=== PATIENT | female | born 1935 | race Caucasian/White ===

== ENCOUNTER 2020-07-16 11:29 | Emergency (ER) | payer MEDICARE, OTHER, SELFPAY ==
[2020-07-16 11:38] VITALS: BP 134/69; PULSE 80; RESP 18; TEMP 36.9; O2SAT 97; BMI 27.8
--- NOTE | 2020-07-16 12:23 | ECG_ITS ---
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 Measurements Intervals [place] Rate: 74 P: 42 [place]: 189 QRS: 2 QRSD: 72 T: 1 QT: 380 QTc: 422 Interpretive Statements SINUS RHYTHM WITH MARKED SINUS ARRHYTHMIA No previous ECG available for comparison Electronically Signed On 07-16-2020 21:14:28 [employer]OUND [employer]MENT [employer]CH[employer]IC by Charla Quinteros M.D. [id number]
[2020-07-16] MEDS: sodium chloride 0.9% 250 ML IV (13:10)
[2020-07-16] MEDS: dicyclomine 10 mg Capsule 20 MG PO (13:10)
[2020-07-16] MEDS: ondansetron 2 mg/ML SDV 2 mL 4 MG IVP (13:10)
--- NOTE | 2020-07-16 13:24 | W.ED.WEAKNES ---
HPI - Weakness General: Chief complaint: Weakness Stated complaint: N/V/D Time Seen by Provider: 07/16/20 11:33 Source: patient Mode of arrival: EMS Limitations: no limitations History of Present Illness: HPI Narrative: 84 yo female patient presents to ER with nausea weakness and diarrhea x 1 week. Pt denies any abd pain or urinary symptoms. Pt states she has felt she has been running a fever. Pt denies any chest pain or SOB. Pt states she cant really taste anything and hasnt had much of an appetite. Pt denies back pain numbness or tingling. Pt denies recent hospitalization and denies being on antibiotics recently Associated symptoms: Reports fever(s) and nausea; Denies chest pain, chills, confusion, diaphoresis, dysuria, easy bruising, headache(s), syncope or vomiting Review of Systems Const: Reports: fever(s), body aches, change in appetite and malaise; Denies: chills, change in weight, fatigue or diaphoresis Eyes: Denies: change in vision, blurry vision, blind spots, photophobia, eye discomfort, eye discharge, eye redness, floaters or seeing flashes ENMT: Denies: throat pain, uvular edema, enlarged tonsils, odynophagia, hoarseness, mouth pain, swelling of lips/tongue, oral sores, bleeding gums, dental pain, dry mouth, ear or mastoid pain, ear discharge, change in hearing, tinnitus, disequilibrium, nasal discharge, nasal congestion, post nasal drip or sinus pain Card: Denies: chest pain, palpitations, irregular heart rhythm, edema, swelling of feet/ankles, lightheadedness, syncope, pre-syncope, dyspnea on exertion, orthopnea, leg pain with exertion or acrocyanosis Resp: Denies: dyspnea, productive cough, non-productive cough, wheezing, stridor, pain on inspiration, change in phlegm color, hemoptysis or chest congestion GI: Reports: nausea and diarrhea; Denies: abdominal pain, vomiting, hematemesis, dysphagia, constipation, GI cramping, change in bowel habits or rectal pain : Denies: flank pain, difficulty voiding, dysuria, urinary frequency, urinary urgency, urinary hesitancy or hematuria Musc: Denies: neck pain, back pain, extremity pain, extremity swelling, joint pain, joint swelling, joint redness, joint warmth or deformity Skin/Breast: Denies: rash, pruritus, erythema, sores, new lesions, changes in skin color or dry skin Neuro: Denies: headache(s), numbness in extremities, weakness in extremities, sensory changes, lack of coordination, difficulty walking, frequent falls, dizziness, vertigo, confusion, behavioral changes, Slurred speech present, difficulty communicating thoughts or seizure-like activity Psych: Denies: anxiety, depression, suicidal ideation or homicidal ideation Endo: Denies: polyuria, polydipsia, tired all the time, cold intolerance, excessive sweating, flushing, hot flashes or heat intolerance Miki/Lymph: Denies: easy bruising, easy bleeding, petechiae, purpura, enlarged lymph nodes or tender lymph nodes All/Imm: Denies: urticaria, throat swelling, tongue swelling, facial swelling, acute wheezing or itchy eyes Physical Exam Const: COMMON NORMALS: no acute distress, patient oriented x3, healthy appearing, alert and well nourished GENERAL APPEARANCE: cooperative, comfortable, well kempt and well developed; not ill appearing ORIENTATION/CONSCIOUSNESS: Yes awake, Yes oriented to person, Yes oriented to place and Yes oriented to time HENMT: COMMON NORMALS: normocephalic, atraumatic, hearing grossly normal bilaterally, external ears normal, EAC's normal, TM's normal bilaterally, Normal external nose present, Normal nasal mucous membranes and turbinates present and moist oral mucous membranes HEAD & SCALP: normal to inspection, normocephalic and atraumatic FACE & SINUS: normal facial exam, sinuses nontender and face symmetric NOSE: Normal external nose present, Normal nares present, Normal nasal mucous membranes and turbinates present, No nasal discharge present and Abnormal external nose present EXTERNAL EAR: Yes external ears normal and Yes mastoids normal EXTERNAL AUDITORY CANAL: EAC's normal TYMPANIC MEMBRANE: TM's normal bilaterally MOUTH: Normal oral and palatal mucosa present, lip normal, tongue normal and Normal salivary glands and ducts present THROAT: no uvular edema Eye: COMMON NORMALS: Equal, round and reactive pupils present, EOMs intact bilaterally, conjunctivae normal, no scleral icterus and no papilledema GENERAL EYE: appearance normal, both eyes and all related structures EYELID: eyelids normal CONJUNCTIVA: Yes conjunctivae normal SCLERA: sclerae normal CORNEA: Yes corneas normal PUPIL: Yes Equal, round and reactive pupils present DIRECT OPHTHALMOSCOPY: Yes no papilledema Neck/C-Spine: COMMON NORMALS: full ROM, no lymphadenopathy, supple, no meningeal signs, no JVD and Thyroid normal GENERAL: Yes normal visual inspection and Yes trachea midline THYROID: Thyroid normal CERVICAL SPINE: Yes cervical ROM normal Lymph: LYMPHATIC: no lymphadenopathy noted and no lymphedema noted Chest: COMMONS NORMALS: normal inspection of the chest and normal palpation of entire chest wall Resp: COMMON NORMALS: normal respiratory effort, No retractions, No use of accessory muscles and clear to auscultation bilaterally EFFORT & INSPECTION: Yes able to speak in complete sentences and Yes symmetric chest movement AUSCULTATION: clear to auscultation bilaterally Cardio: COMMON NORMALS: no JVD, regular rate and regular rhythm RATE: regular rate RHYTHM: regular rhythm GI: COMMON NORMALS: Normal to inspection, nondistended, normoactive bowel sounds present, Soft to palpation, non-tender, No hepatosplenomegaly present, no masses and no bruits INSPECTION: Yes normal to inspection AUSCULTATION: Yes normoactive bowel sounds PALPATION: Yes Soft to palpation and Yes No hepatosplenomegaly present PERCUSSION: normal to percussion RECTAL EXAM: deferred : COMMON NORMALS: Yes no CVA tenderness, Yes normal external appearance, Yes normal appearance of the vagina, Yes normal appearance of the cervix, Yes normal bimanual exam, Yes No adnexal tenderness and Yes no masses BLADDER/KIDNEY EXAM: Yes no CVA tenderness BIMANUAL EXAM - VAGINA & UTERUS: Yes normal bimanual exam Back/Pelvis: COMMON NORMALS: no CVA tenderness, thoracic and lumbar spine normal to inspection, no thoracic nor lumbar tenderness, thoraco-lumbar ROM normal and straight leg raise negative bilaterally THORACIC SPINE/UPPER BACK: Yes normal to inspection LUMBAR SPINE/LOWER BACK: Yes normal to inspection Extremity: COMMON NORMALS: normal to inspection, full ROM and capillary refill normal GENERAL: Yes normal exam except as noted Neuro: COMMON NORMALS: patient oriented x3, CN's II-XII intact bilaterally, moves all extremities, no focal motor deficits, no sensory deficits noted, deep tendon reflexes 2+ bilaterally and gait normal SENSORIUM/ORIENTATION: Yes alert, Yes oriented to person, Yes oriented to place and Yes oriented to time MENINGEAL SIGNS: Yes no meningeal signs CRANIAL NERVES: Yes CN normal except as noted SPEECH: speech normal GAIT: Yes Normal gait present SENSORY EXAM: Yes extremities MOTOR EXAM: 5/5 motor strength present throughout Psych: COMMON NORMALS: mental status grossly normal, Normal thought process present, cooperative, normal affect, speech normal, activity/motor behavior normal, denies hallucinations, denies homicidal ideation and denies suicidal ideation APPEARANCE: Yes grossly normal and Yes well kempt ATTITUDE: Yes calm ACTIVITY/MOTOR BEHAVIOR: Yes appropriate eye contact SPEECH: Yes normal speech THOUGHT PROCESS: Normal thought process present THOUGHT CONTENT: Yes Normal thought content present ATTENTION/CONCENTRATION: Yes attention grossly intact MEMORY/COGNITION: Yes memory grossly intact INSIGHT: Good insight present (Psych) JUDGEMENT: Good judgement present (Psych) Skin: COMMON NORMALS: no rashes or lesions noted, no wounds, turgor normal, no jaundice, no petechiae and no mottling GENERAL SKIN EXAM: no rashes or lesions noted and turgor normal Course Vital Signs: Vital signs: Vital Signs Temperature 98.5 F 07/16/20 11:38 Pulse Rate 80 07/16/20 11:38 Respiratory Rate 18 07/16/20 11:38 Blood Pressure 134/69 07/16/20 11:38 Pulse Oximetry 97 07/16/20 11:38 MDM - Weakness MDM Narrative: Medical decision making narrative: Pt is well appearing on toxic and in no acute distress. Pt labs do not reveal any concerning findings. Pt has not had any episodes of nausea or diarrhea while here in the er. Pt ws given 250 ml of NS. Pt did have positive Covid test/ Pt has no SOB pt has no respiratory complaints pt has no evidence of hypoxia. At this point I will plan on discharging patient and have her push fluids. I discussed with patient she needs to quarantine and health dept will contact her. I discussed return precautions as well home care with patient. Lab Data: Labs: Lab Results 07/16/20 07/16/20 07/16/20 Range/Units 13:30 13:30 14:46 WBC 4.2 (4.0-10.0) 10^3/ uL RBC 3.43 L (4.1-5.3) 10^6/u L Hgb 11.0 L (11.5-15.3) g/dL Hct 35.7 L (37.0-47.0) % MCV 104.1 H (81-99) fL MCH 32.1 (28.0-34.0) pg MCHC 30.8 (30.0-36.0) g/dL RDW 13.8 (12.1-15.1) % Plt Count 125 L (130-400) 10^3/c mm MPV 10.8 H (7.4-10.4) fL Neut % (Auto) 59.0 % Lymph % (Auto) 31.1 % [place] % (Auto) 8.9 % Eos % (Auto) 0.0 % Baso % (Auto) 0.5 % Neut # (Auto) 2.47 (1.8-7.7) 10^3/u L Lymph # (Auto) 1.3 (0.8-4.8) 10^3/u L [place] # (Auto) 0.4 (0.2-0.9) 10^3/u L Eos # (Auto) 0.0 (0.0-0.8) 10^3/u L Baso # (Auto) 0.0 (0.0-0.1) 10^3/u L Nucleated RBC % (a uto) 0 % Nucleated RBCs # 0.0 /100WBC Sodium 144 (136-145) mmol/L Potassium 4.3 (3.5-5.1) mmol/L Chloride 107 (98-107) mmol/L Carbon Dioxide 27 (22-29) mmol/L Anion Gap 14.3 (5-19) BUN 15 (8-23) mg/dL Creatinine 0.7 (0.5-0.9) mg/dL GFR Calculation Not Reportable Glucose 101 (65-115) mg/dL Calcium 9.0 (8.5-10.5) mg/dL Total Bilirubin 0.2 (0.15-1.2) mg/dL AST 26 (0-32) U/L ALT 18 (0-33) U/L Alkaline Phosphata se 59 (35-105) IU/L Albumin 4.1 (3.5-5.2) g/dL Globulin 2.2 (1.3-4.6) g/dL SARS-CoV-2 Ag (Rap id) Positive H (Negative) Discharge Plan Discharge Patient Disposition: Home Clinical Impression: COVID-19 virus infection Condition: Stable Prescriptions: No Action calcium 600 mg Capsule 600 mg PO DAILY RF: 0 metoprolol succinate 50 mg tablet extended release 24 hr 50 mg PO DAILY RF: 0 sertraline 100 mg tablet 100 mg PO DAILY RF: 0 Vitamin B-12 1,000 mcg Tablet 1,000 mcg PO DAILY RF: 0 hydrocodone-acetaminophen 10-325 mg tablet 0.5 - 1 tab PO Q4H PRN (Reason: Pain) RF: 0 aspirin 81 mg Tablet 162 mg PO BEDTIME RF: 0 rosuvastatin 20 mg tablet 20 mg PO DAILY RF: 0 PreserVision AREDS-2 1 tab PO DAILY RF: 0 Discharge Orders: Discharge Order (Routine); Ordered 07/16/20 Ordered By: Brittni Gray Referrals: Phillip Olvera, [Primary Care Provider] - Discharge Diet: Advance as tolerated Discharge Activity: Increase activity as tolerated Activity Restrictions/Additional Instructions: Please return to ER with any worsening of symptoms Please push plenty of fluids Please qurantine The Health Department will contact you with further instructions Coding Level of Care Code ED Director Digital Communications for Nii Fwd Exam Comprehensive
[2020-07-16 14:20] LABS: Basophils % 0.5 %; Hematocrit 35.7 % (37.0-47.0); Lymphocytes # 1.3 10^3/uL (0.8-4.8); Lymphocytes % 31.1 %; Mean Corpuscular HGB Conc 30.8 g/dL (30.0-36.0); Mean Corpuscular Hemoglobin 32.1 pg (28.0-34.0); Mean Corpuscular Volume 104.1 fL (81-99); Mean Platelet Volume 10.8 fL (7.4-10.4); Monocytes # 0.4 10^3/uL (0.2-0.9); Monocytes % 8.9 %; Neutrophils # 2.47 10^3/uL (1.8-7.7); Nucleated Red Blood Cells % 0 %; Platelet Count 125 10^3/cmm (130-400); Red Blood Count 3.43 10^6/uL (4.1-5.3); Red Cell Distribution Width 13.8 % (12.1-15.1); White Blood Count 4.2 10^3/uL (4.0-10.0)
[2020-07-16 14:46] LABS: Alanine Aminotransferase 18 U/L (0-33); Albumin Level 4.1 g/dL (3.5-5.2); Alkaline Phosphatase 59 IU/L (35-105); Anion Gap 14.3 (5-19); Aspartate Amino Transferase 26 U/L (0-32); Blood Urea Nitrogen 15 mg/dL (8-23); Carbon Dioxide 27 mmol/L (22-29); Chloride 107 mmol/L (98-107); Creatinine Clr Calc Pharmacy 65.0923; Globulin 2.2 g/dL (1.3-4.6); Glucose 101 mg/dL (65-115); Osmolality Calculated 299 mOsm/kg (285-295); Potassium 4.3 mmol/L (3.5-5.1); Sodium 144 mmol/L (136-145); Total Bilirubin 0.2 mg/dL (0.15-1.2); Total Protein 6.3 g/dL (6.6-8.7)
[2020-07-16 14:47] LABS: SARS Covid-2 Antigen Positive (Negative)
[2020-07-16 14:52] LABS: Troponin T (5th) Once 15 ng/L (0-10)
[2020-07-16 16:04] VITALS: BP 158/95; PULSE 71; RESP 20; O2SAT 94
== END 2020-07-16 16:00 | disposition home or self-care (01) ==
PROVIDERS: Emergency Provider Registered Nurse; PCP Family Medicine
DX: U07.1 COVID-19 (principal); Z79.82 Long term (current) use of aspirin; R19.7 Diarrhea, unspecified
CPT/HCPCS: 12345; 80053; 84484; 85025; 87426; 87493; 87506; 93005; 96361; 96374; 96375; 99282; 99283; J2405; J7050

== ENCOUNTER 2020-09-26 09:47 | Outpatient (CLI) | payer MEDICARE, OTHER, SELFPAY ==
--- NOTE | 2020-09-26 10:06 | XR_ITS ---
WS: [id number] Exam: XR chest 2V* [id number] Date/Time of Exam: 09/26/2020 10:06 AM Reason For Exam: COVID-19 INFECTION/DYSPNEA Comparison 01/09/2018. The lungs are clear and fully expanded. Signs of left-sided thoracotomy and partial left pneumonectom y. Heart size is normal. The mediastinum is not widened. Reed rods are noted in the visualized upper lumbar spine and thoracic spine. No sign of hardware failure or malposition. 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 Several mild thoracic compression deformities noted with exaggerated kyphosis. XR/XR chest 2V* [id number] IMPRESSION: 1. No acute cardiopulmonary finding. 2. Additional stable appearing chronic findings in the chest as noted above.
== END 2020-09-26 09:48 | disposition home or self-care (01) ==
PROVIDERS: PCP Family Medicine; Visit Provider Family Medicine
DX: U07.1 COVID-19 (principal); R06.00 Dyspnea, unspecified
CPT/HCPCS: 71046

== ENCOUNTER 2021-01-18 13:10 | Outpatient (CLI) | payer MEDICARE, OTHER, SELFPAY ==
--- NOTE | 2021-01-18 13:27 | XR_ITS ---
WS: [id number] Left foot, 3 views, 01/18/2021 Clinical Data: FOOT PAIN, LEFT Comparison: Left foot, 02/12/2006. Findings: No fractures or dislocations are seen. No bone destruction or erosion is noted. There is an orthopedi c pin fusing the left second PIP joint of the foot.There is a plantar spur and an Achilles spur. Diff use demineralization of the bones of the foot is noted. XR/XR foot LT min 3V* [id number] Impression: 1. Negative for fracture or dislocation. 2. Fusion of the left second PIP joint of the foot.
== END 2021-01-18 13:11 | disposition home or self-care (01) ==
PROVIDERS: PCP Family Medicine; Visit Provider Nurse Practitioner Family
DX: M79.672 Pain in left foot (principal)
CPT/HCPCS: 73630

== ENCOUNTER 2021-04-05 08:50 | Emergency (ER) | payer MEDICARE, OTHER, SELFPAY ==
[2021-04-05 09:00] VITALS: BP 197/98; PULSE 69; RESP 15; TEMP 36.9; O2SAT 98; BMI 24.4
--- NOTE | 2021-04-05 09:07 | XRR_ITS ---
PROCEDURE INFORMATION: Exam: XR Left Scapula Exam date and time: 04/05/2021 9:07 AM Age: 85 years old Clinical indication: Pain and injury or trauma; Fall; Blunt trauma (contusions or hematomas); Shoulder; Left; Injury date: 04/04/21; Additional info: Pain after fall TECHNIQUE: Imaging protocol: XR Left scapula, complete. COMPARISON: CR XR chest 2V* [id number] 09/26/2020 10:27 AM FINDINGS: Bones/joints: Osteopenia. Acute fractures of the left 3rd, 4th, 5th, and 6th ribs. No acute bony injury or malalignment in the visualized left scapula. Degenerative change. Incompletely visualized surgical hardware in the thoracic spine. Pleural space: Left pleural effusions/thickening. Soft tissues: No radiopaque foreign body. XR/[place] [id number] IMPRESSION: 1. Acute fractures of the left 3rd, 4th, 5th, and 6th ribs. 2. Additional findings as described above.
--- NOTE | 2021-04-05 09:07 | ECG_ITS ---
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 Measurements Intervals [place] Rate: 73 P: 69 [place]: 178 QRS: 10 QRSD: 77 T: 14 QT: 390 QTc: 433 Interpretive Statements SINUS RHYTHM WITH MARKED SINUS ARRHYTHMIA Compared to ECG 07/16/2020 13:21:01 No significant changes Electronically Signed On 04-06-2021 16:43:21 CDT by Rylie Lacy M.D. [id number] f
--- NOTE | 2021-04-05 09:07 | XRR_ITS ---
PROCEDURE INFORMATION: Exam: XR Left Ribs with PA Chest Exam date and time: 04/05/2021 9:07 AM Age: 85 years old Clinical indication: Pain and injury or trauma; Fall; Rib area, left side; Blunt trauma; Chest wall pain; Injury date: 04/04/21; Prior surgery; Surgery type: Back, hyst; Additional info: Pain fall TECHNIQUE: Imaging protocol: XR Left ribs with PA chest. Views: 3 views COMPARISON: CR XR chest 2V* [id number] 09/26/2020 10:27 AM FINDINGS: Lungs: Emphysematous change and interstitial prominence. Pleural spaces: Left pleural thickening and/or fluid. Heart/Mediastinum: No cardiomegaly. Bones/joints: Acute fractures of the left 3rd, 4th, 5th, and 6th ribs. Osteopenia and degenerative change. Surgical hardware in the thoracic spine. XR/XR ribs LT mn 3V w CXR1V [id number] IMPRESSION: 1. Acute fractures of the left 3rd, 4th, 5th, and 6th ribs. 2. Additional findings as described above.
--- NOTE | 2021-04-05 09:08 | CT_ITS ---
WS: [id number] CT FACIAL BONES HISTORY: Fall contusion left orbit TECHNIQUE: Images obtained from the supraorbital location through the mandible. Soft tissue and bone windows are reviewed. Coronal and sagittal reformats have also been submitted. DLP: 784.[address] scans at [facility] use at least one of these dose optimization techniques: automat ed exposure control; mA and/or kV adjustment per patient size (includes targeted exams where dose is matched to clinical indication); or iterative reconstruction. COMPARISON: None available. No acute facial bone fractures are identified. There is mild soft tissue induration centered over the LEFT zygomatic arch and orbit at the site of trauma. Orbits and globes are negative. Nasal bones and zygomatic arches are intact. No air-fluid levels within the sinuses. Facet joint arthritis in the up per cervical region. Craniocervical junction is intact and normally aligned. CT/CT facial bones wo con* [id number] IMPRESSION: 1. No facial bone fracture. 2. Mild soft tissue induration centered over the LEFT orbit and zygomatic arch at the site of trauma.
--- NOTE | 2021-04-05 09:08 | CT_ITS ---
WS: [id number] CT CERVICAL SPINE HISTORY: Fall with loss of consciousness TECHNIQUE: Contiguous 2.5 mm axial imaging performed through the entire cervical spine. Sagittal and coronal reformats also performed. All CT scans at [facility] use at least one of these do se optimization techniques: automated exposure control; mA and/or kV adjustment per patient size (inc ludes targeted exams where dose is matched to clinical indication); or iterative reconstruction. DLP: 763.96 mGy.cm COMPARISON: None available. Normal cervical alignment. Craniocervical junction, atlantodental interval and C1-C2 alignment is nor mal. Degenerative changes at the odontoid tip. Narrowing of the predental space. Moderate degenerative dis c disease at C5-6 and C6-7. No cervical spine fractures. Facet joint arthritis with narrowing and hyp ertrophic changes throughout the cervical spine. No acute fractures. Bilateral foraminal narrowing be gins at the C3-4 level through C6-7. Emphysematous changes at the lung apices. RIGHT thyroid nodule 8 mm. Moderate atherosclerotic plaque within the carotid bifurcations. CT/CT cervical spin wo con* [id number] IMPRESSION: 1. No acute cervical spine fracture. 2. Moderate degenerative spondylitic changes throughout the cervical spine.
--- NOTE | 2021-04-05 09:08 | CT_ITS ---
WS: [id number] CT HEAD NONCONTRAST HISTORY: fall w LOC TECHNIQUE: Contiguous axial imaging performed through the brain in 2.5 mm imaging. Bone and soft tiss ue windows. Sagittal and coronal reformats reviewed. All CT scans at [facility] use at ast one of these dose optimization techniques: automated exposure control; mA and/or kV adjustment pe r patient size (includes targeted exams where dose is matched to clinical indication); or iterative r econstruction. DLP: 857.99 mGy.cm COMPARISON: 2010 Acute undulating subdural hematoma with a maximum diameter of 6 mm. There is very slight mass effect on the LEFT frontal, temporal and occipital lobes. The LEFT subdural hematoma extends posterior over the parietal region. No additional bleed. 3 mm midline shift to the RIGHT. Mild microvascular ischemic type changes. Ventricles: Normal size ventricles. No intraventricular blood. Paranasal sinuses: As visualized are clear. Mastoid air cells: Well pneumatized. Calvarium and scalp: No skull fracture. There is soft tissue hematoma and induration centered over th e LEFT orbit and zygomatic arch. CT/CT head wo con* [id number] IMPRESSION: 1. Moderate-sized acute LEFT subdural hematoma with a maximum diameter of 6 mm and mild mass effect upon the brain. 2. 3 mm midline shift to the RIGHT. Notified Tao Albert DO at 04/05/2021 9:46 AM.
--- NOTE | 2021-04-05 09:09 | W.ED.FALL ---
HPI - Fall General: Chief Complaint: Fall Stated Complaint: FALL/ SOB Time Seen by Provider: 04/05/21 08:55 History of Present Illness: HPI Narrative: 85-year-old female who fell at home yesterday. She complaining of rib pain back pain pain when she takes a deep breath. She also has a contusion over the left eye. She had stumbled over her walker family was present and helped her up she is worse this morning and called EMS. She does question if there was a loss of consciousness. Her main complaint seems to be left scapula and mid back. MD complaint: fall Onset (ago): day(s) (1) Fall from: standing Fall witnessed: yes, by family Place fall occurred: home Loss of consciousness: Yes Prolonged down time: unclear Context: tripped/slipped Location of injury: head Severity: moderate Quality: dull and throbbing Associated symptoms-after fall: Reports difficulty walking and lightheadedness; Denies abdominal pain, chest pain, confusion, headache(s), hematuria, neck pain, numbness, short of breath, vertigo or weakness Review of Systems Const: Denies: fever(s), chills, body aches, change in appetite, fatigue or malaise ENMT: Denies: throat pain, ear or mastoid pain, nasal discharge or nasal congestion Card: Reports: lightheadedness; Denies: chest pain Resp: Denies: dyspnea, productive cough or non-productive cough GI: Denies: abdominal pain, nausea, vomiting, hematemesis, coffee ground emesis, diarrhea, constipation, bloating, hematochezia or melena : Denies: hematuria Musc: Denies: neck pain Skin/Breast: Denies: rash or pruritus Neuro: Reports: difficulty walking; Denies: headache(s), vertigo or confusion Physical Exam Const: COMMON NORMALS: no acute distress GENERAL APPEARANCE: cooperative and comfortable ORIENTATION/CONSCIOUSNESS: Yes awake, Yes oriented to person, Yes oriented to place and Yes oriented to time HENMT: COMMON NORMALS: normocephalic, atraumatic and hearing grossly normal bilaterally HEAD & SCALP: normocephalic and atraumatic Eye: COMMON NORMALS: Equal, round and reactive pupils present, EOMs intact bilaterally, conjunctivae normal and no scleral icterus CONJUNCTIVA: Yes conjunctivae normal PUPIL: Yes Equal, round and reactive pupils present Neck/C-Spine: COMMON NORMALS: full ROM, no lymphadenopathy, supple and no JVD Resp: COMMON NORMALS: normal respiratory effort, No retractions, No use of accessory muscles and clear to auscultation bilaterally AUSCULTATION: clear to auscultation bilaterally Cardio: COMMON NORMALS: no JVD, regular rate, regular rhythm and No murmurs present (Cardio) RATE: regular rate RHYTHM: regular rhythm GI: COMMON NORMALS: Soft to palpation and No hepatosplenomegaly present AUSCULTATION: Yes normoactive bowel sounds PALPATION: Yes Soft to palpation, No Tenderness to palpation present (GI), No Guarding due to palpation present (GI) and Yes No hepatosplenomegaly present Extremity: COMMON NORMALS: normal to inspection, capillary refill normal, no clubbing, cyanosis or edema, no calf tenderness and no pedal edema Neuro: SENSORIUM/ORIENTATION: Yes oriented to person, Yes oriented to place and Yes oriented to time Skin: COMMON NORMALS: no rashes or lesions noted GENERAL SKIN EXAM: no rashes or lesions noted Course Vital Signs: Vital signs: Vital Signs Temperature 98.4 F 04/05/21 09:00 Pulse Rate 78 04/05/21 11:04 Respiratory Rate 18 04/05/21 11:04 Blood Pressure 218/120 04/05/21 11:04 Pulse Oximetry 98 04/05/21 11:04 MDM - Fall MDM Narrative: Medical decision making narrative: Intracranial bleed subdural hematoma labs and imaging reviewed. Will transfer to tertiary care as we do not have neurosurgery available here. Lab Data: Labs: Lab Results 04/05/21 04/05/21 04/05/21 Range/Units 10:00 10:00 10:00 WBC 6.7 (4.0-10.0) 10^3/ uL RBC 3.58 L (4.1-5.3) 10^6/u L Hgb 11.4 L (11.5-15.3) g/dL Hct 36.3 L (37.0-47.0) % MCV 101.4 H (81-99) fL MCH 31.8 (28.0-34.0) pg MCHC 31.4 (30.0-36.0) g/dL RDW 13.8 (12.1-15.1) % Plt Count 138 (130-400) 10^3/c mm MPV 10.2 (7.4-10.4) fL Neut % (Auto) 68.6 % Lymph % (Auto) 20.7 % [place] % (Auto) 9.7 % Eos % (Auto) 0.4 % Baso % (Auto) 0.3 % Neut # (Auto) 4.57 (1.8-7.7) 10^3/u L Lymph # (Auto) 1.4 (0.8-4.8) 10^3/u L [place] # (Auto) 0.7 (0.2-0.9) 10^3/u L Eos # (Auto) 0.0 (0.0-0.8) 10^3/u L Baso # (Auto) 0.0 (0.0-0.1) 10^3/u L Nucleated RBC % (a uto) 0 % Nucleated RBCs # 0.0 /100WBC Sodium 138 (136-145) mmol/L Potassium 4.3 (3.5-5.1) mmol/L Chloride 101 (98-107) mmol/L Carbon Dioxide 27 (22-29) mmol/L Anion Gap 14.3 (5-19) BUN 15 (8-23) mg/dL Creatinine 0.7 (0.5-0.9) mg/dL GFR Calculation Not Reportable Glucose 98 (65-115) mg/dL Calculated Osmolal ity 287 (285-295) mOsm/k g Calcium 9.1 (8.5-10.5) mg/dL Total Bilirubin 0.5 (0.15-1.2) mg/dL AST 29 (0-32) U/L ALT 14 (0-33) U/L Alkaline Phosphata se 56 (35-105) IU/L Total Protein 6.6 (6.6-8.7) g/dL Albumin 4.0 (3.5-5.2) g/dL Globulin 2.6 (1.3-4.6) g/dL Urine Color Straw (Yellow) Urine Appearance Sl hazy (CLEAR) Urine pH 8 H (5-7) Ur Specific Gravit y 1.010 (1.005-1.030) Urine Protein Neg (Negative) Urine Glucose (UA) Norm (Normal) Urine Ketones Negative (Negative) Urine Blood Neg (Negative) Urine Nitrate Negative (Negative) Urine Bilirubin Neg (Negative) Prot Sulfosalicyli c Acd Negative (Negative) Urine Urobilinogen Norm (Negative) mg/dL Ur Leukocyte Bel[place] a[place] 1+ H (Negative) Urine RBC 0-4 H (0-2) /hpf Urine WBC 40-55 H (0-5) /hpf Ur Squamous Epith Cells 0-4 H (0-5) /hpf Amorphous Sediment Not Reportable Urine Bacteria 3+ H (NONE) /hpf Discharge Plan Discharge Patient Disposition: Transfer to ED Clinical Impression: Subdural hematoma, Cystitis Condition: Stable Prescriptions: No Action calcium 600 mg Capsule 600 mg PO DAILY RF: 0 metoprolol succinate 50 mg tablet extended release 24 hr 50 mg PO DAILY RF: 0 sertraline 100 mg tablet 100 mg PO DAILY RF: 0 Vitamin B-12 1,000 mcg Tablet 1,000 mcg PO DAILY RF: 0 hydrocodone-acetaminophen 10-325 mg tablet 0.5 - 1 tab PO Q4H PRN (Reason: Pain) RF: 0 aspirin 81 mg Tablet 162 mg PO BEDTIME RF: 0 rosuvastatin 20 mg tablet 20 mg PO DAILY RF: 0 PreserVision AREDS-2 1 tab PO DAILY RF: 0 Referrals: Phillip Olvera DO [Primary Care Provider] - Patient Instructions: Opioid Safety Coding Level of Care Code ED Bioinformatics Technician for Nii Rojas
[2021-04-05 10:13] VITALS: BP 218/120; PULSE 78; RESP 18; O2SAT 98
[2021-04-05 10:13] LABS: Basophils % 0.3 %; Eosinophils % 0.4 %; Hematocrit 36.3 % (37.0-47.0); Hemoglobin 11.4 g/dL (11.5-15.3); Lymphocytes # 1.4 10^3/uL (0.8-4.8); Lymphocytes % 20.7 %; Mean Corpuscular HGB Conc 31.4 g/dL (30.0-36.0); Mean Corpuscular Hemoglobin 31.8 pg (28.0-34.0); Mean Corpuscular Volume 101.4 fL (81-99); Mean Platelet Volume 10.2 fL (7.4-10.4); Monocytes # 0.7 10^3/uL (0.2-0.9); Monocytes % 9.7 %; Neutrophils # 4.57 10^3/uL (1.8-7.7); Neutrophils % 68.6 %; Nucleated Red Blood Cells % 0 %; Platelet Count 138 10^3/cmm (130-400); Red Blood Count 3.58 10^6/uL (4.1-5.3); Red Cell Distribution Width 13.8 % (12.1-15.1); White Blood Count 6.7 10^3/uL (4.0-10.0)
[2021-04-05 10:37] LABS: Alanine Aminotransferase 14 U/L (0-33); Alkaline Phosphatase 56 IU/L (35-105); Anion Gap 14.3 (5-19); Aspartate Amino Transferase 29 U/L (0-32); Blood Urea Nitrogen 15 mg/dL (8-23); Calcium 9.1 mg/dL (8.5-10.5); Carbon Dioxide 27 mmol/L (22-29); Chloride 101 mmol/L (98-107); Globulin 2.6 g/dL (1.3-4.6); Glucose 98 mg/dL (65-115); Osmolality Calculated 287 mOsm/kg (285-295); Potassium 4.3 mmol/L (3.5-5.1); Sodium 138 mmol/L (136-145); Total Bilirubin 0.5 mg/dL (0.15-1.2); Total Protein 6.6 g/dL (6.6-8.7)
[2021-04-05 10:41] LABS: Bilirubin Urine Neg (Negative); Blood Urine Neg (Negative); Glucose Urine UA Norm (Normal); Ketones Urine Negative (Negative); Nitrate Urine Negative (Negative); Protein Urine Neg (Negative); Urine Appearance SL Hazy (CLEAR); Urine Color Straw (Yellow); pH Urine 8 (5-7)
[2021-04-05 10:42] LABS: Add Urine Microscopic? YES; Leukocyte Esterase Urine 1+ (Negative); Sulfosalicylic Acid Urine Negative (Negative); Urobilinogen Urine Norm (Negative)
[2021-04-05 10:45] LABS: Add Urine Culture? Yes; Bacteria Urine 3+ /hpf; RBC Urine 0-4 /hpf (0-2); Squamous Epithelial Cell Urine 0-4 /hpf (0-5); WBC Urine 40-55 /hpf (0-5)
[2021-04-05] MEDS: cefTRIAXone 1,000 MG in sodium chloride 0.9% (plus) 50 ML 100 MG IV (11:03)
[2021-04-05 11:04] VITALS: BP 218/120; PULSE 78; RESP 18; O2SAT 98
== END 2021-04-05 11:05 ==
PROVIDERS: Emergency Provider Family Medicine; PCP Family Medicine
DX: S06.5X9A Traumatic subdural hemorrhage with loss of consciousness of unspecified duration, initial encounter (principal); N30.90 Cystitis, unspecified without hematuria; Z79.82 Long term (current) use of aspirin; W01.0XXA Fall on same level from slipping, tripping and stumbling without subsequent striking against object, initial encounter
CPT/HCPCS: 51702; 70450; 70486; 71101; 72125; 73010; 80053; 81001; 85025; 87077; 87086; 87186; 93005; 96365; 99284; J0696

== ENCOUNTER 2021-08-28 14:44 | Outpatient (CLI) | payer MEDICARE, OTHER, SELFPAY ==
--- NOTE | 2021-08-28 | MR_ITS ---
WS: [id number] MRI RIGHT SHOULDER NONCONTRAST TECHNIQUE: Sagittal T2, coronal T1, T2 and proton density imaging. Axial gradient PDE imaging. CLINICAL INFORMATION: RT SHOULDER PAIN COMPARISON: None. FINDINGS: Moderate degenerative arthritis at the AC joint. Mild downsloping of the acromion. Subacromial spurri ng. Impingement on the distal supraspinatus. Small amount of subacromial/subdeltoid fluid. Intraosseo us ganglion cyst in the humeral head extending to the greater tuberosity. Chronic thinning of the dis ermelinda supraspinatus. Chronic appearing tear of the distal supraspinatus with 1.5 cm tendon retraction. Tendinopathy in the supraspinatus. Normal infraspinatus. Normal teres minor. Chronic thinning of the subscapularis tendon distally. Brandy ps tendon is absent from the bicipital groove likely due to chronic tear. Tiny remnant intra-articula r biceps tendon. Degenerative fraying of the glenoid labrum which appears grossly intact. Normal bone marrow signal in the glenoid. Normal coracoid. MR/MR shoulder RT wo con* [id number] IMPRESSION: 1. Moderate degenerative arthritis at the AC joint with mild downsloping acrom ion with narrowing of the subacromial space. Small amount of subacromial/subdel toid fluid. 2. Advanced chronic thinning of the supraspinatus tendon distally with tendino shoshana. Chronic appearing distal supraspinatus tear with 1.5 cm tendon retractio n. 3. Normal infraspinatus and teres minor. Chronic thinning of the subscapularis tendon distally. 4. Biceps tendon is absent from the bicipital groove likely chronically torn. Tiny remnant intra-articular biceps tendon. 5. Small lobulated ganglion cyst within the humeral head extending to the grea ter tuberosity
--- NOTE | 2021-09-25 15:50 | P.HP_ITS ---
Providers/Chief Complaint Admitting Physician: General Surgery Ricco Quintero MD Primary Care Provider: Phillip Olvera DO Chief Complaint: Right lower quadrant abdominal pain. History of Present Illness Delia Arthur is a 86 year old female who started having right lower quadrant abdominal pain late last week (about 4?5 days ago). She has not had much of an appetite and has not been eating much. She had a loose bowel movement yesterday which is a little unusual for her. She was having some chills yesterday but never took her temperature. The patient lives by herself but had her daughter bring her into the emergency department today. A CAT scan showed evidence of an inflammatory process in the right lower quadrant and some free air. The radiologist seemed to suggest the perforation was in the area of the small bowel in the right lower quadrant and yet ischemic colitis should be considered. The patient is unaware of any unintentional recent ingestion of foreign objects, toothpicks, fish bones, etc. The patient tells me that she has had had a hysterectomy but she cannot remember if her appendix was taken or not. The radiologist seemed to suggest that the appendix was not seen and a prior appendectomy was suspected. The patient denies any known history of peptic ulcer disease. She has not had any recent upper GI symptoms. She tells me that she had a normal colonoscopy in the past but has probably been about 15 years ago. Medications/Allergies Home Medications Medication Instructions Recorded Confirmed Last Taken Type PreserVision AREDS-2 1 tab PO DAILY 07/16/20 07/16/20 07/15/20 History aspirin 81 mg tablet 162 mg PO BEDTIME 07/16/20 07/16/20 07/15/20 History calcium 600 mg capsule 600 mg PO DAILY 07/16/20 07/16/20 07/15/20 History cyanocobalamin (vitamin B-12) 1,000 mcg PO DAILY 07/16/20 07/16/20 07/16/20 History 1,000 mcg tablet (Vitamin B-12) hydrocodone 10 mg-acetaminophen 0.5 - 1 tab PO Q4H PRN 07/16/20 07/16/20 07/15/20 History 325 mg tablet metoprolol succinate 50 mg 50 mg PO DAILY 07/16/20 07/16/20 07/16/20 History tablet,extended release 24 hr rosuvastatin 20 mg tablet 20 mg PO DAILY 07/16/20 07/16/20 07/15/20 History sertraline 100 mg tablet 100 mg PO DAILY 07/16/20 07/16/20 07/16/20 History Allergies Allergy/AdvReac Type Severity Reaction Status Date / Time Penicillins Allergy ALGY-Rash Verified 07/16/20 11:49 PFSH Acute PFSH: Medical History (Updated 09/25/21 @ 16:00 by Ricco Quintero MD) Chronic back pain Hypertension Surgical History (Updated 09/25/21 @ 15:48 by Ricco Quintero MD) History of back surgery spinal rods History of cataract surgery History of cholecystectomy History of hysterectomy / BSO Social History (Updated 09/25/21 @ 16:00 by Ricco Quintero MD) Smoking and tobacco status: never smoked Alcohol intake: never Physical Exam Narrative: EXAM NARRATIVE: The patient was encountered in the emergency room. She does not appear to feel well. The pupils are equal. No carotid bruits are heard. The lungs are clear anteriorly. The heart is regular. The abdomen is mildly to moderately obese and is softly distended but has very few bowel sounds. The patient has rather exquisite tenderness in the right lower quadrant. No obvious masses are palpated but deep palpation was not carried out. The extremities may reveal some very mild edema. Neurologically the patient is grossly intact. Data CT Abd/Pel: Radiologist's impression: CT abdomen pelvis 09/25/2021 IMPRESSION: 1. Free intraperitoneal air. There are several pockets of air in the peritoneal cavity suspicious for perforated viscus. Abnormal small bowel loops in the RIGHT lower quadrant. Suspect this is the area of perforation. No mass identified. Consider ischemic colitis. 2. Small amount of free fluid in the pelvis is more than expected. No abscess identified. 3. Prior cholecystectomy and appendectomy. A&P Assessment and plan (1) Perforated viscus: I have discussed the CAT scan findings with the patient and her family members/hide grader. We have discussed the rare causes of small bowel perforations and the more common causes of the colon perforations. I made them aware that if the small bowel has perforated we can generally get away with doing a resection and repair. If it is a colonic perforation then a colostomy is most likely going to be needed. In addition, we discussed the other risks of surgery including bleeding, infection, internal organ injury, anesthesia reactions, etc. The patient seems to understand and is agreeable to proceeding with surgery today. The hospitalist team has already been consulted for medical management during the patient's hospitalization. Status: Acute Attestations Medical Necessity Statement*: Based on my medical assessment, presenting symptoms, medical accuity and consideration of surgical therapy, I expect this patient will require treatment in the hospital for a period spanning at least 2 midnights. Coding Level of Care Code Acute Speech Language Pathologist Prn for [facility] Diagnoses Perforated viscus R19.8
== END 2021-08-28 14:45 | disposition home or self-care (01) ==
LOC: RADSHAW 14:48
PROVIDERS: PCP Family Medicine; Visit Provider Family Medicine
DX: M19.011 Primary osteoarthritis, right shoulder (principal)
CPT/HCPCS: 73221

== ENCOUNTER 2021-09-25 11:28 | Inpatient (IN) | payer MEDICARE, OTHER, SELFPAY ==
[2021-09-25] VITALS (17 sets, daily range): BP systolic 119–168; BP diastolic 58–79; PULSE 99–116; RESP 16–97; TEMP 36.6–37.9; O2SAT 90–100; BMI 25.5
--- NOTE | 2021-09-25 11:46 | W.ED.COVID ---
HPI - COVID General: Chief Complaint: Weakness Stated Complaint: FLU LIKE SYMPTOMS Time Seen by Provider: 09/25/21 11:46 COVID Results: SARS-CoV-2 Antigen (Rapid) Positive (Negative) H 07/16/20 14:46 07/16/20 Physical Exam Const: COMMON NORMALS: no acute distress GENERAL APPEARANCE: cooperative and comfortable ORIENTATION/CONSCIOUSNESS: Yes awake, Yes oriented to person, Yes oriented to place and Yes oriented to time HENMT: COMMON NORMALS: normocephalic, atraumatic and hearing grossly normal bilaterally HEAD & SCALP: normocephalic and atraumatic Neck/C-Spine: COMMON NORMALS: no JVD Resp: COMMON NORMALS: normal respiratory effort, No retractions, No use of accessory muscles and clear to auscultation bilaterally AUSCULTATION: clear to auscultation bilaterally Cardio: COMMON NORMALS: no JVD, regular rate, regular rhythm and No murmurs present (Cardio) RATE: regular rate RHYTHM: regular rhythm GI: COMMON NORMALS: Soft to palpation and No hepatosplenomegaly present AUSCULTATION: Yes normoactive bowel sounds PALPATION: Yes Soft to palpation, No Tenderness to palpation present (GI), No Guarding due to palpation present (GI) and Yes No hepatosplenomegaly present Extremity: COMMON NORMALS: normal to inspection, capillary refill normal, no clubbing, cyanosis or edema, no calf tenderness and no pedal edema Neuro: SENSORIUM/ORIENTATION: Yes oriented to person, Yes oriented to place and Yes oriented to time Skin: COMMON NORMALS: no rashes or lesions noted GENERAL SKIN EXAM: no rashes or lesions noted Course Vital Signs: Vital signs: Vital Signs Temperature 99.4 F 09/25/21 11:36 Pulse Rate 108 H 09/25/21 11:36 Respiratory Rate 18 09/25/21 11:36 Blood Pressure 168/76 09/25/21 11:36 Pulse Oximetry 94 09/25/21 11:36 MDM - COVID Lab Data COVID Results: SARS-CoV-2 Antigen (Rapid) Positive (Negative) H 07/16/20 14:46 07/16/20 Discharge Plan Discharge Condition: Stable Prescriptions: No Action calcium 600 mg Capsule 600 mg PO DAILY 0RF metoprolol succinate 50 mg tablet extended release 24 hr 50 mg PO DAILY 0RF sertraline 100 mg tablet 100 mg PO DAILY 0RF Vitamin B-12 1,000 mcg Tablet 1,000 mcg PO DAILY 0RF hydrocodone-acetaminophen 10-325 mg tablet 0.5 - 1 tab PO Q4H PRN (Reason: Pain) 0RF aspirin 81 mg Tablet 162 mg PO BEDTIME 0RF rosuvastatin 20 mg tablet 20 mg PO DAILY 0RF PreserVision AREDS-2 1 tab PO DAILY 0RF Referrals: Phillip Olvera DO [Primary Care Provider] - Coding Level of Care Code ED Chipper Feeder for Ciarag Bob
--- NOTE | 2021-09-25 12:07 | ECG_ITS ---
[facility] Test Date: 2021-09-25 Pat Name: Delia Arthur Department: Room: Gender: Female Retail Analytics Manager: : 1935 Requested By: Tao Kilpatrick Order Number: [id number] Hiral MD: Rylie Lacy M.D. Measurements Intervals [place] Rate: 103 P: 60 OR: 168 QRS: 51 QRSD: 78 T: 52 QT: 321 QTc: 421 Interpretive Statements SINUS TACHYCARDIA Compared to ECG 04/05/2021 10:16:04 Sinus rhythm no longer present Sinus arrhythmia no longer present Electronically Signed On 09-25-2021 17:20:22 SNUFF PACKING MACHINE OPERATOR by Rylie Lacy M.D. [id number]
--- NOTE | 2021-09-25 12:07 | XR_ITS ---
WS: [id number] PORTABLE CHEST HISTORY: dyspnea/cough COMPARISON: 04/05/2021 Extensive yamila and screw fixation in the mid to lower thoracic spine. Lungs are clear. Slight elevation of the LEFT hemidiaphragm is stable. Mild LEFT pleural thickening a t the costophrenic angle. No pneumonia. No vascular congestion. No pleural effusion or pneumothorax. Cardiac size: Normal. Mediastinum/Aorta: Normal mediastinum. XR/XR chest 1V portable [id number] IMPRESSION: No acute cardiopulmonary disease. Stable slight elevation LEFT hemidiaphragm.
--- NOTE | 2021-09-25 12:07 | CT_ITS ---
WS: [id number] CT ABDOMEN AND PELVIS WITH CONTRAST HISTORY: Abdominal pain for several days. TECHNIQUE: Imaging performed of the abdomen and pelvis with IV contrast. Single phase imaging of the abdomen. Coronal and sagittal reformats are submitted. All CT scans at [facility] use at [address] one of these dose optimization techniques: automated exposure control; mA and/or kV adjustment per patient size (includes targeted exams where dose is matched to clinical indication); or iterative re construction. IV CONTRAST: Visipaque 320; 95 mL IV. Oral contrast: Yes. DLP: 1701.18 mGy.cm COMPARISON: 03/06/2010 Lower thorax: Lung bases are clear. Heart is normal size. No hiatal hernia. Liver/biliary system: Normal size with no intrahepatic dilatation. Gallbladder: Status post cholecystectomy. Pancreas: Normal size pancreas and pancreatic duct. No adjacent inflammation. Spleen: Normal size with a few granulomata. Adrenal glands: Normal. Right kidney: Small kidney with normal enhancement. Mildly lobulated cortex. Cortical cyst mid kidney measures 18 x 14 mm. There is an additional low-attenuation mass from the posterior kidney which is partially obscured by artifact from patient's hardware. Left kidney: Beam hardening artifact secondary to patient's hardware. Cortical thinning with numerous low-attenuation masses which are probably cysts. Aorta: Scattered calcifications. No aneurysm. Lymphadenopathy: None. Free fluid: There is a small amount of free fluid in the pelvis which is more than physiologic. GI tract: Dilated fluid and air distended small bowel loops. Exact site of the obstruction is not valeria dent but probably in the mid to RIGHT lower quadrant. There are a few foci of air which are not defin itely within the lumen. The most concerning foci as on image 67 of series 2. Abnormal small bowel loo ps with edema are most significant in the RIGHT lower quadrant. Highly suspicious for perforation inv olving the distal small bowel in the RIGHT lower quadrant. Abdominal wall: Unremarkable abdominal wall. No hernia. Pelvis: Small amount of free fluid in the pelvis is more than physiologic. Urinary bladder is well di stended. Bones: Extensive spine fusion is noted involving the thoracolumbar region. CT/CT abdomen pelvis w con* [id number] IMPRESSION: 1. Free intraperitoneal air. There are several pockets of air in the peritonea l cavity suspicious for perforated viscus. Abnormal small bowel loops in the RI GHT lower quadrant. Suspect this is the area of perforation. No mass identified . Consider ischemic colitis. 2. Small amount of free fluid in the pelvis is more than expected. No abscess identified. 3. Prior cholecystectomy and appendectomy. Notified Tao Albert DO at 09/25/2021 2:37 PM.
--- NOTE | 2021-09-25 12:14 | ED_ITS ---
HPI - General Adult General: Chief complaint: Weakness Stated complaint: FLU LIKE SYMPTOMS Time Seen by Provider: 09/25/21 11:46 History of Present Illness: HPI narrative: 86-year-old female presents emergency room with flulike symptoms for the last several days. Began 2 days ago she running a low-grade fever she localizes her discomfort to the right lower quadrant she not had any cough or shortness of breath has not had any diarrhea or vomiting but has been very nauseous. Has had significant appetite loss denies any dysuria urgency or frequency. Onset (ago): day(s) (2) Relieving factors: none Exacerbating factors: none Associated symptoms: Reports decreased appetite, malaise and nausea; Deny chest pain, confusion, cough, diaphoresis, dyspnea, fevers/chills, headache(s), rash, palpitations, seizures, short of breath, syncope, vomiting or weakness Treatments prior to arrival: none Review of Systems Const: Reports: malaise; Denies: diaphoresis ENMT: Denies: throat pain, ear or mastoid pain, nasal discharge or nasal congestion Card: Denies: chest pain, palpitations or syncope Resp: Denies: dyspnea GI: Reports: nausea; Denies: vomiting : Denies: flank pain, difficulty voiding, dysuria, urinary frequency or urinary urgency Skin/Breast: Denies: rash Neuro: Denies: headache(s) or confusion PFS ED PFSH: Medical History (Updated 09/25/21 @ 16:00 by Ricco Quintero MD) Chronic back pain Hypertension Surgical History (Updated 09/25/21 @ 15:48 by Ricco Quintero MD) History of back surgery spinal rods History of cataract surgery History of cholecystectomy History of hysterectomy / BSO Social History (Updated 09/25/21 @ 16:00 by Ricco Quintero MD) Smoking and tobacco status: never smoked Alcohol intake: never Physical Exam Const: COMMON NORMALS: no acute distress GENERAL APPEARANCE: cooperative and comfortable ORIENTATION/CONSCIOUSNESS: Yes awake, Yes oriented to person, Yes oriented to place and Yes oriented to time HENMT: COMMON NORMALS: normocephalic, atraumatic and hearing grossly normal bilaterally HEAD & SCALP: normocephalic and atraumatic Neck/C-Spine: COMMON NORMALS: no JVD Resp: COMMON NORMALS: normal respiratory effort, No retractions, No use of accessory muscles and clear to auscultation bilaterally AUSCULTATION: clear to auscultation bilaterally Cardio: COMMON NORMALS: no JVD, regular rate, regular rhythm and No murmurs present (Cardio) RATE: regular rate RHYTHM: regular rhythm GI: COMMON NORMALS: No hepatosplenomegaly present AUSCULTATION: Yes normoactive bowel sounds PALPATION: Yes Tenderness to palpation present (GI) Details: RLQ and Yes No hepatosplenomegaly present Extremity: COMMON NORMALS: normal to inspection, capillary refill normal, no clubbing, cyanosis or edema, no calf tenderness and no pedal edema Neuro: SENSORIUM/ORIENTATION: Yes oriented to person, Yes oriented to place and Yes oriented to time Skin: COMMON NORMALS: no rashes or lesions noted GENERAL SKIN EXAM: no rashes or lesions noted Course Vital Signs: Vital signs: Vital Signs Temperature 99.4 F 09/25/21 11:36 Pulse Rate 108 H 09/25/21 11:36 Respiratory Rate 22 H 09/25/21 12:51 Blood Pressure 168/76 09/25/21 11:36 Pulse Oximetry 92 09/25/21 12:51 [facility] - General Adult Lab Data Result diagrams: 09/25/21 12:52 09/25/21 12:52 Labs: Radiology Impressions Abdomen/Pelvis CT 09/25/21 12:07 IMPRESSION: 1. Free intraperitoneal air. There are several pockets of air in the peritoneal cavity suspicious for perforated viscus. Abnormal small bowel loops in the RIGHT lower quadrant. Suspect this is the area of perforation. No mass identified. Consider ischemic colitis. 2. Small amount of free fluid in the pelvis is more than expected. No abscess identified. 3. Prior cholecystectomy and appendectomy. Notified Tao Albert DO at 09/25/2021 2:37 PM. Chest X-Ray 09/25/21 12:07 IMPRESSION: No acute cardiopulmonary disease. Stable slight elevation LEFT hemidiaphragm. Laboratory Results WBC 8.3 10^3/uL (4.0-10.0) 09/25/21 12:52 RBC 3.73 10^6/uL (4.1-5.3) L 09/25/21 12:52 Hgb 12.0 g/dL (11.5-15.3) 09/25/21 12:52 Hct 37.3 % (37.0-47.0) 09/25/21 12:52 MCV 100.0 fl (81-99) H 09/25/21 12:52 MCH 32.2 pg (28.0-34.0) 09/25/21 12:52 MCHC 32.2 g/dL (30.0-36.0) 09/25/21 12:52 RDW 14.2 % (12.1-15.1) 09/25/21 12:52 Plt Count 144 10^3/cmm (130-400) 09/25/21 12:52 MPV 10.3 fL (7.4-10.4) 09/25/21 12:52 Lymph % (Auto) Not Reportable 09/25/21 12:52 [place] % (Auto) Not Reportable 09/25/21 12:52 Lymph # (Auto) Not Reportable 09/25/21 12:52 [place] # (Auto) Not Reportable 09/25/21 12:52 Total Counted 100 (0-100) 09/25/21 12:52 Atypical Lymphs % 0.0 % (0-5) 09/25/21 12:52 Absolute Neutrophils 7.4 10^3/cmm (1.4-6.5) H 09/25/21 12:52 Segmented Neutrophils 62 % 09/25/21 12:52 Abs Segm Neuts (Man) 5.1 10/cmm (1.6-7.1) 09/25/21 12:52 Band Neutrophils 27.0 % 09/25/21 12:52 Abs Band Neuts (Man) 2.2 10^3/cmm (0.0-1.2) H 09/25/21 12:52 Absolute Lymphocytes 0.6 10^3/cmm (1.2-3.4) L 09/25/21 12:52 Lymphocytes (Manual) 7 % 09/25/21 12:52 Monocytes (Manual) 2.0 % 09/25/21 12:52 Absolute Monocytes 0.2 10^3/cmm (0.1-0.6) 09/25/21 12:52 Eosinophils (Manual) 0 % 09/25/21 12:52 Absolute Eosinophils 0.0 10^3/cmm (0.0-0.7) 09/25/21 12:52 Basophils (Manual) 0.0 % 09/25/21 12:52 Absolute Basophils 0.0 10^3/cmm (0.0-0.2) 09/25/21 12:52 Metamyelocytes 2.0 % 09/25/21 12:52 Platelet Estimate Normal (Normal) 09/25/21 12:52 Sodium 133 mmol/L (136-145) L 09/25/21 12:52 Potassium 3.9 mmol/L (3.5-5.1) 09/25/21 12:52 Chloride 98 mmol/L (98-107) 09/25/21 12:52 Carbon Dioxide 23 mmol/L (22-29) 09/25/21 12:52 Anion Gap 15.9 (5-19) 09/25/21 12:52 BUN 20 mg/dL (8-23) 09/25/21 12:52 Creatinine 0.9 mg/dL (0.5-0.9) 09/25/21 12:52 GFR Calculation Not Reportable 09/25/21 12:52 Glucose 121 mg/dL (65-115) H 09/25/21 12:52 Calculated Osmolality 280 mOsm/kg (285-295) L 09/25/21 12:52 Lactic Acid 1.9 mmol/L (0.5-2.2) 09/25/21 12:52 Calcium 8.3 mg/dL (8.5-10.5) L 09/25/21 12:52 Total Bilirubin 0.7 mg/dL (0.15-1.2) 09/25/21 12:52 AST 26 U/L (0-32) 09/25/21 12:52 ALT 15 U/L (0-33) 09/25/21 12:52 Alkaline Phosphatase 59 IU/L (35-105) 09/25/21 12:52 Total Protein 6.2 g/dL (6.6-8.7) L 09/25/21 12:52 Albumin 3.6 g/dL (3.5-5.2) 09/25/21 12:52 Globulin 2.6 g/dL (1.3-4.6) 09/25/21 12:52 Lipase 15 U/L (13-60) 09/25/21 12:52 Urine Color Yellow (Yellow) 09/25/21 13:37 Urine Appearance Hazy (CLEAR) A 09/25/21 13:37 Urine pH 5 (5-7) 09/25/21 13:37 Ur Specific [place] 1.025 (1.005-1.030) 09/25/21 13:37 Urine Protein 1+ (Negative) H 09/25/21 13:37 Urine Glucose (UA) Norm (Normal) 09/25/21 13:37 Urine Ketones Negative (Negative) 09/25/21 13:37 Urine Blood 2+ (Negative) H 09/25/21 13:37 Urine Nitrate Negative (Negative) 09/25/21 13:37 Urine Bilirubin Neg (Negative) 09/25/21 13:37 Urine Urobilinogen Neg mg/dL (Negative) 09/25/21 13:37 Ur Leukocyte Esterase Trace (Negative) H 09/25/21 13:37 Urine RBC 5-10 /hpf (0-2) H 09/25/21 13:37 Urine WBC 5-10 /hpf (0-5) H 09/25/21 13:37 Ur Squamous Epith Cells 5-10 /hpf (0-5) H 09/25/21 13:37 Amorphous Sediment Not Reportable 09/25/21 13:37 Urine Bacteria 1+ /hpf (NONE) H 09/25/21 13:37 Urine Mucus 1+ /hpf 09/25/21 13:37 Serum Ketones Negative (Negative) 09/25/21 12:52 Discharge Plan Discharge Condition: Stable Prescriptions: No Action calcium 600 mg Capsule 600 mg PO DAILY 0RF metoprolol succinate 50 mg tablet extended release 24 hr 50 mg PO DAILY 0RF sertraline 100 mg tablet 100 mg PO DAILY 0RF Vitamin B-12 1,000 mcg Tablet 1,000 mcg PO DAILY 0RF hydrocodone-acetaminophen 10-325 mg tablet 0.5 - 1 tab PO Q4H PRN (Reason: Pain) 0RF aspirin 81 mg Tablet 162 mg PO BEDTIME 0RF rosuvastatin 20 mg tablet 20 mg PO DAILY 0RF PreserVision AREDS-2 1 tab PO DAILY 0RF Referrals: Phillip Olvera DO [Primary Care Provider] - Coding Level of Care Code ED Campaign Marketing Manager for Chg Fwd Exam Comprehensive
--- NOTE | 2021-09-25 12:48 | PC.NURSE ---
PT PLACED ON CONTINUOUS SPO2, NIBP, AND CM.
[2021-09-25] MEDS: ondansetron 2 mg/ML SDV 2 mL 4 MG IVP (12:51)
[2021-09-25] MEDS: morphine 4 mg/mL SDV 1 mL 2 MG IVP (12:51)
[2021-09-25 13:06] LABS: Hematocrit 37.3 % (37.0-47.0); Mean Corpuscular HGB Conc 32.2 g/dL (30.0-36.0); Mean Corpuscular Hemoglobin 32.2 pg (28.0-34.0); Mean Platelet Volume 10.3 fL (7.4-10.4); Platelet Count 144 10^3/cmm (130-400); Red Blood Count 3.73 10^6/uL (4.1-5.3); Red Cell Distribution Width 14.2 % (12.1-15.1); White Blood Count 8.3 10^3/uL (4.0-10.0)
[2021-09-25 13:21] LABS: Lactic Sepsis W/Reflex 1.9 mmol/L (0.5-2.2)
[2021-09-25 13:22] LABS: Alanine Aminotransferase 15 U/L (0-33); Albumin Level 3.6 g/dL (3.5-5.2); Alkaline Phosphatase 59 IU/L (35-105); Anion Gap 15.9 (5-19); Aspartate Amino Transferase 26 U/L (0-32); Blood Urea Nitrogen 20 mg/dL (8-23); Calcium 8.3 mg/dL (8.5-10.5); Carbon Dioxide 23 mmol/L (22-29); Chloride 98 mmol/L (98-107); Globulin 2.6 g/dL (1.3-4.6); Glucose 121 mg/dL (65-115); Lipase 15 U/L (13-60); Osmolality Calculated 280 mOsm/kg (285-295); Potassium 3.9 mmol/L (3.5-5.1); Sodium 133 mmol/L (136-145); Total Bilirubin 0.7 mg/dL (0.15-1.2); Total Protein 6.2 g/dL (6.6-8.7)
[2021-09-25 13:36] LABS: Ketone (Acetest) Serum Negative (Negative)
[2021-09-25 13:56] LABS: Absolute Segmented Neutrophil 5.1 10/cmm (1.6-7.1); Band Neutrophils Absolute 2.2 10^3/cmm (0.0-1.2); Lymphocytes 7 %; Monocytes Absolute 0.2 10^3/cmm (0.1-0.6); Segmented Neutrophils 62 %; Slide Review Slide Review Perform; Total Cells Counted 100 (0-100)
[2021-09-25 13:57] LABS: Absolute Neutrophil 7.4 10^3/cmm (1.4-6.5); Eosinophils 0 %; Lymphocytes Absolute 0.6 10^3/cmm (1.2-3.4); Platelet Estimate Normal (Normal)
[2021-09-25] MEDS: iodixanol 320 mg/mL 100mL Btl IV (14:12)
[2021-09-25 14:36] LABS: Blood Urine 2+ (Negative); Glucose Urine UA Norm (Normal); Ketones Urine Negative (Negative); Protein Urine 1+ (Negative); Specific Gravity, Urine 1.025 (1.005-1.030); Urine Appearance Hazy (CLEAR); Urine Color Yellow (Yellow); pH Urine 5 (5-7)
[2021-09-25 14:37] LABS: Add Urine Microscopic? YES; Bacteria Urine 1+ /hpf; Bilirubin Urine Neg (Negative); Leukocyte Esterase Urine Trace (Negative); Mucus Urine 1+ /hpf; Nitrate Urine Negative (Negative); Urobilinogen Urine Neg (Negative)
[2021-09-25 14:38] LABS: Add Urine Culture? No
[2021-09-25] MEDS: sodium chloride 0.9% 1,000 ML 999 ML IV (15:22)
[2021-09-25] MEDS: metroNIDAZOLE IV 500 MG/100 ML PREMIX 100 MG IV ×2 (15:23→18:57)
--- NOTE | 2021-09-25 15:50 | PM.HP ---
Providers/Chief Complaint Admitting Physician: General Surgery Ricco Quintero MD Primary Care Provider: Phillip Olvera DO Chief Complaint: FLU LIKE SYMPTOMS History of Present Illness Delia Arthur is a 86 year old female who started having right lower quadrant abdominal pain late last week (about 4?5 days ago). She has not had much of an appetite and has not been eating much. She had a loose bowel movement yesterday which is a little unusual for her. She was having some chills yesterday but never took her temperature. The patient lives by herself but had her daughter bring her into the emergency department today. A CAT scan showed evidence of an inflammatory process in the right lower quadrant and some free air. The radiologist seemed to suggest the perforation was in the area of the small bowel in the right lower quadrant and yet ischemic colitis should be considered. The patient is unaware of any unintentional recent ingestion of foreign objects, toothpicks, fish bones, etc. The patient tells me that she has had had a hysterectomy but she cannot remember if her appendix was taken or not. The radiologist seemed to suggest that the appendix was not seen and a prior appendectomy was suspected. The patient denies any known history of peptic ulcer disease. She has not had any recent upper GI symptoms. She tells me that she had a normal colonoscopy in the past but has probably been about 15 years ago. Medications/Allergies Home Medications Medication Instructions Recorded Confirmed Last Taken Type PreserVision AREDS-2 1 tab PO DAILY 07/16/20 07/16/20 07/15/20 History aspirin 81 mg tablet 162 mg PO BEDTIME 07/16/20 07/16/20 07/15/20 History calcium 600 mg capsule 600 mg PO DAILY 07/16/20 07/16/20 07/15/20 History cyanocobalamin (vitamin B-12) 1,000 mcg PO DAILY 07/16/20 07/16/20 07/16/20 History 1,000 mcg tablet (Vitamin B-12) hydrocodone 10 mg-acetaminophen 0.5 - 1 tab PO Q4H PRN 07/16/20 07/16/20 07/15/20 History 325 mg tablet metoprolol succinate 50 mg 50 mg PO DAILY 07/16/20 07/16/20 07/16/20 History tablet,extended release 24 hr rosuvastatin 20 mg tablet 20 mg PO DAILY 11/07/16/20 07/15/20 History sertraline 100 mg tablet 100 mg PO DAILY 07/16/20 07/16/20 07/16/20 History Allergies Allergy/AdvReac Type Severity Reaction Status Date / Time Penicillins Allergy ALGY-Rash Verified 07/16/20 11:49 PFSH Acute PFSH: Medical History (Updated 09/25/21 @ 17:47 by Dereck Moralez MD) Chronic back pain COVID-19 virus infection Hypertension Surgical History (Updated 09/25/21 @ 16:33 by Ricco Quintero MD) History of back surgery spinal rods History of cataract surgery History of cholecystectomy History of hip surgery Left -- screws History of hysterectomy / BSO Family History (Updated 09/25/21 @ 17:46 by Dereck Moralez MD) Denies family history of Diabetes Dementia Social History (Updated 09/25/21 @ 16:00 by Ricco Quintero MD) Smoking and tobacco status: never smoked Alcohol intake: never Physical Exam Narrative: EXAM NARRATIVE: The patient was encountered in the emergency room. She does not appear to feel well. The pupils are equal. No carotid bruits are heard. The lungs are clear anteriorly. The heart is regular. The abdomen is mildly to moderately obese and is softly distended but has very few bowel sounds. The patient has rather exquisite tenderness in the right lower quadrant. No obvious masses are palpated but deep palpation was not carried out. The extremities may reveal some very mild edema. Neurologically the patient is grossly intact. Data : 09/25/21 12:52 09/25/21 12:52 CT Abd/Pel: Radiologist's impression: CT abdomen pelvis 09/25/2021 IMPRESSION: 1. Free intraperitoneal air. There are several pockets of air in the peritoneal cavity suspicious for perforated viscus. Abnormal small bowel loops in the RIGHT lower quadrant. Suspect this is the area of perforation. No mass identified. Consider ischemic colitis. 2. Small amount of free fluid in the pelvis is more than expected. No abscess identified. 3. Prior cholecystectomy and appendectomy. A&P Assessment and plan (1) Perforated viscus: I have discussed the CAT scan findings with the patient and her family members/bending machine set up operator. We have discussed the rare causes of small bowel perforations and the more common causes of the colon perforations. I made them aware that if the small bowel has perforated we can generally get away with doing a resection and repair. If it is a colonic perforation then a colostomy is most likely going to be needed. In addition, we discussed the other risks of surgery including bleeding, infection, internal organ injury, anesthesia reactions, etc. The patient seems to understand and is agreeable to proceeding with surgery today. The hospitalist team has already been consulted for medical management during the patient's hospitalization. Status: Acute Attestations Medical Necessity Statement*: Based on my medical assessment, presenting symptoms, medical accuity and consideration of surgical therapy, I expect this patient will require treatment in the hospital for a period spanning at least 2 midnights. Coding Level of Care Code Acute Ostrich Farmer for [facility] Diagnoses Perforated viscus R19.8
--- NOTE | 2021-09-25 16:04 | W.ED.WEAKNES ---
HPI - Weakness General: Chief complaint: Weakness Stated complaint: FLU LIKE SYMPTOMS Time Seen by Provider: 09/25/21 11:46 History of Present Illness: HPI Narrative: 86-year-old female presents emergency room with complaining of abdominal pain localized to the right lower quadrant began about 2 days ago progressively worsened and then overnight became severe to the point where she had difficult time walking and standing straight. She is had a lot of nausea no vomiting no hematochezia melena hematemesis coffee-ground emesis. No dysuria urgency or frequency or hematuria. Previously has had cholecystectomy hysterectomy and appendectomy. Onset (ago): day(s) (2) Duration: constant Severity: severe Relieving factors: none Exacerbating factors: none Associated symptoms: Reports decreased appetite and nausea; Denies chest pain, chills, confusion, melena, diaphoresis, dysuria, easy bruising, fever(s), headache(s), myalgias, rash, short of breath, syncope or vomiting Review of Systems Const: Denies: fever(s), chills or diaphoresis Card: Denies: chest pain or syncope GI: Reports: nausea; Denies: vomiting or melena : Denies: dysuria Neuro: Denies: headache(s) or confusion Miki/Lymph: Denies: easy bruising PFSH ED PFSH: Medical History (Updated 09/25/21 @ 16:00 by Ricco Quintero MD) Chronic back pain Hypertension Surgical History (Updated 09/25/21 @ 15:48 by Ricco Quintero MD) History of back surgery spinal rods History of cataract surgery History of cholecystectomy History of hysterectomy / BSO Social History (Updated 09/25/21 @ 16:00 by Ricco Quintero MD) Smoking and tobacco status: never smoked Alcohol intake: never Physical Exam Const: COMMON NORMALS: no acute distress GENERAL APPEARANCE: cooperative ORIENTATION/CONSCIOUSNESS: Yes awake, Yes oriented to person, Yes oriented to place and Yes oriented to time HENMT: COMMON NORMALS: normocephalic and atraumatic HEAD & SCALP: normocephalic and atraumatic Neck/C-Spine: COMMON NORMALS: no JVD Resp: COMMON NORMALS: normal respiratory effort, No retractions, No use of accessory muscles and clear to auscultation bilaterally AUSCULTATION: clear to auscultation bilaterally Cardio: COMMON NORMALS: no JVD, regular rate, regular rhythm and No murmurs present (Cardio) RATE: regular rate RHYTHM: regular rhythm GI: COMMON NORMALS: No hepatosplenomegaly present AUSCULTATION: Yes Hypoactive bowel sounds present PALPATION: Yes Tenderness to palpation present (GI) Details: RLQ, Yes Guarding due to palpation present (GI) (Acute surgical abdomen with peritonitis signs) in the RLQ and Yes No hepatosplenomegaly present Extremity: COMMON NORMALS: normal to inspection, capillary refill normal, no clubbing, cyanosis or edema, no calf tenderness and no pedal edema Neuro: SENSORIUM/ORIENTATION: Yes oriented to person, Yes oriented to place and Yes oriented to time Skin: COMMON NORMALS: no rashes or lesions noted GENERAL SKIN EXAM: no rashes or lesions noted Course Vital Signs: Vital signs: Vital Signs Temperature 99.4 F 09/25/21 11:36 Pulse Rate 108 H 09/25/21 11:36 Respiratory Rate 22 H 09/25/21 12:51 Blood Pressure 168/76 09/25/21 11:36 Pulse Oximetry 92 09/25/21 12:51 MDM - Weakness MDM Narrative Medical decision making narrative: CTA abdomen discussed with Dr. Rene and with Dr. Myrick. Patient has free air in the abdomen consistent with her exam. Patient is allergic to penicillin started on Cipro and Flagyl pain medications given as well as IV fluids Dr. Quintero is in the department to consult the patient planning take her directly to surgery hospitalist to consult. Medical Records Attestation: I reviewed the patient's medical records. Lab Data Attestation: I reviewed the patient's lab results. Result diagrams: 09/25/21 12:52 09/25/21 12:52 Labs: Radiology Impressions Abdomen/Pelvis CT 09/25/21 12:07 IMPRESSION: 1. Free intraperitoneal air. There are several pockets of air in the peritoneal cavity suspicious for perforated viscus. Abnormal small bowel loops in the RIGHT lower quadrant. Suspect this is the area of perforation. No mass identified. Consider ischemic colitis. 2. Small amount of free fluid in the pelvis is more than expected. No abscess identified. 3. Prior cholecystectomy and appendectomy. Notified Tao Albert DO at 09/25/2021 2:37 PM. Chest X-Ray 09/25/21 12:07 IMPRESSION: No acute cardiopulmonary disease. Stable slight elevation LEFT hemidiaphragm. Laboratory Results WBC 8.3 10^3/uL (4.0-10.0) 09/25/21 12:52 RBC 3.73 10^6/uL (4.1-5.3) L 09/25/21 12:52 Hgb 12.0 g/dL (11.5-15.3) 09/25/21 12:52 Hct 37.3 % (37.0-47.0) 09/25/21 12:52 MCV 100.0 fl (81-99) H 09/25/21 12:52 MCH 32.2 pg (28.0-34.0) 09/25/21 12:52 MCHC 32.2 g/dL (30.0-36.0) 09/25/21 12:52 RDW 14.2 % (12.1-15.1) 09/25/21 12:52 Plt Count 144 10^3/cmm (130-400) 09/25/21 12:52 MPV 10.3 fL (7.4-10.4) 09/25/21 12:52 Lymph % (Auto) Not Reportable 09/25/21 12:52 [place] % (Auto) Not Reportable 09/25/21 12:52 Lymph # (Auto) Not Reportable 09/25/21 12:52 [place] # (Auto) Not Reportable 09/25/21 12:52 Total Counted 100 (0-100) 09/25/21 12:52 Atypical Lymphs % 0.0 % (0-5) 09/25/21 12:52 Absolute Neutrophils 7.4 10^3/cmm (1.4-6.5) H 09/25/21 12:52 Segmented Neutrophils 62 % 09/25/21 12:52 Abs Segm Neuts (Man) 5.1 10/cmm (1.6-7.1) 09/25/21 12:52 Band Neutrophils 27.0 % 09/25/21 12:52 Abs Band Neuts (Man) 2.2 10^3/cmm (0.0-1.2) H 09/25/21 12:52 Absolute Lymphocytes 0.6 10^3/cmm (1.2-3.4) L 09/25/21 12:52 Lymphocytes (Manual) 7 % 09/25/21 12:52 Monocytes (Manual) 2.0 % 09/25/21 12:52 Absolute Monocytes 0.2 10^3/cmm (0.1-0.6) 09/25/21 12:52 Eosinophils (Manual) 0 % 09/25/21 12:52 Absolute Eosinophils 0.0 10^3/cmm (0.0-0.7) 09/25/21 12:52 Basophils (Manual) 0.0 % 09/25/21 12:52 Absolute Basophils 0.0 10^3/cmm (0.0-0.2) 09/25/21 12:52 Metamyelocytes 2.0 % 09/25/21 12:52 Platelet Estimate Normal (Normal) 09/25/21 12:52 Sodium 133 mmol/L (136-145) L 09/25/21 12:52 Potassium 3.9 mmol/L (3.5-5.1) 09/25/21 12:52 Chloride 98 mmol/L (98-107) 09/25/21 12:52 Carbon Dioxide 23 mmol/L (22-29) 09/25/21 12:52 Anion Gap 15.9 (5-19) 09/25/21 12:52 BUN 20 mg/dL (8-23) 09/25/21 12:52 Creatinine 0.9 mg/dL (0.5-0.9) 09/25/21 12:52 GFR Calculation Not Reportable 09/25/21 12:52 Glucose 121 mg/dL (65-115) H 09/25/21 12:52 Calculated Osmolality 280 mOsm/kg (285-295) L 09/25/21 12:52 Lactic Acid 1.9 mmol/L (0.5-2.2) 09/25/21 12:52 Calcium 8.3 mg/dL (8.5-10.5) L 09/25/21 12:52 Total Bilirubin 0.7 mg/dL (0.15-1.2) 09/25/21 12:52 AST 26 U/L (0-32) 09/25/21 12:52 ALT 15 U/L (0-33) 09/25/21 12:52 Alkaline Phosphatase 59 IU/L (35-105) 09/25/21 12:52 Total Protein 6.2 g/dL (6.6-8.7) L 09/25/21 12:52 Albumin 3.6 g/dL (3.5-5.2) 09/25/21 12:52 Globulin 2.6 g/dL (1.3-4.6) 09/25/21 12:52 Lipase 15 U/L (13-60) 09/25/21 12:52 Urine Color Yellow (Yellow) 09/25/21 13:37 Urine Appearance Hazy (CLEAR) A 09/25/21 13:37 Urine pH 5 (5-7) 09/25/21 13:37 Ur Specific [place] 1.025 (1.005-1.030) 09/25/21 13:37 Urine Protein 1+ (Negative) H 09/25/21 13:37 Urine Glucose (UA) Norm (Normal) 09/25/21 13:37 Urine Ketones Negative (Negative) 09/25/21 13:37 Urine Blood 2+ (Negative) H 09/25/21 13:37 Urine Nitrate Negative (Negative) 09/25/21 13:37 Urine Bilirubin Neg (Negative) 09/25/21 13:37 Urine Urobilinogen Neg mg/dL (Negative) 09/25/21 13:37 Ur Leukocyte Esterase Trace (Negative) H 09/25/21 13:37 Urine RBC 5-10 /hpf (0-2) H 09/25/21 13:37 Urine WBC 5-10 /hpf (0-5) H 09/25/21 13:37 Ur Squamous Epith Cells 5-10 /hpf (0-5) H 09/25/21 13:37 Amorphous Sediment Not Reportable 09/25/21 13:37 Urine Bacteria 1+ /hpf (NONE) H 09/25/21 13:37 Urine Mucus 1+ /hpf 09/25/21 13:37 Serum Ketones Negative (Negative) 09/25/21 12:52 Discharge Plan Discharge Condition: Stable Prescriptions: No Action calcium 600 mg Capsule 600 mg PO DAILY 0RF metoprolol succinate 50 mg tablet extended release 24 hr 50 mg PO DAILY 0RF sertraline 100 mg tablet 100 mg PO DAILY 0RF Vitamin B-12 1,000 mcg Tablet 1,000 mcg PO DAILY 0RF hydrocodone-acetaminophen 10-325 mg tablet 0.5 - 1 tab PO Q4H PRN (Reason: Pain) 0RF aspirin 81 mg Tablet 162 mg PO BEDTIME 0RF rosuvastatin 20 mg tablet 20 mg PO DAILY 0RF PreserVision AREDS-2 1 tab PO DAILY 0RF Referrals: Phillip Olvera DO [Primary Care Provider] - Coding Level of Care Code ED Senior Statistical Programmer for [facility]
[2021-09-25] MEDS: ciprofloxacin 400 MG/200 ML PREMIX 200 MG IV (16:27)
--- NOTE | 2021-09-25 16:28 | PC.NURSE ---
while at bedside pt is in nad. pt denies any further needs at this time.
--- NOTE | 2021-09-25 17:09 | ANES.PREANE2 ---
Pre-Anesthetic Assessment Height/Weight: Height 1.8 m Weight 83.007 kg Temp Pulse Resp BP Pulse Ox 99.4 F 106 H 25 H 152/66 95 09/25/21 11:36 09/25/21 16:00 09/25/21 16:00 09/25/21 16:00 09/25/21 16:00 Operation Date: 09/25/21 17:00 Proposed Procedures p Exploratory Laparotomy(Not Applicable) - Ricco Quintero MD Familial anesthetic complications: None Was Beta [place] taken within 24 hours: Yes Was Clonidine taken within 24 hours: N/A Social No alcohol and No tobacco Exam alert, oriented x 3, clear to auscultation bilaterally and regular rate & rhythm Airway Submandibular: within normal limits Cervical ROM: within normal limits Mallampati: Class II Dentition: chipped CV/HEM Hypertension GI Perforated viscus, RLQ Musc/skel Lower Back Pain Anesthetic Plan ASA status: 3E Anesthesia: General (RSI) Risk of > 500 ml blood loss (7ml/kg in children): Yes, adequate IV access and fluids planned Medications/Allergies Home Medications Medication Instructions Recorded Confirmed Last Taken Type PreserVision AREDS-2 1 tab PO DAILY 07/16/20 07/16/20 07/15/20 History aspirin 81 mg tablet 162 mg PO BEDTIME 07/16/20 07/16/20 07/15/20 History calcium 600 mg capsule 600 mg PO DAILY 07/16/20 07/16/20 07/15/20 History cyanocobalamin (vitamin B-12) 1,000 mcg PO DAILY 07/16/20 07/16/20 07/16/20 History 1,000 mcg tablet (Vitamin B-12) hydrocodone 10 mg-acetaminophen 0.5 - 1 tab PO Q4H PRN 07/16/20 07/16/20 07/15/20 History 325 mg tablet metoprolol succinate 50 mg 50 mg PO DAILY 07/16/20 07/16/20 07/16/20 History tablet,extended release 24 hr rosuvastatin 20 mg tablet 20 mg PO DAILY 07/16/20 07/16/20 07/15/20 History sertraline 100 mg tablet 100 mg PO DAILY 07/16/20 07/16/20 07/16/20 History Allergies Allergy/AdvReac Type Severity Reaction Status Date / Time Penicillins Allergy ALGY-Rash Verified 07/16/20 11:49 [facility] Anesthesia Medical History (Updated 09/25/21 @ 16:00 by Ricco Quintero MD) Chronic back pain Hypertension Surgical History (Updated 09/25/21 @ 16:33 by Ricco Quintero MD) History of back surgery spinal rods History of cataract surgery History of cholecystectomy History of hip surgery Left -- screws History of hysterectomy / BSO Social History (Updated 09/25/21 @ 16:00 by Ricco Quintero MD) Smoking and tobacco status: never smoked Alcohol intake: never Data Anesthesia : 09/25/21 12:52 09/25/21 12:52 Short CBC 09/25/21 Range/Units 12:52 WBC 8.3 (4.0-10.0) 10^3/uL Hgb 12.0 (11.5-15.3) g/dL Hct 37.3 (37.0-47.0) % MCV 100.0 H (81-99) fl Plt Count 144 (130-400) 10^3/cmm BMP 09/25/21 12:52 Sodium 133 L Potassium 3.9 Chloride 98 Carbon Dioxide 23 BUN 20 Creatinine 0.9 Glucose 121 H Calcium 8.3 L Liver Function 09/25/21 Range/Units 12:52 Total Bilirubin 0.7 (0.15-1.2) mg/dL AST 26 (0-32) U/L ALT 15 (0-33) U/L Alkaline Phosphatase 59 (35-105) IU/L Albumin 3.6 (3.5-5.2) g/dL Urine 09/25/21 Range/Units 13:37 Urine Color Yellow (Yellow) Urine Appearance Hazy A (CLEAR) Urine pH 5 (5-7) Ur Specific [place] 1.025 (1.005-1.030) Urine Protein 1+ H (Negative) Urine Glucose (UA) Norm (Normal) Urine Ketones Negative (Negative) Urine Nitrate Negative (Negative) Urine Bilirubin Neg (Negative) Ur Leukocyte Esterase Trace H (Negative) Urine RBC 5-10 H (0-2) /hpf Urine WBC 5-10 H (0-5) /hpf Microbiology 09/25/21 16:22 Blood Culture - Preliminary Blood SPECIMEN COLLECTED 09/25/21 12:52 Blood Culture - Preliminary Blood SPECIMEN COLLECTED Cardiac Studies: No Data to Display
--- NOTE | 2021-09-25 17:45 | P.CONIM_ITS ---
Providers/Reason For Consult Consulting Physician/Specialty*: MD Naomy/internal medicine Reason for Consult*: Medical comorbidities Requesting Physician: Dr. Quintero Attending Physician: Ricco Quintero MD Primary Care Provider: Phillip Olvera DO History of Present Illness History of Present Illness History as per chart review and conversation with ERP. Delia Arthur is a 86 year old female with past medical history of hypertension, COVID-19 pneumonia, surgical history of hysterectomy, cholecystectomy presented to the ER with lower abdominal pain more towards the right side for last 4 to 5 days. Complains of decreased appetite. Denies any fever but does have chills yesterday. Because of above complaints he presented to the ER. CT scan done in the ER showed inflammatory process in the right lower quadrant with free air. Blood work done in the ER showed a hemoglobin of 12, heme white count of 8.3, sodium of 133, creatinine of 0.9, lactate of 1.9, UA showing trace leukoesterase, negative nitrite, serum ketones negative with CT results as below. Vitals in the ER showed a heart rate of 110, blood pressure of 120/50 systolic saturating 97% on room air. She has received Flagyl and ciprofloxacin in the ER along with 2 mg of IV morphine. Medicine was consulted for management of medical comorbidities Review of Systems General: Reports: 10 or more systems reviewed and unremarkable except in HPI and below Const: Denies: fever(s), chills, body aches, change in appetite, change in weight, malaise, night sweats, diaphoresis, change in sleep pattern, daytime sleepiness or snoring Eyes: Denies: change in vision, blurry vision, photophobia, eye discomfort or eye discharge ENMT: Denies: throat pain, enlarged tonsils, hoarseness, mouth pain, oral so res, dry mouth, tinnitus, nasal congestion or post nasal drip Card: Denies: chest pain, palpitations, irregular heart rhythm, edema, swelling of feet/ankles, lightheadedness, syncope, pre-syncope, dyspnea on exertion, orthopnea, leg pain with exertion or acrocyanosis Resp: Denies: dyspnea, productive cough, non-productive cough, wheezing, stridor, pain on inspiration, change in phlegm color, hemoptysis or chest congestion GI: Denies: abdominal pain, nausea, vomiting, hematemesis, coffee ground emesis, dysphagia, heartburn, diarrhea, constipation, bloating, GI cramping, change in bowel habits, pain on defecation, hematochezia or melena : Denies: flank pain, dysuria, urinary frequency, urinary urgency, urinary hesitancy, nocturia or hematuria Musc: Denies: neck pain, back pain, extremity pain, joint pain, joint swelling, joint redness, joint stiffness or limited range of motion Neuro: Denies: headache(s), numbness in extremities, weakness in extremities, sensory changes, lack of coordination, difficulty walking, frequent falls, dizziness, vertigo, confusion, Slurred speech present, difficulty communicating thoughts or seizure-like activity Psych: Denies: anxiety, depression, mood swings, panic attacks, hopelessness or irritability Endo: Denies: polyuria, polydipsia, tired all the time, cold intolerance, excessive sweating, flushing or heat intolerance Miki/Lymph: Denies: easy bruising or easy bleeding All/Imm: Denies: tongue swelling, facial swelling or acute wheezing Medications/Allergies Home Medications Medication Instructions Recorded Confirmed Last Taken Type PreserVision AREDS-2 1 tab PO DAILY 07/16/20 07/16/20 07/15/20 History aspirin 81 mg tablet 162 mg PO BEDTIME 07/16/20 07/16/20 07/15/20 History calcium 600 mg capsule 600 mg PO DAILY 07/16/20 07/16/20 07/15/20 History cyanocobalamin (vitamin B-12) 1,000 mcg PO DAILY 07/16/20 07/16/20 07/16/20 History 1,000 mcg tablet (Vitamin B-12) hydrocodone 10 mg-acetaminophen 0.5 - 1 tab PO Q4H PRN 07/16/20 07/16/20 07/15/20 History 325 mg tablet metoprolol succinate 50 mg 50 mg PO DAILY 07/16/20 07/16/20 07/16/20 History tablet,extended release 24 hr rosuvastatin 20 mg tablet 20 mg PO DAILY 07/16/20 07/16/20 07/15/20 History sertraline 100 mg tablet 100 mg PO DAILY 07/16/20 07/16/20 07/16/20 History Allergies Allergy/AdvReac Type Severity Reaction Status Date / Time Penicillins Allergy ALGY-Rash Verified 07/16/20 11:49 PFSH Acute PFSH: Medical History (Updated 09/25/21 @ 17:47 by Dereck Moralez MD) Chronic back pain COVID-19 virus infection Hypertension Surgical History (Updated 09/25/21 @ 16:33 by Ricco Quintero MD) History of back surgery spinal rods History of cataract surgery History of cholecystectomy History of hip surgery Left -- screws History of hysterectomy / BSO Family History (Updated 09/25/21 @ 17:46 by Dereck Moralez MD) Denies family history of Diabetes Dementia Social History (Updated 09/25/21 @ 16:00 by Ricco Quintero MD) Smoking and tobacco status: never smoked Alcohol intake: never Vitals/I&O/Wt Last Vital Signs Temp 100.3 F H 09/25/21 16:45 Pulse 108 H 09/25/21 17:15 Resp 20 H 09/25/21 17:15 BP 119/58 09/25/21 17:15 Pulse Ox 97 09/25/21 17:15 Weight last 48 hrs Weight 83.007 kg Physical Exam Narrative: EXAM NARRATIVE: Could not be done as patient already in OR Data : 09/25/21 12:52 09/25/21 12:52 Other Labs: Abnormal lab results Radiology Impressions Abdomen/Pelvis CT 09/25/21 12:07 IMPRESSION: 1. Free intraperitoneal air. There are several pockets of air in the peritoneal cavity suspicious for perforated viscus. Abnormal small bowel loops in the RIGHT lower quadrant. Suspect this is the area of perforation. No mass identified. Consider ischemic colitis. 2. Small amount of free fluid in the pelvis is more than expected. No abscess identified. 3. Prior cholecystectomy and appendectomy. Notified Tao Albert DO at 09/25/2021 2:37 PM. Chest X-Ray 09/25/21 12:07 IMPRESSION: No acute cardiopulmonary disease. Stable slight elevation LEFT hemidiaphragm. Laboratory Results WBC 8.3 10^3/uL (4.0-10.0) 09/25/21 12:52 RBC 3.73 10^6/uL (4.1-5.3) L 09/25/21 12:52 Hgb 12.0 g/dL (11.5-15.3) 09/25/21 12:52 Hct 37.3 % (37.0-47.0) 09/25/21 12:52 MCV 100.0 fl (81-99) H 09/25/21 12:52 MCH 32.2 pg (28.0-34.0) 09/25/21 12:52 MCHC 32.2 g/dL (30.0-36.0) 09/25/21 12:52 RDW 14.2 % (12.1-15.1) 09/25/21 12:52 Plt Count 144 10^3/cmm (130-400) 09/25/21 12:52 MPV 10.3 fL (7.4-10.4) 09/25/21 12:52 Lymph % (Auto) Not Reportable 09/25/21 12:52 [place] % (Auto) Not Reportable 09/25/21 12:52 Lymph # (Auto) Not Reportable 09/25/21 12:52 [place] # (Auto) Not Reportable 09/25/21 12:52 Total Counted 100 (0-100) 09/25/21 12:52 Atypical Lymphs % 0.0 % (0-5) 09/25/21 12:52 Absolute Neutrophils 7.4 10^3/cmm (1.4-6.5) H 09/25/21 12:52 Segmented Neutrophils 62 % 09/25/21 12:52 Abs Segm Neuts (Man) 5.1 10/cmm (1.6-7.1) 09/25/21 12:52 Band Neutrophils 27.0 % 09/25/21 12:52 Abs Band Neuts (Man) 2.2 10^3/cmm (0.0-1.2) H 09/25/21 12:52 Absolute Lymphocytes 0.6 10^3/cmm (1.2-3.4) L 09/25/21 12:52 Lymphocytes (Manual) 7 % 09/25/21 12:52 Monocytes (Manual) 2.0 % 09/25/21 12:52 Absolute Monocytes 0.2 10^3/cmm (0.1-0.6) 09/25/21 12:52 Eosinophils (Manual) 0 % 09/25/21 12:52 Absolute Eosinophils 0.0 10^3/cmm (0.0-0.7) 09/25/21 12:52 Basophils (Manual) 0.0 % 09/25/21 12:52 Absolute Basophils 0.0 10^3/cmm (0.0-0.2) 09/25/21 12:52 Metamyelocytes 2.0 % 09/25/21 12:52 Platelet Estimate Normal (Normal) 09/25/21 12:52 Sodium 133 mmol/L (136-145) L 09/25/21 12:52 Potassium 3.9 mmol/L (3.5-5.1) 09/25/21 12:52 Chloride 98 mmol/L (98-107) 09/25/21 12:52 Carbon Dioxide 23 mmol/L (22-29) 09/25/21 12:52 Anion Gap 15.9 (5-19) 09/25/21 12:52 BUN 20 mg/dL (8-23) 09/25/21 12:52 Creatinine 0.9 mg/dL (0.5-0.9) 09/25/21 12:52 GFR Calculation Not Reportable 09/25/21 12:52 Glucose 121 mg/dL (65-115) H 09/25/21 12:52 Calculated Osmolality 280 mOsm/kg (285-295) L 09/25/21 12:52 Lactic Acid 1.9 mmol/L (0.5-2.2) 09/25/21 12:52 Calcium 8.3 mg/dL (8.5-10.5) L 09/25/21 12:52 Total Bilirubin 0.7 mg/dL (0.15-1.2) 09/25/21 12:52 AST 26 U/L (0-32) 09/25/21 12:52 ALT 15 U/L (0-33) 09/25/21 12:52 Alkaline Phosphatase 59 IU/L (35-105) 09/25/21 12:52 Total Protein 6.2 g/dL (6.6-8.7) L 09/25/21 12:52 Albumin 3.6 g/dL (3.5-5.2) 09/25/21 12:52 Globulin 2.6 g/dL (1.3-4.6) 09/25/21 12:52 Lipase 15 U/L (13-60) 09/25/21 12:52 Urine Color Yellow (Yellow) 09/25/21 13:37 Urine Appearance Hazy (CLEAR) A 09/25/21 13:37 Urine pH 5 (5-7) 09/25/21 13:37 Ur Specific [place] 1.025 (1.005-1.030) 09/25/21 13:37 Urine Protein 1+ (Negative) H 09/25/21 13:37 Urine Glucose (UA) Norm (Normal) 09/25/21 13:37 Urine Ketones Negative (Negative) 09/25/21 13:37 Urine Blood 2+ (Negative) H 09/25/21 13:37 Urine Nitrate Negative (Negative) 09/25/21 13:37 Urine Bilirubin Neg (Negative) 09/25/21 13:37 Urine Urobilinogen Neg mg/dL (Negative) 09/25/21 13:37 Ur Leukocyte Esterase Trace (Negative) H 09/25/21 13:37 Urine RBC 5-10 /hpf (0-2) H 09/25/21 13:37 Urine WBC 5-10 /hpf (0-5) H 09/25/21 13:37 Ur Squamous Epith Cells 5-10 /hpf (0-5) H 09/25/21 13:37 Amorphous Sediment Not Reportable 09/25/21 13:37 Urine Bacteria 1+ /hpf (NONE) H 09/25/21 13:37 Urine Mucus 1+ /hpf 09/25/21 13:37 Serum Ketones Negative (Negative) 09/25/21 12:52 Micro: Microbiology 09/25/21 16:22 Blood Culture - Preliminary Blood SPECIMEN COLLECTED 09/25/21 12:52 Blood Culture - Preliminary Blood SPECIMEN COLLECTED A&P Assessment and plan (1) Perforated viscus: Plan for the OR with surgery Cover with ciprofloxacin and Flagyl for now. Incentive spirometry. Physical therapy, anticoagulation, perioperative antibiotics as per primary team. Diet as per primary team. Status: Acute (2) Hypertension: Goal blood pressure less than 140/90 mmHg. Takes metoprolol succinate 50 mg oral daily at home. As patient would be n.p.o. for now we will switch to 2.5 mg of IV morphine every 4 hourly. Telemetry. Status: Acute Plan Check iron panel, folate, B12, procalcitonin, TSH. Full code. NPO. Famotidine for PUD prophylaxis. Consult Attestations Medical Necessity Statement: As per primary team. 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
--- NOTE | 2021-09-25 19:27 | P.OP_ITS ---
Operative Report Date of procedure: September 25, 2021 Pre-op diagnosis: Perforated viscus with pneumoperitoneum. Post-op diagnosis: Perforated appendix with generalized peritonitis. Procedure done: Exploratory laparotomy with appendectomy. Specimens removed/disposition: 1. Aerobic and anaerobic cultures of peritoneal fluid. 2. Appendix. Surgeon: General Surgery Ricco Quintero MD Estimated blood loss: 25 milliliters. Complications: None. Procedure: The patient was brought to the operating room and was placed in a supine position on the operating room table. General endotracheal anesthesia was induced. The patient already had a Ornelas catheter in place. The abdomen was prepped and draped in a sterile fashion. An incision was carried out in the midline from a level just above the umbilicus to the lower midline. Cautery was used to divide the subcutaneous tissue and the midline fascia and the peritoneal cavity was entered. The patient had omental adhesions along the anterior abdominal wall which were sequentially taken down using cautery to maintain hemostasis. The omentum was then able to be elevated and palpation in the lower abdomen revealed a phlegmon. This was easily broken up with blunt dissection and quite a bit of watery purulent material was encountered. Both aerobic and anaerobic cultures were taken. The remainder of the fluid was suctioned out and then the pelvis was briefly irrigated. Inspection into the pelvis revealed an appendix which was necrotic and perforated. The mesoappendix was divided and li gated with a stick tie of 2-0 Vicryl. The appendiceal base was relatively healthy and was ligated with 2 separate ties of 2-0 Vicryl. The perforated appendix was then excised. The appendiceal stump was cauterized at the mucosal level and was then allowed to return to the abdomen. The peritoneal cavity in each quadrant was then extensively irrigated with multiple liters of saline until the irrigant all returned clear. Palpation throughout the remaining quadrants revealed a couple adhesions in the pelvis which were taken down but no other obvious abnormalities were felt or seen. Attention was directed towards closure. The midline fascia was closed using a running looped suture of #1 PDS. The subcutaneous tissue was extensively irrigated and then the skin was approximated using skin arron. A sterile dressing was placed over the wound and the patient was taken to the recovery area in stable condition postoperatively.
[2021-09-25 20:43] LABS: Folate Level 8.5 ng/mL (4.8-37.3)
[2021-09-25 20:44] LABS: Procalcitonin 13.74 ng/mL (0-0.5); Thyroid Stimulating Hormone 1.86 uIU/mL (0.27-4.20); Vitamin B12 1103 pg/mL (232-1245)
[2021-09-25 20:54] LABS: Iron 16 ug/dL (37-145); Percent Saturation 7.6 % (20-50); Total Iron Binding Capacity 209 mcg/dl; Unsaturated Iron Binding 193 ug/dL (112-347)
[2021-09-25] MEDS: D5-NS 0.45% + KCL 20 mEq 20 MEQ/1,000 ML BAG 100 MEQ IV (21:36)
[2021-09-25] MEDS: heparin 5,000 unit/mL INJ 1 mL 5000 UNIT SUBCUT (21:36)
[2021-09-25 22:01] LABS: Glucose Point of Care 112 mg/dL (70-110)
[2021-09-25] MEDS: levalbuterol 0.63 mg/3 mL Neb INHALATION (23:43)
[2021-09-26] VITALS (13 sets, daily range): BP systolic 114–134; BP diastolic 68–74; PULSE 90–104; RESP 16–18; TEMP 36.6–37.2; O2SAT 93–98
[2021-09-26] MEDS: metroNIDAZOLE IV 500 MG/100 ML PREMIX 100 MG IV ×3 (02:52→18:05)
[2021-09-26] MEDS: levalbuterol 0.63 mg/3 mL Neb INHALATION ×4 (04:05→15:02)
[2021-09-26] MEDS: ciprofloxacin 200 MG/100 ML PREMIX 100 MG IV ×2 (05:50→18:05)
[2021-09-26 05:51] LABS: Basophils % 0.3 %; Hematocrit 32.6 % (37.0-47.0); Hemoglobin 10.2 g/dL (11.5-15.3); Lymphocytes # 0.4 10^3/uL (0.8-4.8); Lymphocytes % 5.2 %; Mean Corpuscular HGB Conc 31.3 g/dL (30.0-36.0); Mean Corpuscular Hemoglobin 32.5 pg (28.0-34.0); Mean Corpuscular Volume 103.8 fl (81-99); Mean Platelet Volume 10.4 fL (7.4-10.4); Monocytes # 0.3 10^3/uL (0.2-0.9); Monocytes % 3.8 %; Neutrophils # 7.09 10^3/uL (1.8-7.7); Neutrophils % 90.3 %; Nucleated Red Blood Cells % 0 %; Platelet Count 128 10^3/cmm (130-400); Red Blood Count 3.14 10^6/uL (4.1-5.3); Red Cell Distribution Width 14.6 % (12.1-15.1); White Blood Count 7.9 10^3/uL (4.0-10.0)
[2021-09-26] MEDS: metoprolol tartrate 1 mg/1 mL SDV 5 mL 2.5 MG IVP ×3 (05:51→18:04)
[2021-09-26] MEDS: famotidine 20 mg/2 mL INJ IVP ×2 (05:51→18:05)
[2021-09-26] MEDS: morphine 4 mg/mL SDV 1 mL IVP (06:00)
[2021-09-26 06:06] LABS: Alanine Aminotransferase 11 U/L (0-33); Albumin Level 2.8 g/dL (3.5-5.2); Alkaline Phosphatase 50 IU/L (35-105); Anion Gap 16.2 (5-19); Aspartate Amino Transferase 19 U/L (0-32); Blood Urea Nitrogen 16 mg/dL (8-23); Calcium 8.2 mg/dL (8.5-10.5); Carbon Dioxide 17 mmol/L (22-29); Chloride 106 mmol/L (98-107); Globulin 2.8 g/dL (1.3-4.6); Glucose 139 mg/dL (65-115); Osmolality Calculated 283 mOsm/kg (285-295); Potassium 4.2 mmol/L (3.5-5.1); Sodium 135 mmol/L (136-145); Total Bilirubin 0.4 mg/dL (0.15-1.2); Total Protein 5.6 g/dL (6.6-8.7)
[2021-09-26 06:12] LABS: Estmated Average Glucose 108; Hemoglobin A1C 5.4 % (4.0-6.0)
--- NOTE | 2021-09-26 06:21 | ANE.PACU2 ---
Inpatient post-anesthesia follow up: Airway intact: Yes Vital signs: Temperature 98.4 F Pulse Rate 93 Respiratory Rate 18 Blood Pressure 126/71 Pulse Oximetry 93 Oxygen Delivery Me thod Room Air Oxygen Flow Rate 6 Fraction of Inspir ed Oxygen Hydration adequate: Yes Nausea and vomiting: No Pain level: 1 Mental status: Baseline
[2021-09-26] MEDS: D5-NS 0.45% + KCL 20 mEq 20 MEQ/1,000 ML BAG 100 MEQ IV ×2 (06:48→17:08)
--- NOTE | 2021-09-26 08:19 | PC.RESP ---
RT Shift Note Frequent safety and respiratory rounds continue. Orders completed as indicated. Patient monitored pre and post treatments throughout shift. Patient [Did] tolerate treatments appropriately. Condition [.DidNotChange]. Patient and/or loss prevention representative educated on respiratory treatment and medications. Patient and/or loss prevention representative [verbalized understanding]. Will continue to monitor patient progress.
--- NOTE | 2021-09-26 09:09 | P.PN_ITS ---
Subjective Subjective: Interval history: The patient says her abdomen is sore but otherwise is doing well. She says the pain medication is working well. Vitals/I&O/Wt Last Vital Signs Temp 98.4 F 09/26/21 04:00 Pulse 93 09/26/21 08:17 Resp 16 09/26/21 08:17 BP 126/71 09/26/21 04:00 Pulse Ox 96 09/26/21 08:17 09/25/21 09/26/21 09/26/21 22:59 06:59 14:59 Intake Total 1560 / 2680 1120 / 2680 Output Total 80 / 780 700 / 780 Balance 1480 / 1900 420 / 1900 Weight last 48 hrs Weight 183 lb Weight 183 lb Physical Exam Narrative: EXAM NARRATIVE: Bowel sounds are very infrequent. The midline dressing is dry. Urinary Catheter Management: Ornelas: Cath Placed During This Visit: no Reason for Continuing Indwelling Catheter: Required Immobilization for Trauma or Surgery or Anesthesia Data : 09/26/21 04:48 09/26/21 04:48 Micro: Microbiology 09/25/21 16:22 Blood Culture - Preliminary Blood SPECIMEN COLLECTED 09/25/21 12:52 Blood Culture - Preliminary Blood SPECIMEN COLLECTED A&P Assessment and plan (1) Perforated appendicitis: Status post laparotomy with appendectomy for perforated appendicitis on 09/25/19. Continue current management. Status: Acute Attestations Medical Necessity Statement*: Patient requires continued inpatient care for intravenous antibiotics/convalescence following laparotomy for perforated appendicitis with generalized peritonitis. Coding Level of Care Code Acute Honeycomb Decapper for Nii Rojas Diagnoses Perforated appendicitis K35.32
--- NOTE | 2021-09-26 10:01 | PC.CHAP ---
Pastoral Care Encounter/Spiritual Assessment Type of Contact [] Declined infant babysitter visit [] Patient/Family/Request visit [] Outpatient visit [] Follow-up visit [] Physician referral [] Code/Alert x[x Routine visit [] Staff referral [] Actively dying [] Patient sleeping [] Family support [] [] Out of room [] Palliative care [] [] Receiving care in room [] Pre-surgical visit [] Trauma [] Long length of stay [] ICU visit [] Other: Relational/Emotional Strength [x] Patient feels connected with others/family/visitors/staff [] Distress [] Loneliness/isolation [] Abandonment Spirituality of Patient [x] Person of Kalli [x] Attends Restorationism of their Kalli [x] Believes in Prayer [x] Reads Bible or Yarsani materials [] There are Spiritual issues to be addressed Contact Lens Lathe Operator Interventions [x] Prayer [x] Active listening [x] Non-anxious presence [x] Spiritual/emotional support [] Crisis/trauma care [] Spiritual counseling [] Bereavement support [] Provided bereavement packet [] Provided Bible/devotional materials [] Provided toy/stuffed animal, coloring book to patient or family member [] Provided Communion [] Anointing/[place] [] Salvation [x] Completed spiritual assessment [] Other: Impact on Illness or Injury [] Angry [] Fearful [] Anxious [] Often cries [] Exhaustion [] Unable to work [] Unable to attend scientology [] Unable to walk/stand [] Unable to read [] Unable to drive [] Unable to eat/drink [] Unable to sleep [] Unable to be with family [] Patient intubated [] Other: Summary patyient feeling much better Time spent with patient 10 min
[2021-09-26] MEDS: heparin 5,000 unit/mL INJ 1 mL 5000 UNIT SUBCUT ×2 (10:16→20:25)
[2021-09-26] MEDS: ketorolac 30 mg/mL INJ 15 MG IVP ×2 (12:37→23:37)
--- NOTE | 2021-09-26 14:42 | PM.PN ---
Subjective Subjective: Interval history: Seen today with sister at bedside. Patient laying comfortably in bed on IV fluids. No bowel movements or flatus. Complaining of abdominal pain with cough. Bothered with pain. Denies any nausea, vomiting, headache. Has remained hemodynamically stable. Saturating 93%. Vitals/I&O/Wt Last Vital Signs Temp 98.9 F 09/26/21 13:41 Pulse 91 09/26/21 13:41 Resp 18 09/26/21 13:41 BP 127/71 09/26/21 13:41 Pulse Ox 93 09/26/21 13:41 09/25/21 09/26/21 09/26/21 22:59 06:59 14:59 Intake Total 1560 / 1560 1120 / 2680 100 / 100 Output Total 80 / 80 700 / 780 Balance 1480 / 1480 420 / 1900 100 / 100 Weight last 48 hrs Weight 83.007 kg Weight 83.007 kg Physical Exam Narrative: EXAM NARRATIVE: General: Mild distress secondary to pain, AOx3, mildly anxious HEENT: PERRLA, pupils bilaterally equal and reactive Chest: Normal vesicular breath sounds, no added sounds, equal good air entry bilaterally CVS: S1-S2 regular, no murmurs, no tachycardia, no gallops, no rubs Abdomen: Soft, no organomegaly, infrequent bowel sounds Neuro: No focal deficits, no facial deformity, AO x3, power 5/5 in all limbs Urinary Catheter Management: Ornelas: Cath Placed During This Visit: no Reason for Continuing Indwelling Catheter: Required Immobilization for Trauma or Surgery or Anesthesia Data : 09/26/21 04:48 09/26/21 04:48 Micro: Microbiology 09/25/21 16:22 Blood Culture - Preliminary Blood SPECIMEN COLLECTED 09/25/21 12:52 Blood Culture - Preliminary Blood SPECIMEN COLLECTED A&P Assessment and plan (1) Perforated viscus: Post exploratory laparotomy with appendectomy for perforated appendix with generalized peritonitis. Postoperative day 1. For now continue with with ciprofloxacin and Flagyl for now. Incentive spirometry. Physical therapy, anticoagulation, diet as per primary team. Status: Acute (2) Hypertension: Goal blood pressure less than 140/90 mmHg. Blood pressures currently at goal. Takes metoprolol succinate 50 mg oral daily at home. As patient would be n.p.o. for now we will switch to 2.5 mg of IV morphine every 4 hourly. Telemetry. Status: Acute Plan Iron deficiency anemia: Hemoglobin at baseline. Start on IV iron supplementation. Full code. NPO. Famotidine for PUD prophylaxis. Attestations Medical Necessity Statement*: As per primary team. 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
[2021-09-26] MEDS: iron sucrose 200 MG in sodium chloride 0.9% (100 ml) 100 ML 220 MG IV (17:07)
[2021-09-27] VITALS (7 sets, daily range): BP systolic 118–145; BP diastolic 68–82; PULSE 78–103; RESP 16–18; TEMP 36.6–37.1; O2SAT 93–97
[2021-09-27] MEDS: metroNIDAZOLE IV 500 MG/100 ML PREMIX 100 MG IV ×3 (02:23→18:25)
[2021-09-27] MEDS: ciprofloxacin 200 MG/100 ML PREMIX 100 MG IV ×2 (05:11→18:25)
[2021-09-27] MEDS: famotidine 20 mg/2 mL INJ IVP ×2 (05:54→18:25)
[2021-09-27] MEDS: metoprolol tartrate 1 mg/1 mL SDV 5 mL 2.5 MG IVP ×3 (05:54→18:24)
[2021-09-27 06:12] LABS: Basophils % 0.1 %; Hematocrit 28.6 % (37.0-47.0); Lymphocytes # 0.4 10^3/uL (0.8-4.8); Lymphocytes % 6.3 %; Mean Corpuscular HGB Conc 31.5 g/dL (30.0-36.0); Mean Corpuscular Hemoglobin 31.9 pg (28.0-34.0); Mean Corpuscular Volume 101.4 fl (81-99); Mean Platelet Volume 10.8 fL (7.4-10.4); Monocytes # 0.3 10^3/uL (0.2-0.9); Monocytes % 4.9 %; Neutrophils # 6.04 10^3/uL (1.8-7.7); Nucleated Red Blood Cells % 0 %; Platelet Count 136 10^3/cmm (130-400); Red Blood Count 2.82 10^6/uL (4.1-5.3); Red Cell Distribution Width 14.6 % (12.1-15.1); White Blood Count 6.9 10^3/uL (4.0-10.0)
--- NOTE | 2021-09-27 07:55 | PM.PN ---
Subjective Subjective: Interval history: The patient says she is feeling better. She has had a loose bowel movement. She would like to try to drink some liquids. Vitals/I&O/Wt Last Vital Signs Temp 98 F 09/27/21 07:46 Pulse 83 09/27/21 07:46 Resp 16 09/27/21 07:46 BP 118/68 09/27/21 07:46 Pulse Ox 93 09/27/21 07:46 09/26/21 09/27/21 09/27/21 22:59 06:59 14:59 Intake Total 1310 / 1610 200 / 1610 Output Total 400 / 800 400 / 800 250 / 250 Balance 910 / 810 -200 / 810 -250 / -250 Weight last 48 hrs Weight 183 lb Weight 183 lb Physical Exam Narrative: EXAM NARRATIVE: The midline dressing was removed and the incision looks excellent. The patient does have bowel sounds and has the expected amount of tenderness. Urinary Catheter Management: Ornelas: Cath Placed During This Visit: no Reason for Continuing Indwelling Catheter: Acute Urinary Retention or Obstruction Data : 09/27/21 05:22 09/26/21 04:48 Micro: Microbiology 09/25/21 18:59 Gram Stain - Final Peritoneal Fluid 09/25/21 16:22 Blood Culture - Preliminary Blood NEGATIVE TO DATE 09/25/21 12:52 Blood Culture - Preliminary Blood NEGATIVE TO DATE A&P Assessment and plan (1) Perforated appendicitis: Status post laparotomy with appendectomy for perforated appendicitis on 09/25/2021. Continue intravenous antibiotics. Culture results are still pending. Clear liquid diet. Discontinue Ornelas catheter. Status: Acute Attestations Medical Necessity Statement*: Patient requires continued inpatient care for intravenous antibiotics following laparotomy for perforated appendicitis. 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
[2021-09-27] MEDS: D5-NS 0.45% + KCL 20 mEq 20 MEQ/1,000 ML BAG 100 MEQ IV (09:15)
[2021-09-27] MEDS: heparin 5,000 unit/mL INJ 1 mL 5000 UNIT SUBCUT ×2 (09:15→20:49)
--- NOTE | 2021-09-27 12:34 | P.PN_ITS ---
Subjective Subjective: Interval history: No events overnight. Had bowel movement today morning. Started on clear liquid diet as per surgical team. On examination laying comfortably in bed. States needs to get out of bed. Denies any nausea, vomiting, headache. Has remained hemodynamically stable and afebrile. Remains on room air. Vitals/I&O/Wt Last Vital Signs Temp 98 F 09/27/21 07:46 Pulse 83 09/27/21 07:46 Resp 16 09/27/21 07:46 BP 118/68 09/27/21 07:46 Pulse Ox 93 09/27/21 07:46 09/26/21 09/27/21 09/27/21 22:59 06:59 14:59 Intake Total 1310 / 1410 1200 / 2610 158.333 / 158.333 Output Total 400 / 400 400 / 800 325 / 325 Balance 910 / 1010 800 / 1810 -166.667 / -166.667 Weight last 48 hrs Weight 83.007 kg Physical Exam Narrative: EXAM NARRATIVE: General: In no acute distress, AOx3, mildly anxious HEENT: PERRLA, pupils bilaterally equal and reactive Chest: Normal vesicular breath sounds, no added sounds, equal good air entry bilaterally CVS: S1-S2 regular, no murmurs, no tachycardia, no gallops, no rubs Abdomen: Soft, no organomegaly, infrequent bowel sounds Neuro: No focal deficits, no facial deformity, AO x3, power 5/5 in all limbs Urinary Catheter Management: Ornelas: Cath Placed During This Visit: yes, but has since been removed by the nurse Reason for Continuing Indwelling Catheter: Decision to DC Catheter Date Urinary Catheter Removed: 09/27/21 Time Urinary Catheter Discontinued: 09:24 Data : 09/27/21 05:22 09/26/21 04:48 Micro: Microbiology 09/25/21 18:59 Gram Stain - Final Peritoneal Fluid 09/25/21 16:22 Blood Culture - Preliminary Blood NEGATIVE TO DATE 09/25/21 12:52 Blood Culture - Preliminary Blood NEGATIVE TO DATE A&P Assessment and plan (1) Perforated viscus: Post exploratory laparotomy with appendectomy for perforated appendix with generalized peritonitis. Postoperative day 2. For now continue with with ciprofloxacin and Flagyl for now. Incentive spirometry. Physical therapy, anticoagulation, diet as per primary team. Status: Acute (2) Hypertension: Goal blood pressure less than 140/90 mmHg. Blood pressures currently at goal. Takes metoprolol succinate 50 mg oral daily at home. Continue with 2.5 mg of IV metoprolol every 4 hourly. If continues to tolerate diet well today we will transition over to oral metoprolol tomorrow. Telemetry. Status: Acute Plan Iron deficiency anemia: Hemoglobin at baseline. Start on IV iron supplementation. Full code. Clear liquid diet. Heparin for DVT prophylaxis. Famotidine for PUD prophylaxis. Physical therapy eval. Out of bed to chair. Incentive spirometry. Attestations Medical Necessity Statement*: As per primary team. 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
[2021-09-27] MEDS: iron sucrose 200 MG in sodium chloride 0.9% (100 ml) 100 ML 220 MG IV (16:21)
[2021-09-27] MEDS: HYDROcodone-acetaminophen 5-325 mg Tablet PO (18:24)
[2021-09-28] VITALS (7 sets, daily range): BP systolic 109–151; BP diastolic 64–74; PULSE 69–98; RESP 14–18; TEMP 36.5–37.2; O2SAT 92–97
[2021-09-28] MEDS: metroNIDAZOLE IV 500 MG/100 ML PREMIX 100 MG IV ×3 (01:34→18:01)
[2021-09-28] MEDS: D5-NS 0.45% + KCL 20 mEq 20 MEQ/1,000 ML BAG 50 MEQ IV (01:34)
[2021-09-28 03:02] LABS: Basophils % 0.2 %; Eosinophils % 0.8 %; Hematocrit 28.8 % (37.0-47.0); Hemoglobin 9.1 g/dL (11.5-15.3); Lymphocytes # 0.7 10^3/uL (0.8-4.8); Lymphocytes % 14.5 %; Mean Corpuscular HGB Conc 31.6 g/dL (30.0-36.0); Mean Corpuscular Hemoglobin 32.4 pg (28.0-34.0); Mean Corpuscular Volume 102.5 fl (81-99); Mean Platelet Volume 10.5 fL (7.4-10.4); Monocytes # 0.3 10^3/uL (0.2-0.9); Monocytes % 6.9 %; Neutrophils % 76.6 %; Nucleated Red Blood Cells % 0 %; Platelet Count 158 10^3/cmm (130-400); Red Blood Count 2.81 10^6/uL (4.1-5.3); Red Cell Distribution Width 14.8 % (12.1-15.1)
[2021-09-28 03:30] LABS: Alanine Aminotransferase 8 U/L (0-33); Albumin Level 2.6 g/dL (3.5-5.2); Alkaline Phosphatase 44 IU/L (35-105); Anion Gap 14.9 (5-19); Aspartate Amino Transferase 16 U/L (0-32); Blood Urea Nitrogen 14 mg/dL (8-23); Calcium 8.4 mg/dL (8.5-10.5); Carbon Dioxide 19 mmol/L (22-29); Chloride 110 mmol/L (98-107); Globulin 2.5 g/dL (1.3-4.6); Glucose 81 mg/dL (65-115); Osmolality Calculated 290 mOsm/kg (285-295); Potassium 3.9 mmol/L (3.5-5.1); Sodium 140 mmol/L (136-145); Total Bilirubin 0.4 mg/dL (0.15-1.2); Total Protein 5.1 g/dL (6.6-8.7)
[2021-09-28] MEDS: ciprofloxacin 200 MG/100 ML PREMIX 100 MG IV ×2 (04:21→16:41)
[2021-09-28] MEDS: famotidine 20 mg/2 mL INJ IVP ×2 (05:12→18:01)
--- NOTE | 2021-09-28 06:38 | P.PN_ITS ---
Subjective Subjective: Interval history: The patient says her abdomen is feeling better but I am weak is a cat. She is tolerating clear liquids. Vitals/I&O/Wt Last Vital Signs Temp 98.9 F 09/28/21 03:52 Pulse 88 09/28/21 03:52 Resp 14 09/28/21 03:41 BP 151/74 09/28/21 03:52 Pulse Ox 92 09/28/21 03:52 09/27/21 09/27/21 09/28/21 14:59 22:59 06:59 Intake Total 158.333 / 2345.000 550 / 2345.000 1636.667 / 2345.000 Output Total 325 / 1405 1080 / 1405 Balance -166.667 / 940.000 550 / 940.000 556.667 / 940.000 Physical Exam Narrative: EXAM NARRATIVE: The abdomen is soft. The incision looks good. Bowel sounds are present. Urinary Catheter Management: Ornelas: Cath Placed During This Visit: yes, but has since been removed by the nurse Reason for Continuing Indwelling Catheter: Decision to DC Catheter Date Urinary Catheter Removed: 09/27/21 Time Urinary Catheter Discontinued: 09:24 Data : 09/28/21 02:42 09/28/21 02:42 Micro: Microbiology 09/25/21 18:59 Anaerobic Culture - Preliminary Peritoneal Fluid 09/25/21 18:59 Gram Stain - Final Peritoneal Fluid Body Fluid Culture - Preliminary Gram Negative Rods A&P Assessment and plan (1) Perforated appendicitis: Status post laparotomy with appendectomy for perforated appendicitis on 09/25/2021. Continue intravenous antibiotics. Culture results are still pending?so far [place] wing heavy gram-negative rods. GI soft diet. Continue physical therapy. Status: Acute Attestations Medical Necessity Statement*: Patient requires continued inpatient care for intravenous antibiotics following laparotomy for perforated appendicitis. 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
[2021-09-28] MEDS: heparin 5,000 unit/mL INJ 1 mL 5000 UNIT SUBCUT ×2 (09:15→21:15)
[2021-09-28] MEDS: levalbuterol 0.63 mg/3 mL Neb INHALATION (11:12)
--- NOTE | 2021-09-28 11:54 | PC.SOCIAL ---
IMM Update pg 2 of IMM updated and reviewed w/ patient. Copy provided and Copy placed in chart.
--- NOTE | 2021-09-28 12:25 | P.PN_ITS ---
Subjective Subjective: Interval history: No acute events overnight. Denies any nausea, vomiting, headache. Had a bowel movement. Advance to GI soft diet. Seen with family at bedside. Complaining of weakness. Working appropriately with physical therapy. Vitals/I&O/Wt Last Vital Signs Temp 97.7 F 09/28/21 12:00 Pulse 98 09/28/21 12:00 Resp 18 09/28/21 12:00 BP 128/64 09/28/21 12:00 Pulse Ox 93 09/28/21 12:00 09/27/21 09/28/21 09/28/21 22:59 06:59 14:59 Intake Total 550 / 118.570 3047.667 / 2345.000 100 / 100 Output Total 1080 / 1405 Balance 550 / 383.333 556.667 / 940.000 100 / 100 Physical Exam Narrative: EXAM NARRATIVE: General: In no acute distress, AOx3, mildly anxious HEENT: PERRLA, pupils bilaterally equal and reactive Chest: Normal vesicular breath sounds, no added sounds, equal good air entry bilaterally CVS: S1-S2 regular, no murmurs, no tachycardia, no gallops, no rubs Abdomen: Soft, no organomegaly, infrequent bowel sounds Neuro: No focal deficits, no facial deformity, AO x3, power 5/5 in all limbs Urinary Catheter Management: Ornelas: Cath Placed During This Visit: yes, but has since been removed by the nurse Reason for Continuing Indwelling Catheter: Decision to DC Catheter Date Urinary Catheter Removed: 09/27/21 Time Urinary Catheter Discontinued: 09:24 Data : 09/28/21 02:42 09/28/21 02:42 Micro: Microbiology 09/25/21 18:59 Gram Stain - Final Peritoneal Fluid Body Fluid Culture - Preliminary Escherichia coli 09/25/21 18:59 Anaerobic Culture - Preliminary Peritoneal Fluid A&P Assessment and plan (1) Perforated viscus: Post exploratory laparotomy with appendectomy for perforated appendix with generalized peritonitis. Postoperative day 2. OR cultures growing E. coli. Pansensitive. Can switch to Levaquin. Most likely will discharge on Levaquin to finish a 7-day course. Incentive spirometry. Physical therapy, anticoagulation, diet as per primary team. Status: Acute (2) Hypertension: Goal blood pressure less than 140/90 mmHg. Blood pressures currently at goal. As patient is taking oral well can switch to home dose of metoprolol. Telemetry. Status: Acute Plan Iron deficiency anemia: Hemoglobin at baseline. Start on IV iron supplementation. Full code. GI soft diet. Heparin for DVT prophylaxis. Famotidine for PUD prophylaxis. Physical therapy eval. Out of bed to chair. Incentive spirometry. Care discussed in detail with patient and daughter at bedside. All the questions were answered. Attestations Medical Necessity Statement*: Requires further hospitalization for postoperative care. Discharge as per primary team. 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
[2021-09-28] MEDS: metoprolol succinate ER (24 HR) 50 mg Tablet PO (12:58)
[2021-09-28] MEDS: acetaminophen 325 mg Tablet 650 MG PO (12:59)
[2021-09-28] MEDS: iron sucrose 200 MG in sodium chloride 0.9% (100 ml) 100 ML 220 MG IV (16:08)
[2021-09-29] VITALS (14 sets, daily range): BP systolic 124–147; BP diastolic 68–80; PULSE 68–136; RESP 16–18; TEMP 36.7–37.1; O2SAT 94–97
[2021-09-29] MEDS: metroNIDAZOLE IV 500 MG/100 ML PREMIX 100 MG IV (02:08)
[2021-09-29] MEDS: HYDROcodone-acetaminophen 5-325 mg Tablet PO ×2 (02:20→20:51)
[2021-09-29] MEDS: ciprofloxacin 200 MG/100 ML PREMIX 100 MG IV (05:35)
[2021-09-29] MEDS: famotidine 20 mg/2 mL INJ IVP ×2 (05:37→18:16)
--- NOTE | 2021-09-29 08:19 | P.PN_ITS ---
Subjective Subjective: Interval history: The patient says she does not have much of an appetite but continues to pass flatus and is feeling well other than continuing to be somewhat weak. She says arrangements have been made for her to go to [facility] for rehabilitation following discharge from the hospital, but this is not scheduled to happen until Friday since it is the weekend currently. Vitals/I&O/Wt Last Vital Signs Temp 98.1 F 09/29/21 07:55 Pulse 96 09/29/21 07:55 Resp 18 09/29/21 07:55 BP 134/75 09/29/21 07:55 Pulse Ox 97 09/29/21 07:55 09/28/21 09/29/21 09/29/21 22:59 06:59 14:59 Intake Total 1360 / 2110 450 / 2110 Output Total 3 303 300 / 303 Balance 1357 / 1807 150 / 1807 Physical Exam Narrative: EXAM NARRATIVE: The patient remains afebrile. It appears she was tachycardic at one point over the past 24 hours but otherwise her vital signs are normal. The incision looks excellent. The abdomen is soft and bowel sounds are present. Urinary Catheter Management: Ornelas: Cath Placed During This Visit: yes, but has since been removed by the nurse Reason for Continuing Indwelling Catheter: Decision to DC Catheter Date Urinary Catheter Removed: 09/27/21 Time Urinary Catheter Discontinued: 09:24 Data : 09/28/21 02:42 09/28/21 02:42 Micro: Microbiology 09/25/21 18:59 Anaerobic Culture - Preliminary Peritoneal Fluid 09/25/21 18:59 Gram Stain - Final Peritoneal Fluid Body Fluid Culture - Preliminary Escherichia coli Cultures of peritoneal fluid showing heavy growth of pansensitive Escherichia coli. A&P Assessment and plan (1) Perforated appendicitis: Status post laparotomy with appendectomy for perforated appendicitis on 09/25/2021. Convert to oral antibiotics. Plan transfer to [facility] on Friday. Status: Acute Attestations Medical Necessity Statement*: Patient requires continued inpatient care following laparotomy for perforated appendicitis. Arrangements for transfer to rehabilitation have been arranged for Friday. 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
[2021-09-29] MEDS: metroNIDAZOLE 500 MG Tablet PO ×3 (08:31→20:53)
[2021-09-29] MEDS: levoFLOXacin 500 mg Tablet PO (08:31)
[2021-09-29] MEDS: metoprolol succinate ER (24 HR) 50 mg Tablet PO (08:31)
[2021-09-29] MEDS: sertraline 50 mg Tablet PO (08:32)
[2021-09-29] MEDS: atorvastatin 40 mg Tablet 80 MG PO (08:32)
[2021-09-29] MEDS: levalbuterol 0.63 mg/3 mL Neb INHALATION ×4 (08:33→21:23)
[2021-09-29] MEDS: heparin 5,000 unit/mL INJ 1 mL 5000 UNIT SUBCUT ×2 (08:34→20:53)
[2021-09-29] MEDS: acetaminophen 325 mg Tablet 650 MG PO (09:07)
[2021-09-29] MEDS: iron sucrose 200 MG in sodium chloride 0.9% (100 ml) 100 ML 220 MG IV (15:40)
[2021-09-29] MEDS: D5-NS 0.45% + KCL 20 mEq 20 MEQ/1,000 ML BAG 50 MEQ IV (18:16)
[2021-09-30] VITALS (12 sets, daily range): BP systolic 105–156; BP diastolic 68–83; PULSE 80–97; RESP 16–18; TEMP 36.6–37.3; O2SAT 94–96
[2021-09-30] MEDS: famotidine 20 mg/2 mL INJ IVP ×2 (05:13→17:53)
[2021-09-30] MEDS: levalbuterol 0.63 mg/3 mL Neb INHALATION ×3 (09:30→19:28)
[2021-09-30 09:40] LABS: Hematocrit 33.2 % (37.0-47.0); Hemoglobin 10.6 g/dL (11.5-15.3); Mean Corpuscular HGB Conc 31.9 g/dL (30.0-36.0); Mean Corpuscular Hemoglobin 31.5 pg (28.0-34.0); Mean Corpuscular Volume 98.5 fl (81-99); Platelet Count 221 10^3/cmm (130-400); Red Blood Count 3.37 10^6/uL (4.1-5.3); Red Cell Distribution Width 14.8 % (12.1-15.1); White Blood Count 7.3 10^3/uL (4.0-10.0)
[2021-09-30 09:56] LABS: Blood Urea Nitrogen 6 mg/dL (8-23); Calcium 8.6 mg/dL (8.5-10.5); Carbon Dioxide 21 mmol/L (22-29); Chloride 108 mmol/L (98-107); Glucose 99 mg/dL (65-115); Osmolality Calculated 292 mOsm/kg (285-295); Sodium 142 mmol/L (136-145)
[2021-09-30] MEDS: levoFLOXacin 500 mg Tablet PO (10:01)
[2021-09-30] MEDS: metroNIDAZOLE 500 MG Tablet PO ×3 (10:01→20:26)
[2021-09-30] MEDS: metoprolol succinate ER (24 HR) 50 mg Tablet PO (10:02)
[2021-09-30] MEDS: atorvastatin 40 mg Tablet 80 MG PO (10:02)
[2021-09-30] MEDS: sertraline 50 mg Tablet PO (10:02)
[2021-09-30] MEDS: heparin 5,000 unit/mL INJ 1 mL 5000 UNIT SUBCUT ×2 (10:03→20:26)
[2021-09-30 10:55] LABS: Slide Review Slide Review Perform
[2021-09-30 10:59] LABS: Absolute Eosinophils 0.1 10^3/cmm (0.0-0.7); Absolute Segmented Neutrophil 4.7 10/cmm (1.6-7.1); Band Neutrophils Absolute 0.2 10^3/cmm (0.0-1.2); Eosinophils 2 %; Lymphocytes 19 %; Lymphocytes Absolute 1.7 10^3/cmm (1.2-3.4); Monocytes Absolute 0.3 10^3/cmm (0.1-0.6); Segmented Neutrophils 65 %; Total Cells Counted 100 (0-100)
--- NOTE | 2021-09-30 10:59 | P.PN_ITS ---
Subjective Subjective: Interval history: The patient says she is having sided pain when she turns onto her left side in bed. She continues to pass flatus. Vitals/I&O/Wt Last Vital Signs Temp 98.1 F 09/30/21 08:45 Pulse 97 09/30/21 08:45 Resp 17 09/30/21 08:45 BP 156/83 09/30/21 08:45 Pulse Ox 95 09/30/21 08:45 09/29/21 09/30/21 09/30/21 22:59 06:59 14:59 Intake Total 110 / 590 240 / 240 Output Total 300 / 300 Balance 110 / 290 -300 / 290 240 / 240 Physical Exam Narrative: EXAM NARRATIVE: The patient remains afebrile. Vital signs appear stable. Bowel sounds are present. The incision looks good. The patient does have some mil-moderate tenderness in the right lower quadrant on palpation. Urinary Catheter Management: Ornelas: Cath Placed During This Visit: yes, but has since been removed by the nurse Reason for Continuing Indwelling Catheter: Decision to DC Catheter Date Urinary Catheter Removed: 09/27/21 Time Urinary Catheter Discontinued: 09:24 Data : 09/30/21 09:12 09/30/21 09:12 Micro: Microbiology 09/25/21 18:59 Anaerobic Culture - Preliminary Peritoneal Fluid 09/25/21 18:59 Gram Stain - Final Peritoneal Fluid Body Fluid Culture - Final Escherichia coli A&P Assessment and plan (1) Perforated appendicitis: Status post laparotomy with appendectomy for perforated appendicitis on 09/25/2021. The patient is having some right-sided abdominal pain but remains afebrile, has a normal white count, etc. Bowel function remains good. Continue to watch on antibiotics Transfer to [facility] pending tomorrow Status: Acute Attestations Medical Necessity Statement*: Patient remains in inpatient status pending transfer to [facility] tomorrow. 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
[2021-09-30 11:00] LABS: Anisocytosis Trace; Platelet Estimate Normal (Normal); Poikilocytosis Trace
--- NOTE | 2021-09-30 13:24 | P.PN_ITS ---
Subjective Subjective: Interval history: No acute events overnight. Has remained hemodynamically stable and afebrile. Sitting up in chair on examination today. Passing flatus. Tolerating food. Vitals/I&O/Wt Last Vital Signs Temp 98.3 F 09/30/21 12:13 Pulse 80 09/30/21 12:13 Resp 17 09/30/21 12:13 BP 105/71 09/30/21 12:13 Pulse Ox 95 09/30/21 12:13 09/29/21 09/30/21 09/30/21 22:59 06:59 14:59 Intake Total 110 / 590 240 / 240 Output Total 300 / 300 200 / 200 Balance 110 / 590 -300 / 290 40 / 40 Physical Exam Narrative: EXAM NARRATIVE: General: In no acute distress, AOx3, mildly anxious HEENT: PERRLA, pupils bilaterally equal and reactive Chest: Normal vesicular breath sounds, no added sounds, equal good air entry bi laterally CVS: S1-S2 regular, no murmurs, no tachycardia, no gallops, no rubs Abdomen: Soft, no organomegaly, infrequent bowel sounds Neuro: No focal deficits, no facial deformity, AO x3, power 5/5 in all limbs Urinary Catheter Management: Ornelas: Cath Placed During This Visit: yes, but has since been removed by the nurse Reason for Continuing Indwelling Catheter: Decision to DC Catheter Date Urinary Catheter Removed: 09/27/21 Time Urinary Catheter Discontinued: 09:24 Data : 09/30/21 09:12 09/30/21 09:12 Micro: Microbiology 09/25/21 18:59 Anaerobic Culture - Preliminary Peritoneal Fluid 09/25/21 18:59 Gram Stain - Final Peritoneal Fluid Body Fluid Culture - Final Escherichia coli A&P Assessment and plan (1) Perforated viscus: Post exploratory laparotomy with appendectomy for perforated appendix with generalized peritonitis. Postoperative day 2. OR cultures growing E. coli. Pansensitive. Continue with oral Levaquin and Flagyl. Most likely will need over 7-day course. Incentive spirometry. Physical therapy, anticoagulation, diet as per primary team. Status: Acute (2) Hypertension: Goal blood pressure less than 140/90 mmHg. Blood pressures currently at goal. As patient is taking oral well can switch to home dose of metoprolol. Telemetry. Status: Acute Plan Iron deficiency anemia: Hemoglobin at baseline. Continue IV iron supplementation to finish a 5-day course. Day 4/5 today Full code. GI soft diet. Heparin for DVT prophylaxis. Famotidine for PUD prophylaxis. Physical therapy eval. Out of bed to chair. Incentive spirometry. Care discussed in detail with patient and daughter at bedside. All the questions were answered. Attestations Medical Necessity Statement*: As per primary team. 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
[2021-09-30] MEDS: D5-NS 0.45% + KCL 20 mEq 20 MEQ/1,000 ML BAG 50 MEQ IV (13:55)
--- NOTE | 2021-09-30 14:13 | PC.SOCIAL ---
IMM UPDATED IMM dated and initialed and copy given to patient
[2021-09-30 14:18] LABS: Adenovirus Not Detected (NOT DETECT); Chlamydia Pneumoniae Not Detected (NOT DETECT); Coronavirus 229E,HKU1,NL63,OC4 Not Detected (NOT DETECT); Human Metapneumovirus Not Detected (NOT DETECT); Human Rhinovirus/Enterovirus Not Detected (NOT DETECT); Influenza A Not Detected (NOT DETECT); Influenza A H1 Not Detected (NOT DETECT); Influenza A H1-2009 Not Detected (NOT DETECT); Influenza A H3 Not Detected (NOT DETECT); Influenza B Not Detected (NOT DETECT); Mycoplasma Pneumoniae Not Detected (NOT DETECT); Parainfluenza Virus Type 1 Not Detected (NOT DETECT); Parainfluenza Virus Type 2 Not Detected (NOT DETECT); Parainfluenza Virus Type 3 Not Detected (NOT DETECT); Parainfluenza Virus Type 4 Not Detected (NOT DETECT); Respiratory Syncytial Virus A Not Detected (NOT DETECT); Respiratory Syncytial Virus B Not Detected (NOT DETECT); SARS-COV-2 Not Detected (NOT DETECT)
[2021-09-30] MEDS: iron sucrose 200 MG in sodium chloride 0.9% (100 ml) 100 ML 220 MG IV (16:19)
[2021-09-30] MEDS: HYDROcodone-acetaminophen 5-325 mg Tablet PO (20:26)
[2021-10-01] VITALS (7 sets, daily range): BP systolic 119–154; BP diastolic 67–87; PULSE 62–98; RESP 15–17; TEMP 36.6–37.1; O2SAT 95–96
[2021-10-01] MEDS: famotidine 20 mg/2 mL INJ IVP (05:43)
[2021-10-01 06:02] LABS: Basophils % 0.7 %; Eosinophils # 0.1 10^3/uL (0.0-0.8); Eosinophils % 2.1 %; Hematocrit 32.2 % (37.0-47.0); Lymphocytes # 1.3 10^3/uL (0.8-4.8); Lymphocytes % 22.2 %; Mean Corpuscular HGB Conc 31.1 g/dL (30.0-36.0); Mean Corpuscular Hemoglobin 32.3 pg (28.0-34.0); Mean Corpuscular Volume 103.9 fl (81-99); Mean Platelet Volume 10.3 fL (7.4-10.4); Monocytes # 0.5 10^3/uL (0.2-0.9); Monocytes % 8.2 %; Neutrophils # 3.45 10^3/uL (1.8-7.7); Neutrophils % 60.2 %; Nucleated Red Blood Cells % 0 %; Platelet Count 209 10^3/cmm (130-400); Red Cell Distribution Width 14.8 % (12.1-15.1); White Blood Count 5.7 10^3/uL (4.0-10.0)
[2021-10-01 06:18] LABS: Alanine Aminotransferase 8 U/L (0-33); Albumin Level 2.5 g/dL (3.5-5.2); Alkaline Phosphatase 49 IU/L (35-105); Anion Gap 12.4 (5-19); Aspartate Amino Transferase 21 U/L (0-32); Blood Urea Nitrogen 6 mg/dL (8-23); Calcium 7.6 mg/dL (8.5-10.5); Carbon Dioxide 25 mmol/L (22-29); Chloride 108 mmol/L (98-107); Globulin 2.7 g/dL (1.3-4.6); Glucose 92 mg/dL (65-115); Osmolality Calculated 291 mOsm/kg (285-295); Potassium 3.4 mmol/L (3.5-5.1); Sodium 142 mmol/L (136-145); Total Bilirubin 0.3 mg/dL (0.15-1.2); Total Protein 5.2 g/dL (6.6-8.7)
[2021-10-01 06:29] LABS: Slide Review Slide Review Perform
[2021-10-01] MEDS: levoFLOXacin 500 mg Tablet PO (08:35)
[2021-10-01] MEDS: metoprolol succinate ER (24 HR) 50 mg Tablet PO (08:35)
[2021-10-01] MEDS: heparin 5,000 unit/mL INJ 1 mL 5000 UNIT SUBCUT (08:35)
[2021-10-01] MEDS: metroNIDAZOLE 500 MG Tablet PO (08:35)
[2021-10-01] MEDS: atorvastatin 40 mg Tablet 80 MG PO (08:35)
[2021-10-01] MEDS: sertraline 50 mg Tablet PO (08:35)
--- NOTE | 2021-10-01 09:27 | PM.PN ---
Subjective Subjective: Interval history: No acute events overnight. Ready for discharge today. Daughter at bedside. Denies any new complaints. Vitals/I&O/Wt Last Vital Signs Temp 98.6 F 10/01/21 04:00 Pulse 78 10/01/21 04:00 Resp 17 10/01/21 04:00 BP 138/67 10/01/21 04:00 Pulse Ox 96 10/01/21 04:00 09/30/21 10/01/21 10/01/21 22:59 06:59 14:59 Intake Total 330 / 1552.5 Balance 330 / 1352.5 Physical Exam Narrative: EXAM NARRATIVE: General: In no acute distress, AOx3, mildly anxious HEENT: PERRLA, pupils bilaterally equal and reactive Chest: Normal vesicular breath sounds, no added sounds, equal good air entry bilaterally CVS: S1-S2 regular, no murmurs, no tachycardia, no gallops, no rubs Abdomen: Soft, no organomegaly, infrequent bowel sounds Neuro: No focal deficits, no facial deformity, AO x3, power 5/5 in all limbs Urinary Catheter Management: Ornelas: Cath Placed During This Visit: yes, but has since been removed by the nurse Reason for Continuing Indwelling Catheter: Decision to DC Catheter Date Urinary Catheter Removed: 09/27/21 Time Urinary Catheter Discontinued: 09:24 Data : 10/01/21 05:09 10/01/21 05:09 Micro: Microbiology 09/25/21 16:22 Blood Culture - Final Blood NO GROWTH AFTER 5 DAYS 09/25/21 12:52 Blood Culture - Final Blood NO GROWTH AFTER 5 DAYS 09/25/21 18:59 Anaerobic Culture - Preliminary Peritoneal Fluid Bacteroides Distasonis Bacteroides thetaiotaomicron A&P Assessment and plan (1) Perforated viscus: Post exploratory laparotomy with appendectomy for perforated appendix with generalized peritonitis. Postoperative day 2. OR cultures growing E. coli. Pansensitive. Continue with oral Levaquin and Flagyl. Most likely will need over 7-day course. Incentive spirometry. Physical therapy, anticoagulation, diet as per primary team. Status: Acute (2) Hypertension: Goal blood pressure less than 140/90 mmHg. Blood pressures currently at goal. As patient is taking oral well can switch to home dose of metoprolol. Telemetry. Status: Acute Plan Iron deficiency anemia: Hemoglobin at baseline. Continue IV iron supplementation to finish a 5-day course. Day 4/5 today Full code. GI soft diet. Heparin for DVT prophylaxis. Famotidine for PUD prophylaxis. Physical therapy eval. Out of bed to chair. Incentive spirometry. Patient can be medically discharged. Patient will need to be on Levaquin and Flagyl for next 5 days. Follow-up with surgery as recommended. Follow-up with a primary care provider within next 1 week. Attestations Medical Necessity Statement*: Being discharged today. 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
--- NOTE | 2021-10-01 09:38 | PC.CHAP ---
Pastoral Care Encounter/Spiritual Assessment Type of Contact [] Declined environmental manager visit [] Patient/Family/Request visit [] Outpatient visit [] Follow-up visit [] Physician referral [] Code/Alert [x] Routine visit [] Staff referral [] Actively dying [] Patient sleeping [] Family support [] [] Out of room [] Palliative care [] [] Receiving care in room [] Pre-surgical visit [] Trauma [] Long length of stay [] ICU visit [] Other: Relational/Emotional Strength [x] Patient feels connected with others/family/visitors/staff [] Distress [] Loneliness/isolation [] Abandonment Spirituality of Patient [x] Person of Kalli [] Attends Rastafari of their Kalli [x] Believes in Prayer [] Reads Bible or Adventist materials [] There are Spiritual issues to be addressed Camera Machinist Interventions [x] Prayer [] Active listening [] Non-anxious presence [] Spiritual/emotional support [] Crisis/trauma care [] Spiritual counseling [] Bereavement support [] Provided bereavement packet [] Provided Bible/devotional materials [] Provided toy/stuffed animal, coloring book to patient or family member [] Provided Communion [] Anointing/[place] [] Salvation [x] Completed spiritual assessment [] Other: Impact on Illness or Injury [] Angry [] Fearful [] Anxious [] Often cries [] Exhaustion [] Unable to work [] Unable to attend yazidi [] Unable to walk/stand [] Unable to read [] Unable to drive [] Unable to eat/drink [] Unable to sleep [] Unable to be with family [] Patient intubated [] Other: Summary patient doing better daughter n grand daughter visiting Time spent with patient 15 min
--- NOTE | 2021-10-01 12:56 | P.DS_ITS ---
Discharge Providers Date of Admission: 09/25/21 19:01 Date of Discharge: October 01, 2021 Attending Provider at Admission: Ricco Quintero MD Attending Provider at Discharge: Ricco Quintero MD Consults: Hospitalist team. Primary Care Provider: Phillip Olvera DO Diagnoses at Discharge Discharge Diagnosis (1) Perforated viscus: Details from hospital stay: Perforated appendicitis. Status: Acute (2) Hypertension: Status: Acute Reason for Visit Reason for Visit: FLU LIKE SYMPTOMS Hospital Course Hospital Course This is an 86-year-old white female who presented to the hospital with a several day history of abdominal pain. A CAT scan showed evidence of a perforated viscus, most likely in the lower abdomen. The patient was taken urgently the surgery where an exploratory laparotomy was carried out. The patient was found to have a perforated appendicitis. Some abdominal fluid was collected for cultu re which eventually grew pansensitive E. coli. The patient tolerated her procedure well and was placed on the floor with continuing intravenous antibiotics. The hospitalist team was involved in her medical management postoperatively. Other than being somewhat weak postoperatively she did well. Physical therapy was assisting her. She remained afebrile and her white blood cell count remained normal. Her bowel function returned and she was started on a diet which she tolerated well. Given the fact that she lives alone and was still feeling somewhat weak during her convalescence arrangements were made for her to undergo some rehabilitation at the [facility] following discharge from the hospital. The patient was discharged on 10/01/2021 with arrangements having been made for me to see her in the office as an outpatient early next week. Physical Exam Narrative: EXAM NARRATIVE: On the day of discharge, the patient's bowel sounds were present. Her incision looked good. Skin arron are intact. Urinary Catheter Management: Ornelas: Cath Placed During This Visit: yes, but has since been removed by the nurse Reason for Continuing Indwelling Catheter: Decision to DC Catheter Date Urinary Catheter Removed: 09/27/21 Time Urinary Catheter Discontinued: 09:24 Discharge Data Studies Completed and Pending Completed Studies During Hospitalization Category Date Time Status CT abdomen pelvis w con* [id number] Stat Cat Scan 09/25/21 12:07 Completed XR chest 1V portable [id number] Stat Exams 09/25/21 12:07 Completed Pathology: Surgical [PTH] Routine Pth 09/25/21 19:45 Completed Pending at discharge Category Date Time Status Anaerobic Culture Routine Lab 09/25/21 18:59 Results Clostridioides Difficile PCR Routine Lab 09/28/21 18:02 Ordered MRSA by PCR Routine Lab 09/25/21 17:41 Ordered Radiology Impressions Abdomen/Pelvis CT 09/25/21 12:07 IMPRESSION: 1. Free intraperitoneal air. There are several pockets of air in the peritoneal cavity suspicious for perforated viscus. Abnormal small bowel loops in the RIGHT lower quadrant. Suspect this is the area of perforation. No mass iden tified. Consider ischemic colitis. 2. Small amount of free fluid in the pelvis is more than expected. No abscess identified. 3. Prior cholecystectomy and appendectomy. Notified Tao Albert DO at 09/25/2021 2:37 PM. Chest X-Ray 09/25/21 12:07 IMPRESSION: No acute cardiopulmonary disease. Stable slight elevation LEFT hemidiaphragm. Laboratory Results WBC 5.7 10^3/uL (4.0-10.0) 10/01/21 05:09 RBC 3.10 10^6/uL (4.1-5.3) L 10/01/21 05:09 Hgb 10.0 g/dL (11.5-15.3) L 10/01/21 05:09 Hct 32.2 % (37.0-47.0) L 10/01/21 05:09 MCV 103.9 fl (81-99) H D 10/01/21 05:09 MCH 32.3 pg (28.0-34.0) 10/01/21 05:09 MCHC 31.1 g/dL (30.0-36.0) 10/01/21 05:09 RDW 14.8 % (12.1-15.1) 10/01/21 05:09 Plt Count 209 10^3/cmm (130-400) 10/01/21 05:09 MPV 10.3 fL (7.4-10.4) 10/01/21 05:09 Neut % (Auto) 60.2 % 10/01/21 05:09 Lymph % (Auto) 22.2 % 10/01/21 05:09 Petroleum % (Auto) 8.2 % 10/01/21 05:09 Eos % (Auto) 2.1 % 10/01/21 05:09 Baso % (Auto) 0.7 % 10/01/21 05:09 Neut # (Auto) 3.45 10^3/uL (1.8-7.7) 10/01/21 05:09 Lymph # (Auto) 1.3 10^3/uL (0.8-4.8) 10/01/21 05:09 [place] # (Auto) 0.5 10^3/uL (0.2-0.9) 10/01/21 05:09 Eos # (Auto) 0.1 10^3/uL (0.0-0.8) 10/01/21 05:09 Baso # (Auto) 0.0 10^3/uL (0.0-0.1) 10/01/21 05:09 Nucleated RBC % (auto) 0 % 10/01/21 05:09 Total Counted 100 (0-100) 09/30/21 09:12 Atypical Lymphs % 4.0 % (0-5) 09/30/21 09:12 Absolute Neutrophils 5.0 10^3/cmm (1.4-6.5) 09/30/21 09:12 Segmented Neutrophils 65 % 09/30/21 09:12 Abs Segm Neuts (Man) 4.7 10/cmm (1.6-7.1) 09/30/21 09:12 Band Neutrophils 3.0 % 09/30/21 09:12 Abs Band Neuts (Man) 0.2 10^3/cmm (0.0-1.2) 09/30/21 09:12 Absolute Lymphocytes 1.7 10^3/cmm (1.2-3.4) 09/30/21 09:12 Lymphocytes (Manual) 19 % 09/30/21 09:12 Monocytes (Manual) 4.0 % 09/30/21 09:12 Absolute Monocytes 0.3 10^3/cmm (0.1-0.6) 09/30/21 09:12 Eosinophils (Manual) 2 % 09/30/21 09:12 Absolute Eosinophils 0.1 10^3/cmm (0.0-0.7) 09/30/21 09:12 Basophils (Manual) 0.0 % 09/30/21 09:12 Absolute Basophils 0.0 10^3/cmm (0.0-0.2) 09/30/21 09:12 Metamyelocytes 3.0 % 09/30/21 09:12 Nucleated RBCs 2.0 /100WBC (0-1) H 09/30/21 09:12 Nucleated RBCs # 0.0 /100WBC 10/01/21 05:09 Platelet Estimate Normal (Normal) 09/30/21 09:12 Poikilocytosis Trace 09/30/21 09:12 Anisocytosis Trace 09/30/21 09:12 Sodium 142 mmol/L (136-145) 10/01/21 05:09 Potassium 3.4 mmol/L (3.5-5.1) L 10/01/21 05:09 Chloride 108 mmol/L (98-107) H 10/01/21 05:09 Carbon Dioxide 25 mmol/L (22-29) 10/01/21 05:09 Anion Gap 12.4 (5-19) 10/01/21 05:09 BUN 6 mg/dL (8-23) L 10/01/21 05:09 Creatinine 0.7 mg/dL (0.5-0.9) 10/01/21 05:09 GFR Calculation Not Reportable 10/01/21 05:09 Glucose 92 mg/dL (65-115) 10/01/21 05:09 POC Glucose 112 mg/dL (70-110) H 09/25/21 21:58 Estimat Average Glucose 108 09/26/21 04:48 Hemoglobin A1c 5.4 % (4.0-6.0) 09/26/21 04:48 Calculated Osmolality 291 mOsm/kg (285-295) 10/01/21 05:09 Lactic Acid 1.9 mmol/L (0.5-2.2) 09/25/21 12:52 Calcium 7.6 mg/dL (8.5-10.5) L 10/01/21 05:09 Iron 16 ug/dL (37-145) L 09/25/21 11:15 TIBC 209 mcg/dl 09/25/21 11:15 % Saturation 7.6 % (20-50) L 09/25/21 11:15 Unsat Iron Binding 193 ug/dL (112-347) 09/25/21 11:15 Total Bilirubin 0.3 mg/dL (0.15-1.2) 10/01/21 05:09 AST 21 U/L (0-32) 10/01/21 05:09 ALT 8 U/L (0-33) 10/01/21 05:09 Alkaline Phosphatase 49 IU/L (35-105) 10/01/21 05:09 Total Protein 5.2 g/dL (6.6-8.7) L 10/01/21 05:09 Albumin 2.5 g/dL (3.5-5.2) L 10/01/21 05:09 Globulin 2.7 g/dL (1.3-4.6) 10/01/21 05:09 Lipase 15 U/L (13-60) 09/25/21 12:52 Vitamin B12 1103 pg/mL (232-1245) 09/25/21 11:15 Folate 8.5 ng/mL (4.8-37.3) 09/25/21 11:15 Procalcitonin 13.74 ng/mL (0-0.5) H 09/25/21 11:15 TSH 1.86 uIU/mL (0.27-4.20) 09/25/21 11:15 Urine Color Yellow (Yellow) 09/25/21 13:37 Urine Appearance Hazy (CLEAR) A 09/25/21 13:37 Urine pH 5 (5-7) 09/25/21 13:37 Ur Specific [place] 1.025 (1.005-1.030) 09/25/21 13:37 Urine Protein 1+ (Negative) H 09/25/21 13:37 Urine Glucose (UA) Norm (Normal) 09/25/21 13:37 Urine Ketones Negative (Negative) 09/25/21 13:37 Urine Blood 2+ (Negative) H 09/25/21 13:37 Urine Nitrate Negative (Negative) 09/25/21 13:37 Urine Bilirubin Neg (Negative) 09/25/21 13:37 Urine Urobilinogen Neg mg/dL (Negative) 09/25/21 13:37 Ur Leukocyte Esterase Trace (Negative) H 09/25/21 13:37 Urine RBC 5-10 /hpf (0-2) H 09/25/21 13:37 Urine WBC 5-10 /hpf (0-5) H 09/25/21 13:37 Ur Squamous Epith Cells 5-10 /hpf (0-5) H 09/25/21 13:37 Amorphous Sediment Not Reportable 09/25/21 13:37 Urine Bacteria 1+ /hpf (NONE) H 09/25/21 13:37 Urine Mucus 1+ /hpf 09/25/21 13:37 Serum Ketones Negative (Negative) 09/25/21 12:52 Coronavirus 229E (PCR) Not detected (NOT DETECT) 09/30/21 12:18 SARS-CoV-2 (PCR) Not detected (NOT DETECT) 09/30/21 12:18 Vitals Last Vital Signs Temp 98.6 F 10/01/21 04:00 Pulse 78 10/01/21 04:00 Resp 17 10/01/21 04:00 BP 138/67 10/01/21 04:00 Pulse Ox 96 10/01/21 04:00 Discharge Plan Discharge Patient Disposition: SNF w Plan Readm Condition: Stable Prescriptions: New metronidazole 500 mg Tablet 500 mg PO TID 5 Days Qty: 15 0RF levofloxacin 500 mg Tablet 500 mg PO DAILY 5 Days Qty: 5 0RF Continued metoprolol succinate 50 mg tablet extended release 24 hr 50 mg PO DAILY 0RF sertraline 100 mg tablet 100 mg PO DAILY 0RF cyanocobalamin (vitamin B-12) [Vitamin B-12] 1,000 mcg Tablet 1,000 mcg PO DAILY 0RF hydrocodone-acetaminophen 10-325 mg tablet 1 tab PO BEDTIME PRN (Reason: Pain) 0RF rosuvastatin 20 mg tablet 20 mg PO DAILY 0RF PreserVision AREDS-2 1 tab PO DAILY 0RF calcium carbonate-vitamin D3 500 mg(1,250mg) -125 unit Tablet 1 tab PO DAILY 0RF Discharge Orders: Discharge Order (Routine); Ordered 10/01/21 Ordered By: Ricco Quintero Referrals: [facility] [Outside] Ricco Quintero MD [Physician] - 10/09/21 9:15 am (Nursing: Please call Dr. Quintero's office ([phone]) and make an appointment for the patient to be seen next week.) Phillip Olvera, DO [Primary Care Provider] - 7-10 days (You have an appointment scheduled in November. They will call you with a reminder closer to date. ) Discharge Diet: Advance as tolerated Discharge Activity: Limit activity as instructed Patient Instructions: Metronidazole (By mouth), Levofloxacin (By mouth), Open Appendectomy (DC), Open Appendectomy (GEN), Exploratory Laparotomy (DC) Activity Restrictions/Additional Instructions: 1. Discharge to [facility] as planned today. 2. Appointment to see Dr. Quintero next week as above. 3. May shower. No lifting over 20 pounds, no repetitive bending or twisting, no strenuous pushing / pulling or other heavy activity. Ambulate regularly. May go up and down steps if needed. Discharge Attestations Time Spent in Discharge Care*: less than 30 min Quality Metrics Clinical Quality Measures [ No reported AMI, CVA or VTE this stay] Coding Level of Care Code Acute Chg FW DC note Diagnoses Perforated viscus R19.8 Hypertension I10
--- NOTE | 2021-10-01 14:00 | PC.NURSE ---
Discharge paperwork discussed with patient and daughter. Patient going to [facility]. Report called to Norma Figueroa LPN
== END 2021-10-01 14:37 | disposition skilled nursing facility (03) | DRG 343 ==
LOC: ER 15:41 → OPS 16:29 → MEDSURG 19:02
PROVIDERS: Student in an Organized Health Care Education/Training Program; Admitting Provider Surgery; Emergency Provider Family Medicine; PCP Family Medicine; Visit Provider Surgery
PROC: 0DTJ0ZZ Resection of Appendix, Open Approach (ICD-10-PCS; CPT 49000; principal; 2021-09-25 17:00)
PROC: 0DTJ0ZZ Resection of Appendix, Open Approach (ICD-10-PCS; CPT 44950; 2021-09-25 17:00)
DX: K35.20 Acute appendicitis with generalized peritonitis, without abscess (principal); I10 Essential (primary) hypertension; G89.29 Other chronic pain; M54.9 Dorsalgia, unspecified; Z86.16 Personal history of COVID-19; D50.9 Iron deficiency anemia, unspecified; B96.20 Unspecified Escherichia coli [E. coli] as the cause of diseases classified elsewhere
CPT/HCPCS: 36415; 36416; 71045; 74177; 80048; 80053; 81001; 82009; 82607; 82746; 82962; 83036; 83540; 83550; 83605; 83690; 84145; 84443; 85007; 85025; 87040; 87070; 87075; 87077; 87186; 87205; 87635; 88304; 93005; 94640; 96365; 96367; 96372; 96375; 97110; 97116; 97162; 97530; 99285; J0330; J0690; J0744; J1100; J1170; J1200; J1644; J1756; J1885; J2270; J2370; J2405; J2704; J2710; J3010; J3490; J7030; J7614; P9041; Q9967; S0030

== ENCOUNTER 2021-10-11 18:31 | Inpatient (IN) | payer MEDICARE, OTHER, SELFPAY ==
--- NOTE | 2021-10-11 18:33 | CTR_ITS ---
PROCEDURE INFORMATION: Exam: CT Abdomen And Pelvis With Contrast Exam date and time: 10/11/2021 6:33 PM Age: 86 years old Clinical indication: Prior surgery; Surgery date: 6+ months; Surgery type: Gb, appy; Patient HX: Lower abdominal pain; Additional info: Abd pain TECHNIQUE: Imaging protocol: Computed tomography of the abdomen and pelvis with contrast. Sagittal and coronal reformatted images were created and reviewed. Radiation optimization: All CT scans at this facility use at least one of these dose optimization techniques: automated exposure control; mA and/or kV adjustment per patient size (includes targeted exams where dose is matched to clinical indication); or iterative reconstruction. Contrast material: OMNI 300; Contrast volume: 95 ml; Contrast route: INTRAVENOUS (IV); COMPARISON: CT abdomen pelvis w con* [id number] 09/25/2021 2:11 PM RADIATION DOSE METRICS: Total DLP (mGy-cm): 1678.19 FINDINGS: Lungs: There is linear scarring in the left lingula and left lower lobe. Findings are stable. Pleural spaces: No pleural effusion. Heart: Stable mild enlargement of the visualized portions of the heart. Liver: The liver is unremarkable. Gallbladder and bile ducts: Stable findings consistent with a previous cholecystectomy. Stable dilatation of the biliary ducts, not unexpected in a patient who has had a prior cholecystectomy. Pancreas: The pancreas is unremarkable. No pancreatic ductal dilatation. Spleen: Multiple calcified granulomas in the spleen. Adrenal glands: Stable nodularity of the adrenal glands. Kidneys and ureters: Simple cysts in both right and left kidneys. The largest on the right measures 2.1 cm. The largest on the left measures 1.6 cm. Findings are stable. Stable subcentimeter hypodense foci in both right and left kidneys that are too small to characterize, however likely represent small cysts. The right and left ureters are unremarkable. Stomach and bowel: Dilated loops of small bowel with multiple air-fluid levels. There is a transition point in the central abdomen (series 2, image 49). Small bowel loops measure up to 4.0 cm (series 2, image 64). There is wall thickening of the small bowel with associated mesenteric inflammation beyond the dilated segment suspicious for nonspecific enteritis. No acute abnormality in the colon. Appendix: Appendix not definitely visualized (by history the patient has had a prior appendectomy). No inflammatory changes in the pericecal region. Intraperitoneal space: Small volume ascites has mildly increased. No free intraperitoneal air. No loculated fluid collections to suggest an abscess. Vasculature: Stable moderate atherosclerotic calcifications in the visualized arteries. No evidence for aortic aneurysm or aortic dissection. Lymph nodes: No lymphadenopathy. Urinary bladder: The bladder is incompletely filled, which can limit evaluation. No focal abnormality in the bladder however. Reproductive: Stable changes consistent with a previous hysterectomy. The ovaries are not definitely visualized, not an expected in a postmenopausal female. This may be due to ovarian atrophy. Alternatively, the patient may have had a previous bilateral oophorectomy. Findings are stable. Bones/joints: Changes consistent with a previous fusion in the visualized spine and the sacroiliac joints, multiple laminectomies in the visualized spine, and a femoral fracture repair. Bones are diffusely osteopenic. Degenerative changes in the spine, sacroiliac joints, and hips. Mild scoliosis in the visualized spine. Osseous findings are stable. Soft tissues: No acute abnormality in the extra-abdominal soft tissues. Ventral midline surgical incision is now visualized. CT/CT abdomen pelvis w con* [id number] IMPRESSION: 1. Findings consistent with a small bowel obstruction. Inflammatory change of the small bowel beyond the dilated segment suspicious for nonspecific enteritis. No pneumatosis. No free intraperitoneal air. No abscess. 2. Small volume ascites has mildly increased. 3. Ventral midline surgical incision is now visualized. Recommend correlation with surgical history. 4. Incidental/nonacute findings are listed in the report. COMMENTS: Consistent with the [employer]'s Incidental Findings Committee white paper (J Am Rey Radiol 2018): Any incidental renal lesion less than 1 cm or classified as too small to characterize, or any incidental cystic renal lesion characterized as simple-appearing, is likely benign. No follow-up imaging is recommended for these lesions per consensus recommendations based on imaging criteria.
--- NOTE | 2021-10-11 18:37 | W.ED.ABDPA2 ---
HPI - Abdominal Pain General: Chief Complaint: Abdominal Pain Stated Complaint: LOWER ABD PAIN Time Seen by Provider: 10/11/21 18:33 Source: patient and EMS Mode of arrival: EMS Limitations: no limitations History of Present Illness: 86-year-old female who states that she had surgery roughly 2 weeks ago for perforated bowel by Dr. Quintero. She is at the [facility] currently and states that today started having some diffuse abdominal pain. States it started this morning rates the pain a 5 out of 10 states that it is mainly her lower abdomen. She denies any worsening improving factors she states she has been having bowel movements denies any vomiting or diarrhea. Associated Symptoms: Denies chills, dysuria and fever(s) Review of Systems Const: Denies: fever(s), chills, body aches or change in appetite Eyes: Denies: blurry vision or eye discomfort ENMT: Denies: throat pain or dental pain Card: Denies: chest pain Resp: Denies: dyspnea GI: Reports: abdominal pain : Denies: dysuria Musc: Denies: neck pain or back pain Skin/Breast: Denies: rash Neuro: Denies: headache(s) Psych: Denies: depression Miki/Lymph: Denies: easy bruising All/Imm: Denies: urticaria PFSH ED PFSH: Medical History Chronic back pain COVID-19 virus infection Hypertension Surgical History History of back surgery spinal rods History of cataract surgery History of cholecystectomy History of hip surgery Left -- screws History of hysterectomy / BSO Family History Denies family history of Diabetes Dementia Social History Smoking and tobacco status: never smoked Alcohol intake: never Physical Exam Const: COMMON NORMALS: patient oriented x3 and healthy appearing HENMT: COMMON NORMALS: normocephalic and atraumatic HEAD & SCALP: normocephalic and atraumatic Eye: COMMON NORMALS: Equal, round and reactive pupils present and EOMs intact bilaterally PUPIL: Yes Equal, round and reactive pupils present Neck/C-Spine: COMMON NORMALS: full ROM and supple Chest: COMMONS NORMALS: normal inspection of the chest and normal palpation of entire chest wall Resp: COMMON NORMALS: normal respiratory effort, No retractions, No use of accessory muscles and clear to auscultation bilaterally AUSCULTATION: clear to auscultation bilaterally Cardio: COMMON NORMALS: regular rate, regular rhythm and No murmurs present (Cardio) RATE: regular rate RHYTHM: regular rhythm GI: COMMON NORMALS: no masses OTHER: Diffuse mild tenderness with abdominal distention slightly decreased bowel sounds Extremity: COMMON NORMALS: normal to inspection and full ROM Neuro: COMMON NORMALS: patient oriented x3, moves all extremities and no focal motor deficits Psych: COMMON NORMALS: mental status grossly normal, Normal thought process present and cooperative THOUGHT PROCESS: Normal thought process present Skin: COMMON NORMALS: no rashes or lesions noted and no wounds GENERAL SKIN EXAM: no rashes or lesions noted Course Vital Signs: Vital signs: Vital Signs Temperature 98.3 F 10/11/21 18:49 Pulse Rate 104 H 10/11/21 18:49 Respiratory Rate 18 10/11/21 18:49 Blood Pressure 134/85 10/11/21 18:49 Pulse Oximetry 93 10/11/21 18:49 MDM - Abdominal Pain Medical Decision Making Patient presents here with abdominal pain CT shows a small bowel obstruction with some enteritis spoke to surgeon on-call along with hospitalist will start on IV antibiotics place an NG tube and admit at this time. Lab Data : 10/11/21 18:13 10/11/21 19:27 Labs/Radiology: Radiology Impressions Abdomen/Pelvis CT 10/11/21 18:33 IMPRESSION: 1. Findings consistent with a small bowel obstruction. Inflammatory change of the small bowel beyond the dilated segment suspicious for nonspecific enteritis. No pneumatosis. No free intraperitoneal air. No abscess. 2. Small volume ascites has mildly increased. 3. Ventral midline surgical incision is now visualized. Recommend correlation with surgical history. 4. Incidental/nonacute findings are listed in the report. COMMENTS: Consistent with the [employer]'s Incidental Findings Committee white paper (J Am Rey Radiol 2018): Any incidental renal lesion less than 1 cm or classified as too small to characterize, or any incidental cystic renal lesion characterized as simple-appearing, is likely benign. No follow-up imaging is recommended for these lesions per consensus recommendations based on imaging criteria. ADDENDUM: 10/11/212007 THIS REPORT CONTAINS FINDINGS THAT MAY BE CRITICAL TO PATIENT CARE. The findings were verbally communicated via telephone conference with CARITO Ramos at 8:[address] ENGINEER on 10/11/2021. The findings were acknowledged and understood. Laboratory Results WBC 8.1 10^3/uL (4.0-10.0) 10/11/21 18:13 RBC 3.84 10^6/uL (4.1-5.3) L 10/11/21 18:13 Hgb 12.0 g/dL (11.5-15.3) 10/11/21 18:13 Hct 38.4 % (37.0-47.0) 10/11/21 18:13 MCV 100.0 fl (81-99) H 10/11/21 18:13 MCH 31.3 pg (28.0-34.0) 10/11/21 18: MCHC 31.3 g/dL (30.0-36.0) 10/11/21 18:13 RDW 15.9 % (12.1-15.1) H 10/11/21 18:13 Plt Count 268 10^3/cmm (130-400) 10/11/21 18:13 MPV 10.3 fL (7.4-10.4) 10/11/21 18:13 Neut % (Auto) 74.8 % 10/11/21 18:13 Lymph % (Auto) 18.0 % 10/11/21 18:13 [place] % (Auto) 6.6 % 10/11/21 18: Eos % (Auto) 0.2 % 10/11/21 18:13 Baso % (Auto) 0.2 % 10/11/21 18:13 Neut # (Auto) 6.03 10^3/uL (1.8-7.7) 10/11/21 18:13 Lymph # (Auto) 1.5 10^3/uL (0.8-4.8) 10/11/21 18:13 [place] # (Auto) 0.5 10^3/uL (0.2-0.9) 10/11/21 18:13 Eos # (Auto) 0.0 10^3/uL (0.0-0.8) 10/11/21 18:13 Baso # (Auto) 0.0 10^3/uL (0.0-0.1) 10/11/21 18:13 Nucleated RBC % (auto) 0 % 10/11/21 18:13 Nucleated RBCs # 0.0 /100WBC 10/11/21 18:13 Sodium 135 mmol/L (136-145) L 10/11/21 19: Potassium 4.7 mmol/L (3.5-5.1) 10/11/21: Chloride 102 mmol/L (98-107) 10/11/21: Carbon Dioxide 22 mmol/L (22-29) 10/11/21: Anion Gap 15.7 (5-19) 10/11/21: BUN 12 mg/dL (8-23) 10/11/21: Creatinine 0.6 mg/dL (0.5-0.9) 10/11/21: GFR Calculation Not Reportable 10/11/21: Glucose 113 mg/dL (65-115) 10/11/21: Calculated Osmolality 281 mOsm/kg (285-295) L 10/11/21: Lactate 1.3 mmol/L (0.5-2.2) 10/11/21: Calcium 8.9 mg/dL (8.5-10.5) 10/11/21: Total Bilirubin 0.4 mg/dL (0.15-1.2) 10/11/21: AST 31 U/L (0-32) 10/11/21: ALT 12 U/L (0-33) 10/11/21: Alkaline Phosphatase 55 IU/L (35-105) 10/11/21: Total Protein 5.9 g/dL (6.6-8.7) L 10/11/21: Albumin 3.1 g/dL (3.5-5.2) L 10/11/21: Globulin 2.8 g/dL (1.3-4.6) 10/11/21 19: Lipase 44 U/L (13-60) 10/11/21 19: Discharge Plan Discharge Admit Provider: Yimi,Shahid Condition: Stable Coding Level of Care Code ED Universal Grinder Operator for Chg Fwd Exam Comprehensive
[2021-10-11 18:43] VITALS: BP 134/85; PULSE 104; RESP 18; TEMP 36.8; O2SAT 93; BMI 25.5
[2021-10-11 18:49] VITALS: BP 134/85; PULSE 104; RESP 18; TEMP 36.8; O2SAT 93
[2021-10-11 18:52] LABS: Basophils % 0.2 %; Eosinophils % 0.2 %; Hematocrit 38.4 % (37.0-47.0); Lymphocytes # 1.5 10^3/uL (0.8-4.8); Mean Corpuscular HGB Conc 31.3 g/dL (30.0-36.0); Mean Corpuscular Hemoglobin 31.3 pg (28.0-34.0); Mean Platelet Volume 10.3 fL (7.4-10.4); Monocytes # 0.5 10^3/uL (0.2-0.9); Monocytes % 6.6 %; Neutrophils # 6.03 10^3/uL (1.8-7.7); Neutrophils % 74.8 %; Nucleated Red Blood Cells % 0 %; Platelet Count 268 10^3/cmm (130-400); Red Blood Count 3.84 10^6/uL (4.1-5.3); Red Cell Distribution Width 15.9 % (12.1-15.1); White Blood Count 8.1 10^3/uL (4.0-10.0)
[2021-10-11] MEDS: sodium chloride 0.9% 1,000 ML 999 ML IV (18:55)
[2021-10-11] MEDS: ondansetron 2 mg/ML SDV 2 mL 4 MG IVP (18:55)
[2021-10-11] MEDS: morphine 4 mg/mL SDV 1 mL IVP (18:55)
[2021-10-11] MEDS: iohexol 300 mg/mL 100 mL Btl IV (19:12)
[2021-10-11 20:08] LABS: Lactate (Lactic Acid level) 1.3 mmol/L (0.5-2.2)
[2021-10-11 20:09] LABS: Albumin Level 3.1 g/dL (3.5-5.2); Alkaline Phosphatase 55 IU/L (35-105); Blood Urea Nitrogen 12 mg/dL (8-23); Calcium 8.9 mg/dL (8.5-10.5); Carbon Dioxide 22 mmol/L (22-29); Chloride 102 mmol/L (98-107); Globulin 2.8 g/dL (1.3-4.6); Glucose 113 mg/dL (65-115); Lipase 44 U/L (13-60); Osmolality Calculated 281 mOsm/kg (285-295); Sodium 135 mmol/L (136-145); Total Bilirubin 0.4 mg/dL (0.15-1.2); Total Protein 5.9 g/dL (6.6-8.7)
[2021-10-11 20:14] LABS: Alanine Aminotransferase 12 U/L (0-33); Anion Gap 15.7 (5-19); Aspartate Amino Transferase 31 U/L (0-32); Potassium 4.7 mmol/L (3.5-5.1)
[2021-10-11] MEDS: LORazepam 2 mg/mL INJ 1 mL 0.5 MG IVP (20:39)
--- NOTE | 2021-10-11 21:30 | PM.HP ---
Providers/Chief Complaint Admitting Physician: Shahid Geller MD Primary Care Provider: Phillip Olvera DO Chief Complaint: LOWER ABD PAIN History of Present Illness Delia Arthur is a 86 year old female with a past medical history of perforated viscus status post exploratory laparotomy with appendectomy for perforated appendix with generalized peritonitis, recently discharged to [facility] [place], hypertension, history of iron deficiency anemia, who presents [facility] due to nausea, vomiting, abdominal pain for the last 12 hours. Patient tells me that she has been doing well since discharge to [facility] [place], her last bowel movement was actually today, but started early in the morning she started develop lower abdominal pain, associate with nausea, vomiting, she vomited her dinner, no fevers, no chills, no lightheadedness, no dizziness, no fevers, has been vaccinated for COVID, tested negative at the residential, at [facility] she was found to have a small bowel obstruction, general surgery has been consulted, hospitalist team was called for medical management Review of Systems Const: Denies: fever(s) or chills Eyes: Denies: change in vision ENMT: Denies: nasal congestion Resp: Denies: dyspnea, productive cough, non-productive cough or wheezing GI: Reports: abdominal pain, nausea, vomiting, heartburn and bloating; Denies: hematemesis : Denies: flank pain, dysuria or urinary frequency Musc: Denies: neck pain or back pain Skin/Breast: Denies: rash Neuro: Denies: headache(s), dizziness or vertigo Medications/Allergies Home Medications Medication Instructions Recorded Confirmed Last Taken Type PreserVision AREDS-2 1 tab PO DAILY 07/16/20 09/26/21 09/25/21 History cyanocobalamin (vitamin B-12) 1,000 mcg PO DAILY 07/16/20 09/26/21 09/25/21 09:00 History 1,000 mcg tablet (Vitamin B-12) hydrocodone 10 mg-acetaminophen 1 tab PO BEDTIME PRN 07/16/20 09/26/21 09/23/21 18:00 History 325 mg tablet metoprolol succinate 50 mg 50 mg PO DAILY 07/16/20 09/26/21 09/25/21 18:00 History tablet,extended release 24 hr rosuvastatin 20 mg tablet 20 mg PO DAILY 07/16/20 09/26/21 09/24/21 18:00 History sertraline 100 mg tablet 100 mg PO DAILY 07/16/20 09/26/21 09/25/21 09:00 History calcium carbonate 500 mg (1,250 1 tab PO DAILY 09/26/21 09/26/21 09/25/21 09:00 History mg)-vitamin D3 125 unit tablet Allergies Allergy/AdvReac Type Severity Reaction Status Date / Time Penicillins Allergy Unknown ALGY-Rash Unverified 09/27/21 08:23 PFSH Acute PFSH: Medical History Chronic back pain COVID-19 virus infection Hypertension Surgical History History of back surgery spinal rods History of cataract surgery History of cholecystectomy History of hip surgery Left -- screws History of hysterectomy / BSO Family History Denies family history of Diabetes Dementia Social History Smoking and tobacco status: never smoked Alcohol intake: never Vitals/I&O/Wt Last Vital Signs Temp 98.3 F 10/11/21 18:49 Pulse 104 H 10/11/21 18:49 Resp 18 10/11/21 18:49 BP 134/85 10/11/21 18:49 Pulse Ox 93 10/11/21 18:49 Weight last 48 hrs Weight 83.007 kg Physical Exam Const: COMMON NORMALS: no acute distress and patient oriented x3 HENMT: COMMON NORMALS: normocephalic HEAD & SCALP: normocephalic Eye: COMMON NORMALS: Equal, round and reactive pupils present and EOMs intact bilaterally Neck/C-Spine: COMMON NORMALS: no JVD Lymph: LYMPHATIC: no lymphadenopathy noted Resp: COMMON NORMALS: normal respiratory effort, No retractions, No use of accessory muscles and clear to auscultation bilaterally AUSCULTATION: clear to auscultation bilaterally Cardio: COMMON NORMALS: no JVD, regular rate, regular rhythm, S1 normal heart sound present and S2 normal heart sound present RATE: regular rate RHYTHM: regular rhythm HEART SOUNDS: S1 normal heart sound present and S2 normal heart sound present GI: INSPECTION: Yes abdominal distension AUSCULTATION: Yes Hypoactive bowel sounds present PALPATION: Yes Tenderness to palpation present (GI) (Generalized tenderness), No Guarding due to palpation present (GI) and No Rigid due to palpation OTHER: Surgical site looks clean and dry Extremity: COMMON NORMALS: capillary refill normal and no clubbing, cyanosis or edema NARRATIVE EXTREMITY EXAM: 1+ pitting edema bilaterally Neuro: COMMON NORMALS: patient oriented x3 Psych: COMMON NORMALS: mental status grossly normal Data : 10/11/21 18:13 10/11/21 19:27 A&P Assessment and plan (1) Small bowel obstruction: Status: Acute Plan Small bowel obstruction 1. Findings consistent with a small bowel obstruction. Inflammatory change of the small bowel beyond the dilated segment suspicious for nonspecific enteritis. No pneumatosis. No free intraperitoneal air. No abscess. 2. Small volume ascites has mildly increased. 3. Ventral midline surgical incision is now visualized.? Recommend correlation with surgical history. -Transition point seen -Recent hospital discharge for perforated appendicitis Plan: -Admit to general medical floors -NG tube has been placed -N.p.o. -IV hydration, monitor for fluid overload, does have bilateral pitting edema 1+ -Cipro and Flagyl for antibiotic coverage -General surgery consulted -DNR/DNI -Heparin for DVT prophylaxis Attestations Medical Necessity Statement*: Patient requires hospitalization, inpatient, greater than 2 midnights, for small bowel obstruction Coding Level of Care Code Acute Systems Librarian for [facility] Diagnoses Small bowel obstruction K56.609
[2021-10-11 22:09] VITALS: BP 156/80; PULSE 67; RESP 19; TEMP 37; O2SAT 94
[2021-10-11] MEDS: dextrose 5%-sod chloride 0.9% 1,000 ML 75 ML IV (22:38)
[2021-10-11] MEDS: heparin 5,000 unit/mL INJ 1 mL 5000 UNIT SUBCUT (22:39)
[2021-10-11] MEDS: pantoprazole 40 mg SDV IVP (22:39)
[2021-10-11] MEDS: metroNIDAZOLE IV 500 MG/100 ML PREMIX 100 MG IV (22:39)
[2021-10-11 23:00] VITALS: PULSE 89
[2021-10-12] VITALS (11 sets, daily range): BP systolic 137–167; BP diastolic 73–84; PULSE 71–93; RESP 16–19; TEMP 36.4–37.2; O2SAT 90–94
[2021-10-12] MEDS: ciprofloxacin 400 MG/200 ML PREMIX 200 MG IV (00:13)
[2021-10-12 06:20] LABS: Glucose Point of Care 123 mg/dL (70-110)
--- NOTE | 2021-10-12 07:00 | XR_ITS ---
WS: [id number] XR KUB portable [id number] REASON FOR EXAM: sbo FINDINGS: No free air identified. Nasogastric tube present with the tip at the level of the body of the stomach. Gas-filled dilated short segments of small bowel in the left central and right lower abdomen. Minimal colon gas. XR/XR KUB portable [id number] IMPRESSION: Findings compatible with significant distal small bowel obstruction which was d emonstrated on CT scan of 10/11/2021.
[2021-10-12 07:30] LABS: Basophils % 0.3 %; Eosinophils # 0.2 10^3/uL (0.0-0.8); Eosinophils % 2.5 %; Hematocrit 33.3 % (37.0-47.0); Hemoglobin 10.4 g/dL (11.5-15.3); Lymphocytes # 1.4 10^3/uL (0.8-4.8); Mean Corpuscular HGB Conc 31.2 g/dL (30.0-36.0); Mean Corpuscular Hemoglobin 32.6 pg (28.0-34.0); Mean Corpuscular Volume 104.4 fl (81-99); Mean Platelet Volume 9.9 fL (7.4-10.4); Monocytes # 0.5 10^3/uL (0.2-0.9); Monocytes % 8.5 %; Neutrophils # 3.98 10^3/uL (1.8-7.7); Neutrophils % 65.4 %; Nucleated Red Blood Cells % 0 %; Platelet Count 229 10^3/cmm (130-400); Red Blood Count 3.19 10^6/uL (4.1-5.3); Red Cell Distribution Width 15.8 % (12.1-15.1); White Blood Count 6.1 10^3/uL (4.0-10.0)
[2021-10-12 07:42] LABS: Lactate (Lactic Acid level) 0.9 mmol/L (0.5-2.2)
[2021-10-12 07:58] LABS: Alanine Aminotransferase 11 U/L (0-33); Albumin Level 2.9 g/dL (3.5-5.2); Alkaline Phosphatase 53 IU/L (35-105); Anion Gap 10.8 (5-19); Aspartate Amino Transferase 20 U/L (0-32); Blood Urea Nitrogen 10 mg/dL (8-23); C Reactive Protein 12.6 mg/L (0.0-4.9); Calcium 8.9 mg/dL (8.5-10.5); Carbon Dioxide 26 mmol/L (22-29); Chloride 106 mmol/L (98-107); Globulin 3.2 g/dL (1.3-4.6); Glucose 117 mg/dL (65-115); Magnesium 1.9 mg/dL (1.7-2.3); Osmolality Calculated 288 mOsm/kg (285-295); Phosphorus 3.1 mg/dL (2.5-4.5); Potassium 3.8 mmol/L (3.5-5.1); Sodium 139 mmol/L (136-145); Total Bilirubin 0.3 mg/dL (0.15-1.2); Total Protein 6.1 g/dL (6.6-8.7)
[2021-10-12 08:03] LABS: Procalcitonin 0.08 ng/mL (0-0.5)
[2021-10-12] MEDS: pantoprazole 40 mg SDV IVP ×2 (09:30→21:39)
[2021-10-12] MEDS: atorvastatin 40 mg Tablet 80 MG PO (09:30)
[2021-10-12] MEDS: sertraline 100 mg Tablet PO (09:30)
[2021-10-12] MEDS: heparin 5,000 unit/mL INJ 1 mL 5000 UNIT SUBCUT ×2 (09:30→21:39)
--- NOTE | 2021-10-12 11:39 | PM.CONSULT ---
Providers/Reason For Consult Consulting Physician/Specialty*: General Surgery Dr. Villa Reason for Consult*: SBO Attending Physician: Misa Rico MD Primary Care Provider: Phillip Olvera DO History of Present Illness History of Present Illness Delia Arthur is a 86 year old female who presented to the ER yesterday from longterm with abdominal pain, nausea, vomiting since yesterday. Patient states that since her discharge she has been having loose stools. She denies any blood in stools, hematemesis or melena. She had a bowel movement yesterday. Today she is not passing any flatus. She underwent exploratory laparotomy for perforated appendicitis on 09/25/2021 and was finally discharged on 10/01/2021. At time of discharge she was tolerating a regular diet. Review of Systems General: Reports: 10 or more systems reviewed and unremarkable except in HPI and below Medications/Allergies Home Medications Medication Instructions Recorded Confirmed Last Taken Type PreserVision AREDS-2 1 tab PO DAILY 07/16/20 10/12/21 10/11/21 History cyanocobalamin (vitamin B-12) 1,000 mcg PO DAILY 07/16/20 10/12/21 10/11/21 History 1,000 mcg tablet (Vitamin B-12) hydrocodone 10 mg-acetaminophen 2 tab PO BEDTIME PRN 07/16/20 10/12/21 10/09/21 History 325 mg tablet metoprolol succinate 50 mg 50 mg PO DAILY 07/16/20 10/12/21 10/11/21 History tablet,extended release 24 hr sertraline 100 mg tablet 100 mg PO DAILY 07/16/20 10/12/21 10/11/21 History calcium carbonate 500 mg (1,250 1 tab PO DAILY 09/26/21 10/12/21 10/11/21 History mg)-vitamin D3 125 unit tablet acetaminophen 325 mg tablet 650 mg PO QID PRN 10/12/21 10/12/21 Unknown History bisacodyl 10 mg rectal suppository 10 mg FL DAILY PRN 10/12/21 10/12/21 Unknown History (Dulcolax (bisacodyl)) magnesium hydroxide 400 mg/5 mL 30 ml PO DAILY PRN 10/12/21 10/12/21 Unknown History oral suspension (Milk of Magnesia) rosuvastatin 20 mg tablet 20 mg PO BEDTIME 10/12/21 10/12/21 10/10/21 History sodium phosphates 19 gram-7 118 ml FL DAILY PRN 10/12/21 10/12/21 Unknown History gram/118 mL enema (Fleet Enema) Allergies Allergy/AdvReac Type Severity Reaction Status Date / Time Penicillins Allergy Unknown ALGY-Rash Verified 10/12/21 00:55 ciprofloxacin Allergy ALGY-Redness Verified 10/12/21 01:14 of Skin Current Medications Generic Name Dose Route Start Last Admin Trade Name Freq PRN Reason Stop Dose Admin Atorvastatin Calcium 80 mg 10/12/21 09:00 10/12/21 09:30 Atorvastatin 40 Mg Tablet PO 80 mg DAILY DWAYNE Administration Heparin Sodium (Porcine) 5,000 unit 10/11/21 22:09 10/12/21 09:30 Heparin 5,000 Unit/Ml Inj 1 Ml SUBCUT 5,000 unit Q12H DWAYNE Administration Dextrose/Sodium Chloride 1,000 mls @ 75 mls/hr 10/11/21 22:09 10/11/21 22:38 Dextrose 5%-Sod Chloride 0.9% IV 75 mls/hr .[id number] DWAYNE Administration Imipenem/Cilastatin Sodium 500 100 mls @ 200 mls/hr 10/12/21 08:00 10/12/21 10:15 mg/ Sodium Chloride IV Infused Q6H DWAYNE Infusion Protocol Pantoprazole Sodium 40 mg 10/11/21 22:09 10/12/21 09:30 Pantoprazole 40 Mg Sdv IVP 40 mg Q12H DWAYNE Administration Sertraline HCl 100 mg 10/12/21 09:00 10/12/21 09:30 Sertraline 100 Mg Tablet PO 100 mg DAILY DWAYNE Administration PFSH Acute PFSH: Medical History Chronic back pain COVID-19 virus infection Hypertension Surgical History History of back surgery spinal rods History of cataract surgery History of cholecystectomy History of hip surgery Left -- screws History of hysterectomy / BSO S/P exploratory laparotomy for perforated appendix Family History Denies family history of Diabetes Dementia Social History Smoking and tobacco status: never smoked Alcohol intake: never Vitals/I&O/Wt Last Vital Signs Temp 97.7 F 10/12/21 08:00 Pulse 91 10/12/21 08:00 Resp 18 10/12/21 08:00 BP 149/77 10/12/21 08:00 Pulse Ox 92 10/12/21 10:16 10/11/21 10/12/21 10/12/21 22:59 06:59 14:59 Intake Total 1000 / 1190 190 / 1190 100 / 100 Output Total 800 / 800 Balance 1000 / 390 -610 / 390 100 / 100 Weight last 48 hrs Weight 183 lb Physical Exam Narrative: HEENT: Normocephalic, NG to LIS Eye: Sclera /conjunctiva normal Abdomen: Soft to palpation, laparotomy incision, clean dry intact Neurological: Oriented to place person and time Skin: Intact, no lesions appreciated on gross exam Data : 10/12/21 07:15 10/12/21 07:15 A&P Assessment and plan (1) Small bowel obstruction: 86-year-old female status post laparotomy for perforated appendicitis on 09/25/2021 who presents with abdominal pain, nausea, vomiting and diarrhea. Patient has a benign abdomen on physical exam today. Her WBC was normal. CT abdomen pelvis showed bowel obstruction with inflammatory changes at the site of obstruction. Continue IV imipenem Protonix 40 mg IV for GI prophylaxis Heparin IV for DVT prophylaxis Continue IV fluids NG to LIS Abdominal series tomorrow a.m. Discussed with the patient about possible etiologies for obstruction. At this point patient is hemodynamically stable without any evidence of peritonitis and therefore continue with conservative measures. If patient were to develop peritonitis or if there is no improvement in her status in the next 72 hours then we might have to consider surgical options. Status: Acute Consult Attestations Medical Necessity Statement: As per attending physician Coding Level of Care Code Acute Pole Peeling Machine Operator Helper for [facility]ss[facility] Rojas Diagnoses Small bowel obstruction K56.609
[2021-10-12] MEDS: dextrose 5%-sod chloride 0.9% 1,000 ML 75 ML IV (12:02)
--- NOTE | 2021-10-12 13:28 | PC.CHAP ---
Pastoral Care Encounter/Spiritual Assessment Type of Contact [] Declined catalogue illustrator visit [] Patient/Family/Request visit [] Outpatient visit [] Follow-up visit [] Physician referral [] Code/Alert [x] Routine visit [] Staff referral [] Actively dying [x] Patient sleeping [] Family support [] [] Out of room [] Palliative care [] [] Receiving care in room [] Pre-surgical visit [] Trauma [] Long length of stay [] ICU visit [] Other: Relational/Emotional Strength [] Patient feels connected with others/family/visitors/staff [] Distress [] Loneliness/isolation [] Abandonment Spirituality of Patient [] Person of Kalli [] Attends Taoist of their Kalli [] Believes in Prayer [] Reads Bible or Temple materials [] There are Spiritual issues to be addressed Welder Apprentice Gas Interventions [] Prayer [] Active listening [] Non-anxious presence [] Spiritual/emotional support [] Crisis/trauma care [] Spiritual counseling [] Bereavement support [] Provided bereavement packet [] Provided Bible/devotional materials [] Provided toy/stuffed animal, coloring book to patient or family member [] Provided Communion [] Anointing/[place] [] Salvation [] Completed spiritual assessment [] Other: Impact on Illness or Injury [] Angry [] Fearful [] Anxious [] Often cries [] Exhaustion [] Unable to work [] Unable to attend methodist [] Unable to walk/stand [] Unable to read [] Unable to drive [] Unable to eat/drink [] Unable to sleep [] Unable to be with family [] Patient intubated [] Other: Summary Time spent with patient
--- NOTE | 2021-10-12 16:50 | PM.PN ---
Subjective Subjective: overnight labs and H&P reviewed. Evy cute interim events. Patient appears comfortable overall, asleep but wakes up to calling name. Denies pain at this time. Vitals/I&O/Wt Last Vital Signs Temp 98.6 F 10/12/21 16:00 Pulse 91 10/12/21 16:00 Resp 18 10/12/21 16:00 BP 161/79 10/12/21 16:00 Pulse Ox 93 10/12/21 16:00 10/12/21 10/12/21 10/12/21 06:59 14:59 22:59 Intake Total 190 / 1190 1100 / 1100 100 / 1200 Output Total 800 / 800 225 / 225 Balance -610 / 390 875 / 875 100 / 975 Weight last 48 hrs Weight 83.007 kg Physical Exam Narrative: GEN: Awake, alert and oriented, no acute distress , NGT in place CVS: S1S2 N RS: CTA B/L Abd: mildly distended CHRONIC SPECIALIST: no focal neuro deficits Data : 10/12/21 07:15 10/12/21 07:15 A&P Assessment and plan (1) Small bowel obstruction: Status: Acute Plan SBO after recent surgery for appendicitis -NG to low suction -N.p.o. -IV hydration, -Continue imipenem -General surgery recommendations appreciated -DNR/DNI -Heparin for DVT prophylaxis Attestations Medical Necessity Statement*: SBO, NPO, NGT to suction, monitor for improvement Coding Level of Care Code Acute Quantitative Analyst Developer for [employer] [facility] Diagnoses Small bowel obstruction K56.609
[2021-10-13] VITALS (8 sets, daily range): BP systolic 132–153; BP diastolic 70–78; PULSE 68–94; RESP 16–19; TEMP 36.6–36.9; O2SAT 91–95
[2021-10-13] MEDS: dextrose 5%-sod chloride 0.9% 1,000 ML 75 ML IV ×2 (01:59→13:44)
--- NOTE | 2021-10-13 06:00 | XRR_ITS ---
PROCEDURE INFORMATION: Exam: XR Abdomen Exam date and time: 10/13/2021 6:00 AM Age: 86 years old Clinical indication: Small-bowel obstruction. TECHNIQUE: Imaging protocol: XR of the abdomen. Views: 2 Views. Upright and supine views. COMPARISON: CR XR KUB portable [id number] 10/12/2021 4:13 AM FINDINGS: Tubes, catheters and devices: Nasogastric tube with tip in the gastric body. Gastrointestinal tract: There are dilated gas-filled loops of small bowel in the central abdomen. The amount of gas-filled, distended bowel is slightly greater than on the prior study. Multiple surgical clips are noted in the abdomen. Intraperitoneal space: No free air is identified. Bones/joints: There is extensive spinal hardware.. Left hip hardware is incompletely visualized. No gross acute fracture. XR/XR abdomen min 2V [id number] IMPRESSION: There are dilated gas-filled loops of small bowel in the central abdomen. The amount of gas-filled, distended bowel is slightly greater than on the prior study.
[2021-10-13 07:01] LABS: Basophils % 0.3 %; Eosinophils % 0.7 %; Hematocrit 31.9 % (37.0-47.0); Hemoglobin 9.9 g/dL (11.5-15.3); Lymphocytes # 1.1 10^3/uL (0.8-4.8); Lymphocytes % 19.6 %; Mean Corpuscular Hemoglobin 32.2 pg (28.0-34.0); Mean Corpuscular Volume 103.9 fl (81-99); Mean Platelet Volume 9.6 fL (7.4-10.4); Monocytes # 0.5 10^3/uL (0.2-0.9); Monocytes % 9.3 %; Neutrophils # 4.03 10^3/uL (1.8-7.7); Neutrophils % 69.8 %; Nucleated Red Blood Cells % 0 %; Platelet Count 216 10^3/cmm (130-400); Red Blood Count 3.07 10^6/uL (4.1-5.3); Red Cell Distribution Width 15.8 % (12.1-15.1); White Blood Count 5.8 10^3/uL (4.0-10.0)
[2021-10-13 08:13] LABS: Alanine Aminotransferase 8 U/L (0-33); Albumin Level 2.9 g/dL (3.5-5.2); Alkaline Phosphatase 51 IU/L (35-105); Aspartate Amino Transferase 24 U/L (0-32); C Reactive Protein 19.6 mg/L (0.0-4.9); Chloride 107 mmol/L (98-107); Glucose 113 mg/dL (65-115); Phosphorus 2.3 mg/dL (2.5-4.5); Potassium 3.3 mmol/L (3.5-5.1); Sodium 142 mmol/L (136-145)
[2021-10-13 08:19] LABS: Procalcitonin 0.09 ng/mL (0-0.5)
[2021-10-13 08:29] LABS: Anion Gap 11.3 (5-19); Blood Urea Nitrogen 6 mg/dL (8-23); Calcium 7.7 mg/dL (8.5-10.5); Carbon Dioxide 27 mmol/L (22-29); Globulin 2.6 g/dL (1.3-4.6); Magnesium 1.9 mg/dL (1.7-2.3); Osmolality Calculated 292 mOsm/kg (285-295); Total Bilirubin 0.3 mg/dL (0.15-1.2); Total Protein 5.5 g/dL (6.6-8.7)
[2021-10-13] MEDS: heparin 5,000 unit/mL INJ 1 mL 5000 UNIT SUBCUT ×2 (09:49→21:09)
[2021-10-13] MEDS: pantoprazole 40 mg SDV IVP ×2 (09:54→21:09)
--- NOTE | 2021-10-13 10:23 | PM.PN ---
Subjective Subjective: Patient denies any abdominal pain, no nausea or vomiting, NG output was 100 cc yesterday. She states that she is passing flatus but no BM Medications: Reviewed: Yes Vitals/I&O/Wt Last Vital Signs Temp 98.4 F 10/13/21 04:00 Pulse 93 10/13/21 07:49 Resp 18 10/13/21 07:49 BP 140/78 10/13/21 07:49 Pulse Ox 91 10/13/21 07:49 10/12/21 10/13/21 10/13/21 22:59 06:59 14:59 Intake Total 200 / 2400 1100 / 2400 100 / 100 Output Total 275 / 900 400 / 900 Balance -75 / 1500 700 / 1500 100 / 100 Weight last 48 hrs Weight 183 lb Physical Exam Narrative: Abdomen: Soft, mildly distended, nontender, incision clean dry and intact, NG to LIS Data : 10/13/21 06:47 10/13/21 06:47 A&P Assessment and plan (1) Small bowel obstruction: 86-year-old female status post laparotomy for perforated appendicitis on 09/25/2021 who presents with abdominal pain, nausea, vomiting and diarrhea. CT scan showed possible bowel obstruction with enteritis. Her WBC was normal. Abdominal x-ray shows slightly dilated bowel loops today the patient is passing flatus Continue IV imipenem Protonix 40 mg IV for GI prophylaxis Heparin IV for DVT prophylaxis Continue IV fluids NG to LIS Abdominal series tomorrow a.m. Status: Acute Attestations Medical Necessity Statement*: As per primary Coding Level of Care Code Acute Alteration Workroom Supervisor for [facility] Diagnoses Small bowel obstruction K56.609
[2021-10-13] MEDS: acetaminophen 325 mg Tablet 650 MG PO ×2 (16:39→23:34)
--- NOTE | 2021-10-13 17:43 | PM.PN ---
Subjective Subjective: continues with NGT to suction, passed flatus and had BM today. vrebal report called from lab to report + C diff however i do not see these results in the computer system. Awaiting confirmation from lab reagrding the same. Medications: Reviewed: Yes Vitals/I&O/Wt Last Vital Signs Temp 97.9 F 10/13/21 11:13 Pulse 76 10/13/21 15:47 Resp 18 10/13/21 15:47 BP 132/74 10/13/21 15:47 Pulse Ox 94 10/13/21 15:47 10/13/21 10/13/21 10/13/21 06:59 14:59 22:59 Intake Total 1100 / 2400 1081.25 / 1081.25 Output Total 400 / 900 Balance 700 / 1500 1081.25 / 1081.25 Weight last 48 hrs Weight 83.007 kg Physical Exam Narrative: GEN: Awake, alert and oriented, no acute distress , NGT in place CVS: S1S2 N RS: CTA B/L Abd: mildly distended SENIOR POWER SCHEDULER: no focal neuro deficits Data : 10/13/21 06:47 10/13/21 06:47 Micro: Microbiology 10/12/21 09:50 Enteric Pathogens (PCR) - Final Stool - Stool Aspirate A&P Assessment and plan (1) Small bowel obstruction: Status: Acute Plan SBO after recent surgery for appendicitis -NG to low suction -N.p.o. -IV hydration, -Continue imipenem -General surgery recommendations appreciated -DNR/DNI -Heparin for DVT prophylaxis - awaiting confirmation of C.diff + result from lab- if confirmed, will start po vancomycin 250mg q6h Attestations Medical Necessity Statement*: ongoing need for NGT, awaiting resolution of SBO, treatment for C diff Coding Level of Care Code Acute Field Assembly Supervisor for g Fwd Diagnoses Small bowel obstruction K56.609
[2021-10-14] VITALS (9 sets, daily range): BP systolic 129–169; BP diastolic 63–86; PULSE 73–100; RESP 16–18; TEMP 36.6–37.3; O2SAT 93–97
[2021-10-14] MEDS: dextrose 5%-sod chloride 0.9% 1,000 ML 75 ML IV ×2 (04:34→18:11)
[2021-10-14 05:50] LABS: Basophils % 0.3 %; Eosinophils # 0.1 10^3/uL (0.0-0.8); Eosinophils % 2.1 %; Hemoglobin 9.7 g/dL (11.5-15.3); Lymphocytes # 0.9 10^3/uL (0.8-4.8); Lymphocytes % 25.3 %; Mean Corpuscular HGB Conc 31.3 g/dL (30.0-36.0); Mean Corpuscular Hemoglobin 32.2 pg (28.0-34.0); Mean Platelet Volume 9.6 fL (7.4-10.4); Monocytes # 0.4 10^3/uL (0.2-0.9); Monocytes % 11.5 %; Neutrophils # 2.06 10^3/uL (1.8-7.7); Neutrophils % 60.5 %; Nucleated Red Blood Cells % 0 %; Platelet Count 189 10^3/cmm (130-400); Red Blood Count 3.01 10^6/uL (4.1-5.3); Red Cell Distribution Width 15.5 % (12.1-15.1); White Blood Count 3.4 10^3/uL (4.0-10.0)
[2021-10-14 06:06] LABS: Alanine Aminotransferase 8 U/L (0-33); Alkaline Phosphatase 51 IU/L (35-105); Anion Gap 11.9 (5-19); Aspartate Amino Transferase 16 U/L (0-32); Blood Urea Nitrogen 4 mg/dL (8-23); Calcium 7.5 mg/dL (8.5-10.5); Carbon Dioxide 30 mmol/L (22-29); Chloride 104 mmol/L (98-107); Globulin 2.6 g/dL (1.3-4.6); Glucose 116 mg/dL (65-115); Magnesium 1.9 mg/dL (1.7-2.3); Osmolality Calculated 294 mOsm/kg (285-295); Phosphorus 2.2 mg/dL (2.5-4.5); Sodium 143 mmol/L (136-145); Total Bilirubin 0.3 mg/dL (0.15-1.2); Total Protein 5.6 g/dL (6.6-8.7)
[2021-10-14 06:16] LABS: Potassium 2.9 mmol/L (3.5-5.1)
[2021-10-14] MEDS: lidocaine 1% 5 ML in potassium chloride premix 100 ML 25 ML IV (07:50)
--- NOTE | 2021-10-14 09:26 | PC.SOCIAL ---
IMM update IMM updated with patient. Copy Pg 2 provided. Initialled, dated, timed, and placed in chart.
[2021-10-14] MEDS: pantoprazole 40 mg SDV IVP ×2 (10:21→22:27)
[2021-10-14] MEDS: heparin 5,000 unit/mL INJ 1 mL 5000 UNIT SUBCUT ×2 (10:21→22:27)
[2021-10-14] MEDS: sertraline 100 mg Tablet PO (10:31)
[2021-10-14] MEDS: atorvastatin 40 mg Tablet 80 MG PO (10:32)
--- NOTE | 2021-10-14 13:00 | PM.PN ---
Subjective Subjective: Yesterday she tested positive for C. difficile. She had 1 small bowel movement today. Denies any nausea or vomiting, NG output glucose was 150 cc yesterday. She denies any abdominal pain. Medications: Reviewed: Yes Vitals/I&O/Wt Last Vital Signs Temp 98.1 F 10/14/21 11:50 Pulse 84 10/14/21 11:50 Resp 18 10/14/21 11:50 BP 154/71 10/14/21 11:50 Pulse Ox 96 10/14/21 11:50 10/13/21 10/14/21 10/14/21 22:59 06:59 14:59 Intake Total 100 / 2331.25 1150 / 2331.25 205 / 205 Output Total 910 / 1895 985 / 1895 650 / 650 Balance -810 / 436.25 165 / 436.25 -445 / -445 Physical Exam Narrative: Abdomen: Soft, nondistended, nontender, incision clean dry and intact, NG to LIS Data : 10/14/21 05:39 10/14/21 05:39 Micro: Microbiology 10/13/21 09:50 C.difficile Toxin B Gene (PCR) - Final Stool 10/12/21 09:50 Enteric Pathogens (PCR) - Final Stool - Stool Aspirate A&P Assessment and plan (1) Small bowel obstruction: 86-year-old female status post laparotomy for perforated appendicitis on 09/25/2021 who presents with abdominal pain, nausea, vomiting and diarrhea. CT scan showed possible bowel obstruction with enteritis. Her WBC was normal. Patient had a small bowel movement today, start clear liquid diet, clamp NG tube Continue IV imipenem Protonix 40 mg IV for GI prophylaxis Heparin IV for DVT prophylaxis Continue IV fluids Hopefully NG tube can be discontinued tomorrow and her diet advanced Status: Acute (2) C. difficile diarrhea: Continue oral vancomycin 250 mg 4 times daily Status: Acute Attestations Medical Necessity Statement*: As per primary Coding Level of Care Code Acute Valve And Regulator Repairer for [facility]ss[facility] Rojas Diagnoses Small bowel obstruction K56.609 C. difficile diarrhea A04.72
[2021-10-14] MEDS: ondansetron 2 mg/ML SDV 2 mL 4 MG IVP (15:20)
--- NOTE | 2021-10-14 17:39 | P.PN_ITS ---
Subjective Subjective: NGT output ~150cc, no new complaints, passing flatus, unsure if she had BM today .C diff + result confirmed with lab. Medications: Reviewed: Yes Vitals/I&O/Wt Last Vital Signs Temp 98.6 F 10/14/21 16:00 Pulse 73 10/14/21 16:00 Resp 18 10/14/21 16:00 BP 143/81 10/14/21 16:00 Pulse Ox 96 10/14/21 16:00 10/14/21 10/14/21 10/14/21 06:59 14:59 22:59 Intake Total 1150 / 2331.25 205 / 205 100 / 305 Output Total 985 / 1895 650 / 650 300 / 950 Balance 165 / 436.25 -445 / -445 -200 / -645 Physical Exam Narrative: GEN: Awake, alert , sitting up in chair with NGT in place, no acute distress CVS: S1S2 N RS: CTA B/L all areas Abd: Soft, nt/nd , bs+ COMMERCIAL ROOFING ESTIMATOR: no focal neuro deficits Data : 10/14/21 05:39 10/14/21 05:39 Micro: Microbiology 10/13/21 09:50 C.difficile Toxin B Gene (PCR) - Final Stool 10/12/21 09:50 Enteric Pathogens (PCR) - Final Stool - Stool Aspirate A&P Assessment and plan (1) Small bowel obstruction: Status: Acute Plan SBO after recent surgery for appendicitis -NG to low suction -N.p.o. -IV hydration, -Continue imipenem -General surgery recommendations appreciated - po vancomycin 250mg q6h for C diff diarrhea - hypokalemia repleted iv Attestations Medical Necessity Statement*: ongoing admission for managemnet of SBO, NGT, ,c diff diarrhea Coding Level of Care Code Acute Door Frame Builder for [facility] Fwd Diagnoses Small bowel obstruction K56.609
[2021-10-14] MEDS: morphine 4 mg/mL SDV 1 mL 2 MG IVP (22:43)
[2021-10-15 04:00] VITALS: BP 124/58; PULSE 88; RESP 17; TEMP 36.8; O2SAT 91
--- NOTE | 2021-10-15 06:58 | XR_ITS ---
WS: [id number] ABDOMEN SERIES Supine and upright views of the abdomen CLINICAL INFORMATION: sbo COMPARISON: October 13, 2021 FINDINGS: Again seen are dilated air distended loops of small bowel in the midabdomen. Paucity of air within th e colon. Findings are stable compared to previous compatible with small bowel obstruction. Enteric tu be tip visualized in the stomach. Stable postoperative changes pedicle screw fixation with interconne cting rods in the lower thoracic and lumbar spine with bilateral sacroiliac fixation. LEFT hip screw fixation. XR/XR abdomen min 2V [id number] IMPRESSION: Stable small bowel obstruction compared to October 13, 2021. Relative paucity of gas within the colon.
[2021-10-15 07:27] VITALS: BP 146/84; PULSE 75; RESP 14; TEMP 37.1; O2SAT 96
[2021-10-15 07:57] LABS: Basophils % 0.2 %; Eosinophils # 0.1 10^3/uL (0.0-0.8); Eosinophils % 1.2 %; Hematocrit 34.8 % (37.0-47.0); Hemoglobin 10.9 g/dL (11.5-15.3); Lymphocytes # 1.2 10^3/uL (0.8-4.8); Lymphocytes % 28.2 %; Mean Corpuscular HGB Conc 31.3 g/dL (30.0-36.0); Mean Corpuscular Hemoglobin 32.4 pg (28.0-34.0); Mean Corpuscular Volume 103.6 fl (81-99); Mean Platelet Volume 9.7 fL (7.4-10.4); Monocytes # 0.5 10^3/uL (0.2-0.9); Monocytes % 11.6 %; Neutrophils # 2.42 10^3/uL (1.8-7.7); Neutrophils % 58.3 %; Nucleated Red Blood Cells % 0 %; Platelet Count 181 10^3/cmm (130-400); Red Blood Count 3.36 10^6/uL (4.1-5.3); Red Cell Distribution Width 15.8 % (12.1-15.1); White Blood Count 4.2 10^3/uL (4.0-10.0)
[2021-10-15] MEDS: atorvastatin 40 mg Tablet 80 MG PO (08:03)
[2021-10-15] MEDS: sertraline 100 mg Tablet PO (08:03)
[2021-10-15 08:36] LABS: Blood Urea Nitrogen 5 mg/dL (8-23); Calcium 7.6 mg/dL (8.5-10.5); Carbon Dioxide 26 mmol/L (22-29); Chloride 105 mmol/L (98-107); Glucose 96 mg/dL (65-115); Osmolality Calculated 287 mOsm/kg (285-295); Sodium 140 mmol/L (136-145)
[2021-10-15 08:40] LABS: Anion Gap 12.7 (5-19); Potassium 3.7 mmol/L (3.5-5.1)
[2021-10-15] MEDS: pantoprazole 40 mg SDV IVP ×2 (10:35→23:09)
[2021-10-15] MEDS: heparin 5,000 unit/mL INJ 1 mL 5000 UNIT SUBCUT ×2 (10:56→23:09)
[2021-10-15] MEDS: dextrose 5%-sod chloride 0.9% 1,000 ML 75 ML IV (10:57)
[2021-10-15 12:00] VITALS: BP 132/78; PULSE 83; RESP 15; O2SAT 95
--- NOTE | 2021-10-15 12:17 | P.PN_ITS ---
Subjective Subjective: Patient denies any nausea or vomiting, NG tube has been clamped since yesterday, had a small bowel movement yesterday. Denies any abdominal pain Medications: Reviewed: Yes Vitals/I&O/Wt Last Vital Signs Temp 98.7 F 10/15/21 07:27 Pulse 75 10/15/21 07:27 Resp 14 10/15/21 07:27 BP 146/84 10/15/21 07:27 Pulse Ox 96 10/15/21 07:27 10/14/21 10/15/21 10/15/21 22:59 06:59 14:59 Intake Total 1200 / 1505 100 / 1505 1100 / 1100 Output Total 800 / 1650 200 / 1650 Balance 400 / -145 -100 / -145 1100 / 1100 Physical Exam Narrative: Abdomen: Soft, nontender, mildly distended, incision clean dry and intact Data : 10/15/21 07:40 10/15/21 07:40 A&P Assessment and plan (1) Small bowel obstruction: 86-year-old female status post laparotomy for perforated appendicitis on 09/25/2021 who presents with abdominal pain, nausea, vomiting and diarrhea. CT scan showed possible bowel obstruction with enteritis. Her WBC was normal. Start clear liquid diet, if tolerating DC NG tube later today Continue IV imipenem Protonix 40 mg IV for GI prophylaxis Heparin IV for DVT prophylaxis DC IV fluids Status: Acute (2) C. difficile diarrhea: Continue oral vancomycin 250 mg 4 times daily Status: Acute Attestations Medical Necessity Statement*: As per primary Coding Level of Care Code Acute Big Machine Consultant for [facility] Bob Diagnoses Small bowel obstruction K56.609 C. difficile diarrhea A04.72
--- NOTE | 2021-10-15 12:22 | CTR_ITS ---
PROCEDURE INFORMATION: Exam: CT Abdomen And Pelvis With Contrast Exam date and time: 10/15/2021 12:22 PM Age: 86 years old Clinical indication: Nausea and vomiting; Prior surgery; Surgery type: Appy, spine, gb; Additional info: Sbo S/P appendectomy 2 weeks ago TECHNIQUE: Imaging protocol: Computed tomography of the abdomen and pelvis with contrast. Radiation optimization: All CT scans at this facility use at least one of these dose optimization techniques: automated exposure control; mA and/or kV adjustment per patient size (includes targeted exams where dose is matched to clinical indication); or iterative reconstruction. Contrast material: OMNI 300; Contrast volume: 95 ml; Contrast route: INTRAVENOUS (IV); Other contrast: Oral, OMNI 300, 20; COMPARISON: CT abdomen pelvis w con* [id number] 10/11/2021 7:05 PM RADIATION DOSE METRICS: Total DLP (mGy-cm): 1641.22 FINDINGS: Tubes, catheters and devices: Enteric tube tip in the stomach. Lungs: Left lower lobe atelectasis versus pleuroparenchymal scarring. Liver: Normal. No mass. Gallbladder and bile ducts: Cholecystectomy. Pancreas: Normal. No ductal dilation. Spleen: Normal. No splenomegaly. Adrenal glands: Normal. No mass. Kidneys and ureters: Bilateral renal cysts, negative follow-up advised. Stomach and bowel: Dilated small bowel loops to 3.4 cm with fluid levels consistent with an obstruction, potentially high-grade with a possible transition point the right mid abdomen. Appendix: No evidence of appendicitis. Intraperitoneal space: Small amount of fluid throughout the abdomen and pelvis, nonspecific Vasculature: Unremarkable. No abdominal aortic aneurysm. Lymph nodes: Unremarkable. No enlarged lymph nodes. Urinary bladder: Unremarkable as visualized. Reproductive: Unremarkable as visualized. Bones/joints: Surgical hardware present throughout the spine. Soft tissues: Unremarkable. CT/CT abdomen pelvis w con* [id number] IMPRESSION: 1. Small amount of fluid throughout the abdomen and pelvis, nonspecific. 2. Dilated small bowel loops to 3.4 cm with fluid levels consistent with an obstruction, potentially high-grade with a possible transition point the right mid abdomen. 3. Surgical hardware present throughout the spine. 4. Left lower lobe atelectasis versus pleuroparenchymal scarring. 5. Cholecystectomy. 6. Bilateral renal cysts, negative follow-up advised. 7. Enteric tube tip in the stomach.
--- NOTE | 2021-10-15 12:29 | P.PN_ITS ---
Subjective Subjective: Patient was seen and examined this morning, denies any nausea vomiting, abdominal pain. NG tube has been clamped, small BM yesterday. Medications: Reviewed: Yes Medication Review Details: Generic Name Dose Route Start Last Admin Trade Name Freq PRN Reason Stop Dose Admin Acetaminophen 650 mg 10/11/21 22:09 10/13/21 23:34 Acetaminophen 32 5 Mg Tablet PO 650 mg Q6H PRN Administration Mild/Mod Pain Or Temp >/= 101 Atorvastatin Calci um 80 mg 10/12/21 09:00 10/15/21 08:03 Atorvastatin 40 Mg Tablet PO 80 mg DAILY DWAYNE Administration Heparin Sodium (Po rcine) 5,000 unit 10/11/21 22:09 10/15/21 10:56 Heparin 5,000 Un it/Ml Inj 1 Ml SUBCUT 5,000 unit Q12H DWAYNE Administration Imipenem/Cilastati n Sodium 500 100 mls @ 200 mls /hr 10/12/21 08:00 10/15/21 15:43 mg/ Sodium Chlor mariela IV Infused Q6H DWAYNE Infusion Protocol Morphine Sulfate 2 mg 10/11/21 22:09 10/14/21 22:43 Morphine 4 Mg/Ml Sdv 1 Ml IVP 2 mg Q4H PRN Administration SEVERE PAIN Ondansetron HCl 4 mg 10/11/21 22:09 10/14/21 15:20 Ondansetron 2 Mg /Ml Sdv 2 Ml IVP 4 mg Q8H PRN Administration vomiting, or N/V if npo Pantoprazole Sodiu m 40 mg 10/11/21 22:09 10/15/21 10:35 Pantoprazole 40 Mg Sdv IVP 40 mg Q12H DWAYNE Administration Sertraline HCl 100 mg 10/12/21 09:00 10/15/21 08:03 Sertraline 100 M g Tablet PO 100 mg DAILY DWAYNE Administration Vancomycin HCl 250 mg 10/13/21 21:00 10/15/21 13:59 Vancomycin 1,000 Mg Oral Shanon (Btl) PO 2.5 ml QID DWAYNE Administration Vitals/I&O/Wt Last Vital Signs Temp 98.7 F 10/15/21 07:27 Pulse 75 10/15/21 07:27 Resp 14 10/15/21 07:27 BP 146/84 10/15/21 07:27 Pulse Ox 96 10/15/21 07:27 10/14/21 10/15/21 10/15/21 22:59 06:59 14:59 Intake Total 1200 / 1405 100 / 1505 1100 / 1100 Output Total 800 / 1450 200 / 1650 Balance 400 / -45 -100 / -145 1100 / 1100 Physical Exam Const: COMMON NORMALS: patient oriented x3 HENMT: COMMON NORMALS: normocephalic, atraumatic, hearing grossly normal bilaterally and external ears normal HEAD & SCALP: normocephalic and atraumatic EXTERNAL EAR: Yes external ears normal Eye: COMMON NORMALS: no scleral icterus GENERAL EYE: appearance normal, both eyes and all related structures Chest: COMMONS NORMALS: normal inspection of the chest and normal palpation of entire chest wall CHEST: Yes Symmetrical chest wall rise Resp: COMMON NORMALS: normal respiratory effort, No retractions, No use of accessory muscles and clear to auscultation bilaterally EFFORT & INSPECTION: Yes symmetric chest movement AUSCULTATION: clear to auscultation bilaterally Cardio: COMMON NORMALS: regular rate, regular rhythm, S1 normal heart sound present, S2 normal heart sound present, No gallops present (Cardio), No murmurs present (Cardio), No rub (Cardio) and Peripheral pulses 2+ throughout RATE: regular rate RHYTHM: regular rhythm HEART SOUNDS: S1 normal heart sound present and S2 normal heart sound present PERIPHERAL PULSES: Peripheral pulses 2+ throughout GI: COMMON NORMALS: Soft to palpation, non-tender, No hepatosplenomegaly present and no masses AUSCULTATION: Yes normoactive bowel sounds PALPATION: Yes Soft to palpation and Yes No hepatosplenomegaly present RECTAL EXAM: deferred OTHER: Distended, Incision clean,dry and intact Extremity: COMMON NORMALS: no clubbing, cyanosis or edema and no pedal edema Neuro: COMMON NORMALS: patient oriented x3 Data : 10/15/21 07:40 10/15/21 07:40 A&P Assessment and plan (1) Small bowel obstruction: Status: Acute Plan # SBO after recent surgery for appendicitis: A.m. abdominal x-ray: Stable small bowel obstruction? Current plan is to follow repeat CT abdomen and pelvis with contrast: -NG tube is clamped -On CLD -IV hydration, -Continue imipenem -General surgery recommendations appreciated - # C diff diarrhea : Continue p.o. vancomycin to 250 mg every 6h for 7 days Attestations Medical Necessity Statement*: Patient is to be in the hospital for management of small bowel obstruction, C. difficile diarrhea. 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
[2021-10-15 16:00] VITALS: BP 145/84; PULSE 93; RESP 13; TEMP 36.6; O2SAT 93
[2021-10-15] MEDS: iohexol 300 mg/mL 100 mL Btl IV (17:09)
[2021-10-15] MEDS: iohexol 300 mg/mL 50 mL Btl PO (17:19)
--- NOTE | 2021-10-15 18:30 | PC.NURSE ---
Per Dr. Villa, he wants patient to be made NPO and to be hooked up to suction. Also, wanted a 2 view x-ray.
[2021-10-15 20:00] VITALS: BP 142/85; PULSE 91; RESP 17; TEMP 36.6; O2SAT 94
[2021-10-15 23:57] VITALS: BP 153/74; PULSE 89; RESP 16; TEMP 36.6; O2SAT 90
[2021-10-16 04:00] VITALS: BP 127/70; PULSE 63; RESP 18; TEMP 36.4; O2SAT 91
--- NOTE | 2021-10-16 07:18 | XRR_ITS ---
PROCEDURE INFORMATION: Exam: XR Abdomen Exam date and time: 10/16/2021 7:18 AM Age: 86 years old Clinical indication: Condition or disease; Intestinal condition; Obstruction; Additional info: Small bowel obstruction TECHNIQUE: Imaging protocol: XR of the abdomen. Views: 2 Views. Upright and supine views. COMPARISON: CT abdomen pelvis w con* [id number] 10/15/2021 5:11 PM FINDINGS: Tubes, catheters and devices: NG tube is in the stomach. Gastrointestinal tract: No bowel dilation. Evidence of cholecystectomy is seen. Intraperitoneal space: Normal. No free air. Intraperitoneal space: Normal. No free air. Bones/joints: There is extensive orthopedic hardware in the dorsal and lumbar spine extending to the iliac bones. Multiple metallic transpedicular screws and rods are present. The hardware does not show deformity displacement or fracture. XR/XR abdomen min 2V [id number] IMPRESSION: 1. No acute GI abnormality. 2. Extensive orthopedic hardware in the spine 3. Status post cholecystectomy . 4. NG tube is in the stomach
[2021-10-16 07:46] VITALS: BP 125/67; PULSE 100; RESP 18; TEMP 36.4; O2SAT 94
[2021-10-16] MEDS: heparin 5,000 unit/mL INJ 1 mL 5000 UNIT SUBCUT ×2 (09:07→21:59)
[2021-10-16] MEDS: atorvastatin 40 mg Tablet 80 MG PO (09:07)
[2021-10-16] MEDS: sertraline 100 mg Tablet PO (09:07)
[2021-10-16] MEDS: pantoprazole 40 mg SDV IVP ×2 (09:08→21:59)
--- NOTE | 2021-10-16 11:08 | P.PN_ITS ---
Subjective Subjective: Patient was seen and examined this morning, had an episode of vomiting today, had BM this morning Medications: Reviewed: Yes Medication Review Details: Generic Name Dose Route Start Last Admin Trade Name Freq PRN Reason Stop Dose Admin Acetaminophen 650 mg 10/11/21 22:09 10/13/21 23:34 Acetaminophen 32 5 Mg Tablet PO 650 mg Q6H PRN Administration Mild/Mod Pain Or Temp >/= 101 Atorvastatin Calci um 80 mg 10/12/21 09:00 10/15/21 08:03 Atorvastatin 40 Mg Tablet PO 80 mg DAILY DWAYNE Administration Heparin Sodium (Po rcine) 5,000 unit 10/11/21 22:09 10/15/21 10:56 Heparin 5,000 Un it/Ml Inj 1 Ml SUBCUT 5,000 unit Q12H DWAYNE Administration Imipenem/Cilastati n Sodium 500 100 mls @ 200 mls /hr 10/12/21 08:00 10/15/21 15:43 mg/ Sodium Chlor mariela IV Infused Q6H DWAYNE Infusion Protocol Morphine Sulfate 2 mg 10/11/21 22:09 10/14/21 22:43 Morphine 4 Mg/Ml Sdv 1 Ml IVP 2 mg Q4H PRN Administration SEVERE PAIN Ondansetron HCl 4 mg 10/11/21 22:09 10/14/21 15:20 Ondansetron 2 Mg /Ml Sdv 2 Ml IVP 4 mg Q8H PRN Administration vomiting, or N/V if npo Pantoprazole Sodiu m 40 mg 10/11/21 22:09 10/15/21 10:35 Pantoprazole 40 Mg Sdv IVP 40 mg Q12H DWAYNE Administration Sertraline HCl 100 mg 10/12/21 09:00 10/15/21 08:03 Sertraline 100 M g Tablet PO 100 mg DAILY DWAYNE Administration Vancomycin HCl 250 mg 10/13/21 21:00 10/15/21 13:59 Vancomycin 1,000 Mg Oral Shanon (Btl) PO 2.5 ml QID DWAYNE Administration Vitals/I&O/Wt Last Vital Signs Temp 97.6 F 10/16/21 07:46 Pulse 100 10/16/21 07:46 Resp 18 10/16/21 07:46 BP 125/67 10/16/21 07:46 Pulse Ox 94 10/16/21 07:46 02/10/16/21 10/16/21 22:59 06:59 14:59 Intake Total 440 / 1540 100 / 1640 100 / 100 Output Total 450 / 450 Balance 440 / 1540 -350 / 1190 100 / 100 Physical Exam Const: COMMON NORMALS: patient oriented x3 HENMT: COMMON NORMALS: normocephalic, atraumatic, hearing grossly normal bi laterally and external ears normal HEAD & SCALP: normocephalic and atraumatic EXTERNAL EAR: Yes external ears normal Eye: COMMON NORMALS: no scleral icterus GENERAL EYE: appearance normal, both eyes and all related structures Chest: COMMONS NORMALS: normal inspection of the chest and normal palpation of entire chest wall CHEST: Yes Symmetrical chest wall rise Resp: COMMON NORMALS: normal respiratory effort, No retractions, No use of accessory muscles and clear to auscultation bilaterally EFFORT & INSPECTION: Yes symmetric chest movement AUSCULTATION: clear to auscultation bilaterally Cardio: COMMON NORMALS: regular rate, regular rhythm, S1 normal heart sound present, S2 normal heart sound present, No gallops present (Cardio), No murmurs present (Cardio), No rub (Cardio) and Peripheral pulses 2+ throughout RATE: regular rate RHYTHM: regular rhythm HEART SOUNDS: S1 normal heart sound present and S2 normal heart sound present PERIPHERAL PULSES: Peripheral pulses 2+ throughout GI: COMMON NORMALS: Soft to palpation, non-tender, No hepatosplenomegaly present and no masses AUSCULTATION: Yes normoactive bowel sounds PALPATION: Yes Soft to palpation and Yes No hepatosplenomegaly present RECTAL EXAM: deferred OTHER: Distended, Incision clean,dry and intact Extremity: COMMON NORMALS: no clubbing, cyanosis or edema and no pedal edema Neuro: COMMON NORMALS: patient oriented x3 Data : 10/15/21 07:40 10/15/21 07:40 A&P Assessment and plan (1) Small bowel obstruction: Status: Acute Plan # SBO after recent surgery for appendicitis: Repeat CT abdomen and pelvis with contrast: : Dilated small bowel loops to 3.4 cm with fluid levels consistent with an obstruction, potentially high-grade with a possible transition point the right mid abdomen. . -NG tube hooked to low intermittent suction -On CLD -IV hydration, -Continue imipenem -General surgery recommendations appreciated - # C diff diarrhea : Continue p.o. 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
[2021-10-16 12:00] VITALS: BP 134/75; PULSE 84; RESP 16; TEMP 36.9; O2SAT 97
--- NOTE | 2021-10-16 13:09 | PC.SOCIAL ---
IMM Updated Updated pt IMM. No questions voiced. Provided pt a copy. Initialed, dated, & timed copy in chart.
[2021-10-16 15:53] VITALS: BP 146/86; PULSE 98; RESP 16; TEMP 37.1; O2SAT 94
--- NOTE | 2021-10-16 16:31 | P.PN_ITS ---
Subjective Subjective: Patient had a large amount of loose stools this morning. She denies any abdominal pain or nausea but feels depressed. CT abdomen pelvis yesterday had shown possible persistent high-grade bowel obstruction and therefore she was placed with NG tube to low intermittent suction Medications: Reviewed: Yes Vitals/I&O/Wt Last Vital Signs Temp 98.7 F 10/16/21 15:53 Pulse 98 10/16/21 15:53 Resp 16 10/16/21 15:53 BP 146/86 10/16/21 15:53 Pulse Ox 94 10/16/21 15:53 10/16/21 10/16/21 10/16/21 06:59 14:59 22:59 Intake Total 100 / 1640 200 / 200 Output Total 450 / 450 Balance -350 / 1190 200 / 200 Physical Exam Narrative: Abdomen: Soft, nontender, nonrigid, incisions clean dry and intact Data : 10/15/21 07:40 10/15/21 07:40 A&P Assessment and plan (1) Small bowel obstruction: 86-year-old female status post laparotomy for perforated appendicitis on 09/25/2021 who presents with abdominal pain, nausea, vomiting and diarrhea. CT scan showed possible bowel obstruction with enteritis. Her WBC was normal. Repeat CT scan had shown possible persistent high-grade obstruction but patient had large amount of loose stools today DC NG tube Start clear liquid diet Continue IV imipenem Protonix 40 mg IV for GI prophylaxis Heparin IV for DVT prophylaxis Status: Acute (2) C. 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 difficile diarrhea A04.72
[2021-10-16 19:10] VITALS: BP 150/82; PULSE 104; RESP 18; TEMP 36.8; O2SAT 94
[2021-10-16] MEDS: acetaminophen 325 mg Tablet 650 MG PO (21:59)
[2021-10-16 23:18] VITALS: BP 175/90; PULSE 105; RESP 18; TEMP 36.9; O2SAT 96
[2021-10-17 04:00] VITALS: BP 148/71; PULSE 93; RESP 18; TEMP 36.6; O2SAT 95
[2021-10-17 08:00] VITALS: BP 100/65; PULSE 108; RESP 18; TEMP 36.5; O2SAT 97
[2021-10-17] MEDS: sertraline 100 mg Tablet PO (09:37)
[2021-10-17] MEDS: atorvastatin 40 mg Tablet 80 MG PO (09:37)
[2021-10-17] MEDS: pantoprazole 40 mg SDV IVP ×2 (09:44→22:36)
[2021-10-17] MEDS: heparin 5,000 unit/mL INJ 1 mL 5000 UNIT SUBCUT ×2 (09:44→21:22)
[2021-10-17 12:53] VITALS: BP 150/79; PULSE 98; RESP 18; TEMP 36.6; O2SAT 95
[2021-10-17 16:00] VITALS: BP 147/63; PULSE 96; RESP 16; TEMP 36.9; O2SAT 97
--- NOTE | 2021-10-17 16:01 | P.PN_ITS ---
Subjective Subjective: Patient's NG tube was discontinued yesterday, tolerating a liquid diet, had multiple bowel movements. Denies any abdominal pain Medications: Reviewed: Yes Vitals/I&O/Wt Last Vital Signs Temp 98 F 10/17/21 12:53 Pulse 98 10/17/21 12:53 Resp 18 10/17/21 12:53 BP 150/79 10/17/21 12:53 Pulse Ox 95 10/17/21 12:53 10/17/21 10/17/21 10/17/21 06:59 14:59 22:59 Intake Total 220 / 890 340 / 340 Balance 220 / 740 340 / 340 Physical Exam Narrative: Abdomen: Soft, nontender, nondistended Data : 10/15/21 07:40 10/15/21 07:40 A&P Assessment and plan (1) Small bowel obstruction: 86-year-old female status post laparotomy for perforated appendicitis on 09/25/2021 who presents with abdominal pain, nausea, vomiting and diarrhea. CT scan showed possible bowel obstruction with enteritis. Her WBC was normal. Repeat CT scan had shown possible persistent high-grade obstruction but patient had large amount of loose stools yesterday and today suggesting that the bowel obstruction has resolved Advance to GI soft diet DC IV imipenem Discussed with the patient about possible discharge tomorrow Status: Acute (2) C. difficile diarrhea: Continue oral vancomycin 250 mg 4 times daily for 10 days Status: Acute Attestations Medical Necessity Statement*: C. 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 difficile diarrhea A04.72
--- NOTE | 2021-10-17 16:16 | PM.PN ---
Subjective Subjective: Patient's NG tube has been discontinued tolerating CLD, had multiple bowel movements. Denies any nausea vomiting, abdominal pain. Medications: Reviewed: Yes Medication Review Details: Generic Name Dose Route Start Last Admin Trade Name Freq PRN Reason Stop Dose Admin Acetaminophen 650 mg 10/11/21 22:09 10/13/21 23:34 Acetaminophen 32 5 Mg Tablet PO 650 mg Q6H PRN Administration Mild/Mod Pain Or Temp >/= 101 Atorvastatin Calci um 80 mg 10/12/21 09:00 10/15/21 08:03 Atorvastatin 40 Mg Tablet PO 80 mg DAILY DWAYNE Administration Heparin Sodium (Po rcine) 5,000 unit 10/11/21 22:09 10/15/21 10:56 Heparin 5,000 Un it/Ml Inj 1 Ml SUBCUT 5,000 unit Q12H DWAYNE Administration Imipenem/Cilastati n Sodium 500 100 mls @ 200 mls /hr 10/12/21 08:00 10/15/21 15:43 mg/ Sodium Chlor mariela IV Infused Q6H DWAYNE Infusion Protocol Morphine Sulfate 2 mg 10/11/21 22:09 10/14/21 22:43 Morphine 4 Mg/Ml Sdv 1 Ml IVP 2 mg Q4H PRN Administration SEVERE PAIN Ondansetron HCl 4 mg 10/11/21 22:09 10/14/21 15:20 Ondansetron 2 Mg /Ml Sdv 2 Ml IVP 4 mg Q8H PRN Administration vomiting, or N/V if npo Pantoprazole Sodiu m 40 mg 10/11/21 22:09 10/15/21 10:35 Pantoprazole 40 Mg Sdv IVP 40 mg Q12H DWAYNE Administration Sertraline HCl 100 mg 10/12/21 09:00 10/15/21 08:03 Sertraline 100 M g Tablet PO 100 mg DAILY DWAYNE Administration Vancomycin HCl 250 mg 10/13/21 21:00 10/15/21 13:59 Vancomycin 1,000 Mg Oral Shanon (Btl) PO 2.5 ml QID DWAYNE Administration Vitals/I&O/Wt Last Vital Signs Temp 98 F 10/17/21 12:53 Pulse 98 10/17/21 12:53 Resp 18 10/17/21 12:53 BP 150/79 10/17/21 12:53 Pulse Ox 95 10/17/21 12:53 10/17/21 10/17/21 10/17/21 06:59 14:59 22:59 Intake Total 220 / 890 340 / 340 Balance 220 / 740 340 / 340 Physical Exam Const: COMMON NORMALS: patient oriented x3 HENMT: COMMON NORMALS: normocephalic, atraumatic, hearing grossly normal bilaterally and external ears normal HEAD & SCALP: normocephalic and atraumatic EXTERNAL EAR: Yes external ears normal Eye: COMMON NORMALS: no scleral icterus GENERAL EYE: appearance normal, both eyes and all related structures Chest: COMMONS NORMALS: normal inspection of the chest and normal palpation of entire chest wall CHEST: Yes Symmetrical chest wall rise Resp: COMMON NORMALS: normal respiratory effort, No retractions, No use of accessory muscles and clear to auscultation bilaterally EFFORT & INSPECTION: Yes symmetric chest movement AUSCULTATION: clear to auscultation bilaterally Cardio: COMMON NORMALS: regular rate, regular rhythm, S1 normal heart sound present, S2 normal heart sound present, No gallops present (Cardio), No murmurs present (Cardio), No rub (Cardio) and Peripheral pulses 2+ throughout RATE: regular rate RHYTHM: regular rhythm HEART SOUNDS: S1 normal heart sound present and S2 normal heart sound present PERIPHERAL PULSES: Peripheral pulses 2+ throughout GI: COMMON NORMALS: Soft to palpation, non-tender, No hepatosplenomegaly present and no masses AUSCULTATION: Yes normoactive bowel sounds PALPATION: Yes Soft to palpation and Yes No hepatosplenomegaly present RECTAL EXAM: deferred OTHER: Distended, Incision clean,dry and intact Extremity: COMMON NORMALS: no clubbing, cyanosis or edema and no pedal edema Neuro: COMMON NORMALS: patient oriented x3 Data : 10/15/21 07:40 10/15/21 07:40 A&P Assessment and plan (1) Small bowel obstruction: Status: Acute Plan # SBO after recent surgery for appendicitis: Repeat CT abdomen and pelvis with contrast: : Dilated small bowel loops to 3.4 cm with fluid levels consistent with an obstruction, potentially high-grade with a possible transition point the right mid abdomen. . -NG tube Discontinued -On CLD -IV hydration, -She was on imipenem -General surgery recommendations appreciated - # C diff diarrhea : Continue p.o. vancomycin to 250 mg every 6h for 7 days Attestations Medical Necessity Statement*: Patient is still in hospital for management of SBO. 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
[2021-10-17 20:00] VITALS: BP 102/66; PULSE 106; RESP 17; TEMP 36.7; O2SAT 97
--- NOTE | 2021-10-17 20:47 | PC.NURSE ---
i reported high pulse 106 to nurse
[2021-10-17] MEDS: acetaminophen 325 mg Tablet 650 MG PO (21:21)
[2021-10-18] VITALS: BP 98/62; PULSE 99; RESP 17; O2SAT 95
[2021-10-18 04:00] VITALS: BP 126/70; PULSE 90; RESP 17; TEMP 36.8; O2SAT 96
[2021-10-18 08:00] VITALS: BP 139/75; PULSE 103; RESP 18; TEMP 37; O2SAT 91
[2021-10-18] MEDS: pantoprazole 40 mg SDV IVP (08:33)
[2021-10-18] MEDS: sertraline 100 mg Tablet PO (08:33)
[2021-10-18] MEDS: heparin 5,000 unit/mL INJ 1 mL 5000 UNIT SUBCUT (08:33)
[2021-10-18] MEDS: atorvastatin 40 mg Tablet 80 MG PO (08:33)
[2021-10-18 09:55] LABS: SARS Covid-2 Antigen Negative (Negative)
--- NOTE | 2021-10-18 10:33 | P.PN_ITS ---
Subjective Subjective: Patient is tolerating regular diet, had bowel movements yesterday Vitals/I&O/Wt Last Vital Signs Temp 98.6 F 10/18/21 08:00 Pulse 103 H 10/18/21 08:00 Resp 18 10/18/21 08:00 BP 139/75 10/18/21 08:00 Pulse Ox 91 10/18/21 08:00 10/17/21 10/18/21 10/18/21 22:59 06:59 14:59 Intake Total 100 / 440 200 / 200 Output Total 100 / 440 340 / 440 Balance 0 / 0 -340 / 0 200 / 200 Physical Exam Narrative: Abdomen: Soft nontender, nondistended Data : 10/15/21 07:40 10/15/21 07:40 A&P Assessment and plan (1) Small bowel obstruction: 86-year-old female status post laparotomy for perforated appendicitis on 09/25/2021 who presents with abdominal pain, nausea, vomiting and diarrhea. CT s can showed possible bowel obstruction with enteritis. Her WBC was normal. Patient is tolerating GI soft diet, DC home today Follow-up with Dr. Quintero as he was her primary surgeon Status: Acute (2) C. 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 difficile diarrhea A04.72
--- NOTE | 2021-10-18 11:34 | PC.SOCIAL ---
IMM Update pg 2 of IMM updated and reviewed w/ patient. Copy provided and copy in chart updated.
[2021-10-18 11:55] VITALS: BP 104/68; PULSE 101; RESP 18; TEMP 36.6; O2SAT 94
--- NOTE | 2021-10-18 12:47 | PM.DCS ---
Discharge Providers Date of Admission: 10/11/21 20:01 Date of Discharge: October 18, 2021 Attending Provider at Admission: Shahid Geller MD Attending Provider at Discharge: Jose Luis Guy MD Primary Care Provider: Phillip Olvera DO Diagnoses at Discharge Discharge Diagnosis (1) Small bowel obstruction: (2) C. difficile diarrhea: Reason for Visit Reason for Visit: LOWER ABD PAIN Hospital Course Hospital Course ?86 year old female with a past medical history of perforated viscus status post exploratory laparotomy with appendectomy for perforated appendix with generalized peritonitis, recently discharged to [facility], hypertension, history of iron deficiency anemia, who presents [facility] due to nausea, vomiting, abdominal pain for the last 12 hours.?? She was admitted for the management of SBO after recent surgery for appendicitis,she was managed conservatively, npo, N.G.tube Abxs, pain control, I.V hydration, anti emetics, imaging studies,to which she responded well, at the time of discharge she was tolerating regular diet,was not complaining of nausea,vomiting,abdominal pain has resolved.She was also manged for C.Diff diarrhea and was on po vancomycin.She responded well to above management and was discharged in stable condition to.She will continue to follow surgery as outpatient. Physical Exam Const: COMMON NORMALS: patient oriented x3 HENMT: COMMON NORMALS: normocephalic, atraumatic, hearing grossly normal bilaterally and external ears normal HEAD & SCALP: normocephalic and atraumatic EXTERNAL EAR: Yes external ears normal Eye: COMMON NORMALS: no scleral icterus GENERAL EYE: appearance normal, both eyes and all related structures Chest: COMMONS NORMALS: normal inspection of the chest and normal palpation of entire chest wall CHEST: Yes Symmetrical chest wall rise Resp: COMMON NORMALS: normal respiratory effort, No retractions, No use of accessory muscles and clear to auscultation bilaterally EFFORT & INSPECTION: Yes symmetric chest movement AUSCULTATION: clear to auscultation bilaterally Cardio: COMMON NORMALS: regular rate, regular rhythm, S1 normal heart sound present, S2 normal heart sound present, No gallops present (Cardio), No murmurs present (Cardio), No rub (Cardio) and Peripheral pulses 2+ throughout RATE: regular rate RHYTHM: regular rhythm HEART SOUNDS: S1 normal heart sound present and S2 normal heart sound present PERIPHERAL PULSES: Peripheral pulses 2+ throughout GI: COMMON NORMALS: Soft to palpation, non-tender, No hepatosplenomegaly present and no masses AUSCULTATION: Yes normoactive bowel sounds PALPATION: Yes Soft to palpation and Yes No hepatosplenomegaly present RECTAL EXAM: deferred Extremity: COMMON NORMALS: no clubbing, cyanosis or edema and no pedal edema Neuro: COMMON NORMALS: patient oriented x3 Discharge Data Studies Completed and Pending Completed Studies During Hospitalization Category Date Time Status CT abdomen pelvis w con* [id number] Routine Cat Scan 10/15/21 12:[address] abdomen pelvis w con* [id number] Urgent Cat Scan 10/11/21 18:33 Completed XR KUB portable [id number] Routine Exams 10/12/21 07:00 Completed XR abdomen min 2V [id number] Routine Exams 10/13/21 06:00 Completed XR abdomen min 2V [id number] Routine Exams 10/16/21 07:18 Completed XR abdomen min 2V [id number] Urgent Exams 10/15/21 06:58 Completed Radiology Impressions KUB X-Ray 10/12/21 07:00 IMPRESSION: Findings compatible with significant distal small bowel obstruction which was demonstrated on CT scan of 10/11/2021. Abdomen/Pelvis CT 10/15/21 12:22 IMPRESSION: 1. Small amount of fluid throughout the abdomen and pelvis, nonspecific. 2. Dilated small bowel loops to 3.4 cm with fluid levels consistent with an obstruction, potentially high-grade with a possible transition point the right mid abdomen. 3. Surgical hardware present throughout the spine. 4. Left lower lobe atelectasis versus pleuroparenchymal scarring. 5. Cholecystectomy. 6. Bilateral renal cysts, negative follow-up advised. 7. Enteric tube tip in the stomach. Abdomen X-Ray 10/16/21 07:18 IMPRESSION: 1. No acute GI abnormality. 2. Extensive orthopedic hardware in the spine 3. Status post cholecystectomy . 4. NG tube is in the stomach Laboratory Results WBC 4.2 10^3/uL (4.0-10.0) 10/15/21 07:40 RBC 3.36 10^6/uL (4.1-5.3) L 10/15/21 07:40 Hgb 10.9 g/dL (11.5-15.3) L 10/15/21 07:40 Hct 34.8 % (37.0-47.0) L 10/15/21 07:40 MCV 103.6 fl (81-99) H 10/15/21 07:40 MCH 32.4 pg (28.0-34.0) 10/15/21 07:40 MCHC 31.3 g/dL (30.0-36.0) 10/15/21 07:40 RDW 15.8 % (12.1-15.1) H 10/15/21 07:40 Plt Count 181 10^3/cmm (130-400) 10/15/21 07:40 MPV 9.7 fL (7.4-10.4) 10/15/21 07:40 Neut % (Auto) 58.3 % 10/15/21 07:40 Lymph % (Auto) 28.2 % 10/15/21 07:40 [place] % (Auto) 11.6 % 10/15/21 07:40 Eos % (Auto) 1.2 % 10/15/21 07:40 Baso % (Auto) 0.2 % 10/15/21 07:40 Neut # (Auto) 2.42 10^3/uL (1.8-7.7) 10/15/21 07:40 Lymph # (Auto) 1.2 10^3/uL (0.8-4.8) 10/15/21 07:40 [place] # (Auto) 0.5 10^3/uL (0.2-0.9) 10/15/21 07:40 Eos # (Auto) 0.1 10^3/uL (0.0-0.8) 10/15/21 07:40 Baso # (Auto) 0.0 10^3/uL (0.0-0.1) 10/15/21 07:40 Nucleated RBC % (auto) 0 % 10/15/21 07:40 Nucleated RBCs # 0.0 /100WBC 10/15/21 07:40 Sodium 140 mmol/L (136-145) 10/15/21 07:40 Potassium 3.7 mmol/L (3.5-5.1) 10/15/21 07:40 Chloride 105 mmol/L (98-107) 10/15/21 07:40 Carbon Dioxide 26 mmol/L (22-29) 10/15/21 07:40 Anion Gap 12.7 (5-19) 10/15/21 07:40 BUN 5 mg/dL (8-23) L 10/15/21 07:40 Creatinine 0.7 mg/dL (0.5-0.9) 10/15/21 07:40 GFR Calculation Not Reportable 10/15/21 07:40 Glucose 96 mg/dL (65-115) 10/15/21 07:40 POC Glucose 123 mg/dL (70-110) H 10/12/21 06:07 Calculated Osmolality 287 mOsm/kg (285-295) 10/15/21 07:40 Lactate 1.0 mmol/L (0.5-2.2) 10/13/21 06:47 Calcium 7.6 mg/dL (8.5-10.5) L 10/15/21 07:40 Phosphorus 2.2 mg/dL (2.5-4.5) L 10/14/21 05:39 Magnesium 1.9 mg/dL (1.7-2.3) 10/14/21 05:39 Total Bilirubin 0.3 mg/dL (0.15-1.2) 10/14/21 05:39 AST 16 U/L (0-32) 10/14/21 05:39 ALT 8 U/L (0-33) 10/14/21 05:39 Alkaline Phosphatase 51 IU/L (35-105) 10/14/21 05:39 C-Reactive Protein 19.6 mg/L (0.0-4.9) H 10/13/21 06:47 Total Protein 5.6 g/dL (6.6-8.7) L 10/14/21 05:39 Albumin 3.0 g/dL (3.5-5.2) L 10/14/21 05:39 Globulin 2.6 g/dL (1.3-4.6) 10/14/21 05:39 Lipase 44 U/L (13-60) 10/11/21 19:27 Procalcitonin 0.09 ng/mL (0-0.5) 10/13/21 06:47 SARS-CoV-2 Ag (Rapid) Negative (Negative) 10/18/21 08:50 Vitals Last Vital Signs Temp 97.8 F 10/18/21 11:55 Pulse 101 H 10/18/21 11:55 Resp 18 02/17/22 11:55 BP 104/68 10/18/21 11:55 Pulse Ox 94 10/18/21 11:55 Discharge Plan Discharge Patient Disposition: Home Condition: Stable Prescriptions: Continued metoprolol succinate 50 mg tablet extended release 24 hr 50 mg PO DAILY 0RF sertraline 100 mg tablet 100 mg PO DAILY 0RF cyanocobalamin (vitamin B-12) [Vitamin B-12] 1,000 mcg Tablet 1,000 mcg PO DAILY 0RF hydrocodone-acetaminophen 10-325 mg tablet 2 tab PO BEDTIME PRN (Reason: Pain) 0RF PreserVision AREDS-2 1 tab PO DAILY 0RF calcium carbonate-vitamin D3 500 mg(1,250mg) -125 unit Tablet 1 tab PO DAILY 0RF acetaminophen 325 mg Tablet 650 mg PO QID PRN (Reason: Pain) 0RF Milk of Magnesia 400 mg/5 mL Suspension 30 ml PO DAILY PRN (Reason: Constipation) 0RF Dulcolax (bisacodyl) 10 mg Suppository 10 mg NE DAILY PRN (Reason: Constipation) 0RF Fleet Enema 19-7 gram/118 mL Enema 118 ml NE DAILY PRN (Reason: Constipation) 0RF rosuvastatin 20 mg Tablet 20 mg PO BEDTIME 0RF Discharge Orders: Discharge Order (Routine); Ordered 10/18/21 Ordered By: Jose Luis Guy Referrals: [facility] [Outside] Ricco Quintero MD [Physician] - 1 week Phillip Olvera DO [Primary Care Provider] - 2 weeks Patient Instructions: Vancomycin (By mouth) (Vancocin, Firvanq), Opioid Safety Discharge Attestations Time Spent in Discharge Care*: greater than 30 min Specific Discharge Activities: educating patient, educating and/or supporting family/caregiver, discussing with pcp/other providers, discussing with window caser/social workers/dc planners, documenting/other paperwork and evaluating patient/reviewing data Status at Discharge: Cognitive status at discharge: cognitively intact, Behavioral status at discharge: cooperative, Quality Metrics Clinical Quality Measures [ No reported AMI, CVA or VTE this stay] Coding Level of Care Code Acute Chg FW DC note Exam Comprehensive Diagnoses Small bowel obstruction K56.609 C. difficile diarrhea A04.72
--- NOTE | 2021-10-18 13:22 | PC.NURSE ---
Discharge teaching done, all questions answered at this time. IV discontinued. Report given to facility. Patient does not have clothes to go home in. Facility called and requested we get clothes sent here for discharge. Will give report to EMS.
[2021-10-18 14:00] VITALS: BP 104/68; PULSE 101; RESP 18; TEMP 36.6; O2SAT 94
== END 2021-10-18 14:05 | disposition skilled nursing facility (03) | DRG 389 ==
LOC: ER 19:47 → MEDSURG 20:10
PROVIDERS: Surgery; Admitting Provider Family Medicine; Emergency Provider Emergency Medicine; PCP Family Medicine; Visit Provider Internal Medicine
DX: K91.30 Postprocedural intestinal obstruction, unspecified as to partial versus complete (principal); A04.72 Enterocolitis due to Clostridium difficile, not specified as recurrent; Y83.8 Other surgical procedures as the cause of abnormal reaction of the patient, or of later complication, without mention of misadventure at the time of the procedure; I10 Essential (primary) hypertension; G89.29 Other chronic pain; Z98.890 Other specified postprocedural states; Z90.49 Acquired absence of other specified parts of digestive tract; Z93.1 Gastrostomy status; Z79.891 Long term (current) use of opiate analgesic; Z66 Do not resuscitate; Z86.16 Personal history of COVID-19
CPT/HCPCS: 36415; 36416; 74018; 74019; 74177; 80048; 80053; 82962; 83605; 83690; 83735; 84100; 84145; 85025; 86140; 87426; 87493; 87506; 94664; 96372; 96374; 96375; 97110; 97116; 97162; 97530; 99285; C9113; J0743; J0744; J1644; J2060; J2270; J2405; J3370; J3480; J7030; Q9967; S0030

== ENCOUNTER → 2022-01-09 11:11 | Outpatient (BNVA) | payer MEDICARE, OTHER, SELFPAY | PROVIDERS: PCP Family Medicine; Referring Provider Family Medicine; Visit Provider Orthopaedic Surgery | DX: M25.511 Pain in right shoulder (principal) | CPT/HCPCS: 73030; 99202 ==

== ENCOUNTER → 2022-04-04 11:47 | Outpatient (BNVA) | payer MEDICARE, OTHER, SELFPAY | PROVIDERS: PCP Family Medicine; Visit Provider Family Medicine | DX: I95.9 Hypotension, unspecified (principal); D64.9 Anemia, unspecified; R73.9 Hyperglycemia, unspecified | CPT/HCPCS: 80053; 80061; 82607; 82652; 84443; 85025 ==

== ENCOUNTER → 2023-05-12 10:46 | Outpatient (BNVA) | payer MEDICARE, OTHER, SELFPAY | PROVIDERS: PCP Clinical Nurse Specialist Adult Health; Visit Provider Podiatrist Foot & Ankle Surgery | DX: B35.1 Tinea unguium (principal); M20.41 Other hammer toe(s) (acquired), right foot; M20.42 Other hammer toe(s) (acquired), left foot; G60.9 Hereditary and idiopathic neuropathy, unspecified; R60.9 Edema, unspecified | CPT/HCPCS: 11721; 99204 ==

== ENCOUNTER → 2023-07-10 09:46 | Outpatient (BNVA) | payer MEDICARE, OTHER, SELFPAY | PROVIDERS: PCP Internal Medicine; Visit Provider Podiatrist Foot & Ankle Surgery | DX: G60.9 Hereditary and idiopathic neuropathy, unspecified (principal); B35.1 Tinea unguium; M20.41 Other hammer toe(s) (acquired), right foot; M20.42 Other hammer toe(s) (acquired), left foot; R60.9 Edema, unspecified | CPT/HCPCS: 11721 ==

== ENCOUNTER → 2023-09-29 09:48 | Outpatient (BNVA) | payer MEDICARE, OTHER, SELFPAY | PROVIDERS: PCP Internal Medicine; Visit Provider Podiatrist Foot & Ankle Surgery | DX: B35.1 Tinea unguium (principal); G60.9 Hereditary and idiopathic neuropathy, unspecified; M20.41 Other hammer toe(s) (acquired), right foot; M20.42 Other hammer toe(s) (acquired), left foot; R60.9 Edema, unspecified | CPT/HCPCS: 11721 ==

== ENCOUNTER → 2023-12-01 09:54 | Outpatient (BNVA) | payer MEDICARE, OTHER, SELFPAY | PROVIDERS: PCP Internal Medicine; Visit Provider Podiatrist Foot & Ankle Surgery | DX: B35.1 Tinea unguium (principal); G60.9 Hereditary and idiopathic neuropathy, unspecified; M20.41 Other hammer toe(s) (acquired), right foot; M20.42 Other hammer toe(s) (acquired), left foot; R60.9 Edema, unspecified; L84 Corns and callosities | CPT/HCPCS: 11055; 11721 ==

== ENCOUNTER 2024-02-05 11:45 | Outpatient (CLI) | payer MEDICARE, SELFPAY ==
--- NOTE | 2024-02-05 11:55 | MR_ITS ---
WS: [id number] MRI HEAD WITHOUT CONTRAST TECHNIQUE: Sagittal T1, T2 axial, T2 axial FLAIR, axial and coronal T1 images, axial susceptibility w eighted imaging, axial diffusion weighted images, and coronal T2 images were obtained. CLINICAL INFORMATION: NEW ONSET, SEVERE HEADACHE COMPARISON: MRI 2018 FINDINGS: No evidence of restricted diffusion to suggest acute ischemia. Ventricular system and basal cisterns are patent. Moderate small vessel changes. Moderate parenchymal volume loss. Normal posterior fossa. Normal vascular flow voids at the skull base. No extra-axial fluid collections. No mass or mass effec t. Paranasal sinuses and mastoid air cells are well aerated. No hemosiderin on the susceptibility mimi ghted images. Normal optic chiasm and pituitary infundibulum. Moderate symmetric atrophy temporal lobes and hippoca mpal formations. No other acute findings. MR/MR head wo con* [id number] IMPRESSION: 1. No evidence of restricted diffusion to suggest acute ischemia. Ventricular system and basal cisterns are patent. 2. Moderate small vessel changes. Small vessel changes in the carlos alberto. Moderate p arenchymal volume loss. Small vessel changes progressed compared to 2018 3. Moderate symmetric atrophy temporal lobes and hippocampal formations. 4. No hemosiderin on the susceptibly weighted images.
== END 2024-02-05 11:46 | disposition home or self-care (01) ==
LOC: RAD 11:45
PROVIDERS: PCP Internal Medicine; Visit Provider Internal Medicine
DX: R51.9 Headache, unspecified (principal); G31.89 Other specified degenerative diseases of nervous system
CPT/HCPCS: 70551

== ENCOUNTER 2024-02-06 20:32 | Inpatient (IN) | payer MEDICARE, SELFPAY ==
[2024-02-06 20:35] VITALS: BP 186/79; PULSE 71; RESP 18; TEMP 37.1; O2SAT 95; BMI 27.8
--- NOTE | 2024-02-06 20:37 | ECG_ITS ---
[facility] Test Date: 2024-02-06 Pat Name: Delia Arthur Department: Room: Gender: Female [employer] Paralegal: : 1935 Requested By: Tao Kilpatrick Order Number: [id number] Hiral MD: Charla Quinteros M.D. Measurements Intervals [place] Rate: 68 P: 59 [place]: 180 QRS: 20 QRSD: 84 T: 34 QT: 397 QTc: 425 Interpretive Statements SINUS RHYTHM Compared to ECG 09/25/2021 12:57:46 Sinus tachycardia no longer present Electronically Signed On 02-08-2024 20:13:24 CDT by Charla Quinteros M.D. [id number]
[2024-02-06 20:43] VITALS: BP 186/79; PULSE 71; RESP 18; O2SAT 97
--- NOTE | 2024-02-06 20:50 | ED_ITS ---
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 She usually uses a walker she has been in assisted living since May 2023. She did hit her head when she fell she is also complaining of some low back pain. No chest pain no abdominal pain. She denies any fever sweats or chills. She is not on any anticoagulants. complaint: fall Fall from: standing Fall witnessed: no Place fall occurred: [facility] Loss of consciousness: None Prolonged down time: no Context: tripped/slipped Location of injury: head and back Location of injury - extremities: Right: foot Associated symptoms-after fall: Denies abdominal pain, chest pain, confusion, difficulty walking, headache(s), hematuria, lightheadedness, neck pain, numbness, short of breath, vertigo or weakness Review of Systems 2 Const: Denies: fever(s) or chills Card: Denies: chest pain or lightheadedness Resp: Denies: dyspnea GI: Denies: abdominal pain : Denies: dysuria, urinary frequency, urinary urgency or hematuria Musc: Denies: neck pain Skin/Breast: Denies: rash Neuro: Denies: headache(s), difficulty walking, vertigo or confusion PFSH ED 2 PFSH: Medical History C. difficile diarrhea Small bowel obstruction Chronic back pain Hypertension COVID-19 virus infection Surgical History S/P exploratory laparotomy for perforated appendix History of hip surgery Left -- screws History of cataract surgery History of back surgery spinal rods History of hysterectomy / BSO History of cholecystectomy Family History Denies family history of Diabetes Dementia Social History Smoking and tobacco/nicotine status: never used tobacco/nicotine Alcohol intake: never Physical Exam 2 Const: GENERAL APPEARANCE: cooperative and comfortable O RIENTATION/CONSCIOUSNESS: Yes awake, Yes oriented to person, Yes oriented to place and Yes oriented to time HENMT: COMMON NORMALS: normocephalic, atraumatic and hearing grossly normal bilaterally HEAD & SCALP: normocephalic and atraumatic Resp: COMMON NORMALS: normal respiratory effort, No retractions, No use of accessory muscles and clear to auscultation bilaterally AUSCULTATION: clear to auscultation bilaterally Cardio: COMMON NORMALS: regular rate, regular rhythm and No murmurs present (Cardio) RATE: regular rate RHYTHM: regular rhythm GI: COMMON NORMALS: Soft to palpation and No hepatosplenomegaly present A USCULTATION: Yes normoactive bowel sounds PALPATION: Yes Soft to palpation, No Tenderness to palpation present (GI), No Guarding due to palpation present (GI) and Yes No hepatosplenomegaly present Extremity: OTHER: Moderate swelling in the right ankle tender some ecchymosis. 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 Now she has difficulty with the left knee and has a brace in place. X-rays of the right ankle today show bimalleolar fracture. Patient's currently residing at assisted living she is not going to be able to manage there. Will consult podiatry. Discussed with hospitalist admit to them on observation. Medical Records I reviewed the patient's medical records. Lab Data I reviewed the patient's lab results. 02/06/24 21:35 02/06/24 21:35 Radiology Impressions Foot X-Ray 02/06/24 20:50 IMPRESSION: 1. Possible multiple hammertoes noted on the lateral view. 2. Oblique slightly displaced fracture through the distal fibular shaft with minimal angulation. 3. Displaced horizontal medial malleolar fracture. Head CT 02/06/24 20:50 IMPRESSION: No acute intracranial findings. Lumbar Spine CT 02/06/24 20:50 IMPRESSION: As above, no definite acute finding. COMMENTS: Consistent with the [employer]'s Incidental Findings Committee white paper (J Am Rey Radiol 2018): Any incidental renal lesion less than 1 cm or classified as too small to characterize, or any incidental cystic renal lesion characterized as simple-appearing, is likely benign. No follow-up imaging is recommended for these lesions per consensus recommendations based on imaging criteria. Ankle X-Ray 02/06/24 21:44 IMPRESSION: Horizontal fracture through the medial malleolus with oblique fracture through the lateral malleolus consistent with eversion injury. Tibia/Fibula X-Ray 02/06/24 21:44 IMPRESSION: 1. Horizontal fracture through the medial malleolus with oblique fracture through the lateral malleolus consistent with eversion injury. 2. 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 Thoracic Spine CT 02/06/24 22:03 IMPRESSION: 1. As above, complex postop severely osteoporotic patient with no definite acute fracture. 2. If pain persists, recommend short-term reassessment. A re-injury cannot be excluded. Laboratory Results WBC 7.29 10^3/uL (3.29-11.43) 02/06/24 21:35 RBC 3.65 10^6/uL (3.85-5.65) L 02/06/24 21:35 Hgb 12.20 g/dL (11.27-16.99) 02/06/24 21:35 Hct 39.0 % (36-47) 02/06/24 21:35 MCV 106.8 fl (85-98) H 02/06/24 21:35 MCH 33.4 pg (27-33) H 02/06/24 21:35 MCHC 31.3 g/dL (30-55) 02/06/24 21:35 RDW 13.9 % (12.1-15.1) 02/06/24 21:35 Plt Count 125 10^3/cmm (157-399) L 02/06/24 21:35 MPV 10.2 fL (7.4-10.4) 02/06/24 21:35 Neut % (Auto) 65.4 % 02/06/24 21:35 Lymph % (Auto) 23.2 % 02/06/24 21:35 [place] % (Auto) 9.2 % 02/06/24 21:35 Eos % (Auto) 1.4 % 02/06/24 21:35 Baso % (Auto) 0.4 % 02/06/24 21:35 Neut # (Auto) 4.77 10^3/uL (1.8-7.7) 02/06/24 21:35 Lymph # (Auto) 1.7 10^3/uL (0.8-4.8) 02/06/24 21:35 [place] # (Auto) 0.7 10^3/uL (0.2-0.9) 02/06/24 21:35 Eos # (Auto) 0.1 10^3/uL (0.0-0.8) 02/06/24 21:35 Baso # (Auto) 0.0 10^3/uL (0.0-0.1) 02/06/24 21:35 Nucleated RBC % (auto) 0 % 02/06/24 21:35 Nucleated RBCs # 0.0 /100WBC 02/06/24 21:35 Sodium 141 mmol/L (136-145) 02/06/24 21:35 Potassium 4.7 mmol/L (3.5-5.1) 02/06/24 21:35 Chloride 102 mmol/L (98-107) 02/06/24 21:35 Carbon Dioxide 27 mmol/L (22-29) 02/06/24 21:35 Anion Gap 16.7 (5-19) 02/06/24 21:35 BUN 21 mg/dL (8-23) 02/06/24 21:35 Creatinine 0.9 mg/dL (0.5-0.9) 02/06/24 21:35 GFR Calculation Not Reportable 02/06/24 21:35 Glucose 100 mg/dL (65-115) 02/06/24 21:35 Calculated Osmolality 295 mOsm/kg (285-295) 02/06/24 21:35 Calcium 8.9 mg/dL (8.5-10.5) 02/06/24 21:35 Total Bilirubin 0.3 mg/dL (0.15-1.2) 02/06/24 21:35 AST 20 U/L (0-32) 02/06/24 21:35 ALT 15 U/L (0-33) 02/06/24 21:35 Alkaline Phosphatase 80 U/L (35-105) 02/06/24 21:35 Total Protein 7.2 g/dL (6.6-8.7) 02/06/24 21:35 Albumin 4.0 g/dL (3.5-5.2) 02/06/24 21:35 Globulin 3.2 g/dL (1.3-4.6) 02/06/24 21:35 All radiology interpretation(s) finalized by discharge Discharge Plan Discharge Patient Disposition: Placed in Observation Admit Provider: Héctor Balbuena Clinical Impression: Bimalleolar fracture of right ankle, Chronic back pain, Physical deconditioning, History of lumbar laminectomy for spinal cord decompression, Cauda equina syndrome Coding Level of Care Code ED Property Caretaker for Nii Rojas
--- NOTE | 2024-02-06 20:50 | CTR_ITS ---
PROCEDURE INFORMATION: Exam: CT Head Without Contrast Exam date and time: 02/06/2024 10:01 PM Age: 88 years old Clinical indication: Injury or trauma; Blunt trauma (contusions or hematomas); Patient HX: EMS arrivla from assisted living for fall. Patient fell backwards onto floor while using walker striking back of head. Also endorses mid back pain. History of subdural hematoma. TECHNIQUE: Imaging protocol: Computed tomography of the head without contrast. Radiation optimization: All CT scans at this facility use at least one of these dose optimization techniques: automated exposure control; mA and/or kV adjustment per patient size (includes targeted exams where dose is matched to clinical indication); or iterative reconstruction. COMPARISON: MR head wo con* [id number] 02/05/2024 12:11 PM RADIATION DOSE METRICS: Total DLP (mGy-cm): 1095.68 FINDINGS: Brain: Mild to moderate cerebral atrophy and ischemic leukoencephalopathy. Cerebral ventricles: No ventriculomegaly. Paranasal sinuses: Visualized sinuses are unremarkable. No fluid levels. Mastoid air cells: Visualized mastoid air cells are well aerated. Bones: Unremarkable. No acute fracture. Soft tissues: Unremarkable. Other findings: Severe calcified intracranial atherosclerotic vessel disease. CT/CT head wo con* [id number] IMPRESSION: No acute intracranial findings.
--- NOTE | 2024-02-06 20:50 | CTR_ITS ---
PROCEDURE INFORMATION: Exam: CT Lumbar Spine Without Contrast Exam date and time: 02/06/2024 10:09 PM Age: 88 years old Clinical indication: Injury or trauma; Blunt trauma (contusions or hematomas); Prior surgery; Surgery date: 6+ months; Surgery type: Thoracolumbar fusion. Hysterectomy; Patient HX: EMS arrivla from assisted living for fall. Patient fell backwards onto floor while using walker striking back of head. Also endorses mid back pain. History of subdural hematoma. TECHNIQUE: Imaging protocol: Computed tomography of the lumbar spine without contrast. Radiation optimization: All CT scans at this facility use at least one of these dose optimization techniques: automated exposure control; mA and/or kV adjustment per patient size (includes targeted exams where dose is matched to clinical indication); or iterative reconstruction. COMPARISON: CT thoracic spin wo con* [id number] 02/06/2024 10:04 PM RADIATION DOSE METRICS: Total DLP (mGy-cm): 1182.54 FINDINGS: Bones/joints: Very severe osteopenia. Very severe spine DJD. No definite fracture. Extensive spinal fusion is partially imaged. No overt complication is seen. The exam is challenging due to the osteopenia in the hardware associated artifacts with streaking. Mid to lower lumbar laminectomies. Gallbladder and bile ducts: Absent gallbladder. Kidneys and ureters: Bilateral renal cysts. Few small mainly left-sided stones. Vasculature: Advanced diffuse vascular calcification noted. Soft tissues: Unremarkable. CT/CT lumbar spine wo con* [id number] IMPRESSION: As above, no definite acute finding. COMMENTS: Consistent with the [employer]'s Incidental Findings Committee white paper (J Am Rey Radiol 2018): Any incidental renal lesion less than 1 cm or classified as too small to characterize, or any incidental cystic renal lesion characterized as simple-appearing, is likely benign. No follow-up imaging is recommended for these lesions per consensus recommendations based on imaging criteria.
--- NOTE | 2024-02-06 20:50 | XRR_ITS ---
PROCEDURE INFORMATION: Exam: XR Right Foot Exam date and time: 02/06/2024 9:37 PM Age: 88 years old Clinical indication: Injury or trauma; Swelling (edema); Lower leg; Right; Patient HX: RT ankle/lower ext pain/swelling post fall TECHNIQUE: Imaging protocol: Radiologic exam of the right foot. Views: 3 or more views. COMPARISON: No relevant prior studies available. FINDINGS: Bones/joints: Oblique slightly displaced fracture through the distal fibular shaft with minimal angulation. Displaced horizontal medial malleolar fracture. Soft tissues: Normal. Other findings: Possible multiple hammertoes noted on the lateral view. XR/XR foot RT min 3V* [id number] IMPRESSION: 1. Possible multiple hammertoes noted on the lateral view. 2. Oblique slightly displaced fracture through the distal fibular shaft with minimal angulation. 3. Displaced horizontal medial malleolar fracture.
[2024-02-06 21:23] VITALS: BP 198/97; PULSE 65; RESP 18; O2SAT 96
[2024-02-06 21:40] LABS: Basophils % 0.4 %; Eosinophils # 0.1 10^3/uL (0.0-0.8); Eosinophils % 1.4 %; Lymphocytes # 1.7 10^3/uL (0.8-4.8); Lymphocytes % 23.2 %; Mean Corpuscular HGB Conc 31.3 g/dL (30-55); Mean Corpuscular Hemoglobin 33.4 pg (27-33); Mean Corpuscular Volume 106.8 fl (85-98); Mean Platelet Volume 10.2 fL (7.4-10.4); Monocytes # 0.7 10^3/uL (0.2-0.9); Monocytes % 9.2 %; Neutrophils # 4.77 10^3/uL (1.8-7.7); Neutrophils % 65.4 %; Nucleated Red Blood Cells % 0 %; Platelet Count 125 10^3/cmm (157-399); Red Blood Count 3.65 10^6/uL (3.85-5.65); Red Cell Distribution Width 13.9 % (12.1-15.1); White Blood Count 7.29 10^3/uL (3.29-11.43)
--- NOTE | 2024-02-06 21:44 | XRR_ITS ---
PROCEDURE INFORMATION: Exam: XR Right Tibia and Fibula Exam date and time: 02/06/2024 9:51 PM Age: 88 years old Clinical indication: Injury or trauma; Swelling (edema); Lower leg; Right; Patient HX: RT ankle/lower ext pain/swelling post fall TECHNIQUE: Imaging protocol: Radiologic exam of the right tibia and fibula. Views: 2 views. COMPARISON: CR (LOW EXM, ) 02/06/2024 9:51 PM FINDINGS: Bones/joints: Horizontal fracture through the medial malleolus with oblique fracture through the lateral malleolus consistent with eversion injury. 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 Soft tissues: Normal. XR/XR tibia fibula RT 2V [id number] IMPRESSION: 1. Horizontal fracture through the medial malleolus with oblique fracture through the lateral malleolus consistent with eversion injury. 2. 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
--- NOTE | 2024-02-06 21:44 | XRR_ITS ---
PROCEDURE INFORMATION: Exam: XR Right Ankle Exam date and time: 02/06/2024 9:51 PM Age: 88 years old Clinical indication: Injury or trauma; Swelling (edema); Lower leg and ankle; Right; Patient HX: RT ankle/lower ext pain/swelling post fall TECHNIQUE: Imaging protocol: Radiologic exam of the right ankle. Views: 3 or more views. COMPARISON: CR XR tibia fibula RT 2V [id number] 02/06/2024 9:51 PM FINDINGS: Bones/joints: Horizontal fracture through the medial malleolus with oblique fracture through the lateral malleolus consistent with eversion injury. Ossification/calcification over the Achilles tendon insertion on the posterior calcaneus consistent with enthesopathy. Soft tissues: Normal. XR/XR ankle RT min 3V* [id number] IMPRESSION: Horizontal fracture through the medial malleolus with oblique fracture through the lateral malleolus consistent with eversion injury.
[2024-02-06 21:57] LABS: Alanine Aminotransferase 15 U/L (0-33); Alkaline Phosphatase 80 U/L (35-105); Blood Urea Nitrogen 21 mg/dL (8-23); Calcium 8.9 mg/dL (8.5-10.5); Carbon Dioxide 27 mmol/L (22-29); Chloride 102 mmol/L (98-107); Globulin 3.2 g/dL (1.3-4.6); Glucose 100 mg/dL (65-115); Osmolality Calculated 295 mOsm/kg (285-295); Sodium 141 mmol/L (136-145); Total Bilirubin 0.3 mg/dL (0.15-1.2); Total Protein 7.2 g/dL (6.6-8.7)
--- NOTE | 2024-02-06 22:03 | CTR_ITS ---
PROCEDURE INFORMATION: Exam: CT Thoracic Spine Without Contrast Exam date and time: 02/06/2024 10:04 PM Age: 88 years old Clinical indication: Injury or trauma; Blunt trauma (contusions or hematomas); Prior surgery; Surgery date: 6+ months; Surgery type: Gb. Thoracolumbar fusion; Patient HX: EMS arrivla from assisted living for fall. Patient fell backwards onto floor while using walker striking back of head. Also endorses mid back pain. History of subdural hematoma. ; Additional info: Mid back pain post fall; HX lumbar fusion TECHNIQUE: Imaging protocol: Computed tomography of the thoracic spine without contrast. Radiation optimization: All CT scans at this facility use at least one of these dose optimization techniques: automated exposure control; mA and/or kV adjustment per patient size (includes targeted exams where dose is matched to clinical indication); or iterative reconstruction. COMPARISON: CT abdomen pelvis w con* [id number] 10/15/2021 5:11 PM RADIATION DOSE METRICS: Total DLP (mGy-cm): 1083.14 FINDINGS: Bones/joints: Very severe osteopenia. Very severe spine DJD. No definite acute fracture. Extensive spinal fusion is partially imaged. This involves the mid to lower thoracic spine through the lumbar spine. There is a lower thoracic body fracture on series 12, image 55 which likely necessitated the previous fusion. Just above the fusion there is an old-appearing mild midthoracic compression. None of these appear hyperacute. Multiple old rib deformities. No overt complication is seen. The exam is challenging due to the osteopenia in the hardware associated artifacts with streaking. Mid to lower lumbar laminectomies on same-day lumbar spine. Soft tissues: Unremarkable. Vasculature: Advanced diffuse vascular calcification noted. Lungs: Mild COPD. Lung base atelectasis or scarring. CT/CT thoracic spin wo con* [id number] IMPRESSION: 1. As above, complex postop severely osteoporotic patient with no definite acute fracture. 2. If pain persists, recommend short-term reassessment. A re-injury cannot be excluded.
[2024-02-06 22:14] LABS: Anion Gap 16.7 (5-19); Aspartate Amino Transferase 20 U/L (0-32); Potassium 4.7 mmol/L (3.5-5.1)
--- NOTE | 2024-02-06 22:28 | P.HP_ITS ---
Providers/Chief Complaint 2 Primary Care Provider: Britton Vu DO Chief Complaint: FALL History of Present Illness Delia Arthur is a 88 year old female with past medical history significant for chronic back pain status post back surgery, hypertension, and neuropathy who presents from assisted living with mechanical fall. Patient reports she was in her usual state of health until she was getting up from her lift chair. She reports upon standing she fell and hurt her right ankle. She reports after falling her right ankle pain was 10 out of 10. After receiving some analgesics, she currently rates it about a 1 out of 10. She reports any movement causes significant pain. Not moving the legs improves the pain. Denies change in sensation in her right foot. She denies other alleviating or aggravating factors. In the emergency department, plain film showed horizontal fracture through the medial malleolus with oblique fractures to the lateral malleolus. Podiatry consulted and evaluations pending. Review of Systems 2 Narrative: A complete review of systems was obtained and is negative except as stated in HPI. Medications/Allergies Home Medications Medication Instructions Recorded Confirmed Last Taken Type PreserVision AREDS-2 1 tab PO DAILY 07/16/20 12/01/23 10/11/21 History cyanocobalamin (vitamin B-12) 1,000 mcg PO DAILY 07/16/20 12/01/23 10/11/21 History 1,000 mcg tablet (Vitamin B-12) calcium carbonate 500 mg-vitamin 1 tab PO DAILY 09/26/21 12/01/23 10/11/21 History D3 3.125 mcg (125 unit) tablet acetaminophen 325 mg tablet 650 mg PO QID PRN Pain 10/12/21 12/01/23 Unknown History bisacodyl 10 mg rectal suppository 10 mg KS DAILY PRN Constipation 10/12/21 12/01/23 Unknown History (Dulcolax (bisacodyl)) magnesium hydroxide 400 mg/5 mL 30 ml PO DAILY PRN Constipation 10/12/21 12/01/23 Unknown History oral suspension (Milk of Magnesia) sodium phosphates 19 gram-7 118 ml KS DAILY PRN Constipation 10/12/21 12/01/23 Unknown History gram/118 mL enema (Fleet Enema) triamcinolone acetonide 0.1 % applic topical 04/11/22 12/01/23 Unknown History topical cream Alpha Girard repair request #1 ea 11/28/22 12/01/23 Unknown Rx thuasne knee brace #1 ea 11/28/22 12/01/23 Unknown Rx metoprolol succinate 50 mg 50 mg PO DAILY #90 tabs 12/09/22 12/01/23 Unknown Rx tablet,extended release 24 hr melatonin 3 mg capsule 3 mg PO DAILY 01/02/23 12/01/23 Unknown History gabapentin 100 mg capsule 100 mg PO BID PRN nerve pain #60 04/10/23 12/01/23 Unknown Rx caps sertraline 100 mg tablet 100 mg PO DAILY #90 tabs 04/10/23 12/01/23 Unknown Rx hydrocodone 10 mg-acetaminophen 2 tab PO BEDTIME PRN Pain 1 month 07/16/23 12/01/23 Unknown Rx 325 mg tablet #60 tabs Allergies Allergy/AdvReac Type Severity Reaction Status Date / Time ciprofloxacin Allergy Unknown ALGY-Redness Verified 12/01/23 09:58 of Skin Penicillins Allergy Unknown ALGY-Rash,Not Verified 12/01/23 09:58 Entered PFSH Acute 2 PFSH: Medical History (Updated 02/06/24 @ 23:15 by Héctor Balbuena MD) Edema Nerve pain Physical deconditioning Weakness of both legs C. difficile diarrhea Small bowel obstruction Chronic back pain Hypertension COVID-19 virus infection Surgical History S/P exploratory laparotomy for perforated appendix History of hip surgery Left -- screws History of cataract surgery History of back surgery spinal rods History of hysterectomy / BSO History of cholecystectomy Family History Denies family history of Diabetes Dementia Social History Smoking and tobacco/nicotine status: never used tobacco/nicotine Alcohol intake: never Vitals/I&O/Wt Last Vital Signs Temp 98.8 F 02/06/24 20:35 Pulse 65 02/06/24 21:23 Resp 18 02/06/24 21:23 BP 198/97 02/06/24 21:23 Pulse Ox 96 02/06/24 21:23 O2 Del Method Room Air 02/06/24 20:43 Weight last 48 hrs Weight 90.718 kg Physical Exam 2 Narrative: General: Patient is awake and alert. Pleasant. Head: Normocephalic. Atraumatic. EOM intact. Neck: No JVD. Cardiovascular: RRR. No gallops. No murmurs. Lungs: Clear to auscultation, no use of accessory muscles, no crackles or wheezes. Skin: No jaundice. No rashes. Abdomen: Normal bowel sounds, abdomen soft and nontender. Genito Urinary: Genital exam not performed since complaints not related. Rectal: Rectal exam not performed since no symptoms indicated blood loss. Extremities: No cyanosis or clubbing. Musculoskeletal: Both ankles are swollen. Right ankle is tender to palpation. There is a brace on her left knee. Neurological: Moves all 4 extremities. No myoclonus. Data 02/06/24 21:35 02/06/24 21:35 A&P Assessment and plan (1) Bimalleolar fracture of right ankle: Right-sided ankle fracture secondary to mechanical fall Nonweightbearing right lower extremity for now Podiatry evaluation is pending Analgesics as needed Will likely need PT/OT after surgical evaluation Currently in [facility], may need more assistance after discharge TBD by clinical course (2) Depression: Continue home sertraline (3) Hypertension: Continue home metoprolol Qualifiers: Hypertension type: primary hypertension Qualified Code(s): I10 - Essential (primary) hypertension (4) Osteoarthritis of knee: Continue home analgesics as needed Currently with brace okay to continue Qualifiers: Osteoarthritis type: primary Laterality: right Qualified Code(s): M 17.11 - Unilateral primary osteoarthritis, right knee (5) Chronic back pain: History of back surgery and cauda equina syndrome Qualifiers: Back pain location: low back pain Back pain laterality: bilateral S ciatica presence: without sciatica Qualified Code(s): M54.50 - Low back pain, unspecified; G89.29 - Other chronic pain (6) Idiopathic peripheral neuropathy: Continue home gabapentin as needed Plan DVT prophylaxis: Lovenox Attestations 2 Medical Necessity Statement*: Patient presents from assisted living with mechanical fall found to have bimalleolar ankle fracture with inability to care for self at the [facility] with expected hospitalization not to cross 2 midnights for surgical evaluation, analgesics, and supportive care. Coding Level of Care Code Acute Code for [facility] Diagnoses Bimalleolar fracture of right ankle S82.841A Depression F32.A Primary hypertension I10 Hypertension type: primary hypertension Primary osteoarthritis of right knee M17.11 Osteoarthritis type: primary Laterality: right Chronic bilateral low back pain without sciatica M54.50; G89.29 Back pain location: low back pain Back pain laterality: bilateral Sciatica presence: without sciatica Idiopathic peripheral neuropathy G60.9
[2024-02-06 23:10] VITALS: BP 185/92; PULSE 70; RESP 18; O2SAT 96
[2024-02-06 23:10] LABS: Add Urine Microscopic? NO; Charge for UA Resulting for Rev
[2024-02-06 23:16] LABS: Bilirubin Urine Neg (Negative); Blood Urine Neg (Negative); Glucose Urine UA Norm (Normal); Ketones Urine Negative (Negative); Leukocyte Esterase Urine Negative (Negative); Nitrate Urine Negative (Negative); Protein Urine Neg (Negative); Specific Gravity, Urine 1.015 (1.005-1.030); Urine Appearance Clear (CLEAR); Urine Color Yellow (Yellow); Urobilinogen Urine Neg (Negative); pH Urine 6 (5-7)
[2024-02-07] VITALS (23 sets, daily range): BP systolic 108–178; BP diastolic 51–89; PULSE 69–84; RESP 10–20; TEMP 35.9–37.1; O2SAT 90–100
[2024-02-07] MEDS: HYDROcodone-acetaminophen 10-325 mg Tablet 2 TAB PO ×2 (00:25→21:37)
[2024-02-07] MEDS: HYDROcodone-acetaminophen 5-325 mg Tablet 1 TAB PO ×2 (05:16→15:29)
[2024-02-07] MEDS: enoxaparin 40 mg/0.4 mL Syringe SUBCUT (05:18)
--- NOTE | 2024-02-07 06:50 | P.CONIM_ITS ---
Providers/Reason For Consult 2 Consulting Physician/Specialty*: Chuckie Hernández D.P.M./podiatry Reason for Consult*: Right ankle fracture after mechanical fall Attending Physician: Héctor Balbuena MD Primary Care Provider: Britton Vu DO History of Present Illness History of Present Illness Delia Arthur is a 88 year old female presents to the emergency department 02/07/2024 secondary to a fall that was unwitnessed. She is a resident of a assisted living facility, states that she fell injuring her right ankle as her chief complaint. Of note patient has a history of back surgery that she reports was done in 2009. She reports peripheral neuropathy that has been ongoing for years. Patient typically stands and ambulates for short distances with a knee brace and a walker, she also utilizes a sit to stand and she utilizes an electric scooter for longer distance. Endorses pain to the right ankle. Patient denies any subjective nausea, vomiting, fever, chills, shortness of breath or chest pain. Review of Systems 2 Const: Denies: fever(s), chills or fatigue Eyes: Denies: change in vision Card: Reports: swelling of feet/ankles; Denies: chest pain or palpitations Resp: Denies: dyspnea GI: Denies: abdominal pain, nausea, vomiting, diarrhea or constipation Musc: Reports: extremity pain Skin/Breast: Denies: changes in skin color Neuro: Reports: difficulty walking; Denies: numbness in extremities Medications/Allergies Home Medications Medication Instructions Recorded Confirmed Last Taken Type PreserVision AREDS-2 1 tab PO DAILY 07/16/20 12/01/23 10/11/21 History cyanocobalamin (vitamin B-12) 1,000 mcg PO DAILY 07/16/20 12/01/23 10/11/21 History 1,000 mcg tablet (Vitamin B-12) calcium carbonate 500 mg-vitamin 1 tab PO DAILY 09/26/21 12/01/23 10/11/21 History D3 3.125 mcg (125 unit) tablet acetaminophen 325 mg tablet 650 mg PO QID PRN Pain 10/12/21 12/01/23 Unknown History bisacodyl 10 mg rectal suppository 10 mg HI DAILY PRN Constipation 10/12/21 12/01/23 Unknown History (Dulcolax (bisacodyl)) magnesium hydroxide 400 mg/5 mL 30 ml PO DAILY PRN Constipation 10/12/21 12/01/23 Unknown History oral suspension (Milk of Magnesia) sodium phosphates 19 gram-7 118 ml HI DAILY PRN Constipation 10/12/21 12/01/23 Unknown History gram/118 mL enema (Fleet Enema) triamcinolone acetonide 0.1 % applic topical 04/11/22 12/01/23 Unknown History topical cream Alpha Gazelle repair request #1 ea 11/28/22 12/01/23 Unknown Rx thuasne knee brace #1 ea 11/28/22 12/01/23 Unknown Rx metoprolol succinate 50 mg 50 mg PO DAILY #90 tabs 12/09/22 12/01/23 Unknown Rx tablet,extended release 24 hr melatonin 3 mg capsule 3 mg PO DAILY 01/02/23 12/01/23 Unknown History gabapentin 100 mg capsule 100 mg PO BID PRN nerve pain #60 04/10/23 12/01/23 Unknown Rx caps sertraline 100 mg tablet 100 mg PO DAILY #90 tabs 04/10/23 12/01/23 Unknown Rx hydrocodone 10 mg-acetaminophen 2 tab PO BEDTIME PRN Pain 1 month 07/16/23 12/01/23 Unknown Rx 325 mg tablet #60 tabs Allergies Allergy/AdvReac Type Severity Reaction Status Date / Time ciprofloxacin Allergy Unknown ALGY-Redness Verified 12/01/23 09:58 of Skin Penicillins Allergy Unknown ALGY-Rash,Not Verified 12/01/23 09:58 Entered Current Medications Generic Name Dose Route Start Last Admin Trade Name Freq PRN Reason Stop Dose Admin Hydrocodone Bitart/Acetaminophen 1 tab 02/06/24 23:51 02/07/24 05:16 Hydrocodone-Acetaminophen 5-325 Mg Tablet PO 1 tab Q4H PRN Administration Moderate pain Hydrocodone Bitart/Acetaminophen 2 tab 02/06/24 23:51 02/07/24 00:25 Hydrocodone-Acetaminophen 10-325 Mg Tablet PO 2 tab BEDTIME PRN Administration Pain Enoxaparin Sodium 40 mg 02/07/24 06:00 02/07/24 05:18 Enoxaparin 40 Mg/0.4 Ml Syringe SUBCUT 40 mg Q24H DWAYNE Administration PFSH Acute 2 PFSH: Medical History (Updated 02/07/24 @ 07:25 by Chuckie Hernández, DPM) Edema Nerve pain Physical deconditioning Weakness of both legs C. difficile diarrhea Small bowel obstruction Chronic back pain Hypertension COVID-19 virus infection Surgical History S/P exploratory laparotomy for perforated appendix History of hip surgery Left -- screws History of cataract surgery History of back surgery spinal rods History of hysterectomy / BSO History of cholecystectomy Family History Denies family history of Diabetes Dementia Social History Smoking and tobacco/nicotine status: never used tobacco/nicotine Alcohol intake: never Vitals/I&O/Wt Last Vital Signs Temp 98.0 F 02/07/24 03:54 Pulse 71 02/07/24 03:54 Resp 17 02/07/24 03:54 BP 114/51 02/07/24 03:54 Pulse Ox 92 02/07/24 03:54 O2 Del Method Room Air 02/07/24 00:58 02/06/24 02/06/24 02/07/24 14:59 22:59 06:59 Intake Total 0 / 0 Output Total 450 / 450 Balance -450 / -450 Weight last 48 hrs Weight 207 lb 11.2 oz Weight 201 lb 11.2 oz Weight 200 lb Physical Exam 2 Const: COMMON NORMALS: no acute distress, patient oriented x3 and alert HENMT: COMMON NORMALS: normocephalic HEAD & SCALP: normocephalic Eye: COMMON NORMALS: Equal, round and reactive pupils present, EOMs intact bilaterally and conjunctivae normal CONJUNCTIVA: Yes conjunctivae normal P UPIL: Yes Equal, round and reactive pupils present Chest: CHEST: Yes Symmetrical chest wall rise Resp: COMMON NORMALS: normal respiratory effort, No use of accessory muscles and clear to auscultation bilaterally EFFORT & INSPECTION: Yes able to speak in complete sentences and Yes symmetric chest movement AUSCULTATION: clear to auscultation bilaterally Cardio: COMMON NORMALS: regular rate, regular rhythm, No murmurs present (Cardio) and Peripheral pulses 2+ throughout RATE: regular rate RHYTHM: r egular rhythm PERIPHERAL PULSES: Peripheral pulses 2+ throughout Extremity: COMMON NORMALS: capillary refill normal, no calf tenderness and no pedal edema (Focal edema right ankle medial and lateral malleolus) GENERAL: Y es edema RIGHT LOWER EXTREMITY: Yes foot & digits (Tenderness to palpation at right distal fibula, tenderness to palpation at medial malleolus. No pain to palpation along the course of the Achilles tendon or calcaneus. No acute dislocation or gross deformity appreciated. No pain with [id number] compression of the right leg. No pain to palpation across the Lisfranc joint or fifth metatarsal base.) Neuro: COMMON NORMALS: patient oriented x3 SENSORIUM/ORIENTATION: Yes alert Psych: COMMON NORMALS: mental status grossly normal and cooperative Skin: COMMON NORMALS: no wounds GENERAL SKIN EXAM: no erythema TRAUMA: n o lacerations HAIR: general thinning Urinary Catheter Management: [place]: Cath Placed During This Visit: yes Reason for Continuing Indwelling Catheter: Required Immobilization for Trauma or Surgery or Anesthesia Urinary Catheter Date of Insertion: 02/06/24 Urinary Catheter Time of Insertion: 23:05 Data 02/06/24 21:35 02/06/24 21:35 A&P Assessment and plan (1) Closed right trimalleolar fracture: Qualifiers: Encounter type: initial encounter Qualified Code(s): S82.851A - Displaced trimalleolar fracture of right lower leg, initial encounter for closed fracture Plan 88-year-old female with cauda equina syndrome had a mechanical fall at her assisted living facility sustained a trimalleolar fracture, right date of injury 02/06/2024. Left ankle 3 views taken 02/06/2024 demonstrates a Angel Ochoa C fracture with 2 mm of displacement and angulation, transverse fracture of the medial malleolus at the level ankle mortise. No displacement of the talus. Lateral view demonstrates a posterior malleolar fracture involving approximately 10% of the tibial plafond and with less than 2 mm of displacement this posterior malleolus fracture is also visualized on the lateral right foot x-ray taken same date and also visualized on the lateral tib-fib view taken the same day. Patient examined and evaluated, findings and treatment options discussed with patient at length. Discussed the unstable nature of her trimalleolar fracture necessitating surgical intervention with surgical goals of rigid internal fixation allowing early range of motion and more predictable healing. Will require transfer to nursing home or snf after this hospitalization anticipating 6 weeks of nonweightbearing to the right lower extremity. I reviewed at length with the patient, the risks, potential complications, benefits, alternatives, expectations, and typical outcomes associated with the surgery. The risks and potential complications were explained in detail, including but not limited to infection, wound dehiscence or soft tissue complications, bleeding and hematoma, chronic edema, neuritis or nerve damage producing numbness or chronic pain, CRPS, failure to relieve pain or worsening pain, thick / painful / unsightly scar, limited motion / stiffness, malposition, delayed union, malunion, or nonunion, fracture, reaction to implants, anesthetic complications, venous thromboembolism, and deformity recurrence. I discussed the notion of no regrets with the patient as it pertains to complications and outcomes. The patient seemed to understand the nature of the proposed care and required convalescence. They asked appropriate questions, answered to their satisfaction. They are aware no guarantees can be made as to a satisfactory outcome and they understand there may be other possible unforeseen complications or outcomes not listed here that will be treated accordingly if they arise. There were no written or implied guarantees given to the patient. They gave informed consent to proceed. N.p.o. ORIF right trimalleolar fracture this morning 02/07/2024, on-call team notified Nonweightbearing anticipated 6 weeks postoperatively Recommend transfer to nursing home facility after his hospitalization anticipating transfer on 02/09/2024 Advised patient to elevate right foot while resting Will be following up outpatient with Dr. Hernández during postoperative period. Coding Level of Care Code Acute Code for [facility] Diagnoses Closed trimalleolar fracture of right ankle, initial encounter S82.851A Encounter type: initial encounter
--- NOTE | 2024-02-07 07:47 | PM.OP ---
Operative Report Date of procedure: February 07, 2024 Pre-op diagnosis: Right trimalleolar fracture. Post-op diagnosis: Right trimalleolar fracture Procedure done: Open reduction internal fixation right trimalleolar fracture. CPT code 67667 Implants: [place] Specimens removed/disposition: None Pathology: None Surgeon: Chuckie Hernández DPM Program Schedule Clerk: Dann QUICK Estimated blood loss: 5 mL Approximately 40 minutes, see intraoperative documentation IV fluids: See intraoperative documentation Urine output: 0 Complications: none Brief History: 88-year-old female with cauda equina syndrome had a mechanical fall at her assisted living facility sustained a trimalleolar fracture, right date of injury 02/06/2024. Left ankle 3 views taken 02/06/2024 demonstrates a Angel Ochoa C fracture with 2 mm of displacement and angulation, transverse fracture of the medial malleolus at the level ankle mortise. No displacement of the talus. Lateral view demonstrates a posterior malleolar fracture involving approximately 10% of the tibial plafond and with less than 2 mm of displacement this posterior malleolus fracture is also visualized on the lateral right foot x-ray taken same date and also visualized on the lateral tib-fib view taken the same day. Patient examined and evaluated, findings and treatment options discussed with patient at length. Discussed the unstable nature of her trimalleolar fracture necessitating surgical intervention with surgical goals of rigid internal fixation allowing early range of motion and more predictable healing. Will require transfer to senior care or residential after this hospitalization anticipating 6 weeks of nonweightbearing to the right lower extremity. I reviewed at length with the patient, the risks, potential complications, benefits, alternatives, expectations, and typical outcomes associated with the surgery. The risks and potential complications were explained in detail, including but not limited to infection, wound dehiscence or soft tissue complications, bleeding and hematoma, chronic edema, neuritis or nerve damage producing numbness or chronic pain, CRPS, failure to relieve pain or worsening pain, thick / painful / unsightly scar, limited motion / stiffness, malposition, delayed union, malunion, or nonunion, fracture, reaction to implants, anesthetic complications, venous thromboembolism, and deformity recurrence. I discussed the notion of no regrets with the patient as it pertains to complications and outcomes. The patient seemed to understand the nature of the proposed care and required convalescence. They asked appropriate questions, answered to their satisfaction. They are aware no guarantees can be made as to a satisfactory outcome and they understand there may be other possible unforeseen complications or outcomes not listed here that will be treated accordingly if they arise. There were no written or implied guarantees given to the patient. They gave informed consent to proceed. Procedure: Under mild sedation patient was brought to the operating room and positioned on the operating table in supine position. Timeout was performed. Anesthesia was then administered by the anesthesia service. Local anesthesia was injected by myself consisting of 10 cc of 0.5 sent Marcaine plain for medial ankle nerve block, of note popliteal block to the right lower extremity was performed preoperatively per anesthesia. Pneumatic tourniquet was applied to the right high calf. The right lower extremity was scrubbed, prepped and draped utilizing normal aseptic technique. Right foot and ankle were exanguinated with an Esmarch bandage and tourniquet inflated to 250 mmHg. Attention was directed to the right lateral ankle where bony landmark of lateral malleolus was palpated, directly over the lateral malleolus and distal fibula a linear longitudinal incision was made through skin with a #15 blade with dissection carried down through subcutaneous tissue to the layer of periosteum using sharp and blunt technique. Care was taken to retract and preserve neurovascular and tendinous structures. All bleeders were ligated and cauterized as necessary. Periosteal incision was made and a Angel Ochoa C fibular fracture was identified, this was distracted, curettaged of hematoma followed by saline flush and reduced and temporarily stabilized with [id number] fracture reduction forceps. Following standard AO technique a anatomic fibular plate provided by Dilan with 3.5 mm locking screws were utilized to fixate the fracture and stabilize the distal fibula not violating the ankle mortise this was confirmed with AP, oblique and lateral views with excellent fixation and and hardware placement and fracture reduction with anatomic alignment of the fibula in all 3 planes. Percutaneous fixation of the medial mall with 3.5 millimeter screw x 2 in parallel fashion not violating the ankle mortise once again in the AP, oblique and lateral view confirmed that the medial gutter was not violated with hardware in the medial malleolus was reduced. Cotton hook test did not reveal any medial gutter widening or diastases of the tib-fib clear space. The incisions were irrigated with saline solution. Medial incision closed with arron, lateral incision closed in a layered fashion with periosteum reapproximated with 2-0 Vicryl, subcutaneous tissue with 3-0 Vicryl and skin with skin arron. Incisions were dressed with Adaptic, sterile 4 x 4's, Kerlix followed by application of a well-padded short leg cast with ankle joint in neutral position. Tourniquet was deflated and a prompt hyperemic response is noted to the distal digits of the right foot. Patient tolerated the procedure and anesthesia well and was transferred to the PACU with vital signs stable and vascular status intact. Following a period of postoperative monitoring patient will be transferred back to the floor. She is to be nonweightbearing to the right lower extremity and elevate right foot while resting.
[2024-02-07] MEDS: HYDROmorphone 1 mg/mL INJ 1 mL 0.200000000000000011 MG IVP ×2 (08:14→17:49)
[2024-02-07] MEDS: sodium chloride 0.9% 1,000 ML 30 ML IV (08:39)
[2024-02-07] MEDS: clindamycin 600 MG/50 ML PREMIX 100 MG IV (08:42)
--- NOTE | 2024-02-07 08:44 | P.ANESASSM_ITS ---
Pre-Anesthetic Assessment Height/Weight: Height 1.8 m Weight 94.211 kg Temp Pulse Resp BP Pulse Ox O2 Del Method 98.8 F 72 17 161/71 94 Room Air 02/07/24 08:31 02/07/24 08:31 02/07/24 08:31 02/07/24 08:31 02/07/24 08:31 02/07/24 08:31 Preop Diagnosis: Right bimalleolar fracture Operation Date: 02/07/24 08:40 Proposed Procedures p ORIF Ankle ORIF Bimalleolar Fracture(Right) - Chuckie Hernández DPM Familial anesthetic complications: NOne Was Beta [place] taken within 24 hours: Yes Was Clonidine taken within 24 hours: N/A Last intake: Intake Last Liquid Date 02/06/24 Last Liquid Time 16:30 Last Solid Date 02/06/24 Last Solid Time 16:30 Social No alcohol and No tobacco Exam alert, oriented x 3, clear to auscultation bilaterally and regular rate & rhythm CV/HEM Hypertension Neuropsych cauda equina syndrome Anesthetic Plan ASA status: 2 Anesthesia: General and Regional (specify below) Risk of > 500 ml blood loss (7ml/kg in children): No Medications/Allergies Home Medications Medication Instructions Recorded Confirmed Last Taken Type PreserVision AREDS-2 1 tab PO DAILY 07/16/20 12/01/23 10/11/21 History cyanocobalamin (vitamin B-12) 1,000 mcg PO DAILY 07/16/20 12/01/23 10/11/21 History 1,000 mcg tablet (Vitamin B-12) calcium carbonate 500 mg-vitamin 1 tab PO DAILY 09/26/21 12/01/23 10/11/21 History D3 3.125 mcg (125 unit) tablet acetaminophen 325 mg tablet 650 mg PO QID PRN Pain 10/12/21 12/01/23 Unknown History bisacodyl 10 mg rectal suppository 10 mg [place] DAILY PRN Constipation 10/12/21 12/01/23 Unknown History (Dulcolax (bisacodyl)) magnesium hydroxide 400 mg/5 mL 30 ml PO DAILY PRN Constipation 10/12/21 12/01/23 Unknown History oral suspension (Milk of Magnesia) sodium phosphates 19 gram-7 118 ml [place] DAILY PRN Constipation 10/12/21 12/01/23 Unknown History gram/118 mL enema (Fleet Enema) triamcinolone acetonide 0.1 % applic topical 04/11/22 12/01/23 Unknown History topical cream Alpha [place] repair request #1 ea 11/28/22 12/01/23 Unknown Rx thuasne knee brace #1 ea 11/28/22 12/01/23 Unknown Rx metoprolol succinate 50 mg 50 mg PO DAILY #90 tabs 12/09/22 12/01/23 Unknown Rx tablet,extended release 24 hr melatonin 3 mg capsule 3 mg PO DAILY 01/02/23 12/01/23 Unknown History gabapentin 100 mg capsule 100 mg PO BID PRN nerve pain #60 04/10/23 12/01/23 Unknown Rx caps sertraline 100 mg tablet 100 mg PO DAILY #90 tabs 04/10/23 12/01/23 Unknown Rx hydrocodone 10 mg-acetaminophen 2 tab PO BEDTIME PRN Pain 1 month 07/16/23 12/01/23 Unknown Rx 325 mg tablet #60 tabs Allergies Allergy/AdvReac Type Severity Reaction Status Date / Time ciprofloxacin Allergy Unknown ALGY-Redness Verified 12/01/23 09:58 of Skin Penicillins Allergy Unknown ALGY-Rash,Not Verified 12/01/23 09:58 Entered Current Medications Generic Name Dose Route Start Last Admin Trade Name Freq PRN Reason Stop Dose Admin Hydrocodone Bitart/Acetaminophen 1 tab 02/06/24 23:51 02/07/24 05:16 Hydrocodone-Acetaminophen 5-325 Mg Tablet PO 1 tab Q4H PRN Administration Moderate pain Hydrocodone Bitart/Acetaminophen 2 tab 02/06/24 23:51 02/07/24 00:25 Hydrocodone-Acetaminophen 10-325 Mg Tablet PO 2 tab BEDTIME PRN Administration Pain Enoxaparin Sodium 40 mg 02/07/24 06:00 02/07/24 05:18 Enoxaparin 40 Mg/0.4 Ml Syringe SUBCUT 40 mg Q24H DWAYNE Administration Hydromorphone HCl 0.2 mg 02/06/24 23:51 02/07/24 08:14 Hydromorphone 1 Mg/Ml Inj 1 Ml IVP 0.2 mg Q3H PRN Administration Severe Pain Sodium Chloride 1,000 mls @ 30 mls/hr 02/07/24 08:30 02/07/24 08:39 Sodium Chloride 0.9% IV 02/08/24 08:29 30 mls/hr .Q24H DWAYNE Administration PFSH Anesthesia Medical History (Updated 02/07/24 @ 07:25 by Chuckie Hernández DPM) Edema Nerve pain Physical deconditioning Weakness of both legs C. difficile diarrhea Small bowel obstruction Chronic back pain Hypertension COVID-19 virus infection Surgical History S/P exploratory laparotomy for perforated appendix History of hip surgery Left -- screws History of cataract surgery History of back surgery spinal rods History of hysterectomy / BSO History of cholecystectomy Family History Denies family history of Diabetes Dementia Social History Smoking and tobacco/nicotine status: never used tobacco/nicotine Alcohol intake: never Data Anesthesia 02/06/24 21:35 02/06/24 21:35 Short CBC 02/06/24 Range/Units 21:35 WBC 7.29 (3.29-11.43) 10^3/uL Hgb 12.20 (11.27-16.99) g/dL Hct 39.0 (36-47) % MCV 106.8 H (85-98) fl Plt Count 125 L (157-399) 10^3/cmm Neut % (Auto) 65.4 % Neut # (Auto) 4.77 (1.8-7.7) 10^3/uL BMP 02/06/24 21:35 Sodium 141 Potassium 4.7 Chloride 102 Carbon Dioxide 27 BUN 21 Creatinine 0.9 Glucose 100 Calcium 8.9 Liver Function 02/06/24 Range/Units 21:35 Total Bilirubin 0.3 (0.15-1.2) mg/dL AST 20 (0-32) U/L ALT 15 (0-33) U/L Alkaline Phosphatase 80 (35-105) U/L Albumin 4.0 (3.5-5.2) g/dL Urine 02/06/24 Range/Units 23:04 Urine Color Yellow (Yellow) Urine Appearance Clear (CLEAR) Urine pH 6 (5-7) Ur Specific [place] 1.015 (1.005-1.030) Urine Protein Neg (Negative) Urine Glucose (UA) Norm (Normal) Urine Ketones Negative (Negative) Urine Nitrate Negative (Negative) Urine Bilirubin Neg (Negative) Ur Leukocyte Esterase Negative (Negative) Cardiac Studies: 2 No Data to Display
--- NOTE | 2024-02-07 08:45 | ANES.PROC ---
Anesthesia Procedures Procedure/Date: 02/07/24 Nerve Block ^: Nerve Block 1: Main Anesthesia: general anesthesia Time Out Performed: Yes Consent: requested by attending/covering physician, from patient, from other, risks and benefits reviewed and patient agrees to proceed Nerve block location: popliteal (R) Anesthesia monitors applied: pulse oximetry, EKG and BP cuff Nerve block position: supine Anesthetic Used: ropivicaine 0.5% (30 ml) and with decadron (4 mg) Ultrasound used to: recognize landmarks Nerve Stimulator Used?: No Interscalene/Femoral BLK: 4 stimuplex 21 g needle used for position and inplane approach, visualize local anesthetic spread and no vascular puncture identified Injection: neg aspiration of heme Patient Tolerated Procedure: well Complications: none
[2024-02-07] MEDS: BUPivacaine 0.5% INJ 10 mL INJECTION (08:55)
--- NOTE | 2024-02-07 09:24 | P.PN_ITS ---
Subjective 2 Subjective: Postop day 0 Vitals/I&O/Wt Last Vital Signs Temp 98.8 F 02/07/24 08:31 Pulse 72 02/07/24 08:31 Resp 17 02/07/24 08:31 BP 161/71 02/07/24 08:31 Pulse Ox 94 02/07/24 08:31 O2 Del Method Room Air 02/07/24 08:31 02/06/24 02/07/24 02/07/24 22:59 06:59 14:59 Intake Total 0 / 0 50 / 50 Output Total 450 / 450 Balance -450 / -450 50 / 50 Weight last 48 hrs Weight 94.211 kg Weight 91.49 kg Weight 90.718 kg Physical Exam 2 Narrative: Pleasant and cooperative Nonfocal neuroexam No sign of heart failure On room air Abdomen soft Ankle swelling noted Knee brace intact S1, S2 Urinary Catheter Management: Ornelas: Cath Placed During This Visit: yes Reason for Continuing Indwelling Catheter: Required Immobilization for Trauma or Surgery or Anesthesia Urinary Catheter Date of Insertion: 02/06/24 Urinary Catheter Time of Insertion: 23:05 Data 02/06/24 21:35 02/06/24 21:35 A&P Assessment and plan (1) Bimalleolar fracture of right ankle: Postop day 0 Opioids with bowel regimen Qualifiers: Encounter type: initial encounter Fracture type: closed Qualified Code(s): S82.841A - Displaced bimalleolar fracture of right lower leg, initial encounter for closed fracture (2) Depression: Continue home sertraline (3) Hypertension: Continue home metoprolol Qualifiers: Hypertension type: primary hypertension Qualified Code(s): I10 - Essential (primary) hypertension (4) Osteoarthritis of knee: Currently with brace okay to continue Qualifiers: Osteoarthritis type: primary Laterality: right Qualified Code(s): M 17.11 - Unilateral primary osteoarthritis, right knee (5) Chronic back pain: History of back surgery and cauda equina syndrome Qualifiers: Back pain location: low back pain Back pain laterality: bilateral S ciatica presence: without sciatica Qualified Code(s): M54.50 - Low back pain, unspecified; G89.29 - Other chronic pain (6) Idiopathic peripheral neuropathy: Continue home gabapentin as needed Plan DVT prophylaxis: Lovenox Disposition: shelter will be needed Attestations 2 Medical Necessity Statement*: Continue medical management Diagnoses Closed bimalleolar fracture of right ankle, initial encounter S82.841A Encounter type: initial encounter Fracture type: closed Depression F32.A Primary hypertension I10 Hypertension type: primary hypertension Primary osteoarthritis of right knee M17.11 Osteoarthritis type: primary Laterality: right Chronic bilateral low back pain without sciatica M54.50; G89.29 Back pain location: low back pain Back pain laterality: bilateral Sciatica presence: without sciatica Idiopathic peripheral neuropathy G60.9
--- NOTE | 2024-02-07 10:07 | W.PM.BPON ---
Date of Procedure: 11/14/23 Surgeon: Chuckie Hernández DPM [employer] Expert(s): Sayda Procedure(s) performed: Open reduction internal fixation right trimalleolar fracture. Findings of the procedure(s): Right trimalleolar fracture. Estimated blood loss: 5 mL Specimen(s) removed: No specimens removed. Post-operative diagnosis: Right trimalleolar fracture. No complications with anesthesia or surgery. Patient underwent open reduction internal fixation of right trimalleolar fracture with general LMA, popliteal block per anesthesia performed preoperatively of the right lower extremity.
--- NOTE | 2024-02-07 10:38 | SUR.PHASEI ---
Patient has an IV in her right forearm - not documented - RN removed IV as was bleediing. IV cath intact, wrapped with 2x2 and coban. Patient tolerated well.
--- NOTE | 2024-02-07 10:40 | ANE.PACU2 ---
Inpatient post-anesthesia follow up: Airway intact: Yes Vital signs: Temperature 96.7 F Pulse Rate 76 Respiratory Rate 18 Blood Pressure 116/51 Pulse Oximetry 92 Oxygen Delivery Me thod Room Air Oxygen Flow Rate 8 Fraction of Inspir ed Oxygen Hydration adequate: Yes Nausea and vomiting: No Pain level: 1 Mental status: Baseline
--- NOTE | 2024-02-07 14:32 | XRR_ITS ---
PROCEDURE INFORMATION: Exam: XR Right Ankle Exam date and time: 02/07/2024 3:17 PM Age: 88 years old Clinical indication: Device placement; Other: Screws and plate; Post-operative (0-2 days); Surgery type: RT ankle; TECHNIQUE: Imaging protocol: Radiologic exam of the right ankle. Views: 3 or more views. COMPARISON: CR (LOW EXM, ) 02/06/2024 9:51 PM FINDINGS: Bones/joints: There is a metallic plate with screws fixation device along the lateral aspect of the distal fibula stabilizing the oblique fibular fracture which is currently in satisfactory alignment. There are obliquely oriented screws through the medial malleolus fracture with good alignment. Hardware appears intact without obvious complication. Enthesophytes are present off the os calcis at the Achilles insertion and plantar fascia origin. Soft tissues: There is edema in the soft tissues. XR/XR ankle RT min 3V* [id number] IMPRESSION: Postoperative changes as above.
[2024-02-07] MEDS: calcium carb-vit d 500mg-200unit 1 Tablet 1 EACH PO (15:29)
[2024-02-07] MEDS: sertraline 100 mg Tablet PO (15:29)
[2024-02-07] MEDS: metoprolol succinate ER (24 HR) 50 mg Tablet PO (15:29)
[2024-02-07] MEDS: sennosides-docusate Tablet 2 TAB PO (17:49)
[2024-02-07] MEDS: sennosides 8.6 mg Tablet 17.1999999999999993 MG PO (21:38)
[2024-02-08] VITALS (8 sets, daily range): BP systolic 97–123; BP diastolic 55–71; PULSE 63–86; RESP 15–19; TEMP 36.1–37.1; O2SAT 90–94
[2024-02-08 03:35] LABS: Basophils % 0.2 %; Hematocrit 36.9 % (36-47); Lymphocytes # 0.9 10^3/uL (0.8-4.8); Lymphocytes % 14.9 %; Mean Corpuscular HGB Conc 29.5 g/dL (30-55); Mean Corpuscular Hemoglobin 33.6 pg (27-33); Mean Corpuscular Volume 113.9 fl (85-98); Mean Platelet Volume 11.5 fL (7.4-10.4); Monocytes # 0.5 10^3/uL (0.2-0.9); Monocytes % 7.6 %; Neutrophils # 4.85 10^3/uL (1.8-7.7); Neutrophils % 76.7 %; Nucleated Red Blood Cells % 0 %; Platelet Count 32 10^3/cmm (157-399); Red Blood Count 3.24 10^6/uL (3.85-5.65); Red Cell Distribution Width 13.5 % (12.1-15.1); White Blood Count 6.32 10^3/uL (3.29-11.43)
[2024-02-08 03:43] LABS: Slide Review Slide Review Perform
[2024-02-08 03:55] LABS: Blood Urea Nitrogen 19 mg/dL (8-23); Calcium 8.5 mg/dL (8.5-10.5); Carbon Dioxide 26 mmol/L (22-29); Chloride 102 mmol/L (98-107); Glucose 118 mg/dL (65-115); Osmolality Calculated 293 mOsm/kg (285-295); Sodium 140 mmol/L (136-145)
[2024-02-08] MEDS: HYDROcodone-acetaminophen 5-325 mg Tablet 1 TAB PO ×2 (05:53→17:41)
[2024-02-08] MEDS: enoxaparin 40 mg/0.4 mL Syringe SUBCUT (05:54)
--- NOTE | 2024-02-08 07:52 | P.PN_ITS ---
Subjective 2 Subjective: Ms. Arthur seen bedside this a.m., she is resting comfortably. Denies any pain to the right lower extremity. Cast is clean and dry and she is elevating her foot as instructed. Tolerating regular diet. Pending transfer to [facility]. Vitals/I&O/Wt Last Vital Signs Temp 97.4 F L 02/08/24 07:41 Pulse 63 02/08/24 07:41 Resp 18 02/08/24 07:41 BP 118/67 02/08/24 07:41 Pulse Ox 94 02/08/24 07:41 O2 Del Method Room Air 02/08/24 07:41 O2 Flow Rate 8 02/07/24 10:10 02/07/24 02/08/24 02/08/24 22:59 06:59 14:59 Intake Total 480 / 2130 120 / 2250 Output Total 450 / 455 400 / 855 Balance 30 / 1675 -280 / 1395 Weight last 48 hrs Weight 207 lb 11.2 oz Weight 201 lb 11.2 oz Weight 200 lb Physical Exam 2 Narrative: GENERAL: Patient is alert and oriented ?3 and in no acute distress. The following is a focused right lower extremity exam. VASCULAR: Dorsalis pedis palpable. Capillary refill time less than 3 seconds to the distal hallux bilaterally. Calf is supple and nontender proximally and distally. NEUROLOGICAL: Protective sensation intact to light touch. Dermatological: No erythema, warmth or wounds appreciated. Cast and surgical dressing are clean, dry and intact. MUSCULOSKELETAL: Tenderness at right ankle consistent with postoperative course. Able to wiggle toes on command. No pain with posterior calf squeeze. Urinary Catheter Management: Ornelas: Cath Placed During This Visit: yes Reason for Continuing Indwelling Catheter: Required Immobilization for Trauma or Surgery or Anesthesia Urinary Catheter Date of Insertion: 02/06/24 Urinary Catheter Time of Insertion: 23:05 Data 02/08/24 03:16 02/08/24 03:16 A&P Assessment and plan (1) Closed right trimalleolar fracture: Qualifiers: Encounter type: initial encounter Qualified Code(s): S82.851A - Displaced trimalleolar fracture of right lower leg, initial encounter for closed fracture Plan Status post ORIF right trimalleolar fracture date of operation 02/07/2024 no complications. Scheduled follow-[facility] 3 [facility] at 3:30 PM. Will remove cast at that time. Please keep your cast clean, dry and intact for the next 3 weeks. Contact podiatry clinic [facility] with any questions or concerns or ill fitting cast. Please elevate right foot while resting. Partial weightbearing to the right lower extremity with assistive devices and PT present, may partial weight-bear on the right for transfers Anticipating partial weightbearing for the next 3 weeks and then working with physical therapy and gradually increasing activity at that point if indicated based off of clinical exam and x-ray findings. VTE prophylaxis Per hospitalist at discharge, from my perspective 81 mg aspirin once daily for approximately 6 weeks or until full weightbearing is a good option for ankle surgery of this nature. Patient okay for discharge from podiatry standpoint has scheduled follow-up in podiatry clinic. Attestations 2 Medical Necessity Statement*: Right trimalleolar fracture Coding Level of Care Code Acute Code for Chg Fwd Diagnoses Closed trimalleolar fracture of right ankle, initial encounter S82.851A Encounter type: initial encounter
[2024-02-08] MEDS: sertraline 100 mg Tablet PO (08:42)
[2024-02-08] MEDS: calcium carb-vit d 500mg-200unit 1 Tablet 1 EACH PO (08:42)
[2024-02-08] MEDS: gabapentin 100 mg Capsule PO ×2 (08:42→20:49)
[2024-02-08] MEDS: metoprolol succinate ER (24 HR) 50 mg Tablet PO (08:42)
[2024-02-08] MEDS: sennosides-docusate Tablet 2 TAB PO ×2 (08:42→17:41)
[2024-02-08] MEDS: acetaminophen 325 mg Tablet 1000 MG PO (08:44)
--- NOTE | 2024-02-08 10:38 | PM.PN ---
Subjective Subjective: Patient is stating that she does have a walker and an electric scooter at assisted living Currently she is agreeable for skilled nursing placement No pain at this point Vitals/I&O/Wt Last Vital Signs Temp 97.4 F L 02/08/24 07:41 Pulse 63 02/08/24 07:41 Resp 18 02/08/24 07:41 BP 118/67 02/08/24 07:41 Pulse Ox 94 02/08/24 07:41 O2 Del Method Room Air 02/08/24 07:41 O2 Flow Rate 8 02/07/24 10:10 02/07/24 02/08/24 02/08/24 22:59 06:59 14:59 Intake Total 480 / 2130 120 / 2250 240 / 240 Output Total 450 / 455 400 / 855 Balance 30 / 1675 -280 / 1395 240 / 240 Weight last 48 hrs Weight 94.211 kg Weight 91.49 kg Weight 90.718 kg Physical Exam Narrative: Patient is awake and alert Patient is laying supine GCS 15 Nonfocal neuroexam ankle swelling improving Nonfocal neuroexam Currently on room air Looks dehydrated Urinary Catheter Management: Ornelas: Cath Placed During This Visit: yes Reason for Continuing Indwelling Catheter: Required Immobilization for Trauma or Surgery or Anesthesia Urinary Catheter Date of Insertion: 02/06/24 Urinary Catheter Time of Insertion: 23:05 Data 02/08/24 03:16 02/08/24 03:16 A&P Assessment and plan (1) Depression: (2) Chronic narcotic use: (3) Hypertension: Qualifiers: Hypertension type: primary hypertension Qualified Code(s): I10 - Essential (primary) hypertension (4) Bimalleolar fracture of right ankle: Qualifiers: Encounter type: initial encounter Fracture type: closed Qualified Code(s): S82.841A - Displaced bimalleolar fracture of right lower leg, initial encounter for closed fracture (5) Idiopathic peripheral neuropathy: Plan Plan for skilled nursing placement Continue opioids with bowel regimen Patient is constipated Thrombocytopenia noted, repeat CBC Attestations Medical Necessity Statement*: Continue medical management Diagnoses Depression F32.A Chronic narcotic use F11.90 Primary hypertension I10 Hypertension type: primary hypertension Closed bimalleolar fracture of right ankle, initial encounter S82.841A Encounter type: initial encounter Fracture type: closed Idiopathic peripheral neuropathy G60.9
[2024-02-08 11:22] LABS: Eosinophils % 0.1 %; Hematocrit 30.2 % (36-47); Lymphocytes # 1.2 10^3/uL (0.8-4.8); Lymphocytes % 17.2 %; Mean Corpuscular HGB Conc 31.8 g/dL (30-55); Mean Corpuscular Volume 103.8 fl (85-98); Mean Platelet Volume 10.2 fL (7.4-10.4); Monocytes # 0.7 10^3/uL (0.2-0.9); Neutrophils # 4.81 10^3/uL (1.8-7.7); Neutrophils % 72.3 %; Nucleated Red Blood Cells % 0 %; Platelet Count 115 10^3/cmm (157-399); Red Blood Count 2.91 10^6/uL (3.85-5.65); Red Cell Distribution Width 13.8 % (12.1-15.1); White Blood Count 6.67 10^3/uL (3.29-11.43)
[2024-02-08] MEDS: HYDROmorphone 1 mg/mL INJ 1 mL 0.200000000000000011 MG IVP (14:41)
[2024-02-08] MEDS: magnesium hydroxide 30 mL UDC PO (17:41)
[2024-02-08] MEDS: sennosides 8.6 mg Tablet 17.1999999999999993 MG PO (20:02)
[2024-02-08] MEDS: HYDROcodone-acetaminophen 10-325 mg Tablet 2 TAB PO (20:50)
--- OUTSIDE RECORDS SUMMARY | 2024-02-08 21:47 | XMS_ITS | Patient Health Record ---
Author Name Unknown Organization [facility] Address [address] [place] [address] Care Team Providers Care Milling Operator Name Role Phone Hugo Soria Unavailable [phone] Reason For Referral No Information Medications Medication SIG (Take, Route, Frequency, Duration) Notes Start Date End Date Status Potassium Chloride Take 1 cap by mouth daily for 30 *please review for potential update for e-prescription and drug interaction check* Potassium Chloride 8mEq Capsules, Extended Release Take 1 cap by mouth daily #30 (Thirty) capsule(s) 12/20/2013 Active Crestor 20 MG Take 1 tablet(s) by mouth daily in p.m. Oral for 30 Crestor (Rosuvastatin) 20mg Tablet Take 1 tablet(s) by mouth daily in p.m. #30 (Thirty) tablet(s) 04/09/2012 Active Indapamide 2.5 mg Take 1 tablet(s) by mouth qam Oral for 30 Indapamide 2.5mg Tablet Take 1 tablet(s) by mouth qam #30 (Thirty) tablet(s) 01/17/2014 Active Calcium 600 mg calcium (1,500 mg) Take 1 tablet(s) by mouth tid Oral for 30 *please review for potential update for e-prescription and drug interaction check* Calcium 600 Tablets 1 tab(s) po tid 08/22/2003 Active Aspirin 81 MG 1 tab(s) po q PM Oral for 30 Aspirin (ASA) 81mg Chewable Tablet 1 tab(s) po q PM 07/09/2012 Active Alendronate Sodium 70 MG Take 1 tablet(s) by mouth q week Oral for 30 Alendronate Sodium 70mg Tablet Take 1 tablet(s) by mouth q week #4 (Four) tablet(s) 06/16/2013 Active Gabapentin 100 MG 2 cap(s) po bid Oral for 30 Gabapentin 100mg Capsules 2 cap(s) po bid #120 (One [place] and Twenty) capsule(s) 01/17/2014 Active Toprol XL 25 MG Take 1 tablet(s) by mouth daily Oral for 30 Toprol XL (Metoprolol) 25mg Tablets, Extended Release Take 1 tablet(s) by mouth daily #30 (Thirty) tablet(s) 12/17/2013 Active Immunizations Vaccine Route Administration Date Status Comme nts Flu vaccine no Preserv 3 and > IM Intramuscular 06/13/2010 Administered Problems Problem Type SNOMED Code ICD Code Onset Dates Problem Status W/U Status Risk Notes Problem Shortness of breath (770821538) Shortness of breath (786.05) 2015 Active confirmed Jan-98 5911- Problem Lumbosacral spondylosis without myelopathy (29706421) 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 Active confirmed Jan-98 5911- Problem Localized, primary osteoarthritis (261698161) Knee DJD (715.16) 2014 Active confirmed Jan-98 5911- Problem Pain in limb (43409233) Leg pain (729.5) 2014 Active confirmed Jan-98 5911- Problem Lumbar radiculopathy (352202445) Lumbar radiculopathy (722.10) 2010 Active confirmed Jan-98 5911- Problem Adjustment disorder with depressed mood (89078733) Adjustment disorder with depressed mood (309.0) 2007 Problem resolved confirmed Jan-98 5911- Problem Mixed hyperlipidemia (297760896) Mixed hyperlipidemia (272.2) 2002 Problem resolved confirmed Jan-98 5911- Problem Drug induced neutropenia (69995833) Drug induced neutropenia (288.03) 2006 Problem resolved confirmed Jan-98 5911- Problem Leukocytopenia (73352482) Leukocytopenia, unspecified (288.50) 2016 Problem resolved confirmed Jan-98 5911- Problem Allergic rhinitis du e to pollen (13343393) Allergic rhinitis due to pollen (477.0) 2015 Problem resolved confirmed Jan-98 5911- Problem Acute non-suppurativ e otitis media - serous (410300293) Acute serous otitis media (381.01) 2012 Problem resolved confirmed Jan-98 5911- Problem Acute maxillary sinusitis (50666094) Acute maxillary sinusitis (461.0) 2007 Problem resolved confirmed Jan-98 5911- Problem Acute frontal sinusitis (61289335) Acute frontal sinusitis (461.1) 2011 Problem resolved confirmed Jan-98 5911- Problem Chronic rhinitis (96312976) Chronic rhinitis (472.0) 2007 Problem resolved confirmed Jan-98 5911- Problem Chronic kidney disease stage 2 (629386381) Chronic kidney disease, Stage II (mild) (585.2) 2008 Problem resolved confirmed Jan-98 5911- Problem Idiopathic osteoporosis (8529551) Idiopathic osteoporosis (733.02) 2006 Problem resolved confirmed Jan-98 5911- Problem Edema (523105580) Edema (782.3) 2005 Problem resolved confirmed Jan-98 5911- Problem Cough (89957410) Cough (786.2) 2011 Problem resolved confirmed Jan-98 5911- Problem Urinary frequency (837957253) Urinary frequency (788.41) 2008 Problem resolved confirmed Jan-98 5911- Problem Abnormality of red blood cells (46164958) Other abnormality of red blood cells (790.09) 2011 Problem resolved confirmed Jan-98 5911- Problem Pancytopenia (400156742) Other pancytopenia (284.19) 2016 Problem resolved confirmed Jan-98 5911- Problem Rash (057038610) Rash (782.1) 2006 Problem resolved confirmed Jan-98 5911- Problem Depression (086066243) Depression (311) 2016 Problem resolved confirmed Jan-98 5911- Problem Dizziness (979422708) Dizziness (780.4) 1 2009 Problem resolved confirmed Jan-98 5911- Problem Low back pain (555452329) Low back pain (724.2) 2005 Problem resolved confirmed Jan-98 5911- Problem Neck pain (79555366) Neck pain (723.1) 2006 Problem resolved confirmed Jan-98 5911- Problem Fatigue (19634286) Fatigue (780.79) 06/24 Problem resolved confirmed Jan-98 5911- Problem Iron deficiency anemia (06758671) Iron deficiency anemia, unspecified (280.9) 2010 Problem resolved confirmed Jan-98 5911- Problem Hypercholesterolemia (32561723) Hypercholesterolemia (272.0) 2010 Problem resolved confirmed Jan-98 5911- Problem Shoulder pain (38452057) Shoulder pain (719.41) 2003 Problem resolved confirmed Jan-98 5911- Problem Breast mass (76511932) Breast mass (611.72) 2003 Problem resolved confirmed Jan-98 5911- Problem Disorder of hematopoietic system (34465445) Other abnormal laboratory result on blood (790.99) 2007 Problem resolved confirmed Jan-98 5911- Problem Sore throat (546067400) Sore Throat (462) 2008 Problem resolved confirmed Jan-98 5911- Problem Acquired deformity o f toe (65331563) Acquired hammertoe (735.4) 2012 Problem resolved confirmed Jan-98 5911- Problem Generalized abdomina l pain (814193393) Generalized abdominal pain (789.07) 2005 Problem resolved confirmed Jan-98 5911- Problem Generalized osteoarthritis (085816201) Generalized osteoarthritis, multiple sites (715.09) 2008 Problem resolved confirmed Jan-98 5911- Problem Foot pain (55898532) Foot pain (729.5) 2012 Problem resolved confirmed Jan-98 5911- Problem Hypertension (95851976) Hypertension (401.1) 2005 Problem resolved confirmed Jan-98 5911- Problem Insomnia (291552998) Insomnia (307.41) 2006 Problem resolved confirmed Jan-98 5911- Problem Peripheral neuropath y (213195936) Peripheral neuropathy (356.9) 2010 Problem resolved confirmed Jan-98 5911- Problem Precordial pain (67227064) Precordial chest pain (786.51) 2004 Problem resolved confirmed Jan-98 5911- Problem Breast examination (12752313) Screening breast exam - other (V76.19) 2008 Problem resolved confirmed Jan-98 5911- Problem Screening for malignant neoplasm of colon (647438510) Screening for colorectal cancer (V76.49) 2014 Problem resolved confirmed Jan-98 5911- Problem Sinus tachycardia (51745818) Sinus tachycardia (427.89) 2016 Problem resolved confirmed Jan-98 5911- Problem Chronic osteomyeliti s (30408558) Chronic osteomyelitis (730.18) 2012 Problem resolved confirmed Jan-98 5911- Problem Tremor (44824826) Tremor (781.0) 2008 Problem resolved confirmed Jan-98 5911- Problem Needs influenza immunization (282345438) Vaccination against other viral diseases, Influenza (V04.81) 2004 Problem resolved confirmed Jan-98 5911- Problem Acute upper respiratory infection (21986752) Acute upper respiratory infection (465.8) 2005 Problem resolved confirmed Jan-98 5911- Problem Allergic rhinitis caused by pollen (65823498) Allergic rhinitis, pollen-induced (477.0) 2015 Problem resolved confirmed Jan-98 5911- Problem Constipation secondary to opiate use (E935.2) 2014 Problem resolved confirmed Jan-98 5911- Problem Acute emotional reaction to stress (308.0) 2005 Problem resolved confirmed Jan-98 5911- Problem Anxiety (66403696) Anxiety (300.02) 10/01 Problem resolved confirmed Jan-98 5911- Problem Benign paroxysmal positional vertigo (335682031) BPPV (386.11) 2004 Problem resolved confirmed Jan-98 5911- Problem Itching (966506014) Itching (698.9) 04/05 Problem resolved confirmed Jan-98 5911- Problem Knee pain (7315720972) Knee pain (719.46) 2013 Problem resolved confirmed Jan-98 5911- Problem Disorder of hematopoietic system (75729089) Abnormal hematologic findings (790.99) 2012 Problem resolved confirmed Jan-98 5911- Problem Acute sinusitis (84407062) Acute sinusitis (461.8) 2006 Problem resolved confirmed Jan-98 5911- Problem Atherosclerosis of [place] arteries of the extremities (382274169861936) Atherosclerosis of [place] extremity arteries (440.20) 2013 Problem resolved confirmed Jan-98 5911- Problem Eczema (71192003) Eczema (691.8) 2010 Problem resolved confirmed Jan-98 5911- Problem Closed fracture of pelvis (17501702) Unspecified closed pelvic fracture (808.8) 2005 Problem resolved confirmed Jan-98 5911- Problem Abnormal laborat ory test findings without diagnosis (796.4) 2006 Problem resolved confirmed Jan-98 5911- Problem Diverticulitis of colon (002821998) Diverticulitis of colon (562.11) 2005 Problem resolved confirmed Jan-98 5911- Problem Hip pain (37373552) Hip pain (719.45) 2007 Problem resolved confirmed Jan-98 5911- Problem Muscle pain (48286543) Muscle aches (729.1) 2016 Problem resolved confirmed Jan-98 5911- Problem Essential hypertension (54056393) Essential hypertension (401.1) 2004 Problem resolved confirmed Jan-98 5911- Problem Other disorders of white blood cells, NEC (288.8) 2005 Problem resolved confirmed Jan-98 5911- Problem Pedal edema (009694768) Pedal edema (782.3) 2013 Problem resolved confirmed Jan-98 5911- Problem Primary hypercholesterolemia (375564448) Primary hypercholesterolemia (272.0) 2004 Problem resolved confirmed Jan-98 5911- Problem Syncope (362800251) Syncope (780.2) 04/05 Problem resolved confirmed Jan-98 5911- Problem Aplastic anemia (771043829) Bone marrow aplasia (284.9) 2016 Problem resolved confirmed Jan-98 5911- Problem Leukopenia (13577872) Leukopenia NOS (288.50) 2015 Problem resolved confirmed Jan-98 5911- Plan Of Treatment No Information Medical (General) History Surgical History Surgery Date(Month/Year) Cholecystectomy Hysterectomy : 05/2003; Spinal surgery with yamila placement from T5-L5 12/2009. Complications kept her in the hospital for 5 months. MRSA and L leg paralysis;
--- OUTSIDE RECORDS SUMMARY | 2024-02-08 21:47 | XMS_ITS ---
Author Name Rick Corona Address [address] [place] [id number] Organization Unknown Address [address] [place] [id number] ALLERGIES AND ADVERSE REACTIONS No information ASSESSMENT No information CHIEF COMPLAINT No information MEDICATIONS No information OBJECTIVE DATA No information PHYSICAL EXAMINATION No information TREATMENT PLAN Planned Care Start Date Provider Encounter for Check-up [id number] [facility] PROBLEMS No information RESULTS No information REVIEW OF SYSTEMS No information SUBJECTIVE DATA No information VITAL SIGNS No information
[2024-02-09 03:53] VITALS: BP 97/59; PULSE 71; RESP 16; TEMP 36.5; O2SAT 91
--- NOTE | 2024-02-09 06:21 | P.PN_ITS ---
Subjective 2 Subjective: Patient seen bedside this a.m., denies any acute events overnight. She is in good spirits. States that her pain in her right ankle is minimal. Patient denies any subjective nausea, vomiting, fever, chills, shortness of breath or chest pain. Vitals/I&O/Wt Last Vital Signs Temp 97.7 F 02/09/24 03:53 Pulse 71 02/09/24 03:53 Resp 16 02/09/24 03:53 BP 97/59 02/09/24 03:53 Pulse Ox 91 02/09/24 03:53 O2 Del Method Room Air 02/09/24 03:53 O2 Flow Rate 8 02/07/24 10:10 02/08/24 02/08/24 02/09/24 14:59 22:59 06:59 Intake Total 240 / 240 720 / 960 Output Total 350 / 350 300 / 650 Balance 240 / 240 370 / 610 -300 / 310 Physical Exam 2 Narrative: GENERAL: Patient is alert and oriented ?3 and in no acute distress. The following is a focused right lower extremity exam. VASCULAR: Dorsalis pedis palpable. Capillary refill time less than 3 seconds to the distal hallux bilaterally. Calf is supple and nontender proximally and distally. NEUROLOGICAL: Protective sensation intact to light touch. Dermatological: No erythema, warmth or wounds appreciated. Cast and surgical dressing are clean, dry and intact. MUSCULOSKELETAL: Tenderness at right ankle consistent with postoperative course. Able to wiggle toes on command. No pain with posterior calf squeeze. Urinary Catheter Management: Ornelas: Cath Placed During This Visit: yes Reason for Continuing Indwelling Catheter: Other Urinary Catheter Date of Insertion: 02/06/24 Urinary Catheter Time of Insertion: 23:05 Data 02/08/24 11:13 02/08/24 03:16 A&P Assessment and plan (1) Closed right trimalleolar fracture: Qualifiers: Encounter type: initial encounter Qualified Code(s): S82.851A - Displaced trimalleolar fracture of right lower leg, initial encounter for closed fracture Plan Status post ORIF right trimalleolar fracture date of operation 02/07/2024 no complications. Scheduled follow-up in 3 weeks in podiatry clinic with Dr. Hernández [facility] 02/26/2024 at 3:30 PM. Will remove cast at that time. Please keep your cast clean, dry and intact for the next 3 weeks. Contact podiatry clinic [facility] with any questions or concerns or ill fitting cast. Please elevate right foot while resting. Partial weightbearing to the right lower extremity with assistive devices and PT present, may partial weight-bear on the right for transfers Anticipating partial weightbearing for the next 3 weeks and then working with physical therapy and gradually increasing activity at that point if indicated based off of clinical exam and x-ray findings. VTE prophylaxis Per hospitalist at discharge, from my perspective 81 mg aspirin once daily for approximately 6 weeks or until full weightbearing is a good option for ankle surgery of this nature. Attestations 2 Medical Necessity Statement*: Medical Reasoning for Continued Hospitalization: * Physical Therapy (PT) and Occupational Therapy (OT) Evaluation and Sign-Off: * Patient requires evaluation and sign-off from PT and OT to ensure readiness for discharge and to assess functional mobility and safety with activities of daily living (ADLs). * Assistance with Partial Weightbearing: * Patient needs assistance with partial weightbearing on the right lower extremity for standing and transferring. * Use of a walker or other appropriate assistive device is necessary to maintain stability and prevent falls. * Neurovascular Monitoring: * Continuous neurovascular monitoring is required due to the recent ORIF of the right trimalleolar ankle fracture. * Patient has a history of cauda equina syndrome, necessitating vigilant monitoring for any changes in neurovascular status that could indicate complications such as nerve damage or compromised blood flow. Coding Level of Care Code Acute Code for Chg Fwd Diagnoses Closed trimalleolar fracture of right ankle, initial encounter S82.851A Encounter type: initial encounter
[2024-02-09 06:40] LABS: Basophils % 0.3 %; Eosinophils # 0.1 10^3/uL (0.0-0.8); Eosinophils % 1.1 %; Hematocrit 31.3 % (36-47); Lymphocytes # 1.5 10^3/uL (0.8-4.8); Lymphocytes % 24.3 %; Mean Corpuscular HGB Conc 31.6 g/dL (30-55); Mean Corpuscular Hemoglobin 33.1 pg (27-33); Mean Corpuscular Volume 104.7 fl (85-98); Mean Platelet Volume 10.4 fL (7.4-10.4); Monocytes # 0.6 10^3/uL (0.2-0.9); Monocytes % 9.5 %; Neutrophils # 4.05 10^3/uL (1.8-7.7); Neutrophils % 64.5 %; Nucleated Red Blood Cells % 0 %; Platelet Count 120 10^3/cmm (157-399); Red Blood Count 2.99 10^6/uL (3.85-5.65); Red Cell Distribution Width 14.1 % (12.1-15.1); White Blood Count 6.29 10^3/uL (3.29-11.43)
[2024-02-09] MEDS: HYDROcodone-acetaminophen 5-325 mg Tablet 1 TAB PO (06:49)
[2024-02-09 06:55] LABS: Anion Gap 11.5 (5-19); Blood Urea Nitrogen 29 mg/dL (8-23); Calcium 8.6 mg/dL (8.5-10.5); Carbon Dioxide 29 mmol/L (22-29); Chloride 105 mmol/L (98-107); Glucose 85 mg/dL (65-115); Osmolality Calculated 297 mOsm/kg (285-295); Potassium 4.5 mmol/L (3.5-5.1); Sodium 141 mmol/L (136-145)
[2024-02-09 07:59] VITALS: BP 107/66; PULSE 67; RESP 18; TEMP 36.7; O2SAT 92
--- NOTE | 2024-02-09 08:40 | PC.PHAR ---
PT IS FROM [facility] [phone]-[phone]
[2024-02-09] MEDS: sennosides-docusate Tablet 2 TAB PO (09:51)
[2024-02-09] MEDS: gabapentin 100 mg Capsule PO (09:51)
[2024-02-09] MEDS: metoprolol succinate ER (24 HR) 50 mg Tablet PO (09:51)
[2024-02-09] MEDS: sertraline 100 mg Tablet PO (09:51)
[2024-02-09] MEDS: acetaminophen 500 mg Tablet 1000 MG PO (09:51)
[2024-02-09] MEDS: calcium carb-vit d 500mg-200unit 1 Tablet 1 EACH PO (09:51)
--- NOTE | 2024-02-09 11:17 | P.DS_ITS ---
Discharge Providers Date of Admission: 02/06/24 22:42 Date of Discharge: February 09, 2024 Attending Provider at Admission: Héctor Balbuena MD Attending Provider at Discharge: Abimbola Andrews MD Primary Care Provider: Britton Vu DO Diagnoses at Discharge Discharge Diagnosis (1) Closed right trimalleolar fracture: Status: Acute Qualifiers: Encounter type: initial encounter Qualified Code(s): S82.851A - Displaced trimalleolar fracture of right lower leg, initial encounter for closed fracture Reason for Visit Reason for Visit: FALL Hospital Course Hospital Course 88-year-old female with history of cauda equina, presented from assisted living facility after sustaining a fall she was diagnosed with trimalleolar fracture, date of injury 02/06/2024, Dr. Hernández was consulted from the ER patient went for open reduction internal fixation right trimalleolar fracture, patient became constipated from opioids, she was given lactulose, she is passing gas, tolerating diet, she has been accepted at detention. Patient did not experience any postoperative complications. New baseline hemoglobin seems to be around 9 Physical Exam Narrative: Awake and alert Right foot covered with a cast And dressing GCS 15 nonfocal neuroexam Currently on room air hemodynamically stable Urinary Catheter Management: Ornelas: Cath Placed During This Visit: yes Reason for Continuing Indwelling Catheter: Other Urinary Catheter Date of Insertion: 02/06/24 Urinary Catheter Time of Insertion: 23:05 Discharge Data Studies Completed and Pending Completed Studies During Hospitalization Category Date Time Status CT head wo con* [id number] Stat Cat Scan 02/06/24 20:[address] lumbar spine wo con* [id number] Stat Cat Scan 02/06/24 20:[address] thoracic spin wo con* [id number] Stat Cat Scan 02/06/24 22:03 Completed XR ankle RT min 3V* [id number] Routine Exams 02/07/24 14:32 Completed XR ankle RT min 3V* [id number] Stat Exams 02/06/24 21:44 Completed XR foot RT min 3V* [id number] Stat Exams 02/06/24 20:50 Completed XR tibia fibula RT 2V [id number] Stat Exams 02/06/24 21:44 Completed Pending at discharge Category Date Time Status C-arm Mini [id number] Routine Exams 02/07/24 07:49 Ordered COVID [SARS Covid-2 Antigen] Routine Lab 02/09/24 08:00 Uncollected Radiology Impressions Foot X-Ray 02/06/24 20:50 IMPRESSION: 1. Possible multiple hammertoes noted on the lateral view. 2. Oblique slightly displaced fracture through the distal fibular shaft with minimal angulation. 3. Displaced horizontal medial malleolar fracture. Head CT 02/06/24 20:50 IMPRESSION: No acute intracranial findings. Lumbar Spine CT 02/06/24 20:50 IMPRESSION: As above, no definite acute finding. COMMENTS: Consistent with the [employer]'s Incidental Findings Committee white paper (J Am Rey Radiol 2018): Any incidental renal lesion less than 1 cm or classified as too small to characterize, or any incidental cystic renal lesion characterized as simple-appearing, is likely benign. No follow-up imaging is recommended for these lesions per consensus recommendations based on imaging criteria. Tibia/Fibula X-Ray 02/06/24 21:44 IMPRESSION: 1. Horizontal fracture through the medial malleolus with oblique fracture through the lateral malleolus consistent with eversion injury. 2. 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 Thoracic Spine CT 02/06/24 22:03 IMPRESSION: 1. As above, complex postop severely osteoporotic patient with no definite acute fracture. 2. If pain persists, recommend short-term reassessment. A re-injury cannot be excluded. Ankle X-Ray 02/07/24 14:32 IMPRESSION: Postoperative changes as above. Laboratory Results WBC 6.29 10^3/uL (3.29-11.43) 02/09/24 06:05 RBC 2.99 10^6/uL (3.85-5.65) L 02/09/24 06:05 Hgb 9.90 g/dL (11.27-16.99) L 02/09/24 06:05 Hct 31.3 % (36-47) L 02/09/24 06:05 MCV 104.7 fl (85-98) H 02/09/24 06:05 MCH 33.1 pg (27-33) H 02/09/24 06:05 MCHC 31.6 g/dL (30-55) 02/09/24 06:05 RDW 14.1 % (12.1-15.1) 02/09/24 06:05 Plt Count 120 10^3/cmm (157-399) L 02/09/24 06:05 MPV 10.4 fL (7.4-10.4) 02/09/24 06:05 Neut % (Auto) 64.5 % 02/09/24 06:05 Lymph % (Auto) 24.3 % 02/09/24 06:05 Price % (Auto) 9.5 % 02/09/24 06:05 Eos % (Auto) 1.1 % 02/09/24 06:05 Baso % (Auto) 0.3 % 02/09/24 06:05 Neut # (Auto) 4.05 10^3/uL (1.8-7.7) 02/09/24 06:05 Lymph # (Auto) 1.5 10^3/uL (0.8-4.8) 02/09/24 06:05 Price # (Auto) 0.6 10^3/uL (0.2-0.9) 02/09/24 06:05 Eos # (Auto) 0.1 10^3/uL (0.0-0.8) 02/09/24 06:05 Baso # (Auto) 0.0 10^3/uL (0.0-0.1) 02/09/24 06:05 Nucleated RBC % (auto) 0 % 02/09/24 06:05 Nucleated RBCs # 0.0 /100WBC 02/09/24 06:05 Sodium 141 mmol/L (136-145) 02/09/24 06:05 Potassium 4.5 mmol/L (3.5-5.1) 02/09/24 06:05 Chloride 105 mmol/L (98-107) 02/09/24 06:05 Carbon Dioxide 29 mmol/L (22-29) 02/09/24 06:05 Anion Gap 11.5 (5-19) 02/09/24 06:05 BUN 29 mg/dL (8-23) H 02/09/24 06:05 Creatinine 1.0 mg/dL (0.5-0.9) H 02/09/24 06:05 GFR Calculation Not Reportable 02/09/24 06:05 Glucose 85 mg/dL (65-115) 02/09/24 06:05 Calculated Osmolality 297 mOsm/kg (285-295) H 02/09/24 06:05 Calcium 8.6 mg/dL (8.5-10.5) 02/09/24 06:05 Total Bilirubin 0.3 mg/dL (0.15-1.2) 02/06/24 21:35 AST 20 U/L (0-32) 02/06/24 21:35 ALT 15 U/L (0-33) 02/06/24 21:35 Alkaline Phosphatase 80 U/L (35-105) 02/06/24 21:35 Total Protein 7.2 g/dL (6.6-8.7) 02/06/24 21:35 Albumin 4.0 g/dL (3.5-5.2) 02/06/24 21:35 Globulin 3.2 g/dL (1.3-4.6) 02/06/24 21:35 Urine Color Yellow (Yellow) 02/06/24 23:04 Urine Appearance Clear (CLEAR) 02/06/24 23:04 Urine pH 6 (5-7) 02/06/24 23:04 Ur Specific [place] 1.015 (1.005-1.030) 02/06/24 23:04 Urine Protein Neg (Negative) 02/06/24 23:04 Urine Glucose (UA) Norm (Normal) 02/06/24 23:04 Urine Ketones Negative (Negative) 02/06/24 23:04 Urine Blood Neg (Negative) 02/06/24 23:04 Urine Nitrate Negative (Negative) 02/06/24 23:04 Urine Bilirubin Neg (Negative) 02/06/24 23:04 Urine Urobilinogen Neg mg/dL (Negative) 02/06/24 23:04 Ur Leukocyte Esterase Negative (Negative) 02/06/24 23:04 Vitals Last Vital Signs Temp 98.0 F 02/09/24 07:59 Pulse 67 02/09/24 07:59 Resp 18 02/09/24 07:59 BP 107/66 02/09/24 07:59 Pulse Ox 92 02/09/24 07:59 O2 Del Method Room Air 02/09/24 07:59 O2 Flow Rate 8 02/07/24 10:10 Discharge Plan Discharge Patient Disposition: Xfer SNF Condition: Stable Prescriptions: New calcium carbonate 200 mg calcium (500 mg) Tablet,Chewable 1,000 mg PO Q4H PRN (Reason: DYSPEPSI) Qty: 90 0RF sennosides-docusate sodium [Stool Softener-Laxative] 8.6-50 mg Tablet 2 tab PO BID Qty: 20 0RF Eliquis 2.5 mg tablet 2.5 mg PO BID Qty: 60 0RF lactulose 20 gram/30 mL solution 20 g PO DAILY PRN (Reason: constipation) Qty: 1200 0RF Continued (DME) [employer] [place] repair request See Rx Instructions .Route .MEDSUPPLY Qty: 1 0RF Rx Instructions: As directed (DME) thuasne knee brace See Rx Instructions .Route .MEDSUPPLY Qty: 1 0RF Rx Instructions: As directed metoprolol succinate 50 mg tablet extended release 24 hr 50 mg PO DAILY Qty: 90 3RF PreserVision AREDS-2 1 tab PO DAILY acetaminophen 325 mg Tablet 650 mg PO QID PRN (Reason: Pain) magnesium hydroxide [Milk of Magnesia] 400 mg/5 mL Suspension 30 ml PO DAILY PRN (Reason: Constipation) bisacodyl [Dulcolax (bisacodyl)] 10 mg Suppository 10 mg IA DAILY PRN (Reason: Constipation) Fleet Enema 19-7 gram/118 mL Enema 118 ml IA DAILY PRN (Reason: Constipation) Culturelle 10 billion cell Capsule 1 cap PO DAILY PRN (Reason: ANTIBIOTICS) melatonin 1 mg Tablet 2 mg PO BEDTIME duloxetine 20 mg capsule,delayed release(DR/EC) 20 mg PO DAILY Systane Complete 0.6 % Drops 1 - 2 drp OPHTHALMIC (EYE) DAILY PRN (Reason: Dry Eyes) Discharge Orders: Discharge Order (Routine); Ordered 02/09/24 Ordered By: Abimbola Andrews Referrals: Chuckie Hernández DPM [Physician] - 3 weeks Britton Vu DO [Primary Care Provider] - Activity Restrictions/Additional Instructions: Orders from Dr. Goodman WilcoxPJerrod/podiatry Scheduled follow-up in 3 weeks in podiatry clinic with Dr. Hernández [facility] 02/26/2024 at 3:30 PM. Will remove cast at that time. Please keep your cast clean, dry and intact for the next 3 weeks. Contact podiatry clinic [facility] with any questions or concerns or ill fitting cast. Please elevate right foot while resting. Partial weightbearing to the right lower extremity with assistive devices and PT present, may partial weight-bear on the right for transfers Anticipating partial weightbearing for the next 3 weeks and then working with physical therapy and gradually increasing activity at that point if indicated based off of clinical exam and x-ray findings. Discharge Attestations Time Spent in Discharge Care*: greater than 30 min Status at Discharge: Cognitive status at discharge: cognitively intact , Behavioral status at discharge: cooperative , Quality Metrics Clinical Quality Measures [ No reported AMI, CVA or VTE this stay] Coding Level of Care Code Acute Code for Chg Fwd Diagnoses Closed trimalleolar fracture of right ankle, initial encounter S82.851A Encounter type: initial encounter
[2024-02-09 11:41] VITALS: BP 109/68; PULSE 68; RESP 18; TEMP 36.6; O2SAT 91
--- NOTE | 2024-02-09 12:19 | PC.SOCIAL ---
IMM Updated Updated pt & family on IMM. no questions voiced. Provided pt a copy. Initialed, dated, & timed a copy & placed in chart.
[2024-02-09] MEDS: lactulose oral liq 20 gm/30 mL UDC 10 GM PO (13:28)
[2024-02-09 14:47] LABS: SARS Covid-2 Antigen negative (Negative)
[2024-02-09 15:00] VITALS: BP 109/68; PULSE 68; RESP 18; TEMP 36.6; O2SAT 91
--- NOTE | 2024-02-09 15:35 | PC.OT ---
OT EVALUATION HELD DUE TO SCHEDULED PATIENT D/C TODAY.
== END 2024-02-09 15:37 | disposition skilled nursing facility (03) | DRG 493 ==
LOC: ER 21:03 → MEDSURG 22:59
PROVIDERS: Podiatrist Foot & Ankle Surgery; Admitting Provider Internal Medicine; Emergency Provider Family Medicine; PCP Internal Medicine; Visit Provider Internal Medicine
PROC: 0QSG04Z Reposition Right Tibia with Internal Fixation Device, Open Approach (ICD-10-PCS; principal; 2024-02-07 08:30)
DX: S82.851A Displaced trimalleolar fracture of right lower leg, initial encounter for closed fracture (principal); G83.4 Cauda equina syndrome; W18.30XA Fall on same level, unspecified, initial encounter; Z11.52 Encounter for screening for COVID-19; G89.29 Other chronic pain; M54.50 Low back pain, unspecified; I10 Essential (primary) hypertension; G60.9 Hereditary and idiopathic neuropathy, unspecified; F32.A Depression, unspecified; M17.11 Unilateral primary osteoarthritis, right knee; K59.03 Drug induced constipation; T40.2X5A Adverse effect of other opioids, initial encounter
CPT/HCPCS: 36415; 51702; 70450; 72128; 72131; 73590; 73610; 73630; 76000; 80048; 80053; 81003; 85025; 87426; 93005; 96372; 97162; 97530; 99285; C1713; J1100; J1170; J1650; J2371; J2405; J2704; J2795; J3010; J3490; J7030

== ENCOUNTER → 2024-02-26 15:17 | Outpatient (BNVA) | payer MEDICARE, SELFPAY | PROVIDERS: PCP Internal Medicine; Visit Provider Podiatrist Foot & Ankle Surgery | DX: Z98.890 Other specified postprocedural states (principal); S82.851D Displaced trimalleolar fracture of right lower leg, subsequent encounter for closed fracture with routine healing; W19.XXXD Unspecified fall, subsequent encounter | CPT/HCPCS: 73610 ==

== ENCOUNTER 2024-02-26 16:04 | Outpatient (CLI) | payer MEDICARE, SELFPAY | END 2024-02-26 16:05 | disposition home or self-care (01) | LOC: SPT 16:05 | PROVIDERS: PCP Internal Medicine; Visit Provider Podiatrist Foot & Ankle Surgery | DX: Z47.89 Encounter for other orthopedic aftercare (principal) | CPT/HCPCS: 97760; L4361 ==

== ENCOUNTER → 2024-03-18 12:45 | Outpatient (BNVA) | payer MEDICARE, SELFPAY | PROVIDERS: PCP Internal Medicine; Visit Provider Podiatrist Foot & Ankle Surgery | DX: Z98.890 Other specified postprocedural states (principal) | CPT/HCPCS: 73610; 99024 ==

== ENCOUNTER → 2024-04-01 14:13 | Outpatient (BNVA) | payer MEDICARE, OTHER, SELFPAY | PROVIDERS: PCP Internal Medicine; Visit Provider Podiatrist Foot & Ankle Surgery | DX: Z98.890 Other specified postprocedural states (principal); Z87.81 Personal history of (healed) traumatic fracture | CPT/HCPCS: 73610 ==

== ENCOUNTER 2024-04-01 15:25 | Outpatient (CLI) | payer MEDICARE, SELFPAY | END 2024-04-01 15:26 | disposition home or self-care (01) | LOC: SPT 15:25 | PROVIDERS: PCP Internal Medicine; Visit Provider Podiatrist Foot & Ankle Surgery | DX: Z47.89 Encounter for other orthopedic aftercare (principal); Z98.890 Other specified postprocedural states; Z87.81 Personal history of (healed) traumatic fracture | CPT/HCPCS: 97760; L1902 ==

== ENCOUNTER 2024-09-01 09:34 | Emergency (ER) | payer MEDICARE, SELFPAY ==
[2024-09-01 09:40] VITALS: BP 164/66; PULSE 64; RESP 16; TEMP 36.8; O2SAT 95; BMI 27.8
--- NOTE | 2024-09-01 09:50 | XRR_ITS ---
PROCEDURE INFORMATION: Exam: XR Right Hip Exam date and time: 09/01/2024 9:56 AM Age: 89 years old Clinical indication: Injury or trauma; Fall; Blunt trauma (contusions or hematomas); Right; Injury date: 08/30/2024; Prior surgery; Surgery date: 6+ months; Surgery type: Hip/spine TECHNIQUE: Imaging protocol: Radiologic exam of the right hip. Views: 1 view hip with pelvis when performed. COMPARISON: CT abdomen pelvis w con* [id number] 10/15/2021 5:11 PM FINDINGS: Bones/joints: Prominent arthritic change involves the right hip joint. There is suggestion of a focal lucency involving the acetabulum. This may represent acetabular fracture. No other acute abnormality noted.Metallic hardware transfixes healed fractures of the proximal left femur. Soft tissues: Unremarkable. XR/XR hip RT 2-3V wo/w pel* [id number] IMPRESSION: Arthritic changes with suggestion of possible right acetabular fracture. A CT may be helpful.
--- NOTE | 2024-09-01 09:53 | W.ED.FALL ---
HPI - Fall General: Chief Complaint: Fall Stated Complaint: Fall x 2 days ago / Back Pain Time Seen by Provider: 09/01/24 09:46 Source: patient Mode of arrival: ambulatory Limitations: no limitations History of Present Illness: 89-year-old female states that she fell 2 days ago in the bathroom. States been having right hip pain and some low back pain since she fell. States she has had a hard time walking due to the pain in her hip. She denies hitting her head denies any other injuries with the fall. Associated symptoms-after fall: Denies abdominal pain, chest pain, headache(s) or neck pain Related Data Home Medications Medication Instructions Recorded Confirmed PreserVision AREDS-2 1 tab PO DAILY 07/16/20 04/01/24 acetaminophen 325 mg tablet 650 mg PO QID PRN Pain 10/12/21 04/01/24 bisacodyl 10 mg rectal suppository 10 mg AK DAILY PRN Constipation 10/12/21 04/01/24 (Dulcolax (bisacodyl)) magnesium hydroxide 400 mg/5 mL 30 ml PO DAILY PRN Constipation 10/12/21 04/01/24 oral suspension (Milk of Magnesia) sodium phosphates 19 gram-7 118 ml AK DAILY PRN Constipation 10/12/21 04/01/24 gram/118 mL enema (Fleet Enema) Lactobacillus rhamnosus GG 10 1 cap PO DAILY PRN ANTIBIOTICS 02/09/24 04/01/24 billion cell capsule (Culturelle) duloxetine 20 mg capsule,delayed 20 mg PO DAILY 02/09/24 04/01/24 release melatonin 1 mg tablet 2 mg PO BEDTIME 02/09/24 04/01/24 propylene glycol 0.6 % eye drops 1 - 2 drp ophthalmic (eye) DAILY 02/09/24 04/01/24 (Systane Complete) PRN Dry Eyes Previous Rx's Medication Instructions Recorded [employer] [place] repair request #1 ea 11/28/22 thuasne knee brace #1 ea 11/28/22 metoprolol succinate 50 mg 50 mg PO DAILY #90 tabs 12/09/22 tablet,extended release 24 hr apixaban 2.5 mg tablet (Eliquis) 2.5 mg PO BID #60 tabs 02/09/24 calcium carbonate 1,000 mg (5 x 200 mg calcium (500 02/09/24 mg)) PO Q4H PRN DYSPEPSI #90 tabs lactulose 20 gram/30 mL oral 20 g (30 mL) PO DAILY PRN 02/09/24 solution constipation #1,200 mL sennosides 8.6 mg-docusate sodium 2 tab PO BID #20 tabs 02/09/24 50 mg tablet (Stool Softener-Laxative) CAM walker #1 ea 02/26/24 ASO to right #1 ea 04/01/24 Allergies Allergy/AdvReac Type Severity Reaction Status Date / Time ciprofloxacin Allergy Unknown ALGY-Redness Verified 04/01/24 14:37 of Skin Penicillins Allergy Unknown ALGY-Rash,Not Verified 04/01/24 14:37 Entered Review of Systems Const: Denies: fever(s), chills, body aches or change in appetite ENMT: Denies: throat pain or dental pain Card: Denies: chest pain Resp: Denies: dyspnea GI: Denies: abdominal pain, nausea, vomiting or diarrhea Musc: Reports: extremity pain; Denies: neck pain or back pain Skin/Breast: Denies: rash Neuro: Denies: headache(s) PFSH ED PFSH: Medical History Closed right trimalleolar fracture Cauda equina syndrome Bimalleolar fracture of right ankle Idiopathic peripheral neuropathy Osteoarthritis of knee Depression Chronic narcotic use Follows with Dr. Olvera Edema Nerve pain Physical deconditioning Weakness of both legs C. difficile diarrhea Small bowel obstruction Chronic back pain Hypertension COVID-19 virus infection Surgical History History of lumbar laminectomy for spinal cord decompression S/P exploratory laparotomy for perforated appendix History of hip surgery Left -- screws History of cataract surgery History of back surgery spinal rods History of hysterectomy / BSO History of cholecystectomy Family History Denies family history of Diabetes Dementia Social History Smoking and tobacco/nicotine status: never used tobacco/nicotine Alcohol intake: never Physical Exam Const: COMMON NORMALS: patient oriented x3 HENMT: COMMON NORMALS: normocephalic and atraumatic HEAD & SCALP: normocephalic and atraumatic Eye: COMMON NORMALS: Equal, round and reactive pupils present and EOMs intact bilaterally PUPIL: Yes Equal, round and reactive pupils present Neck/C-Spine: COMMON NORMALS: full ROM and supple Chest: COMMONS NORMALS: normal inspection of the chest Resp: COMMON NORMALS: normal respiratory effort, No retractions, No use of accessory muscles and clear to auscultation bilaterally AUSCULTATION: clear to auscultation bilaterally Cardio: COMMON NORMALS: regular rate, regular rhythm and No murmurs present (Cardio) RATE: regular rate RHYTHM: regular rhythm GI: COMMON NORMALS: Normal to inspection, nondistended, normoactive bowel sounds present, Soft to palpation, non-tender and no masses PALPATION: Yes Soft to palpation Extremity: COMMON NORMALS: full ROM NARRATIVE EXTREMITY EXAM: Tenderness noted to right hip Neuro: COMMON NORMALS: patient oriented x3, moves all extremities and no focal motor deficits Psych: COMMON NORMALS: mental status grossly normal, Normal thought process present and cooperative THOUGHT PROCESS: Normal thought process present Skin: COMMON NORMALS: no rashes or lesions noted and no wounds GENERAL SKIN EXAM: no rashes or lesions noted Course Vital Signs: Vital signs: Vital Signs Temperature 98.3 F 09/01/24 09:40 Pulse Rate 65 09/01/24 11:45 Respiratory Rate 16 09/01/24 09:40 Blood Pressure 134/83 09/01/24 11:45 Pulse Oximetry 94 09/01/24 11:45 Oxygen Delivery Me thod Room Air 09/01/24 09:40 MDM - Fall Medical Decision Making Patient presents with hip pain after a fall CT shows a contusion no fracture of the hip does have an S1 fracture she stable for discharge follow-up with PCP return if worsening. Medical Records I reviewed the patient's medical records. Lab Data Radiology Impressions Hip/Pelvis X-Ray 09/01/24 09:50 IMPRESSION: Arthritic changes with suggestion of possible right acetabular fracture. A CT may be helpful. Hip CT 09/01/24 10:12 IMPRESSION: 1. No acute fracture noted 2. Right buttock hematoma Lumbar Spine CT 09/01/24 10:12 IMPRESSION: Severe osteoporosis with acute S1 vertebral body fracture All radiology interpretation(s) finalized by discharge Discharge Plan Discharge Patient Disposition: Home Clinical Impression: Contusion of right hip Condition: Stable Prescriptions: No Action (DME) ASO to right See Rx Instructions .Route .MEDSUPPLY Qty: 1 0RF Rx Instructions: As directed (DME) [employer] [place] repair request See Rx Instructions .Route .MEDSUPPLY Qty: 1 0RF Rx Instructions: As directed (DME) thuasne knee brace See Rx Instructions .Route .MEDSUPPLY Qty: 1 0RF Rx Instructions: As directed (DME) CAM walker See Rx Instructions .Route .MEDSUPPLY Qty: 1 0RF Rx Instructions: As directed metoprolol succinate 50 mg tablet extended release 24 hr 50 mg PO DAILY Qty: 90 3RF PreserVision AREDS-2 1 tab PO DAILY acetaminophen 325 mg Tablet 650 mg PO QID PRN (Reason: Pain) magnesium hydroxide [Milk of Magnesia] 400 mg/5 mL Suspension 30 ml PO DAILY PRN (Reason: Constipation) bisacodyl [Dulcolax (bisacodyl)] 10 mg Suppository 10 mg AK DAILY PRN (Reason: Constipation) Fleet Enema 19-7 gram/118 mL Enema 118 ml AK DAILY PRN (Reason: Constipation) Culturelle 10 billion cell Capsule 1 cap PO DAILY PRN (Reason: ANTIBIOTICS) melatonin 1 mg Tablet 2 mg PO BEDTIME duloxetine 20 mg capsule,delayed release(DR/EC) 20 mg PO DAILY Systane Complete 0.6 % Drops 1 - 2 drp OPHTHALMIC (EYE) DAILY PRN (Reason: Dry Eyes) Stool Softener-Laxative 8.6-50 mg Tablet 2 tab PO BID Qty: 20 0RF calcium carbonate 200 mg calcium (500 mg) Tablet,Chewable 1,000 mg PO Q4H PRN (Reason: DYSPEPSI) Qty: 90 0RF Eliquis 2.5 mg tablet 2.5 mg PO BID Qty: 60 0RF lactulose 20 gram/30 mL solution 20 g PO DAILY PRN (Reason: constipation) Qty: 1200 0RF Discharge Orders: Discharge ED (Routine); Ordered 09/01/24 Ordered By: Carito Yeung Referrals: Britton Vu DO [Primary Care Provider] - Discharge Diet: Advance as tolerated Discharge Activity: Resume usual activity Patient Instructions: Sacral Fracture (ED), Contusion in Adults (ED) Coding Level of Care Code ED Law Office Manager for Chg Fwd
--- NOTE | 2024-09-01 10:12 | CTR_ITS ---
PROCEDURE INFORMATION: Exam: CT Lumbar Spine Without Contrast Exam date and time: 09/01/2024 10:28 AM Age: 89 years old Clinical indication: Injury or trauma; Fall; Blunt trauma (contusions or hematomas); Injury date: 09/01/2024; Prior surgery; Surgery date: 6+ months; Surgery type: Spine TECHNIQUE: Imaging protocol: Computed tomography of the lumbar spine without contrast. Radiation optimization: All CT scans at this facility use at least one of these dose optimization techniques: automated exposure control; mA and/or kV adjustment per patient size (includes targeted exams where dose is matched to clinical indication); or iterative reconstruction. COMPARISON: CT lumbar spine wo con* [id number] 02/06/2024 10:09 PM RADIATION DOSE METRICS: Total DLP (mGy-cm): 977.2 FINDINGS: Bones/joints: Metallic rods and pedicle screws are noted throughout the entire lumbosacral spine.The bony structures demonstrate severe diffuse osteopenia. There is an acute horizontal, oblique nondisplaced fracture involving S1 vertebral body. No other acute bony abnormality noted. Soft tissues: Unremarkable. CT/CT lumbar spine wo con* [id number] IMPRESSION: Severe osteoporosis with acute S1 vertebral body fracture
--- NOTE | 2024-09-01 10:12 | CTR_ITS ---
PROCEDURE INFORMATION: Exam: CT Right Lower Extremity, Hip Exam date and time: 09/01/2024 10:28 AM Age: 89 years old Clinical indication: Injury or trauma; Fall; Blunt trauma; Hip; Right; Injury date: 09/01/2024; Prior surgery; Surgery date: 6+ months; Surgery type: Spine TECHNIQUE: Imaging protocol: CT of the right lower extremity without contrast was performed. Exam focused on the hip. Radiation optimization: All CT scans at this facility use at least one of these dose optimization techniques: automated exposure control; mA and/or kV adjustment per patient size (includes targeted exams where dose is matched to clinical indication); or iterative reconstruction. COMPARISON: CR (PELVIS, ) 09/01/2024 9:56 AM RADIATION DOSE METRICS: Total DLP (mGy-cm): 680.3 FINDINGS: Bones/joints: Metallic surgical hardware can be seen in the lumbar spine. Prominent arthritic change involves the right hip joint with spurring involving the femoral head and acetabulum. Subchondral cystic change and bony sclerosis is noted. No acute fracture identified. Soft tissues: There is an irregular subcutaneous hematoma involving the right buttock. CT/CT hip RT wo con* [id number] IMPRESSION: 1. No acute fracture noted 2. Right buttock hematoma
[2024-09-01 11:45] VITALS: BP 134/83; PULSE 65; O2SAT 94
--- NOTE | 2024-09-01 12:30 | PC.PHAR ---
Pt is from [facility]
[2024-09-01 12:45] VITALS: BP 134/83; PULSE 76; O2SAT 100
== END 2024-09-01 12:46 | disposition home or self-care (01) ==
PROVIDERS: Emergency Provider Emergency Medicine; PCP Internal Medicine
DX: S70.01XA Contusion of right hip, initial encounter (principal); Z79.01 Long term (current) use of anticoagulants; I10 Essential (primary) hypertension
CPT/HCPCS: 72131; 73502; 73700; 99284

== ENCOUNTER 2024-11-17 08:49 | Emergency (ER) | payer MEDICARE, SELFPAY ==
[2024-11-17 08:53] VITALS: BP 138/58; PULSE 71; RESP 18; TEMP 36.8; O2SAT 96; BMI 27.8
--- NOTE | 2024-11-17 09:11 | PC.PHAR ---
patient is from [facility]
[2024-11-17] MEDS: orphenadrine 30 mg/mL Inj 2 mL 60 MG IM (09:12)
[2024-11-17] MEDS: dexamethasone 10 mg/mL INJ IM (09:12)
[2024-11-17] MEDS: ketorolac 30 mg/mL INJ 15 MG IVP (09:13)
--- NOTE | 2024-11-17 09:13 | PC.PHAR ---
verified with kavya corral that the patient is NO LONGER on eliquis 5mg. was on her list here but not on her med list from facility
--- NOTE | 2024-11-17 09:20 | ED_ITS ---
HPI - Back Pain/Injury General: Chief Complaint: Back Pain/Injury Stated Complaint: Pain Below waist Time Seen by Provider: 11/17/24 08:54 History of Present Illness: 89-year-old female presents emergency ro om chronic back pain radiation into her lower extremities. Patient states pain progressively worsening for the last month she lives at [facility]. She uses a walker and a wheelchair states she is able to transfer but not without difficulty that has been a chronic issue. 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 She has difficulty with control of both her bowel and bladder. She tells me she does not need to self cath but has both fecal and urinary incontinence. She denies any fever sweats chills dysuria urgency or frequency. She has not had problems with any hematochezia or melena. She does have some mild discomfort in the right lower quadrant. Nontraumatic Associated symptoms: Deny abdominal pain, chills, dysuria, fever(s) or urinary urgency Related Data Home Medications ?Medication ?Instructions ?Recorded ?Confirmed acetaminophen 325 mg tablet 325 mg PO QID PRN Pain 07/2311/17/24 bisacodyl 10 mg rectal suppository 10 mg OR DAILY PRN Constipation 10/12/21 11/17/24 (Dulcolax (bisacodyl)) magnesium hydroxide 400 mg/5 mL 30 ml PO DAILY PRN Con stipation 10/12/21 11/17/24 oral suspension (Milk of Magnesia) sodium phosphates 19 gram-7 118 ml OR DAILY PRN Consti pation 10/12/21 11/17/24 gram/118 mL enema (Fleet Enema) Lactobacillus rhamnosus GG 10 1 cap PO DAILY PRN ANTIB IOTICS 02/09/24 11/17/24 billion cell capsule (Culturelle) melatonin 1 mg tablet 2 mg PO BEDTIME 02/09/24 propylene glycol 0.6 % eye drops 1 - 2 drp ophthalmic (eye) DAILY 02/09/24 11/17/24 (Systane Complete) PRN Dry Eyes cyanocobalamin (vitamin B-12) 2,000 mcg PO DAILY 09/0111/17/24 1,000 mcg tablet (Vitamin B-12) duloxetine 40 mg capsule,delayed 40 mg PO DAILY 11/17/24 release hydrocodone 10 mg-acetaminophen 1 tab PO Q4H PRN Pain 09/01/24 11/17/24 325 mg tablet hydrocodone 10 mg-acetaminophen 2 tab PO BEDTIME 09/0111/17/24 325 mg tablet polyethylene glycol 3350 17 17 g PO DAILY PRN Constipa tion 09/01/24 11/17/24 gram/dose oral powder (Miralax) vit C 250 mg-vit E 90 mg-zinc 40 1 tab PO BID 09/01/24 11/17/24 mg-copper 1 [id number] capsule (PreserVision AREDS-2) Previous Rx's ?Medication ?Instructions ?Recorded metoprolol succinate 50 mg 50 mg PO DAILY #90 tabs 06/23 tablet,extended release 24 hr calcium carbonate 1,000 mg (5 x 200 mg calcium (500 02/09/24 mg)) PO Q4H PRN DYSPEPSI #90 tabs lactulose 20 gram/30 mL oral 20 g (30 mL) PO DAILY PRN 02/09/24 solution constipation #1,200 mL cyclobenzaprine 5 mg tablet 5 mg PO TID PRN muscle spa sm #20 11/17/24 tabs prednisone 20 mg tablet 20 mg PO TID #15 tabs Allergies Allergy/AdvReac Type Severity Reaction Status Date / Time ciprofloxacin Allergy Unknown ALGY-Redness Verified 04/01/24 14:37 of Skin Penicillins Allergy Unknown ALGY-Rash,Not Verified 04/01/24 14:37 Entered Review of Systems Const: Denies: fever(s) or chills Card: Denies: chest pain Resp: Denies: dyspnea GI: Denies: abdominal pain : Denies: dysuria, urinary frequency or urinary urgency Musc: Denies: neck pain or back pain Skin/Breast: Denies: rash PFSH ED PFSH: Medical History Closed right trimalleolar fracture Cauda equina syndrome Bimalleolar fracture of right ankle Idiopathic peripheral neuropathy Osteoarthritis of knee Depression Chronic narcotic use Follows with Dr. Olvera Edema Nerve pain Physical deconditioning Weakness of both legs C. difficile diarrhea Small bowel obstruction Chronic back pain Hypertension COVID-19 virus infection Surgical History History of lumbar laminectomy for spinal cord decompression S/P exploratory laparotomy for perforated appendix History of hip surgery Left -- screws History of cataract surgery History of back surgery spinal rods History of hysterectomy / BSO History of cholecystectomy Family History Denies family history of Diabetes Dementia Social History Smoking and tobacco/nicotine status: never used tobacco/nicotine Alcohol intake: never Physical Exam Const: COMMON NORMALS: no acute distress GENERAL APPEARANCE: cooperative and comfortable ORIENTATION/CONSCIOUSNESS: Yes awake, Yes oriented to person, Yes oriented to place and Yes oriented to time HENMT: COMMON NORMALS: normocephalic, atraumatic and hearing grossly normal bilaterally HEAD & SCALP: normocephalic and atraumatic Resp: COMMON NORMALS: normal respiratory effort, No retractions, No use of accessory muscles and clear to auscultation bilaterally AUSCULTATION: clear to auscultation bilaterally Cardio: COMMON NORMALS: regular rate, regular rhythm and No murmurs present (Cardio) RATE: regular rate RHYTHM: regular rhythm GI: COMMON NORMALS: Soft to palpation and No hepatosplenomegaly present AUSCULTATION: Yes normoactive bowel sounds PALPATION: Yes Soft to palpation, No Tenderness to palpation present (GI), No Guarding due to palpation present (GI) and Yes No hepatosplenomegaly present Extremity: COMMON NORMALS: normal to inspection, capillary refill normal, no clubbing, cyanosis or edema, no calf tenderness and no pedal edema Neuro: SENSORIUM/ORIENTATION: Yes oriented to person, Yes oriented to place and Yes oriented to time OTHER: Sensation lower extremities intact dorsalis pedis posterior tibialis pulse intact dorsum plantarflexion 5/5 Skin: COMMON NORMALS: no rashes or lesions noted GENERAL SKIN EXAM: no rashes or lesions noted Course Vital Signs: Vital signs: Vital Signs Temperature 98.2 F 11/17/24 08:53 Pulse Rate 71 11/17/24 08:53 Respiratory Rate 18 11/17/24 08:53 Blood Pressure 138/58 11/17/24 08:53 Pulse Oximetry 96 11/17/24 08:53 Oxygen Delivery Me thod Room Air 11/17/24 08:53 MDM - Back Pain/Injury Medical Decision Making Improved with pain medications given discharge home with steroid taper cyclobenzaprine 5 mg 3 times daily as needed previously prescribed hydrocodone can continue to use this follow-up with your primary care if symptoms not controlled or persisting may need advanced imaging Medical Records I reviewed the patient's medical records. Labs I reviewed the patient's lab results. Laboratory Results Urine Color Yellow (Yellow) 11/17/24 11:02 Urine Appearance Clear (CLEAR) 11/17/24 11:02 Urine pH 6.5 (5-7) 11/17/24 11:02 Ur Specific [place] 1.013 (1.005-1.030) 11/17/24 11:02 Urine Protein Negative (Negative) 11/17/24 11:02 Urine Glucose (UA) Negative (Normal) 11/17/24 11:02 Urine Ketones Negative (Negative) 11/17/24 11:02 Urine Blood Negative (Negative) 11/17/24 11:02 Urine Nitrate Negative (Negative) 11/17/24 11:02 Urine Bilirubin Negative (Negative) 11/17/24 11:02 Urine Urobilinogen 1.0 mg/dL (Negative) 11/17/24 11:02 Ur Leukocyte Esterase Negative (Negative) 11/17/24 11:02 Urine RBC 0-2 /hpf (0-2) 11/17/24 11:02 Urine WBC 0-5 /hpf (0-5) 11/17/24 11:02 Ur Squamous Epith Cells 0-5 /hpf (0-5) 11/17/24 11:02 Amorphous Sediment Not Reportable 11/17/24 11:02 Urine Bacteria None seen /hpf (NONE) 11/17/24 11:02 Hyaline Casts 0.40 /lpf 11/17/24 11:02 No radiology studies performed this visit Discharge Plan Discharge Patient Disposition: Home Clinical Impression: Lumbar radiculopathy, Chronic back pain Condition: Stable Prescriptions: New cyclobenzaprine 5 mg tablet 5 mg PO TID PRN (Reason: muscle spasm) Qty: 20 0RF prednisone 20 mg tablet 20 mg PO TID Qty: 15 0RF Rx Instructions: 1 p.o. 3 times daily x3 days, 1 p.o. twice daily x2 days, 1 p.o. daily x2 days No Action metoprolol succinate 50 mg tablet extended release 24 hr 50 mg PO DAILY Qty: 90 3RF acetaminophen 325 mg Tablet 325 mg PO QID PRN (Reason: Pain) magnesium hydroxide [Milk of Magnesia] 400 mg/5 mL Suspension 30 ml PO DAILY PRN (Reason: Constipation) bisacodyl [Dulcolax (bisacodyl)] 10 mg Suppository 10 mg OR DAILY PRN (Reason: Constipation) Fleet Enema 19-7 gram/118 mL Enema 118 ml OR DAILY PRN (Reason: Constipation) cyanocobalamin (vitamin B-12) [Vitamin B-12] 1,000 mcg Tablet 2,000 mcg PO DAILY hydrocodone-acetaminophen [[place]] 10-325 mg Tablet 2 tab PO BEDTIME hydrocodone-acetaminophen 10-325 mg tablet 1 tab PO Q4H PRN (Reason: Pain) polyethylene glycol 3350 [Miralax] 17 gram/dose Powder 17 g PO DAILY PRN (Reason: Constipation) PreserVision AREDS-2 250-90-40-1 mg Capsule 1 tab PO BID duloxetine 40 mg capsule,delayed release(DR/EC) 40 mg PO DAILY Culturelle 10 billion cell Capsule 1 cap PO DAILY PRN (Reason: ANTIBIOTICS) melatonin 1 mg Tablet 2 mg PO BEDTIME Systane Complete 0.6 % Drops 1 - 2 drp OPHTHALMIC (EYE) DAILY PRN (Reason: Dry Eyes) calcium carbonate 200 mg calcium (500 mg) Tablet,Chewable 1,000 mg PO Q4H PRN (Reason: DYSPEPSI) Qty: 90 0RF lactulose 20 gram/30 mL solution 20 g PO DAILY PRN (Reason: constipation) Qty: 1200 0RF Discharge Orders: Discharge ED (Routine); Ordered 11/17/24 Ordered By: Tao Albert Referrals: Britton Vu DO [Primary Care Provider] - Patient Instructions: Opioid Safety, Pain Management Activity Restrictions/Additional Instructions: Thank you for choosing [facility] for your healthcare needs today. It is very important that you follow up as instructed or [facility] should you have concerns or if your condition changes or worsens in any way. you are seen emergency room with complaint of back pain. There is no evidence of urinary retention. Lab work done did not show any other causes. Recommend is steroid taper continue the hydrocodone you previously been prescribed you can also use the cyclobenzaprine. If not improving follow-up with your primary care doctor they may need to reevaluate and do advanced imaging if appropriate Print Language: Maltese Coding Level of Care Code ED Driver for Nii Rojas
[2024-11-17 11:18] LABS: Bilirubin Urine Negative (Negative); Blood Urine Negative (Negative); Glucose Urine UA Negative (Normal); Ketones Urine Negative (Negative); Leukocyte Esterase Urine Negative (Negative); Nitrate Urine Negative (Negative); Protein Urine Negative (Negative); Specific Gravity, Urine 1.013 (1.005-1.030); Urine Appearance Clear (CLEAR); Urine Color Yellow (Yellow); pH Urine 6.5 (5-7)
[2024-11-17 11:22] LABS: Add Urine Microscopic? YES; Bacteria Urine None Seen /hpf; RBC Urine 0-2 /hpf (0-2); Squamous Epithelial Cell Urine 0-5 /hpf (0-5); WBC Urine 0-5 /hpf (0-5)
== END 2024-11-17 13:55 | disposition home or self-care (01) ==
PROVIDERS: Emergency Provider Family Medicine; PCP Internal Medicine
DX: M54.16 Radiculopathy, lumbar region (principal); M54.89 Other dorsalgia; I10 Essential (primary) hypertension
CPT/HCPCS: 51798; 81001; 96372; 96374; 99284; J1100; J1885; J2360

== ENCOUNTER 2024-11-18 11:44 | Inpatient (IN) | payer MEDICARE, SELFPAY ==
[2024-11-18] VITALS (7 sets, daily range): BP systolic 130–168; BP diastolic 57–88; PULSE 63–82; RESP 16–18; TEMP 36.7–36.8; O2SAT 92–97; BMI 27.8
--- NOTE | 2024-11-18 13:03 | XR_ITS ---
WS: [id number] Left foot, 3 views, 11/18/2024 Clinical Data: injury Comparison: Left foot, 02/12/2006 Findings: No fractures or dislocations are seen. There is a orthopedic pin fusing the left second toe PIP joint. There is diffuse osteoporosis of the left foot. No bone destruction or erosion is noted. There are flexion deformities of the left third through fifth toes. There is a plantar spur and an Achilles spur. There is minimal tarsal osteoarthritis. XR/XR foot LT min 3V* [id number] Impression: 1. Negative for fracture. 2. Fusion of the left second toe PIP joint. 3. 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
--- NOTE | 2024-11-18 13:44 | XR_ITS ---
WS: [id number] Left knee, 3 views, 11/18/2024 Clinical Data: injury Comparison: None. Findings: There is narrowing of the medial and lateral joint space with spurring of the medial and lateral tibial plateau and femoral condyles. Sclerosis of the articular surfaces with grade irregularity is seen. The posterior left patella shows irregularity. There are no fractures or dislocations surrounding the knee. The soft tissues are normal. XR/XR knee LT 3V* [id number] Impression: 1. Negative for left knee fracture. 2. Severe osteoarthritis of the left knee.
--- NOTE | 2024-11-18 13:44 | XR_ITS ---
WS: [id number] Left leg including the tibia and fibula, AP and lateral views, 11/18/2024 Clinical Data: injury Comparison: None. Findings: There is a fracture of the distal third of the left tibia. There is a fracture of the distal left fibula. There is minimal soft tissue swelling over the medial malleolus. The left knee shows osteoarthritis with narrowing, irregularity of the articular surfaces, sclerosis and spurring. XR/XR tibia fibula LT 2V [id number] Impression: Fractures of the distal third of the left tibia and distal left fibula.
--- NOTE | 2024-11-18 13:44 | W.ED.LOWEXIN ---
Documented by User: LEONOR Todd 11/18/24 14:48 HPI - Extremity Injury (Lower) General: Chief Complaint: Extremity Injury, Lower Stated Complaint: fall - left foot injury Time Seen by Provider: 11/18/24 13:37 Source: patient and EMS Mode of arrival: EMS Limitations: no limitations History of Present Illness: Patient is an 89-year-old female presents to ED today for evaluation of a left leg injury that she sustained just prior to arrival. Patient states she comes from [facility]. She was reportedly in her wheelchair and trying to adjust her bottom cushion when she accidentally slid out of the wheelchair and injured her left lower leg. She states she is having pain from her left knee down to her left ankle/foot. Denies any other injuries or complaints-does have a very small left elbow skin abrasion. Last tetanus unknown. She states she can normally ambulate with the help of a walker. MD complaint: knee injury, leg injury, ankle injury and foot injury Onset (ago): hour(s) Injury: Left: knee, ankle and foot Place: home Severity: moderate Relieving factors: immobilization Exacerbating factors: movement and palpation Associated symptoms: Reports no associated symptoms Other symptoms: none Related Data Home Medications ?Medication ?Instructions ?Recorded ?Confirmed acetaminophen 325 mg tablet 650 mg PO QID PRN Pain 10/12/21 11/18/24 bisacodyl 10 mg rectal suppository 10 mg [place] DAILY PRN Constipation 10/12/21 11/18/24 (Dulcolax (bisacodyl)) magnesium hydroxide 400 mg/5 mL 30 ml PO DAILY PRN Constipation 10/12/21 11/18/24 oral suspension (Milk of Magnesia) sodium phosphates 19 gram-7 118 ml [place] DAILY PRN Constipation 10/12/21 11/18/24 gram/118 mL enema (Fleet Enema) Lactobacillus rhamnosus GG 10 1 cap PO DAILY PRN ANTIBIOTICS 02/09/24 11/18/24 billion cell capsule (Culturelle) melatonin 1 mg tablet 2 mg PO BEDTIME 02/09/24 11/18/24 propylene glycol 0.6 % eye drops 1 - 2 drp ophthalmic (eye) DAILY 02/09/24 11/18/24 (Systane Complete) PRN Dry Eyes cyanocobalamin (vitamin B-12) 2,000 mcg PO DAILY 09/01/24 11/18/24 1,000 mcg tablet (Vitamin B-12) duloxetine 40 mg capsule,delayed 40 mg PO DAILY 09/01/24 11/18/24 release hydrocodone 10 mg-acetaminophen 1 tab PO Q4H PRN Pain 09/01/24 11/18/24 325 mg tablet hydrocodone 10 mg-acetaminophen 2 tab PO BEDTIME 09/01/24 11/18/24 325 mg tablet polyethylene glycol 3350 17 17 g PO DAILY PRN Constipation 09/01/24 11/18/24 gram/dose oral powder (Miralax) vit C 250 mg-vit E 90 mg-zinc 40 1 tab PO BID 09/01/24 11/18/24 mg-copper 1 [id number] capsule (PreserVision AREDS-2) lactulose 10 gram/15 mL oral 30 ml PO DAILY PRN Constipation 11/18/24 11/18/24 solution Previous Rx's ?Medication ?Instructions ?Recorded metoprolol succinate 50 mg 50 mg PO DAILY #90 tabs 12/09/22 tablet,extended release 24 hr calcium carbonate 1,000 mg (5 x 200 mg calcium (500 02/09/24 mg)) PO Q4H PRN DYSPEPSI #90 tabs cyclobenzaprine 5 mg tablet 5 mg PO TID PRN muscle spasm #20 11/17/24 tabs prednisone 20 mg tablet 20 mg PO TID #15 tabs 11/17/24 Allergies Allergy/AdvReac Type Severity Reaction Status Date / Time ciprofloxacin Allergy Unknown ALGY-Redness Verified 04/01/24 14:37 of Skin Penicillins Allergy Unknown ALGY-Rash,Not Verified 04/01/24 14:37 Entered Review of Systems Musc: Reports: extremity pain and joint pain; Denies: neck pain, back pain, joint redness or joint warmth Neuro: Reports: other (chronic LE neuropathy) PFSH ED PFSH: Medical History (Updated 11/18/24 @ 15:15 by REX Marrufo) Cauda equina syndrome Hypertension Closed right trimalleolar fracture Bimalleolar fracture of right ankle Idiopathic peripheral neuropathy Osteoarthritis of knee Depression Chronic narcotic use Follows with Dr. Olvera Edema Nerve pain Physical deconditioning Weakness of both legs C. difficile diarrhea Small bowel obstruction Chronic back pain COVID-19 virus infection Surgical History History of lumbar laminectomy for spinal cord decompression S/P exploratory laparotomy for perforated appendix History of hip surgery Left -- screws History of cataract surgery History of back surgery spinal rods History of hysterectomy / BSO History of cholecystectomy Family History Denies family history of Diabetes Dementia Social History (Updated 11/18/24 @ 15:09 by Dereck Moralez MD) Smoking and tobacco/nicotine status: never used tobacco/nicotine Alcohol intake: never Caregiver/support person: Yes Household members: caregiver Housing: Assisted Living Facility Physical Exam Const: COMMON NORMALS: no acute distress, patient oriented x3, no limitations, alert and well nourished GENERAL APPEARANCE: cooperative HENMT: COMMON NORMALS: normocephalic and atraumatic HEAD & SCALP: normal to inspection, normocephalic and atraumatic FACE & SINUS: normal facial exam Neck/C-Spine: COMMON NORMALS: full ROM GENERAL: Yes normal visual inspection CERVICAL SPINE: No pain with cervical ROM and No Cervical spine tenderness Back/Pelvis: COMMON NORMALS: thoracic and lumbar spine normal to inspection Extremity: COMMON NORMALS: capillary refill normal and no calf tenderness GENERAL: Yes normal exam except as noted LEFT LOWER EXTREMITY: Yes knee joint, Yes lower leg, Yes ankle joint and Yes foot & digits OTHER: bilateral feet are cool to the touch; both knees with chronic anterior edema from body habitus (L>R); she can move left knee fairly well; she has some acute appearing edema to medial L lower leg/ankle with deformity; she has pain with ROM of L ankle; NV intact Neuro: COMMON NORMALS: patient oriented x3, moves all extremities, no focal motor deficits and no sensory deficits noted SENSORIUM/ORIENTATION: Yes alert Course Consultations: Consultation #1: Dr. Khalil-recommending admit to hospitalist; plan on surgery tomorrow Consultation #2: Dr. Casiano-accepts admission Vital Signs: Vital signs: Vital Signs Temperature 98.6 F 11/19/24 04:00 Pulse Rate 73 11/19/24 04:00 Respiratory Rate 16 11/19/24 04:00 Blood Pressure 149/95 11/19/24 04:00 Pulse Oximetry 96 11/19/24 04:00 Oxygen Delivery Me thod Room Air 11/19/24 04:00 MDM - Extremity Injury (Lower) Medical Decision Making Patient will be admitted to medicine with a plan for surgery for her left distal tibia/fibula fractures. Lab Data 11/19/24 04:37 11/18/24 16:05 Radiology Impressions Foot X-Ray 11/18/24 13:03 Impression: 1. Negative for fracture. 2. Fusion of the left second toe PIP joint. 3. 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 Knee X-Ray 11/18/24 13:44 Impression: 1. Negative for left knee fracture. 2. Severe osteoarthritis of the left knee. Tibia/Fibula X-Ray 11/18/24 13:44 Impression: Fractures of the distal third of the left tibia and distal left fibula. Ankle X-Ray 11/18/24 13:47 Impression: Fractures of the distal third of the left tibia and distal portion of the left fibula. Chest X-Ray 11/18/24 14:17 Impression: 1. Stable elevation left diaphragm. 2. Atherosclerosis. All radiology interpretation(s) finalized by discharge Discharge Plan Discharge Patient Disposition: Admitted As Inpatient Admit Provider: Dereck Moralez Clinical Impression: Fracture of distal end of left tibia, Fracture of distal end of fibula Condition: Stable Coding Level of Care Code ED Analytical Research Chemist for Chg Fwd Documented by User: Tao Albert DO 11/19/24 06:16 HPI - Extremity Injury (Lower) General: Chief Complaint: Extremity Injury, Lower Stated Complaint: fall - left foot injury Time Seen by Provider: 11/18/24 13:37 Related Data Home Medications ?Medication ?Instructions ?Recorded ?Confirmed acetaminophen 325 mg tablet 650 mg PO QID PRN Pain 10/12/21 11/18/24 bisacodyl 10 mg rectal suppository 10 mg [place] DAILY PRN Constipation 10/12/21 11/18/24 (Dulcolax (bisacodyl)) magnesium hydroxide 400 mg/5 mL 30 ml PO DAILY PRN Constipation 10/12/21 11/18/24 oral suspension (Milk of Magnesia) sodium phosphates 19 gram-7 118 ml [place] DAILY PRN Constipation 10/12/21 11/18/24 gram/118 mL enema (Fleet Enema) Lactobacillus rhamnosus GG 10 1 cap PO DAILY PRN ANTIBIOTICS 02/09/24 11/18/24 billion cell capsule (Culturelle) melatonin 1 mg tablet 2 mg PO BEDTIME 02/09/24 11/18/24 propylene glycol 0.6 % eye drops 1 - 2 drp ophthalmic (eye) DAILY 02/09/24 11/18/24 (Systane Complete) PRN Dry Eyes cyanocobalamin (vitamin B-12) 2,000 mcg PO DAILY 09/01/24 11/18/24 1,000 mcg tablet (Vitamin B-12) duloxetine 40 mg capsule,delayed 40 mg PO DAILY 09/01/24 11/18/24 release hydrocodone 10 mg-acetaminophen 1 tab PO Q4H PRN Pain 09/01/24 11/18/24 325 mg tablet hydrocodone 10 mg-acetaminophen 2 tab PO BEDTIME 09/01/24 11/18/24 325 mg tablet polyethylene glycol 3350 17 17 g PO DAILY PRN Constipation 09/01/24 11/18/24 gram/dose oral powder (Miralax) vit C 250 mg-vit E 90 mg-zinc 40 1 tab PO BID 09/01/24 11/18/24 mg-copper 1 [id number] capsule (PreserVision AREDS-2) lactulose 10 gram/15 mL oral 30 ml PO DAILY PRN Constipation 11/18/24 11/18/24 solution Previous Rx's ?Medication ?Instructions ?Recorded metoprolol succinate 50 mg 50 mg PO DAILY #90 tabs 12/09/22 tablet,extended release 24 hr calcium carbonate 1,000 mg (5 x 200 mg calcium (500 02/09/24 mg)) PO Q4H PRN DYSPEPSI #90 tabs cyclobenzaprine 5 mg tablet 5 mg PO TID PRN muscle spasm #20 11/17/24 tabs prednisone 20 mg tablet 20 mg PO TID #15 tabs 11/17/24 Allergies Allergy/AdvReac Type Severity Reaction Status Date / Time ciprofloxacin Allergy Unknown ALGY-Redness Verified 04/01/24 14:37 of Skin Penicillins Allergy Unknown ALGY-Rash,Not Verified 04/01/24 14:37 Entered [facility] ED PFSH: Medical History (Updated 11/18/24 @ 15:15 by REX Marrufo) Cauda equina syndrome Hypertension Closed right trimalleolar fracture Bimalleolar fracture of right ankle Idiopathic peripheral neuropathy Osteoarthritis of knee Depression Chronic narcotic use Follows with Dr. Olvera Edema Nerve pain Physical deconditioning Weakness of both legs C. difficile diarrhea Small bowel obstruction Chronic back pain COVID-19 virus infection Surgical History History of lumbar laminectomy for spinal cord decompression S/P exploratory laparotomy for perforated appendix History of hip surgery Left -- screws History of cataract surgery History of back surgery spinal rods History of hysterectomy / BSO History of cholecystectomy Family History Denies family history of Diabetes Dementia Social History (Updated 11/18/24 @ 15:09 by Dereck Moralez MD) Smoking and tobacco/nicotine status: never used tobacco/nicotine Alcohol intake: never Caregiver/support person: Yes Household members: caregiver Housing: Assisted Living Facility Course Vital Signs: Vital signs: Vital Signs Temperature 98.6 F 11/19/24 04:00 Pulse Rate 73 11/19/24 04:00 Respiratory Rate 16 11/19/24 04:00 Blood Pressure 149/95 11/19/24 04:00 Pulse Oximetry 96 11/19/24 04:00 Oxygen Delivery Me thod Room Air 11/19/24 04:00 MDM - Extremity Injury (Lower) Medical Decision Making Patient will be admitted to medicine with a plan for surgery for her left distal tibia/fibula fractures Chart reviewed and patient discussed with midlevel. Agree with assessment and plan. Lab Data 11/19/24 04:37 11/18/24 16:05 Radiology Impressions Foot X-Ray 11/18/24 13:03 Impression: 1. Negative for fracture. 2. Fusion of the left second toe PIP joint. 3. 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 Knee X-Ray 11/18/24 13:44 Impression: 1. Negative for left knee fracture. 2. Severe osteoarthritis of the left knee. Tibia/Fibula X-Ray 11/18/24 13:44 Impression: Fractures of the distal third of the left tibia and distal left fibula. Ankle X-Ray 11/18/24 13:47 Impression: Fractures of the distal third of the left tibia and distal portion of the left fibula. Chest X-Ray 11/18/24 14:17 Impression: 1. Stable elevation left diaphragm. 2. Atherosclerosis. Discharge Plan Discharge Patient Disposition: Admitted As Inpatient Admit Provider: Dereck Moralez Clinical Impression: Fracture of distal end of left tibia, Fracture of distal end of fibula Condition: Stable Coding Level of Care Code ED Analytical Research Chemist for Nii Rojas
--- NOTE | 2024-11-18 13:47 | XR_ITS ---
WS: [id number] Left ankle, 3 views, 11/18/2024 Clinical Data: injury Comparison: Left ankle, 02/12/2006. Findings: There is an oblique fracture of the distal third of the left tibia. There is a distal left fibular fracture. The ankle mortise is intact. There is minimal soft tissue swelling over the medial malleolus. XR/XR ankle LT min 3V* [id number] Impression: Fractures of the distal third of the left tibia and distal portion of the left fibula.
--- NOTE | 2024-11-18 14:11 | PC.PHAR ---
Pt is from [facility]
--- NOTE | 2024-11-18 14:17 | XR_ITS ---
WS: [id number] Portable AP upright chest, 11/18/2024 Clinical Data: admission/surgery Comparison: Portable chest, 09/25/2021 Findings: No nodules, masses or effusions are seen. The heart is normal. The pulmonary vascularity is not increased. No pneumonia or pneumothorax is seen. The aortic arch and descending thoracic aorta shows calcification and tortuosity. There is left pleural reaction with elevation of the lateral aspect left diaphragm unchanged. There are multiple pedicle screws with a posterior thoracic and posterior thoracolumbar fusion. XR/XR chest 1V portable [id number] Impression: 1. Stable elevation left diaphragm. 2. Atherosclerosis.
--- NOTE | 2024-11-18 15:01 | PM.HP ---
Providers/Chief Complaint Primary Care Provider: Britton Vu DO Chief Complaint: fall - left foot injury History of Present Illness Delia Arthur is a 89 year old female with past medical history of cauda equina post back surgery, wheelchair-bound, lives at a long term. At baseline she is incontinent for bowel and bladder. Self caths. She presents to the ER today after sliding down her electric wheelchair. Post fall patient complained of pain on her left lower limb. She has been otherwise at her baseline health. Denies any nausea, vomiting, headache, dizziness, fever. Did have pain on the right side of her body yesterday for which she presented to the ER and was sent home on a steroid taper. Review of Systems General: Reports: 10 or more systems reviewed and unremarkable except in HPI and below Const: Denies: fever(s), chills, body aches, change in appetite, change in weight, malaise, night sweats, diaphoresis, change in sleep pattern, daytime sleepiness or snoring Eyes: Denies: change in vision, blurry vision, photophobia, eye discomfort or eye discharge ENMT: Denies: throat pain, enlarged tonsils, hoarseness, mouth pain, oral sores, dry mouth, tinnitus, nasal congestion or post nasal drip Card: Denies: chest pain, palpitations, irregular heart rhythm, edema, swelling of feet/ankles, lightheadedness, syncope, pre-syncope, dyspnea on exertion, orthopnea, leg pain with exertion or acrocyanosis Resp: Denies: dyspnea, productive cough, non-productive cough, wheezing, stridor, pain on inspiration, change in phlegm color, hemoptysis or chest congestion GI: Denies: abdominal pain, nausea, vomiting, hematemesis, coffee ground emesis, dysphagia, heartburn, diarrhea, constipation, bloating, GI cramping, change in bowel habits, pain on defecation, hematochezia or melena : Denies: flank pain, dysuria, urinary frequency, urinary urgency, urinary hesitancy, nocturia or hematuria Musc: Denies: neck pain, back pain, extremity pain, joint pain, joint swelling, joint redness, joint stiffness or limited range of motion Neuro: Denies: headache(s), numbness in extremities, weakness in extremities, sensory changes, lack of coordination, difficulty walking, frequent falls, dizziness, vertigo, confusion, Slurred speech present, difficulty communicating thoughts or seizure-like activity Psych: Denies: anxiety, depression, mood swings, panic attacks, hopelessness or irritability Endo: Denies: polyuria, polydipsia, tired all the time, cold intolerance, excessive sweating, flushing or heat intolerance Miki/Lymph: Denies: easy bruising or easy bleeding All/Imm: Denies: tongue swelling, facial swelling or acute wheezing Medications/Allergies Home Medications ?Medication ?Instructions ?Recorded ?Confirmed ?Last Taken ?Type acetaminophen 325 mg tablet 650 mg PO QID PRN Pain 10/12/21 11/18/24 11/17/24 History bisacodyl 10 mg rectal suppository 10 mg PA DAILY PRN Constipation 10/12/21 11/18/24 Unknown History (Dulcolax (bisacodyl)) magnesium hydroxide 400 mg/5 mL 30 ml PO DAILY PRN Constipation 10/12/21 11/18/24 Unknown History oral suspension (Milk of Magnesia) sodium phosphates 19 gram-7 118 ml PA DAILY PRN Constipation 10/12/21 11/18/24 Unknown History gram/118 mL enema (Fleet Enema) metoprolol succinate 50 mg 50 mg PO DAILY #90 tabs 12/09/22 11/18/24 11/18/24 Rx tablet,extended release 24 hr Lactobacillus rhamnosus GG 10 1 cap PO DAILY PRN ANTIBIOTICS 02/09/24 11/18/24 Unknown History billion cell capsule (Culturelle) calcium carbonate 1,000 mg (5 x 200 mg calcium (500 02/09/24 11/18/24 09/01/24 Rx mg)) PO Q4H PRN DYSPEPSI #90 tabs melatonin 1 mg tablet 2 mg PO BEDTIME 02/09/24 11/18/24 11/17/24 History propylene glycol 0.6 % eye drops 1 - 2 drp ophthalmic (eye) DAILY 02/09/24 11/18/24 Unknown History (Systane Complete) PRN Dry Eyes cyanocobalamin (vitamin B-12) 2,000 mcg PO DAILY 09/01/24 11/18/24 11/18/24 History 1,000 mcg tablet (Vitamin B-12) duloxetine 40 mg capsule,delayed 40 mg PO DAILY 09/01/24 11/18/2411/18/25 History release hydrocodone 10 mg-acetaminophen 1 tab PO Q4H PRN Pain 09/01/24 11/18/24 11/14/24 History 325 mg tablet hydrocodone 10 mg-acetaminophen 2 tab PO BEDTIME 09/01/24 11/18/24 11/17/24 History 325 mg tablet polyethylene glycol 3350 17 17 g PO DAILY PRN Constipation 09/01/24 11/18/24 Unknown History gram/dose oral powder (Miralax) vit C 250 mg-vit E 90 mg-zinc 40 1 tab PO BID 09/01/24 11/18/24 11/18/24 History mg-copper 1 [id number] capsule (PreserVision AREDS-2) cyclobenzaprine 5 mg tablet 5 mg PO TID PRN muscle spasm #20 11/17/24 11/18/24 Unknown Rx tabs prednisone 20 mg tablet 20 mg PO TID #15 tabs 11/17/24 11/18/24 11/18/24 Rx lactulose 10 gram/15 mL oral 30 ml PO DAILY PRN Constipation 11/18/24 11/18/24 Unknown History solution Allergies Allergy/AdvReac Type Severity Reaction Status Date / Time ciprofloxacin Allergy Unknown ALGY-Redness Verified 04/01/24 14:37 of Skin Penicillins Allergy Unknown ALGY-Rash,Not Verified 04/01/24 14:37 Entered PFSH Acute PFSH: Medical History (Updated 11/18/24 @ 15:06 by Dereck Moralez MD) Cauda equina syndrome Hypertension Closed right trimalleolar fracture Bimalleolar fracture of right ankle Idiopathic peripheral neuropathy Osteoarthritis of knee Depression Chronic narcotic use Follows with Dr. Olvera Edema Nerve pain Physical deconditioning Weakness of both legs C. difficile diarrhea Small bowel obstruction Chronic back pain COVID-19 virus infection Surgical History History of lumbar laminectomy for spinal cord decompression S/P exploratory laparotomy for perforated appendix History of hip surgery Left -- screws History of cataract surgery History of back surgery spinal rods History of hysterectomy / BSO History of cholecystectomy Family History Denies family history of Diabetes Dementia Social History (Updated 11/18/24 @ 15:09 by Dereck Moralez MD) Smoking and tobacco/nicotine status: never used tobacco/nicotine Alcohol intake: never Caregiver/support person: Yes Household members: caregiver Housing: Assisted Living Facility Vitals/I&O/Wt Last Vital Signs Temp 98.2 F 11/18/24 11:53 Pulse 76 11/18/24 11:53 Resp 18 11/18/24 11:53 BP 162/76 11/18/24 11:53 Pulse Ox 95 11/18/24 11:53 O2 Del Method Room Air 11/18/24 11:53 Weight last 48 hrs Weight 90.718 kg Physical Exam Narrative: General: No acute distress, AO x3 HEENT: PERRLA, pupils bilaterally equal and reactive Chest: Normal vesicular breath sounds, no added sounds, equal good air entry bilaterally CVS: S1-S2 regular, no murmurs, no tachycardia, no gallops, no rubs Abdomen: Soft, nontender, no organomegaly, bowel sounds present Neuro: No focal deficits, no facial deformity, AO x3, A&P Assessment and plan (1) Closed left tibial fracture: Orthopedic has been consulted from the ER. Currently in splint. Plan for ORIF in a.m. Continue with home dose of hydrocodone every 4 hours as needed. 10 minutes of hydrocodone nightly scheduled. Monitor hemoglobin postoperatively. (2) Hypertension: Goal blood pressure less than 140/90 mmHg. Continue with home dose of metoprolol for now. Uptitrate for goal blood pressure. Qualifiers: Hypertension type: primary hypertension Qualified Code(s): I10 - Essential (primary) hypertension (3) Cauda equina syndrome: (4) Lumbar radiculopathy: Plan Check vitamin B12, folate level, TSH, iron panel. CODE STATUS: Discussed in detail with the patient. DNR/DNI. Patient's granddaughter Ms. Moulton will be the DPOA. Cardiac diet. N.p.o. after midnight. Famotidine for PUD prophylaxis Heparin 5000 every 12 hourly for DVT prophylaxis PDMP PDMP Reviewed: Not Reviewed Attestations Medical Necessity Statement*: Admission for more than 2 midnights for management of left tibial fracture requiring ORIF in a patient with history of cauda equina syndrome post back surgery, long term resident. Diagnoses Closed left tibial fracture S82.202A Primary hypertension I10 Hypertension type: primary hypertension Cauda equina syndrome G83.4 Lumbar radiculopathy M54.16
--- NOTE | 2024-11-18 15:36 | ECG_ITS ---
[facility] Date: 2024-11-18 Pat Name: Delia Arthur Department: Room: 267 Gender: Female Occupancy Specialist: : 1935 Requested By: Gabriela Gong Order Number: [id number] Hiral MD: Leif Farfan M.D. Measurements Intervals Silver Rate: 69 P: 43 LA: 157 QRS: 21 QRSD: 82 T: 28 QT: 405 QTc: 436 Interpretive Statements SINUS RHYTHM Compared to ECG 02/06/2024 21:16:31 No significant changes Electronically Signed On 11-20-2024 07:48:14 CDT by Leif Farfan M.D. [email or web address] [email or web address]
[2024-11-18 16:13] LABS: Basophils % 0.1 %; Hematocrit 36.7 % (36-47); Mean Corpuscular HGB Conc 31.9 g/dL (30-55); Mean Corpuscular Hemoglobin 33.2 pg (27-33); Mean Corpuscular Volume 104.3 fl (85-98); Mean Platelet Volume 10.3 fL (7.4-10.4); Monocytes # 0.2 10^3/uL (0.2-0.9); Monocytes % 2.8 %; Neutrophils # 6.29 10^3/uL (1.8-7.7); Neutrophils % 83.8 %; Nucleated Red Blood Cells % 0 %; Platelet Count 144 10^3/cmm (157-399); Red Blood Count 3.52 10^6/uL (3.85-5.65); White Blood Count 7.51 10^3/uL (3.29-11.43)
[2024-11-18] MEDS: tetanus-dipt-pertussis 0.5 mL SDV IM (16:24)
[2024-11-18 16:31] LABS: Alanine Aminotransferase 14 U/L (0-33); Albumin Level 4.1 g/dL (3.5-5.2); Alkaline Phosphatase 80 U/L (35-105); Anion Gap 17.8 (5-19); Aspartate Amino Transferase 24 U/L (0-32); Blood Urea Nitrogen 22 mg/dL (8-23); Calcium 9.3 mg/dL (8.5-10.5); Carbon Dioxide 25 mmol/L (22-29); Chloride 102 mmol/L (98-107); Creatinine Clr Calc Pharmacy 59.2805; Globulin 3.3 g/dL (1.3-4.6); Glucose 127 mg/dL (65-115); Osmolality Calculated 295 mOsm/kg (285-295); Potassium 4.8 mmol/L (3.5-5.1); Sodium 140 mmol/L (136-145); Total Bilirubin 0.4 mg/dL (0.15-1.2); Total Protein 7.4 g/dL (6.6-8.7)
[2024-11-18 16:38] LABS: Procalcitonin 0.06 ng/mL (0-0.5)
[2024-11-18 17:58] LABS: Bilirubin Urine Negative (Negative); Blood Urine Negative (Negative); Glucose Urine UA Negative (Normal); Ketones Urine Trace (Negative); Leukocyte Esterase Urine 1+ (Negative); Nitrate Urine Negative (Negative); Protein Urine Trace (Negative); Specific Gravity, Urine 1.025 (1.005-1.030); Urine Appearance Clear (CLEAR); Urine Color Yellow (Yellow); pH Urine 6.5 (5-7)
[2024-11-18 18:03] LABS: Add Urine Microscopic? YES; Bacteria Urine None Seen /hpf; Hyaline Casts Urine 0.81 /lpf; Squamous Epithelial Cell Urine 0-5 /hpf (0-5)
[2024-11-18 18:06] LABS: Add Urine Culture? No
[2024-11-18 18:18] LABS: Iron 79 ug/dL (37-145); Percent Saturation 31.1 % (20-50); Thyroid Stimulating Hormone 0.56 uIU/mL (0.27-4.20); Total Iron Binding Capacity 254 mcg/dl; Unsaturated Iron Binding 175 ug/dL (112-347)
[2024-11-18] MEDS: heparin 5,000 unit/mL INJ 1 mL 5000 UNIT SUBCUT (18:24)
[2024-11-18] MEDS: morphine 4 mg/mL SDV 1 mL 2 MG IVP (18:24)
[2024-11-18] MEDS: famotidine 20 mg Tablet PO (18:25)
[2024-11-18 19:22] LABS: Estmated Average Glucose 108; Hemoglobin A1C 5.4 % (4.0-6.0)
[2024-11-18 19:51] LABS: Vitamin B12 > 2000 pg/mL (232-1245)
[2024-11-18] MEDS: HYDROcodone-acetaminophen 10-325 mg Tablet 2 TAB PO (20:29)
[2024-11-19] VITALS (17 sets, daily range): BP systolic 104–161; BP diastolic 54–97; PULSE 51–83; RESP 15–18; TEMP 36.2–37; O2SAT 90–100
--- NOTE | 2024-11-19 | XR_ITS ---
WS: [email or web address] Exam: XR tibia fibula LT 2V [id number] Date/Time of Exam: 11/19/2024 12:00 AM Reason For Exam: UADREY PICS Exam: XR tibia fibula LT 2V [id number] Date/Time of Exam: 11/19/2024 12:00 AM Reason For Exam: AUDREY PICS Intraoperative AP and lateral C arm images of the LEFT tibia and fibula are submitted. An intramedullary yamila stabilizes a spiral fracture of the lower metadiaphysis of the tibia. Fracture alignment is satisfactory for healing. No hardware complication noted. There may be a healing nondisplaced fracture of the lower fibular diaphysis. IMPRESSION1. Intramedullary yamila fixation involving a spiral fracture of the lower tibia in satisfactory alignment for healing. 2. Possible healing nondisplaced fracture of the lower fibula. 3. Advanced degenerative change at the knee.
[2024-11-19] MEDS: HYDROcodone-acetaminophen 10-325 mg Tablet 1 TAB PO (01:06)
[2024-11-19 05:54] LABS: Hematocrit 32.9 % (36-47); Lymphocytes # 1.6 10^3/uL (0.8-4.8); Lymphocytes % 23.4 %; Mean Corpuscular HGB Conc 31.9 g/dL (30-55); Mean Corpuscular Volume 106.5 fl (85-98); Mean Platelet Volume 10.7 fL (7.4-10.4); Monocytes # 0.7 10^3/uL (0.2-0.9); Monocytes % 9.7 %; Neutrophils # 4.58 10^3/uL (1.8-7.7); Neutrophils % 66.6 %; Nucleated Red Blood Cells % 0 %; Platelet Count 145 10^3/cmm (157-399); Red Blood Count 3.09 10^6/uL (3.85-5.65); White Blood Count 6.88 10^3/uL (3.29-11.43)
[2024-11-19 06:20] LABS: Alanine Aminotransferase 11 U/L (0-33); Albumin Level 3.6 g/dL (3.5-5.2); Alkaline Phosphatase 66 U/L (35-105); Aspartate Amino Transferase 22 U/L (0-32); Blood Urea Nitrogen 24 mg/dL (8-23); Calcium 8.6 mg/dL (8.5-10.5); Carbon Dioxide 25 mmol/L (22-29); Chloride 102 mmol/L (98-107); Globulin 2.6 g/dL (1.3-4.6); Glucose 89 mg/dL (65-115); Magnesium 2.1 mg/dL (1.7-2.3); Osmolality Calculated 292 mOsm/kg (285-295); Phosphorus 3.5 mg/dL (2.5-4.5); Sodium 139 mmol/L (136-145); Total Bilirubin 0.3 mg/dL (0.15-1.2); Total Protein 6.2 g/dL (6.6-8.7)
[2024-11-19 06:21] LABS: Chol HDL Ratio 4.16 mg/dL (0.0-4.40); Cholesterol 187 mg/dL (0-200); HDL Cholesterol 45 mg/dL (60-100); LDL Cholesterol Calculated 119 mg/dL (50-129); LDL HDL Ratio 2.64 RATIO (0.00-3.22); Procalcitonin 0.07 ng/mL (0-0.5); Triglycerides 113 mg/dL (0-150)
[2024-11-19 06:29] LABS: Folate Level 9.4 ng/mL (4.8-37.3)
[2024-11-19] MEDS: sodium chloride 0.9% 1,000 ML 30 ML IV (07:55)
[2024-11-19] MEDS: acetaminophen 1,000 MG/100 ML PIGGYBACK 400 MG IV (08:00)
[2024-11-19] MEDS: gabapentin 300 mg Capsule PO (08:04)
[2024-11-19] MEDS: CELEcoxib 200 mg Capsule 400 MG PO (08:05)
--- NOTE | 2024-11-19 08:15 | ANES.PREANE2 ---
Pre-Anesthetic Assessment Height/Weight: Height 5 ft 11 in Weight 205 lb 1.6 oz Temp Pulse Resp BP Pulse Ox O2 Del Method 98.6 F 73 16 149/95 96 Room Air 11/19/24 04:00 11/19/24 04:00 11/19/24 04:00 11/19/24 04:00 11/19/24 04:00 11/19/24 04:00 Preop Diagnosis: Tibial fracture Operation Date: 11/19/24 09:30 Proposed Procedures p IM Tibial Nail Insertion(Left) - Sarah Khalil MD Was Beta [place] taken within 24 hours: Yes Was Clonidine taken within 24 hours: N/A Social No alcohol and No tobacco Exam alert, oriented x 3, clear to auscultation bilaterally and regular rate & rhythm Airway Submandibular: within normal limits Cervical ROM: within normal limits Mallampati: Class III Dentition: full Anesthetic Plan ASA status: 3 Anesthesia: General Other: Patient presents with a left tibial fracture after sliding out of wheelchair yesterday. No prior issues with anesthesia Imaging showing elevated left diaphragm. No home oxygen Prior cauda equina syndrome, patient states that she is very weak in bilateral lower extremities History of hypertension on metoprolol Labs reviewed and acceptable for procedure. Hemoglobin 10.5. Type and screen ordered Plan for general anesthesia Medications/Allergies Home Medications ?Medication ?Instructions ?Recorded ?Confirmed ?Last Taken ?Type acetaminophen 325 mg tablet 650 mg PO QID PRN Pain 10/12/21 11/18/24 11/17/24 History bisacodyl 10 mg rectal suppository 10 mg NE DAILY PRN Constipation 10/12/21 11/18/24 Unknown History (Dulcolax (bisacodyl)) magnesium hydroxide 400 mg/5 mL 30 ml PO DAILY PRN Constipation 10/12/21 11/18/24 Unknown History oral suspension (Milk of Magnesia) sodium phosphates 19 gram-7 118 ml NE DAILY PRN Constipation 10/12/21 11/18/24 Unknown History gram/118 mL enema (Fleet Enema) metoprolol succinate 50 mg 50 mg PO DAILY #90 tabs 12/09/22 11/18/24 11/18/24 Rx tablet,extended release 24 hr Lactobacillus rhamnosus GG 10 1 cap PO DAILY PRN ANTIBIOTICS 02/09/24 11/18/24 Unknown History billion cell capsule (Culturelle) calcium carbonate 1,000 mg (5 x 200 mg calcium (500 02/09/24 11/18/24 09/01/24 Rx mg)) PO Q4H PRN DYSPEPSI #90 tabs melatonin 1 mg tablet 2 mg PO BEDTIME 02/09/24 11/18/24 11/17/24 History propylene glycol 0.6 % eye drops 1 - 2 drp ophthalmic (eye) DAILY 02/09/24 11/18/24 Unknown History (Systane Complete) PRN Dry Eyes cyanocobalamin (vitamin B-12) 2,000 mcg PO DAILY 09/01/24 11/18/24 11/18/24 History 1,000 mcg tablet (Vitamin B-12) duloxetine 40 mg capsule,delayed 40 mg PO DAILY 09/01/24 11/18/24 11/18/24 History release hydrocodone 10 mg-acetaminophen 1 tab PO Q4H PRN Pain 09/01/24 11/18/24 11/14/24 History 325 mg tablet hydrocodone 10 mg-acetaminophen 2 tab PO BEDTIME 09/01/24 11/18/24 11/17/24 History 325 mg tablet polyethylene glycol 3350 17 17 g PO DAILY PRN Constipation 09/01/24 11/18/24 Unknown History gram/dose oral powder (Miralax) vit C 250 mg-vit E 90 mg-zinc 40 1 tab PO BID 09/01/24 11/18/24 11/18/24 History mg-copper 1 ki-[id number] capsule (PreserVision AREDS-2) cyclobenzaprine 5 mg tablet 5 mg PO TID PRN muscle spasm #20 11/17/24 11/18/24 Unknown Rx tabs prednisone 20 mg tablet 20 mg PO TID #15 tabs 11/17/24 11/18/24 11/18/24 Rx lactulose 10 gram/15 mL oral 30 ml PO DAILY PRN Constipation 11/18/24 11/18/24 Unknown History solution Allergies Allergy/AdvReac Type Severity Reaction Status Date / Time ciprofloxacin Allergy Unknown ALGY-Redness Verified 04/01/24 14:37 of Skin Penicillins Allergy Unknown ALGY-Rash,Not Verified 04/01/24 14:37 Entered Current Medications Generic Name Dose Route Start Last Admin Trade Name Freq PRN Reason Stop Dose Admin Hydrocodone Bitart/Acetaminophen 2 tab 11/18/24 21:00 11/18/24 20:29 Hydrocodone-Acetaminophen 10-325 Mg Tablet PO 2 tab BEDTIME DWAYNE Administration Hydrocodone Bitart/Acetaminophen 1 tab 11/18/24 17:24 11/19/24 01:06 Hydrocodone-Acetaminophen 10-325 Mg Tablet PO 1 tab Q4H PRN Administration Pain Docusate Sodium 100 mg 11/18/24 18:00 11/18/24 18:25 Docusate Sodium 100 Mg Capsule PO Not Given BID DWAYNE Famotidine 20 mg 11/18/24 18:00 11/18/24 18:25 Famotidine 20 Mg Tablet PO 20 mg BID DWAYNE Administration Sodium Chloride 1,000 mls @ 30 mls/hr 11/19/24 07:45 11/19/24 07:55 Sodium Chloride 0.9% IV 30 mls/hr .Q24H DWAYNE Administration Morphine Sulfate 2 mg 11/18/24 17:24 11/18/24 18:24 Morphine 4 Mg/Ml Sdv 1 Ml IVP 2 mg Q4H PRN Administration SEVERE PAIN PFSH Anesthesia Medical History (Updated 11/18/24 @ 15:15 by REX Marrufo) Cauda equina syndrome Hypertension Closed right trimalleolar fracture Bimalleolar fracture of right ankle Idiopathic peripheral neuropathy Osteoarthritis of knee Depression Chronic narcotic use Follows with Dr. Olvera Edema Nerve pain Physical deconditioning Weakness of both legs C. difficile diarrhea Small bowel obstruction Chronic back pain COVID-19 virus infection Surgical History History of lumbar laminectomy for spinal cord decompression S/P exploratory laparotomy for perforated appendix History of hip surgery Left -- screws History of cataract surgery History of back surgery spinal rods History of hysterectomy / BSO History of cholecystectomy Family History Denies family history of Diabetes Dementia Social History (Updated 11/18/24 @ 15:09 by Dereck Moralez MD) Smoking and tobacco/nicotine status: never used tobacco/nicotine Alcohol intake: never Caregiver/support person: Yes Household members: caregiver Housing: Assisted Living Facility Data Anesthesia 11/19/24 04:37 11/19/24 04:37 Short CBC 11/18/24 11/19/24 Range/Units 16:05 04:37 WBC 7.51 6.88 (3.29-11.43) 10^3/uL Hgb 11.70 10.50 L (11.27-16.99) g/dL Hct 36.7 32.9 L (36-47) % MCV 104.3 H 106.5 H (85-98) fl Plt Count 144 L 145 L (157-399) 10^3/cmm Neut % (Auto) 83.8 66.6 % Neut # (Auto) 6.29 4.58 (1.8-7.7) 10^3/uL BMP 11/18/24 11/19/24 16:05 04:37 Sodium 140 139 Potassium 4.8 4.0 Chloride 102 102 Carbon Dioxide 25 25 BUN 22 24 H Creatinine 0.8 0.7 Glucose 127 H 89 Calcium 9.3 8.6 Liver Function 11/18/24 11/19/24 Range/Units 16:05 04:37 Total Bilirubin 0.4 0.3 (0.15-1.2) mg/dL AST 24 22 (0-32) U/L ALT 14 11 (0-33) U/L Alkaline Phosphatase 80 66 (35-105) U/L Albumin 4.1 3.6 (3.5-5.2) g/dL Urine 11/18/24 Range/Units 17:45 Urine Color Yellow (Yellow) Urine Appearance Clear (CLEAR) Urine pH 6.5 (5-7) Ur Specific [place] 1.025 (1.005-1.030) Urine Protein Trace A (Negative) Urine Glucose (UA) Negative (Normal) Urine Ketones Trace (Negative) Urine Nitrate Negative (Negative) Urine Bilirubin Negative (Negative) Ur Leukocyte Esterase 1+ A (Negative) Urine RBC 3-5 (0-2) /hpf Urine WBC 11-20 H (0-5) /hpf Cardiac Studies: No Data to Display
--- NOTE | 2024-11-19 09:11 | PM.CONSULT ---
Providers/Reason For Consult Consulting Physician/Specialty*: Sarah Khalil MD Reason for Consult*: Left tib-fib fracture Requesting Physician: Dr. Tao Albert Attending Physician: Dereck Moralez MD Primary Care Provider: Britton Vu DO History of Present Illness History of Present Illness Delia Arthur is a 89 year old female who lives in assisted living. She is incontinent of bowel and bladder and does do self-catheterization. She primarily uses an electric wheelchair for any distance travel, but she does ambulate around her home within the assisted living. She denies any other reason for her fall. Review of Systems General: Reports: 10 or more systems reviewed and unremarkable except in HPI and below Const: Denies: fever(s), chills, body aches, change in appetite, change in weight, malaise, night sweats, diaphoresis, change in sleep pattern, daytime sleepiness or snoring Eyes: Denies: change in vision, blurry vision, photophobia, eye discomfort or eye discharge ENMT: Denies: throat pain, enlarged tonsils, hoarseness, mouth pain, oral sores, dry mouth, tinnitus, nasal congestion or post nasal drip Card: Denies: chest pain, palpitations, irregular heart rhythm, edema, swelling of feet/ankles, lightheadedness, syncope, pre-syncope, dyspnea on exertion, orthopnea, leg pain with exertion or acrocyanosis Resp: Denies: dyspnea, productive cough, non-productive cough, wheezing, stridor, pain on inspiration, change in phlegm color, hemoptysis or chest congestion GI: Denies: abdominal pain, nausea, vomiting, hematemesis, coffee ground emesis, dysphagia, heartburn, diarrhea, constipation, bloating, GI cramping, change in bowel habits, pain on defecation, hematochezia or melena : Denies: flank pain, dysuria, urinary frequency, urinary urgency, urinary hesitancy, nocturia or hematuria Musc: Denies: neck pain, back pain, extremity pain, joint pain, joint swelling, joint redness, joint warmth, joint stiffness or limited range of motion Neuro: Reports: other (chronic LE neuropathy); Denies: headache(s), numbness in extremities, weakness in extremities, sensory changes, lack of coordination, difficulty walking, frequent falls, dizziness, vertigo, confusion, Slurred speech present, difficulty communicating thoughts or seizure-like activity Psych: Denies: anxiety, depression, mood swings, panic attacks, hopelessness or irritability Endo: Denies: polyuria, polydipsia, tired all the time, cold intolerance, excessive sweating, flushing or heat intolerance Miki/Lymph: Denies: easy bruising or easy bleeding All/Imm: Denies: tongue swelling, facial swelling or acute wheezing Medications/Allergies Home Medications ?Medication ?Instructions ?Recorded ?Confirmed ?Last Taken ?Type acetaminophen 325 mg tablet 650 mg PO QID PRN Pain 10/12/21 11/18/24 11/17/24 History bisacodyl 10 mg rectal suppository 10 mg OH DAILY PRN Constipation 10/12/21 11/18/24 Unknown History (Dulcolax (bisacodyl)) magnesium hydroxide 400 mg/5 mL 30 ml PO DAILY PRN Constipation 10/12/21 11/18/24 Unknown History oral suspension (Milk of Magnesia) sodium phosphates 19 gram-7 118 ml OH DAILY PRN Constipation 10/12/21 11/18/24 Unknown History gram/118 mL enema (Fleet Enema) metoprolol succinate 50 mg 50 mg PO DAILY #90 tabs 12/09/22 11/18/24 11/18/24 Rx tablet,extended release 24 hr Lactobacillus rhamnosus GG 10 1 cap PO DAILY PRN ANTIBIOTICS 02/09/24 11/18/24 Unknown History billion cell capsule (Culturelle) calcium carbonate 1,000 mg (5 x 200 mg calcium (500 02/09/24 11/18/24 09/01/24 Rx mg)) PO Q4H PRN DYSPEPSI #90 tabs melatonin 1 mg tablet 2 mg PO BEDTIME 02/09/24 11/18/24 11/17/24 History propylene glycol 0.6 % eye drops 1 - 2 drp ophthalmic (eye) DAILY 02/09/24 11/18/24 Unknown History (Systane Complete) PRN Dry Eyes cyanocobalamin (vitamin B-12) 2,000 mcg PO DAILY 09/01/24 11/18/24 11/18/24 History 1,000 mcg tablet (Vitamin B-12) duloxetine 40 mg capsule,delayed 40 mg PO DAILY 09/01/24 11/18/24 11/18/24 History release hydrocodone 10 mg-acetaminophen 1 tab PO Q4H PRN Pain 09/01/24 11/18/24 11/14/24 History 325 mg tablet hydrocodone 10 mg-acetaminophen 2 tab PO BEDTIME 09/01/24 11/18/24 11/17/24 History 325 mg tablet polyethylene glycol 3350 17 17 g PO DAILY PRN Constipation 09/01/24 11/18/24 Unknown History gram/dose oral powder (Miralax) vit C 250 mg-vit E 90 mg-zinc 40 1 tab PO BID 09/01/24 11/18/24 11/18/24 History mg-copper 1 yk-[id number]-[id number] capsule (PreserVision AREDS-2) cyclobenzaprine 5 mg tablet 5 mg PO TID PRN muscle spasm #20 11/17/24 11/18/24 Unknown Rx tabs prednisone 20 mg tablet 20 mg PO TID #15 tabs 11/17/24 11/18/24 11/18/24 Rx lactulose 10 gram/15 mL oral 30 ml PO DAILY PRN Constipation 11/18/24 11/18/24 Unknown History solution Allergies Allergy/AdvReac Type Severity Reaction Status Date / Time ciprofloxacin Allergy Unknown ALGY-Redness Verified 04/01/24 14:37 of Skin Penicillins Allergy Unknown ALGY-Rash,Not Verified 04/01/24 14:37 Entered Current Medications Generic Name Dose Route Start Last Admin Trade Name Freq PRN Reason Stop Dose Admin Hydrocodone Bitart/Acetaminophen 2 tab 11/18/24 21:00 11/18/24 20:29 Hydrocodone-Acetaminophen 10-325 Mg Tablet PO 2 tab BEDTIME DWAYNE Administration Hydrocodone Bitart/Acetaminophen 1 tab 11/18/24 17:24 11/19/24 01:06 Hydrocodone-Acetaminophen 10-325 Mg Tablet PO 1 tab Q4H PRN Administration Pain Docusate Sodium 100 mg 11/18/24 18:00 11/18/24 18:25 Docusate Sodium 100 Mg Capsule PO Not Given BID DWAYNE Famotidine 20 mg 11/18/24 18:00 11/18/24 18:25 Famotidine 20 Mg Tablet PO 20 mg BID DWAYNE Administration Sodium Chloride 1,000 mls @ 30 mls/hr 11/19/24 07:45 11/19/24 07:55 Sodium Chloride 0.9% IV 30 mls/hr .Q24H DWAYNE Administration Morphine Sulfate 2 mg 11/18/24 17:24 11/18/24 18:24 Morphine 4 Mg/Ml Sdv 1 Ml IVP 2 mg Q4H PRN Administration SEVERE PAIN PFSH Acute PFSH: Medical History Cauda equina syndrome Hypertension Closed right trimalleolar fracture Bimalleolar fracture of right ankle Idiopathic peripheral neuropathy Osteoarthritis of knee Depression Chronic narcotic use Follows with Dr. Olvera Edema Nerve pain Physical deconditioning Weakness of both legs C. difficile diarrhea Small bowel obstruction Chronic back pain COVID-19 virus infection Surgical History History of lumbar laminectomy for spinal cord decompression S/P exploratory laparotomy for perforated appendix History of hip surgery Left -- screws History of cataract surgery History of back surgery spinal rods History of hysterectomy / BSO History of cholecystectomy Family History Denies family history of Diabetes Dementia Social History Smoking and tobacco/nicotine status: never used tobacco/nicotine Alcohol intake: never Caregiver/support person: Yes Household members: caregiver Housing: Assisted Living Facility Vitals/I&O/Wt Last Vital Signs Temp 98.6 F 11/19/24 04:00 Pulse 73 11/19/24 04:00 Resp 16 11/19/24 04:00 BP 149/95 11/19/24 04:00 Pulse Ox 96 11/19/24 04:00 O2 Del Method Room Air 11/19/24 04:00 11/18/24 11/19/24 11/19/24 22:59 06:59 14:59 Intake Total 240 / 240 0 / 240 Output Total 250 / 250 300 / 550 Balance -10 / -10 -300 / -310 Weight last 48 hrs Weight 205 lb 1.6 oz Weight 202 lb Weight 200 lb Physical Exam Narrative: The patient is alert and oriented. She is seen with her sister and her granddaughter. Const: COMMON NORMALS: no acute distress, average body habitus, patient oriented x3 and alert GENERAL APPEARANCE: cooperative and comfortable ORIENTATION/CONSCIOUSNESS: Yes awake HENMT: COMMON NORMALS: normocephalic and atraumatic HEAD & SCALP: normocephalic and atraumatic Eye: GENERAL EYE: appearance normal, both eyes and all related structures Chest: COMMONS NORMALS: normal inspection of the chest Resp: COMMON NORMALS: normal respiratory effort EFFORT & INSPECTION: Yes able to speak in complete sentences and Yes symmetric chest movement Extremity: LEFT LOWER EXTREMITY: Yes lower leg (Her leg is splinted) Left lower leg: Yes inspection (No significant toe swelling) and Yes neurovascular exam (Able to wiggle toes and feel light touch) Neuro: COMMON NORMALS: patient oriented x3 SENSORIUM/ORIENTATION: Yes alert Psych: COMMON NORMALS: mental status grossly normal APPEARANCE: Yes grossly normal ATTITUDE: Yes calm and Yes engaged ATTENTION/CONCENTRATION: Yes attention grossly intact Skin: COMMON NORMALS: no rashes or lesions noted GENERAL SKIN EXAM: no rashes or lesions noted Urinary Catheter Management: Ornelas: Cath Placed During This Visit: yes Reason for Continuing Indwelling Catheter: Not indwelling catheter Urinary Catheter Date of Insertion: 11/18/24 Urinary Catheter Time of Insertion: 17:00 Data 11/19/24 04:37 11/19/24 04:37 Xray Ortho: My impression: Patient has a distal third related tibia and fibular fracture. This is a spiral fracture with angulation. A&P Assessment and plan (1) Closed fracture of shaft of left tibia and fibula: Patient's history is as noted above. She had spiral fractures of the tibia and fibula at approximately the junction of the mid and distal thirds. There is angulation and displacement. After discussion with the patient, plan is made for open reduction internal fixation utilizing an intramedullary nail. Risks and complications are discussed with the patient's sister and granddaughter as well as the patient. Consents were signed and questions are answered. Qualifiers: Encounter type: initial encounter Qualified Code(s): S82.202A - Unspecified fracture of shaft of left tibia, initial encounter for closed fracture; S82.402A - Unspecified fracture of shaft of left fibula, initial encounter for closed fracture PDMP PDMP Reviewed: Not Reviewed Coding Level of Care Code Acute Code for [facility] Fwd Diagnoses Closed fracture of shaft of left tibia and fibula, initial encounter S82.202A; S82.402A Encounter type: initial encounter
[2024-11-19] MEDS: ceFAZolin 2,000 mg SDV 2000 MG IVP ×2 (09:54→16:46)
[2024-11-19] MEDS: VANCOMYCIN ADD-Vantage 1,000 MG VIAL 1000 MG IRRIGATION (10:55)
--- NOTE | 2024-11-19 11:24 | SUR.OPER ---
1035 attempted to notify Family, lauren, via Phone, and received no answer. left message on voice mail about pt's status
--- NOTE | 2024-11-19 12:22 | PM.OP ---
Operative Report Date of procedure: November 19, 2024 Pre-op diagnosis: Left tibia and fibular shaft fractures at the junction of the mid and distal thirds Post-op diagnosis: Left tibia and fibular shaft fractures at the junction of the mid and distal thirds Post-op findings: Displaced slightly angulated distal fibula fracture Procedure done: Open reduction internal fixation left tibia fracture at the junction of the mid and distal third utilizing an intramedullary nail with 2 proximal and 1 distal locking screws Implants: Brittany Tibia implants included a T2 alpha tibial nail size 12 mm x 360 mm with 5 mm x 70 mm and 5 mm x 45 mm proximal screws as well as 1 distal advanced locking screw size 5 mm x 37.5 mm Specimens removed/disposition: None Pathology: None Surgeon: Sarah Khalil MD Precision Thread Grinder Operator: Olga Pickard, nurse practitioner, whose services were required for maintenance of fracture reduction, retraction, closure, and manipulation. Anesthesia: General (Per LMA, ASA 3) Estimated blood loss (mL): 15 Tourniquet time (min): 72 (At 250 mmHg) IV fluids (mL): 900 Urine output (mL): 200 Complications: None Findings: Spiral to oblique distal tibia fracture with associated fibular fracture Condition: stable Disposition: PACU (Then return to floor for postoperative rehabilitation and pain management) Brief History: This 89-year-old woman was in her usual state of health where she lives in assisted living. She was adjusting the pillow in her electric wheelchair, and she states she went with the wheelchair . She was unable to ambulate following this event. She complained of left lower extremity pain. X-rays demonstrated the fracture as described above. After discussion with the patient and family, risks and complications were discussed questions were answered and consents were signed for open reduction internal fixation of left distal tibia and fibular fracture at the junction of the mid and distal thirds of the tibia. Family was seen in the preoperative holding area and given the opportunity to ask questions. Procedure: Patient was seen in the preoperative holding area where the operative sites were marked. Patient is brought to the operating theater. After undergoing adequate general anesthesia per LMA, ASA 3, the patient was transferred to the operating room table, positioned on the table and fluoroscopic guidance obtained throughout the surgical procedure. DuraPrep was used to prep the lower extremity without difficulty. The leg was draped free. Tourniquet was placed high on the leg, and was elevated after exsanguination following the surgical pause. Total tourniquet time was 72 minutes at 250 mmHg. Prior to the commencement of the surgical procedure, a surgical pause was performed. At the time of the surgical pause, we confirmed the site and side of surgery as well as preoperative surgical markings and appropriate and timely administration of IV antibiotics, Ancef 2 g. Availability of equipment was also confirmed. Fluoroscopy was used throughout the surgical procedure. Attention was directed to the proximal tibia to prepare for entrance of the intramedullary nail. An incision was made along the anteromedial aspect of the patellar tendon. Dissection continued through skin and soft tissues using a scalpel, and hemostasis was obtained using electrocautery. Combination of a freer and guidewire were used to enter the proximal tibia in appropriate position for placement of the tibial nail. The plan was that we would place a tibial nail as close as possible to the distal articular surface without violating that surface. The guidewire was placed in appropriate position. Proximal reaming was accomplished. We were able to further passed the guidewire and measurement was accomplished. The measurement was 360 mm. Sequential reaming was then accomplished so that we could place the size 12 tibial nail in appropriate position. This was a 12 mm x 360 mm nail. Reaming was accomplished to a size 13 mm to allow the nail to be passed. We were able to pass the tibial nail without difficulty. Once the tibial nail was as distal as possible, attention was directed to the locking screws. 2 screws were placed proximally under fluoroscopic guidance to lock the nail. The 2 proximal screws included a 5 mm x 70 mm and a 5 mm x 45 mm. Distally, the perfect [place] technique was utilized. This was accomplished under fluoroscopic guidance as well. Once the distal screw was placed, fluoroscopy was utilized to assure that the fracture was well reduced, and that the screws as well as intramedullary yamila were in appropriate position. The proximal aspect of the yamila was evaluated, and it was covered by bone anteriorly, but an end cap was not felt to be necessary. Following this, preparation was made for closure. The wound was copiously irrigated. The fascial tissues were closed including the patellar tendon. This was accomplished with 0 Vicryl in an interrupted fashion. Subcutaneous tissues were closed with 2-0 Monocryl, and the skin was closed with skin arron. This was then covered with OpSite. Closure of wounds included the 2 stab wounds for the placement of locking screws as well as the more proximal incision as noted. All were coated with Dermabond and subsequently OpSite was placed. The leg was then wrapped with sterile soft roll and an Mateusz wrap. Tourniquet was released after 72 minutes. Related Problem List Diagnoses (1) Closed fracture of shaft of left tibia and fibula:
--- NOTE | 2024-11-19 12:30 | P.PN_ITS ---
Subjective 2 Subjective: No events overnight. Patient has remained hemodynamically stable and afebrile. Plan for OR today. Vitals/I&O/Wt Last Vital Signs Temp 98.6 F 11/19/24 04:00 Pulse 73 11/19/24 04:00 Resp 16 11/19/24 04:00 BP 149/95 11/19/24 04:00 Pulse Ox 96 11/19/24 04:00 O2 Del Method Room Air 11/19/24 04:00 O2 Flow Rate 6 11/19/24 12:13 11/18/24 11/19/24 11/19/24 22:59 06:59 14:59 Intake Total 240 / 240 0 / 240 100 / 100 Output Total 250 / 250 300 / 550 215 / 215 Balance -10 / -10 -300 / -310 -115 / -115 Weight last 48 hrs Weight 93.032 kg Weight 91.626 kg Weight 90.718 kg Physical Exam 2 Narrative: General: No acute distress, AO x3 HEENT: PERRLA, pupils bilaterally equal and reactive Chest: Normal vesicular breath sounds, no added sounds, equal good air entry bilaterally CVS: S1-S2 regular, no murmurs, no tachycardia, no gallops, no rubs Abdomen: Soft, nontender, no organomegaly, bowel sounds present Neuro: No focal deficits, no facial deformity, AO x3, Urinary Catheter Management: Ornelas: Cath Placed During This Visit: yes Reason for Continuing Indwelling Catheter: Not indwelling catheter Urinary Catheter Date of Insertion: 11/18/24 Urinary Catheter Time of Insertion: 17:00 Data 11/19/24 04:37 11/19/24 04:37 A&P Assessment and plan (1) Closed left tibial fracture: Orthopedic has been consulted from the ER. Currently in splint. Plan for ORIF. Continue with home dose of hydrocodone every 4 hours as needed. 10 mg of hydrocodone nightly scheduled. Monitor hemoglobin postoperatively. (2) Hypertension: Goal blood pressure less than 140/90 mmHg. Continue with home dose of metoprolol for now. Uptitrate for goal blood pressure. Qualifiers: Hypertension type: primary hypertension Qualified Code(s): I10 - Essential (primary) hypertension (3) Cauda equina syndrome: (4) Lumbar radiculopathy: Plan CODE STATUS: Discussed in detail with the patient. DNR/DNI. Patient's granddaughter Ms. Moulton will be the DPOA. Cardiac diet. N.p.o. after midnight. Famotidine for PUD prophylaxis Heparin 5000 every 12 hourly for DVT prophylaxis Discharge planning: Assisted living requesting patient to go to SNF postoperatively. Case management working on the same. PDMP PDMP Reviewed: Not Reviewed Attestations 2 Medical Necessity Statement*: Requested hospitalization for management of tibial fracture requiring ORIF by a safe discharge planning is sought Diagnoses Closed left tibial fracture S82.A Primary hypertension I10 Hypertension type: primary hypertension Cauda equina syndrome G83.4 Lumbar radiculopathy M54.16
--- NOTE | 2024-11-19 13:05 | PC.NURSE ---
Pt arrives to floor from PACU at 1300.
[2024-11-19] MEDS: oxyCODONE 5 mg IR Tab/Cap PO (13:48)
[2024-11-19] MEDS: acetaminophen 500 mg Tablet 1000 MG PO ×2 (13:48→20:05)
[2024-11-19] MEDS: heparin 5,000 unit/mL INJ 1 mL 5000 UNIT SUBCUT (13:48)
[2024-11-19] MEDS: docusate sodium 100 mg Capsule PO (16:46)
[2024-11-19] MEDS: famotidine 20 mg Tablet PO (16:47)
[2024-11-19] MEDS: HYDROcodone-acetaminophen 10-325 mg Tablet 2 TAB PO (20:04)
[2024-11-19] MEDS: MELATONIN 3 MG TABLET PO (20:05)
[2024-11-20] VITALS (9 sets, daily range): BP systolic 98–134; BP diastolic 48–90; PULSE 64–85; RESP 15–18; TEMP 36.4–36.8; O2SAT 89–100
[2024-11-20] MEDS: ceFAZolin 2,000 mg SDV 2000 MG IVP ×2 (01:05→09:50)
[2024-11-20] MEDS: heparin 5,000 unit/mL INJ 1 mL 5000 UNIT SUBCUT ×2 (01:05→14:16)
[2024-11-20] MEDS: oxyCODONE 5 mg IR Tab/Cap PO (03:26)
[2024-11-20 04:44] LABS: Basophils % 0.6 %; Eosinophils # 0.1 10^3/uL (0.0-0.8); Eosinophils % 1.4 %; Hematocrit 31.4 % (36-47); Lymphocytes # 1.6 10^3/uL (0.8-4.8); Lymphocytes % 32.1 %; Mean Corpuscular HGB Conc 29.9 g/dL (30-55); Mean Corpuscular Hemoglobin 33.2 pg (27-33); Mean Platelet Volume 10.8 fL (7.4-10.4); Monocytes # 0.7 10^3/uL (0.2-0.9); Monocytes % 13.3 %; Neutrophils # 2.56 10^3/uL (1.8-7.7); Neutrophils % 52.4 %; Nucleated Red Blood Cells % 0 %; Platelet Count 127 10^3/cmm (157-399); Red Blood Count 2.83 10^6/uL (3.85-5.65); Red Cell Distribution Width 13.2 % (12.1-15.1); White Blood Count 4.89 10^3/uL (3.29-11.43)
[2024-11-20 04:56] LABS: Alanine Aminotransferase 13 U/L (0-33); Albumin Level 3.2 g/dL (3.5-5.2); Alkaline Phosphatase 68 U/L (35-105); Anion Gap 12.8 (5-19); Aspartate Amino Transferase 24 U/L (0-32); Blood Urea Nitrogen 23 mg/dL (8-23); Calcium 8.2 mg/dL (8.5-10.5); Carbon Dioxide 27 mmol/L (22-29); Chloride 104 mmol/L (98-107); Globulin 2.6 g/dL (1.3-4.6); Glucose 94 mg/dL (65-115); Magnesium 2.1 mg/dL (1.7-2.3); Osmolality Calculated 291 mOsm/kg (285-295); Phosphorus 4.8 mg/dL (2.5-4.5); Potassium 4.8 mmol/L (3.5-5.1); Sodium 139 mmol/L (136-145); Total Bilirubin 0.3 mg/dL (0.15-1.2); Total Protein 5.8 g/dL (6.6-8.7)
[2024-11-20] MEDS: docusate sodium 100 mg Capsule PO ×2 (08:21→17:54)
[2024-11-20] MEDS: famotidine 20 mg Tablet PO ×2 (08:21→17:54)
[2024-11-20] MEDS: aspirin 325 mg EC Tablet PO (08:21)
[2024-11-20] MEDS: CELEcoxib 200 mg Capsule PO (08:21)
[2024-11-20] MEDS: duloxetine 20 mg Capsule 40 MG PO (08:21)
[2024-11-20] MEDS: metoprolol succinate ER (24 HR) 50 mg Tablet PO (08:21)
[2024-11-20] MEDS: cyanocobalamin 1,000 mcg Tablet 2000 MCG PO (08:22)
[2024-11-20] MEDS: acetaminophen 325 mg Tablet 650 MG PO (09:50)
[2024-11-20] MEDS: acetaminophen 500 mg Tablet 1000 MG PO ×2 (14:16→20:13)
--- NOTE | 2024-11-20 15:05 | P.PN_ITS ---
Subjective 2 Subjective: No acute events overnight. Seen with family at bedside. Patient denies any nausea, vomiting, headache. States pain is controlled Doble. Worked with physical therapy. Blood pressure slightly soft today. Vitals/I&O/Wt Last Vital Signs Temp 98.3 F 11/20/24 07:58 Pulse 81 11/20/24 10:00 Resp 18 11/20/24 10:00 BP 98/50 11/20/24 13:30 Pulse Ox 89 L 11/20/24 10:00 O2 Del Method Room Air 11/20/24 10:00 O2 Flow Rate 2 11/19/24 17:55 11/20/24 11/20/24 11/20/24 06:59 14:59 22:59 Intake Total 240 / 240 Output Total 425 / 840 Balance -425 / 288 240 / 240 Weight last 48 hrs Weight 98.52 kg Weight 93.032 kg Weight 91.626 kg Physical Exam 2 Narrative: General: No acute distress, AO x3 HEENT: PERRLA, pupils bilaterally equal and reactive Chest: Normal vesicular breath sounds, no added sounds, equal good air entry bilaterally CVS: S1-S2 regular, no murmurs, no tachycardia, no gallops, no rubs Abdomen: Soft, nontender, no organomegaly, bowel sounds present Neuro: No focal deficits, no facial deformity, AO x3, Urinary Catheter Management: Ornelas: Cath Placed During This Visit: yes Reason for Continuing Indwelling Catheter: Required Immobilization for Trauma or Surgery or Anesthesia Urinary Catheter Date of Insertion: 11/18/24 Urinary Catheter Time of Insertion: 17:00 Data 11/20/24 03:48 11/20/24 03:48 A&P Assessment and plan (1) Closed left tibial fracture: Orthopedic has been consulted from the ER. Currently in splint. Plan for ORIF. Complaining of significant pain. Continue with home dose of hydrocodone 10 mg nightly. Switch from home dose of hydrocodone to oxycodone 10 mg every 6 hours as needed. Add tramadol 50 mg every 4 hours as needed. Will request nursing to alternate between oxycodone and tramadol. Aspirin 325 mg daily as per surgical team. Hemoglobin 9.4 today. Seems to be close to baseline. Will continue to monitor daily. (2) Hypertension: Goal blood pressure less than 140/90 mmHg. Blood pressure slightly soft today. Change metoprolol 50 mg succinate daily to metoprolol tartrate 25 mg twice daily. Qualifiers: Hypertension type: primary hypertension Qualified Code(s): I10 - Essential (primary) hypertension (3) Cauda equina syndrome: (4) Lumbar radiculopathy: Plan CODE STATUS: Discussed in detail with the patient. DNR/DNI. Patient's granddaughter Ms. Moulton will be the DPOA. Cardiac diet. Famotidine for PUD prophylaxis Heparin 5000 every 12 hourly for DVT prophylaxis DC Ornelas catheter. Discharge planning: Assisted living requesting patient to go to SNF postoperatively. Case management working on the same. PDMP PDMP Reviewed: Not Reviewed Attestations 2 Medical Necessity Statement*: Requires further hospitalization for management of postoperative care in a patient with concerns for left tibial fracture, post-ORIF while safe discharge planning is sought. Diagnoses Closed left tibial fracture S82.202A Primary hypertension I10 Hypertension type: primary hypertension Cauda equina syndrome G83.4 Lumbar radiculopathy M54.16
--- NOTE | 2024-11-20 15:33 | P.PN_ITS ---
Subjective 2 Subjective: Patient is seen in the room with her family. She is comfortable and doing well. Medications: Reviewed: Yes Vitals/I&O/Wt Last Vital Signs Temp 98.3 F 11/20/24 07:58 Pulse 81 11/20/24 10:00 Resp 18 11/20/24 10:00 BP 98/50 11/20/24 13:30 Pulse Ox 89 L 11/20/24 10:00 O2 Del Method Room Air 11/20/24 10:00 O2 Flow Rate 2 11/19/24 17:55 11/20/24 11/20/24 11/20/24 06:59 14:59 22:59 Intake Total 240 / 240 Output Total 425 / 840 Balance -425 / 288 240 / 240 Weight last 48 hrs Weight 217 lb 3.2 oz Weight 205 lb 1.6 oz Weight 202 lb Physical Exam 2 Narrative: The patient is alert and oriented. She is seen with her sister and her granddaughter. Const: COMMON NORMALS: no acute distress, average body habitus, patient oriented x3 and alert GENERAL APPEARANCE: cooperative and comfortable O RIENTATION/CONSCIOUSNESS: Yes awake HENMT: COMMON NORMALS: normocephalic and atraumatic HEAD & SCALP: n ormocephalic and atraumatic Eye: GENERAL EYE: appearance normal, both eyes and all related structures Chest: COMMONS NORMALS: normal inspection of the chest Resp: COMMON NORMALS: normal respiratory effort EFFORT & INSPECTION: Yes able to speak in complete sentences and Yes symmetric chest movement Extremity: LEFT LOWER EXTREMITY: Yes lower leg (Fracture boot is in place.) Left lower leg: Yes neurovascular exam (Able to wiggle toes, minimal sensation preop remains unchanged) Neuro: COMMON NORMALS: patient oriented x3 SENSORIUM/ORIENTATION: Yes alert Psych: COMMON NORMALS: mental status grossly normal APPEARANCE: Yes grossly normal ATTITUDE: Yes calm and Yes engaged ATTENTION/CONCENTRATION: Yes attention grossly intact Skin: COMMON NORMALS: no rashes or lesions noted GENERAL SKIN EXAM: no rashes or lesions noted Urinary Catheter Management: Ornelas: Cath Placed During This Visit: yes Reason for Continuing Indwelling Catheter: Required Immobilization for Trauma or Surgery or Anesthesia Urinary Catheter Date of Insertion: 11/18/24 Urinary Catheter Time of Insertion: 17:00 Data 11/20/24 03:48 11/20/24 03:48 A&P Assessment and plan (1) Closed fracture of shaft of left tibia and fibula: Patient underwent open reduction internal fixation of her tib-fib fracture uneventfully yesterday. She is doing well today and appears comfortable. Motor function is intact. She had significant decrease in sensory function preoperatively and this remains so. She states there is no significant change in her sensation. She is laying in bed with minimal swelling in the toes. She may ambulate with physical therapy touchdown weightbearing only. Qualifiers: Encounter type: initial encounter Qualified Code(s): S82.202A - Unspecified fracture of shaft of left tibia, initial encounter for closed fracture; S82.402A - Unspecified fracture of shaft of left fibula, initial encounter for closed fracture PDMP PDMP Reviewed: Not Reviewed Attestations 2 Medical Necessity Statement*: Per hospitalist team Coding Level of Care Code Acute Code for Chg Fwd Diagnoses Closed fracture of shaft of left tibia and fibula, initial encounter S82.202A; S82.402A Encounter type: initial encounter
[2024-11-20] MEDS: TRAMadol 50 mg Tablet PO (17:54)
[2024-11-20] MEDS: MELATONIN 3 MG TABLET PO (20:13)
[2024-11-20] MEDS: HYDROcodone-acetaminophen 10-325 mg Tablet 2 TAB PO (20:13)
[2024-11-21] VITALS (7 sets, daily range): BP systolic 103–139; BP diastolic 49–79; PULSE 69–84; RESP 16–18; TEMP 36.4–36.6; O2SAT 94–99
[2024-11-21] MEDS: heparin 5,000 unit/mL INJ 1 mL 5000 UNIT SUBCUT ×2 (01:13→14:04)
[2024-11-21] MEDS: acetaminophen 325 mg Tablet 650 MG PO (01:16)
[2024-11-21] MEDS: acetaminophen 500 mg Tablet 1000 MG PO (04:20)
[2024-11-21 04:58] LABS: Basophils % 0.2 %; Eosinophils # 0.1 10^3/uL (0.0-0.8); Eosinophils % 3.2 %; Hematocrit 28.1 % (36-47); Lymphocytes # 1.3 10^3/uL (0.8-4.8); Lymphocytes % 31.7 %; Mean Corpuscular HGB Conc 30.6 g/dL (30-55); Mean Corpuscular Hemoglobin 33.6 pg (27-33); Mean Corpuscular Volume 109.8 fl (85-98); Mean Platelet Volume 10.9 fL (7.4-10.4); Monocytes # 0.6 10^3/uL (0.2-0.9); Neutrophils # 2.06 10^3/uL (1.8-7.7); Neutrophils % 50.7 %; Nucleated Red Blood Cells % 0 %; Platelet Count 115 10^3/cmm (157-399); Red Blood Count 2.56 10^6/uL (3.85-5.65); Red Cell Distribution Width 12.9 % (12.1-15.1); White Blood Count 4.07 10^3/uL (3.29-11.43)
[2024-11-21 05:27] LABS: Alanine Aminotransferase < 5 U/L (0-33); Alkaline Phosphatase 63 U/L (35-105); Anion Gap 12.8 (5-19); Aspartate Amino Transferase 15 U/L (0-32); Blood Urea Nitrogen 28 mg/dL (8-23); Calcium 8.2 mg/dL (8.5-10.5); Carbon Dioxide 27 mmol/L (22-29); Chloride 106 mmol/L (98-107); Globulin 2.4 g/dL (1.3-4.6); Glucose 93 mg/dL (65-115); Magnesium 2.1 mg/dL (1.7-2.3); Osmolality Calculated 297 mOsm/kg (285-295); Phosphorus 3.9 mg/dL (2.5-4.5); Potassium 4.8 mmol/L (3.5-5.1); Sodium 141 mmol/L (136-145); Total Bilirubin 0.3 mg/dL (0.15-1.2); Total Protein 5.4 g/dL (6.6-8.7)
[2024-11-21] MEDS: cyanocobalamin 1,000 mcg Tablet 2000 MCG PO (09:00)
[2024-11-21] MEDS: metoprolol tartrate 25 mg Tablet PO ×2 (09:00→20:30)
[2024-11-21] MEDS: famotidine 20 mg Tablet PO ×2 (09:00→17:46)
[2024-11-21] MEDS: aspirin 325 mg EC Tablet PO (09:00)
[2024-11-21] MEDS: docusate sodium 100 mg Capsule PO ×2 (09:00→17:46)
[2024-11-21] MEDS: CELEcoxib 200 mg Capsule PO (09:00)
[2024-11-21] MEDS: duloxetine 20 mg Capsule 40 MG PO (09:00)
[2024-11-21] MEDS: oxyCODONE 5 mg IR Tab/Cap 10 MG PO (11:40)
[2024-11-21] MEDS: ondansetron 2 mg/ML SDV 2 mL 4 MG IVP (12:30)
--- NOTE | 2024-11-21 13:34 | P.PN_ITS ---
Subjective 2 Subjective: No acute events overnight. Has remained hemodynamically stable and afebrile. Blood pressure better controlled today. Pain seems to be better controlled. Medications: Reviewed: Yes Vitals/I&O/Wt Last Vital Signs Temp 97.6 F 11/21/24 11:42 Pulse 74 11/21/24 11:42 Resp 18 11/21/24 11:42 BP 130/79 11/21/24 11:42 Pulse Ox 94 11/21/24 11:42 O2 Del Method Room Air 11/21/24 11:42 O2 Flow Rate 1 11/21/24 07:57 11/20/24 11/21/24 11/21/24 22:59 06:59 14:59 Intake Total 240 / 480 120 / 600 840 / 840 Output Total 350 / 350 Balance 240 / 480 -230 / 250 840 / 840 Weight last 48 hrs Weight 99.11 kg Weight 98.52 kg Physical Exam 2 Narrative: General: No acute distress, AO x3 HEENT: PERRLA, pupils bilaterally equal and reactive Chest: Normal vesicular breath sounds, no added sounds, equal good air entry bilaterally CVS: S1-S2 regular, no murmurs, no tachycardia, no gallops, no rubs Abdomen: Soft, nontender, no organomegaly, bowel sounds present Neuro: No focal deficits, no facial deformity, AO x3, Urinary Catheter Management: Ornelas: Cath Placed During This Visit: yes, but has since been removed by the nurse Reason for Continuing Indwelling Catheter: Decision to DC Catheter Urinary Catheter Date of Insertion: 11/18/24 Urinary Catheter Time of Insertion: 17:00 Date Urinary Catheter Removed: 11/20/24 Time Urinary Catheter Discontinued: 18:00 Data 11/21/24 04:11 11/21/24 04:11 A&P Assessment and plan (1) Closed left tibial fracture: Orthopedic has been consulted from the ER. Currently in splint. Plan for ORIF. Complaining of significant pain. Continue with home dose of hydrocodone 10 mg nightly. Switch from home dose of hydrocodone to oxycodone 10 mg every 6 hours as needed. Add tramadol 50 mg every 4 hours as needed. Will request nursing to alternate between oxycodone and tramadol. Aspirin 325 mg daily as per surgical team. Hemoglobin 9.4 today. Seems to be close to baseline. Will continue to monitor daily. (2) Hypertension: Goal blood pressure less than 140/90 mmHg. Blood pressure slightly soft today. Change metoprolol 50 mg succinate daily to metoprolol tartrate 25 mg twice daily. Qualifiers: Hypertension type: primary hypertension Qualified Code(s): I10 - Essential (primary) hypertension (3) Cauda equina syndrome: (4) Lumbar radiculopathy: Plan CODE STATUS: Discussed in detail with the patient. DNR/DNI. Patient's granddaughter Ms. Moulton will be the DPOA. Cardiac diet. Famotidine for PUD prophylaxis Heparin 5000 every 12 hourly for DVT prophylaxis DC Ornelas catheter. Plan for the day: Continue with physical therapy. Continue with current pain management. Incentive spirometry. Monitor hemoglobin. Down to 8.6. Preoperative hemoglobin 10.5. Most likely mild postoperative anemia. Continue to monitor daily. Target hemoglobin more than 7. Transfuse accordingly. Appropriate iron panel. Blood pressure stable. Goal blood pressure less than 140/90 mmHg. Continue with reduced dose of metoprolol 25 mg twice daily Discharge planning: Assisted living requesting patient to go to SNF postoperatively. Case management working on the same. PDMP PDMP Reviewed: Not Reviewed Attestations 2 Medical Necessity Statement*: Requires further hospitalization for postoperative management in setting of post ORIF while safe discharge planning is sought Diagnoses Closed left tibial fracture S82.202A Primary hypertension I10 Hypertension type: primary hypertension Cauda equina syndrome G83.4 Lumbar radiculopathy M54.16
[2024-11-21] MEDS: TRAMadol 50 mg Tablet PO (14:11)
--- NOTE | 2024-11-21 16:18 | P.PN_ITS ---
Subjective 2 Subjective: Patient is doing well but struggling with PT. Sensation is better toady. Medications: Reviewed: Yes Vitals/I&O/Wt Last Vital Signs Temp 97.5 F L 11/21/24 16:10 Pulse 72 11/21/24 16:10 Resp 18 11/21/24 16:10 BP 108/49 11/21/24 16:10 Pulse Ox 97 11/21/24 16:10 O2 Del Method Nasal Cannula 11/21/24 16:10 O2 Flow Rate 1 11/21/24 07:57 11/21/24 11/21/24 11/21/24 06:59 14:59 22:59 Intake Total 120 / 600 840 / 840 Output Total 350 / 350 Balance -230 / 250 840 / 840 Weight last 48 hrs Weight 218 lb 8 oz Weight 217 lb 3.2 oz Physical Exam 2 Narrative: The patient is alert and oriented. She is seen with her sister and her granddaughter. Const: COMMON NORMALS: no acute distress, average body habitus, patient oriented x3 and alert GENERAL APPEARANCE: cooperative and comfortable O RIENTATION/CONSCIOUSNESS: Yes awake HENMT: COMMON NORMALS: normocephalic and atraumatic HEAD & SCALP: n ormocephalic and atraumatic Eye: GENERAL EYE: appearance normal, both eyes and all related structures Chest: COMMONS NORMALS: normal inspection of the chest Resp: COMMON NORMALS: normal respiratory effort EFFORT & INSPECTION: Yes able to speak in complete sentences and Yes symmetric chest movement Extremity: LEFT LOWER EXTREMITY: Yes lower leg (Dressing removed. Wound is benign. Dressing changed.) Neuro: COMMON NORMALS: patient oriented x3 SENSORIUM/ORIENTATION: Yes alert Psych: COMMON NORMALS: mental status grossly normal APPEARANCE: Yes grossly normal ATTITUDE: Yes calm and Yes engaged ATTENTION/CONCENTRATION: Yes attention grossly intact Skin: COMMON NORMALS: no rashes or lesions noted GENERAL SKIN EXAM: no rashes or lesions noted Urinary Catheter Management: Ornelas: Cath Placed During This Visit: yes, but has since been removed by the nurse Reason for Continuing Indwelling Catheter: Decision to DC Catheter Urinary Catheter Date of Insertion: 11/18/24 Urinary Catheter Time of Insertion: 17:00 Date Urinary Catheter Removed: 11/20/24 Time Urinary Catheter Discontinued: 18:00 Data 11/21/24 04:11 11/21/24 04:11 A&P Assessment and plan (1) Closed fracture of shaft of left tibia and fibula: Patient underwent open reduction internal fixation of her tib-fib fracture uneventfully. She is doing well today and appears comfortable. Motor function is intact. She may ambulate with physical therapy touchdown weightbearing only. Sensation is improved. Dressing is removed and incisions are benign. Qualifiers: Encounter type: initial encounter Qualified Code(s): S82.202A - Unspecified fracture of shaft of left tibia, initial encounter for closed fracture; S82.402A - Unspecified fracture of shaft of left fibula, initial encounter for closed fracture PDMP PDMP Reviewed: Not Reviewed Attestations 2 Medical Necessity Statement*: Per hospitalist team. Coding Level of Care Code Acute Code for Chg Fwd Diagnoses Closed fracture of shaft of left tibia and fibula, initial encounter S82.202A; S82.402A Encounter type: initial encounter
[2024-11-21] MEDS: MELATONIN 3 MG TABLET PO (20:30)
[2024-11-21] MEDS: HYDROcodone-acetaminophen 10-325 mg Tablet 2 TAB PO (20:30)
[2024-11-22 02:07] VITALS: RESP 16
[2024-11-22] MEDS: oxyCODONE 5 mg IR Tab/Cap 10 MG PO ×2 (02:07→08:26)
[2024-11-22 03:56] LABS: Basophils % 0.2 %; Eosinophils # 0.1 10^3/uL (0.0-0.8); Eosinophils % 1.4 %; Hematocrit 28.8 % (36-47); Lymphocytes # 1.2 10^3/uL (0.8-4.8); Lymphocytes % 20.4 %; Mean Corpuscular HGB Conc 30.9 g/dL (30-55); Mean Corpuscular Hemoglobin 34.4 pg (27-33); Mean Corpuscular Volume 111.2 fl (85-98); Mean Platelet Volume 11.2 fL (7.4-10.4); Monocytes # 0.6 10^3/uL (0.2-0.9); Monocytes % 10.8 %; Neutrophils # 3.83 10^3/uL (1.8-7.7); Neutrophils % 66.7 %; Nucleated Red Blood Cells % 0 %; Platelet Count 115 10^3/cmm (157-399); Red Blood Count 2.59 10^6/uL (3.85-5.65); Red Cell Distribution Width 12.9 % (12.1-15.1); White Blood Count 5.74 10^3/uL (3.29-11.43)
[2024-11-22 04:00] VITALS: BP 130/87; PULSE 74; RESP 15; TEMP 36.9; O2SAT 97
--- NOTE | 2024-11-22 05:20 | PC.NURSE ---
Patient yelling hello? When entering room, patient sitting on side of bed with call light sitting right next to her. Bed alarm was on zone 1, but was not alarming with patient on side of bed. Patient educated to use call light to call for help. Patient stated I need help going back to my room. I re-oriented patient that she was in her room in the hospital. Patient assisted back to bed. Bed alarm set to zone 2.
[2024-11-22] MEDS: acetaminophen 500 mg Tablet 1000 MG PO (06:11)
[2024-11-22] MEDS: TRAMadol 50 mg Tablet PO (06:11)
[2024-11-22] MEDS: heparin 5,000 unit/mL INJ 1 mL 5000 UNIT SUBCUT (06:11)
[2024-11-22 08:00] VITALS: BP 109/57; PULSE 70; RESP 17; TEMP 36.7; O2SAT 96
[2024-11-22 08:26] VITALS: RESP 16
[2024-11-22] MEDS: docusate sodium 100 mg Capsule PO (08:26)
[2024-11-22] MEDS: CELEcoxib 200 mg Capsule PO (08:26)
[2024-11-22] MEDS: famotidine 20 mg Tablet PO (08:27)
[2024-11-22] MEDS: metoprolol tartrate 25 mg Tablet PO (08:27)
[2024-11-22] MEDS: aspirin 325 mg EC Tablet PO (08:27)
[2024-11-22] MEDS: duloxetine 20 mg Capsule 40 MG PO (08:27)
[2024-11-22] MEDS: cyanocobalamin 1,000 mcg Tablet 2000 MCG PO (08:27)
[2024-11-22 11:29] LABS: SARS Covid-2 Antigen Negative (Negative)
--- NOTE | 2024-11-22 11:39 | P.DS_ITS ---
Discharge Providers Date of Admission: 11/18/24 15:41 Date of Discharge: November 22, 2024 Attending Provider at Admission: Dereck Moralez MD Attending Provider at Discharge: Shahid Geller MD Primary Care Provider: Britton Vu DO Diagnoses at Discharge Discharge Diagnosis (1) Closed fracture of shaft of left tibia and fibula: Status: Acute Qualifiers: Encounter type: initial encounter Qualified Code(s): S82.202A - Unspecified fracture of shaft of left tibia, initial encounter for closed fracture; S82.402A - Unspecified fracture of shaft of left fibula, initial encounter for closed fracture Reason for Visit Reason for Visit: fall - left foot injury Hospital Course Hospital Course This is a 89-year-old female with a past medical history of cauda equina requiring back surgery, wheelchair-bound, skilled nursing, who is incontinent of bladder and bowel, self caths, who presents [facility] status post fall, with pain in her left lower limb Patient was admitted to [facility] for closed fracture of shaft of left tibia and fibula, status post open reduction internal fixation, she tolerated procedure well, discharged to halfway facility, touchdown weightbearing, and discharged on aspirin 325 mg daily for DVT prophylaxis Patient's postoperative course was complicated with postoperative anemia, no hemodynamic compromise, no bloody or black stools, hemoglobin on discharge 8.9 On day of discharge 11/23/2024 patient had somnolence after receiving oxycodone, reexamined later in the morning, she is now alert oriented x 3, following all commands, no significant somnolence, has no significant pain complaints. Discussed de-escalating her back to her home dose of hydrocodone, due to concerns for oxycodone causing somnolence, she voiced understanding,and all questions answered. Physical Exam Const: COMMON NORMALS: no acute distress and patient oriented x3 Resp: COMMON NORMALS: normal respiratory effort, No retractions, No use of accessory muscles and clear to auscultation bilaterally AUSCULTATION: clear to auscultation bilaterally Cardio: COMMON NORMALS: regular rate, regular rhythm, S1 normal heart sound present and S2 normal heart sound present RATE: regular rate RHYTHM: regu lar rhythm HEART SOUNDS: S1 normal heart sound present and S2 normal heart sound present GI: COMMON NORMALS: Normal to inspection, nondistended, normoactive bowel sounds present and non-tender Extremity: COMMON NORMALS: no pedal edema Neuro: COMMON NORMALS: patient oriented x3 Psych: COMMON NORMALS: mental status grossly normal Skin: NARRATIVE SKIN EXAM: Surgical site looks clean and dry Urinary Catheter Management: Ornelas: Cath Placed During This Visit: yes, but has since been removed by the nurse Reason for Continuing Indwelling Catheter: Decision to DC Catheter Urinary Catheter Date of Insertion: 11/18/24 Urinary Catheter Time of Insertion: 17:00 Date Urinary Catheter Removed: 11/20/24 Time Urinary Catheter Discontinued: 18:00 Discharge Data Studies Completed and Pending Completed Studies During Hospitalization Category Date Time Status XR ankle LT min 3V* [id number] Stat Exams 11/18/24 13:47 Completed XR chest 1V portable [id number] Urgent Exams 11/18/24 14:17 Completed XR foot LT min 3V* [id number] Stat Exams 11/18/24 13:03 Completed XR knee LT 3V* [id number] Stat Exams 11/18/24 13:44 Completed XR tibia fibula LT 2V [id number] Routine Exams 11/19/24 00:00 Completed XR tibia fibula LT 2V [id number] Stat Exams 11/18/24 13:44 Completed Radiology Impressions Foot X-Ray 11/18/24 13:03 Impression: 1. Negative for fracture. 2. Fusion of the left second toe PIP joint. 3. 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 Knee X-Ray 11/18/24 13:44 Impression: 1. Negative for left knee fracture. 2. Severe osteoarthritis of the left knee. Ankle X-Ray 11/18/24 13:47 Impression: Fractures of the distal third of the left tibia and distal portion of the left fibula. Chest X-Ray 11/18/24 14:17 Impression: 1. Stable elevation left diaphragm. 2. Atherosclerosis. Laboratory Results WBC 5.74 10^3/uL (3.29-11.43) 11/22/24 03:05 RBC 2.59 10^6/uL (3.85-5.65) L 11/22/24 03:05 Hgb 8.90 g/dL (11.27-16.99) L 11/22/24 03:05 Hct 28.8 % (36-47) L 11/22/24 03:05 MCV 111.2 fl (85-98) H 11/22/24 03:05 MCH 34.4 pg (27-33) H 11/22/24 03:05 MCHC 30.9 g/dL (30-55) 11/22/24 03:05 RDW 12.9 % (12.1-15.1) 11/22/24 03:05 Plt Count 115 10^3/cmm (157-399) L 11/22/24 03:05 MPV 11.2 fL (7.4-10.4) H 11/22/24 03:05 Neut % (Auto) 66.7 % 11/22/24 03:05 Lymph % (Auto) 20.4 % 11/22/24 03:05 [place] % (Auto) 10.8 % 11/22/24 03:05 Eos % (Auto) 1.4 % 11/22/24 03:05 Baso % (Auto) 0.2 % 11/22/24 03:05 Neut # (Auto) 3.83 10^3/uL (1.8-7.7) 11/22/24 03:05 Lymph # (Auto) 1.2 10^3/uL (0.8-4.8) 11/22/24 03:05 [place] # (Auto) 0.6 10^3/uL (0.2-0.9) 11/22/24 03:05 Eos # (Auto) 0.1 10^3/uL (0.0-0.8) 11/22/24 03:05 Baso # (Auto) 0.0 10^3/uL (0.0-0.1) 11/22/24 03:05 Nucleated RBC % (auto) 0 % 11/22/24 03:05 Nucleated RBCs # 0.0 /100WBC 11/22/24 03:05 Sodium 141 mmol/L (136-145) 11/21/24 04:11 Potassium 4.8 mmol/L (3.5-5.1) 11/21/24 04:11 Chloride 106 mmol/L (98-107) 11/21/24 04:11 Carbon Dioxide 27 mmol/L (22-29) 11/21/24 04:11 Anion Gap 12.8 (5-19) 11/21/24 04:11 BUN 28 mg/dL (8-23) H 11/21/24 04:11 Creatinine 0.9 mg/dL (0.5-0.9) 11/21/24 04:11 GFR Calculation Not Reportable 11/21/24 04:11 Glucose 93 mg/dL (65-115) 11/21/24 04:11 Estimat Average Glucose 108 11/18/24 16:05 Hemoglobin A1c 5.4 % (4.0-6.0) 11/18/24 16:05 Calculated Osmolality 297 mOsm/kg (285-295) H 11/21/24 04:11 Calcium 8.2 mg/dL (8.5-10.5) L 11/21/24 04:11 Phosphorus 3.9 mg/dL (2.5-4.5) 11/21/24 04:11 Magnesium 2.1 mg/dL (1.7-2.3) 11/21/24 04:11 Iron 79 ug/dL (37-145) 11/18/24 16:05 TIBC 254 mcg/dl 11/18/24 16:05 % Saturation 31.1 % (20-50) 11/18/24 16:05 Unsat Iron Binding 175 ug/dL (112-347) 11/18/24 16:05 Total Bilirubin 0.3 mg/dL (0.15-1.2) 11/21/24 04:11 AST 15 U/L (0-32) 11/21/24 04:11 ALT < 5 U/L (0-33) 11/21/24 04:11 Alkaline Phosphatase 63 U/L (35-105) 11/21/24 04:11 Total Protein 5.4 g/dL (6.6-8.7) L 11/21/24 04:11 Albumin 3.0 g/dL (3.5-5.2) L 11/21/24 04:11 Globulin 2.4 g/dL (1.3-4.6) 11/21/24 04:11 Triglycerides 113 mg/dL (0-150) 11/19/24 04:37 Cholesterol 187 mg/dL (0-200) 11/19/24 04:37 LDL Cholesterol, Calc 119 mg/dL (50-129) 11/19/24 04:37 HDL Cholesterol 45 mg/dL (60-100) L 11/19/24 04:37 LDL/HDL Ratio 2.64 RATIO (0.00-3.22) 11/19/24 04:37 Cholesterol/HDL Ratio 4.16 mg/dL (0.0-4.40) 11/19/24 04:37 Vitamin B12 > 2000 pg/mL (232-1245) H 11/18/24 16:05 Folate 9.4 ng/mL (4.8-37.3) 11/19/24 04:37 Procalcitonin 0.07 ng/mL (0-0.5) 11/19/24 04:37 TSH 0.56 uIU/mL (0.27-4.20) 11/18/24 16:05 Urine Color Yellow (Yellow) 11/18/24 17:45 Urine Appearance Clear (CLEAR) 11/18/24 17:45 Urine pH 6.5 (5-7) 11/18/24 17:45 Ur Specific [place] 1.025 (1.005-1.030) 11/18/24 17:45 Urine Protein Trace (Negative) A 11/18/24 17:45 Urine Glucose (UA) Negative (Normal) 11/18/24 17:45 Urine Ketones Trace (Negative) 11/18/24 17:45 Urine Blood Negative (Negative) 11/18/24 17:45 Urine Nitrate Negative (Negative) 11/18/24 17:45 Urine Bilirubin Negative (Negative) 11/18/24 17:45 Urine Urobilinogen 1.0 mg/dL (Negative) 11/18/24 17:45 Ur Leukocyte Esterase 1+ (Negative) A 11/18/24 17:45 Urine RBC 3-5 /hpf (0-2) 11/18/24 17:45 Urine WBC 11-20 /hpf (0-5) H 11/18/24 17:45 Ur Squamous Epith Cells 0-5 /hpf (0-5) 11/18/24 17:45 Amorphous Sediment Not Reportable 11/18/24 17:45 Urine Bacteria None seen /hpf (NONE) 11/18/24 17:45 Hyaline Casts 0.81 /lpf 11/18/24 17:45 SARS-CoV-2 Ag (Rapid) Negative (Negative) 11/22/24 11:00 Blood Type AB Positive 11/19/24 08:39 Rho(D) Type Rh positive 11/19/24 08:39 Antibody Screen Negative 11/19/24 08:39 Vitals Last Vital Signs Temp 98.1 F 11/22/24 08:00 Pulse 70 11/22/24 08:00 Resp 16 11/22/24 08:26 BP 109/57 11/22/24 08:00 Pulse Ox 96 11/22/24 08:00 O2 Del Method Nasal Cannula 11/22/24 08:00 O2 Flow Rate 1 11/21/24 07:57 Discharge Plan Discharge Patient Disposition: Xfer [facility] Condition: Stable Prescriptions: New metoprolol tartrate 25 mg Tablet 25 mg PO BID@0900,2100 30 Days Qty: 30 0RF docusate sodium 100 mg Capsule 100 mg PO BID 30 Days Qty: 60 0RF aspirin 325 mg Tablet,Delayed Release (Dr/Ec) 325 mg PO DAILY 35 Days Qty: 35 0RF Continued acetaminophen 325 mg Tablet 650 mg PO QID PRN (Reason: Pain) magnesium hydroxide [Milk of Magnesia] 400 mg/5 mL Suspension 30 ml PO DAILY PRN (Reason: Constipation) bisacodyl [Dulcolax (bisacodyl)] 10 mg Suppository 10 mg MI DAILY PRN (Reason: Constipation) Fleet Enema 19-7 gram/118 mL Enema 118 ml MI DAILY PRN (Reason: Constipation) cyanocobalamin (vitamin B-12) [Vitamin B-12] 1,000 mcg Tablet 2,000 mcg PO DAILY polyethylene glycol 3350 [Miralax] 17 gram/dose Powder 17 g PO DAILY PRN (Reason: Constipation) PreserVision AREDS-2 250-90-40-1 mg Capsule 1 tab PO BID duloxetine 40 mg capsule,delayed release(DR/EC) 40 mg PO DAILY cyclobenzaprine 5 mg tablet 5 mg PO TID PRN (Reason: muscle spasm) Qty: 20 0RF Culturelle 10 billion cell Capsule 1 cap PO DAILY PRN (Reason: ANTIBIOTICS) melatonin 1 mg Tablet 2 mg PO BEDTIME Systane Complete 0.6 % Drops 1 - 2 drp OPHTHALMIC (EYE) DAILY PRN (Reason: Dry Eyes) calcium carbonate 200 mg calcium (500 mg) Tablet,Chewable 1,000 mg PO Q4H PRN (Reason: DYSPEPSI) Qty: 90 0RF lactulose 10 gram/15 mL solution 30 ml PO DAILY PRN (Reason: Constipation) Changed hydrocodone-acetaminophen 10-325 mg Tablet 1 tab PO BEDTIME 7 Days Qty: 7 0RF hydrocodone-acetaminophen 10-325 mg tablet 1 tab PO Q6H PRN (Reason: Pain) 7 Days Qty: 28 0RF Discontinued metoprolol succinate 50 mg tablet extended release 24 hr 50 mg PO DAILY Qty: 90 3RF prednisone 20 mg tablet 20 mg PO TID Qty: 15 0RF Rx Instructions: 1 p.o. 3 times daily x3 days, 1 p.o. twice daily x2 days, 1 p.o. daily x2 days Discharge Orders: Discharge Order (Routine); Ordered 11/22/24 Ordered By: Shahid Geller Referrals: [facility] [Outside] Britton Vu DO [Primary Care Provider] - Discharge Diet: Advance as tolerated Discharge Activity: As per PT/OT instructions Patient Instructions: Acute Wound Care (DC), Opioid Safety, Post Anesthesia Care Discharge Attestations Time Spent in Discharge Care*: greater than 30 min Status at Discharge: Cognitive status at discharge: cognitively intact , Behavioral status at discharge: cooperative , Quality Metrics Clinical Quality Measures [ No reported AMI, CVA or VTE this stay] Coding Level of Care Code 92718 Total time (in minutes) for Discharge: 45 Diagnoses Closed fracture of shaft of left tibia and fibula, initial encounter S82.202A; S82.402A Encounter type: initial encounter
[2024-11-22 11:46] VITALS: BP 102/51; PULSE 86; RESP 17; TEMP 36.7; O2SAT 96
[2024-11-22 13:00] VITALS: BP 109/50; PULSE 70; RESP 16; TEMP 36.7; O2SAT 95
--- NOTE | 2024-11-22 13:05 | PC.NURSE ---
Report called to Theresa at [facility] at this time.
--- NOTE | 2024-11-22 13:43 | P.PN_ITS ---
Subjective 2 Subjective: The patient was felt to be ready for discharge by physical therapy and the medical team. Medications: Reviewed: Yes Vitals/I&O/Wt Last Vital Signs Temp 98.0 F 11/22/24 11:46 Pulse 86 11/22/24 11:46 Resp 17 11/22/24 11:46 BP 102/51 11/22/24 11:46 Pulse Ox 96 11/22/24 11:46 O2 Del Method Nasal Cannula 11/22/24 11:46 O2 Flow Rate 1 11/21/24 07:57 11/21/24 11/22/24 11/22/24 22:59 06:59 14:59 Intake Total 480 / 1320 480 / 480 Balance 480 / 1320 480 / 480 Weight last 48 hrs Weight 205 lb 8 oz Weight 218 lb 8 oz Physical Exam 2 Narrative: The patient is alert and oriented. She is seen with her sister and her granddaughter. Const: COMMON NORMALS: no acute distress, average body habitus, patient oriented x3 and alert GENERAL APPEARANCE: cooperative and comfortable O RIENTATION/CONSCIOUSNESS: Yes awake HENMT: COMMON NORMALS: normocephalic and atraumatic HEAD & SCALP: n ormocephalic and atraumatic Eye: GENERAL EYE: appearance normal, both eyes and all related structures Chest: COMMONS NORMALS: normal inspection of the chest Resp: COMMON NORMALS: normal respiratory effort EFFORT & INSPECTION: Yes able to speak in complete sentences and Yes symmetric chest movement Extremity: LEFT LOWER EXTREMITY: Yes lower leg (Sensation improved.) Left lower leg: Yes inspection (No drainage to the dressing.) and Yes neurovascular exam (At baseline for the patient.) Neuro: COMMON NORMALS: patient oriented x3 SENSORIUM/ORIENTATION: Yes alert Psych: COMMON NORMALS: mental status grossly normal APPEARANCE: Yes grossly normal ATTITUDE: Yes calm and Yes engaged ATTENTION/CONCENTRATION: Yes attention grossly intact Skin: COMMON NORMALS: no rashes or lesions noted GENERAL SKIN EXAM: no rashes or lesions noted Urinary Catheter Management: Ornelas: Cath Placed During This Visit: yes, but has since been removed by the nurse Reason for Continuing Indwelling Catheter: Decision to DC Catheter Urinary Catheter Date of Insertion: 11/18/24 Urinary Catheter Time of Insertion: 17:00 Date Urinary Catheter Removed: 11/20/24 Time Urinary Catheter Discontinued: 18:00 Data 11/22/24 03:05 11/21/24 04:11 A&P Assessment and plan (1) Closed fracture of shaft of left tibia and fibula: Patient underwent open reduction internal fixation of her tib-fib fracture uneventfully. She is doing well today and appears comfortable. Motor function is intact. She may ambulate with physical therapy touchdown weightbearing only. Sensation is improved. [facility] be [facility]up. Qualifiers: Encounter type: initial encounter Qualified Code(s): S82.202A - Unspecified fracture of shaft of left tibia, initial encounter for closed fracture; S82.402A - Unspecified fracture of shaft of left fibula, initial encounter for closed fracture PDMP PDMP Reviewed: Not Reviewed Attestations 2 Medical Necessity Statement*: Per hospitalist team. Coding Level of Care Code Acute Code for Chg Fwd Diagnoses Closed fracture of shaft of left tibia and fibula, initial encounter S82.202A; S82.402A Encounter type: initial encounter
--- NOTE | 2024-11-22 14:53 | PC.OT ---
OT TREATMENT HELD DUE TO SCHEDULED PATIENT D/C TODAY
== END 2024-11-22 13:00 | disposition intermediate care facility (04) | DRG 493 ==
LOC: ER 15:15 → MEDSURG 15:41
PROVIDERS: Specialist; Admitting Provider Student in an Organized Health Care Education/Training Program; Emergency Provider Physician Assistant; PCP Internal Medicine; Visit Provider Family Medicine
PROC: 0QSH06Z Reposition Left Tibia with Intramedullary Internal Fixation Device, Open Approach (ICD-10-PCS; principal; 2024-11-19 09:10)
DX: S82.302A Unspecified fracture of lower end of left tibia, initial encounter for closed fracture (principal); G83.4 Cauda equina syndrome; S82.832A Other fracture of upper and lower end of left fibula, initial encounter for closed fracture; W05.0XXA Fall from non-moving wheelchair, initial encounter; R32 Unspecified urinary incontinence; D64.89 Other specified anemias; Z79.891 Long term (current) use of opiate analgesic; I10 Essential (primary) hypertension; G60.9 Hereditary and idiopathic neuropathy, unspecified; F32.A Depression, unspecified; G89.29 Other chronic pain; M54.9 Dorsalgia, unspecified; Z86.16 Personal history of COVID-19; Z98.1 Arthrodesis status; Z90.49 Acquired absence of other specified parts of digestive tract; M54.16 Radiculopathy, lumbar region
CPT/HCPCS: 29515; 36415; 51702; 51798; 71045; 73562; 73590; 73610; 73630; 76000; 80053; 80061; 81001; 82607; 82746; 83036; 83540; 83550; 83735; 84100; 84145; 84443; 85025; 86850; 86900; 87426; 90715; 93005; 94664; 96372; 96374; 97161; 97165; 97530; 99284; 99285; C1713; J0131; J0690; J1100; J1644; J1885; J2270; J2360; J2371; J2405; J2704; J3010; J3370; J7030; J9999

== ENCOUNTER → 2024-12-15 09:21 | Outpatient (BNVA) | payer MEDICARE, SELFPAY | PROVIDERS: PCP Internal Medicine; Visit Provider Specialist | DX: Z98.890 Other specified postprocedural states (principal); Z87.81 Personal history of (healed) traumatic fracture | CPT/HCPCS: 73590 ==

== ENCOUNTER 2024-12-15 10:51 | Inpatient (IN) | payer MEDICARE, SELFPAY ==
[2024-12-15] VITALS (56 sets, daily range): BP systolic 102–164; BP diastolic 58–129; PULSE 65–103; RESP 13–34; TEMP 36.4–36.9; O2SAT 74–100; BMI 27.1
--- NOTE | 2024-12-15 10:54 | ECG_ITS ---
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 Measurements Intervals [place] Rate: 77 P: 148 CT: 182 QRS: -19 QRSD: 75 T: 33 QT: 359 QTc: 408 Interpretive Statements SINUS RHYTHM LOW QRS VOLTAGE IN EXTREMITY LEADS [QRS DEFLECTION < 0.5 mV IN LIMB LEADS] Compared to ECG 11/18/2024 15:36:11 Low QRS voltage now present Electronically Signed On 12-15-2024 21:25:12 CDT by Charla Quinteros M.D. [id number]
--- NOTE | 2024-12-15 10:54 | XRR_ITS ---
PROCEDURE INFORMATION: Exam: XR Chest Exam date and time: 12/15/2024 11:29 AM Age: 89 years old Clinical indication: Cough and dyspnea; Prior surgery; Surgery date: 6+ months; Surgery type: Spine; Patient had a rapid response called on her while at an appointment in the ortho clinic. Per ortho staff and family the patient is more lethargic and altered than normal. Patient recently had a UTI but she was treated for it and finished her antibiotics 2 days ago. Patient can tell me her name, and that she is at the doctor. Patient states that she is tired and feels weak. ; Additional info: Dyspnea/cough TECHNIQUE: Imaging protocol: Radiologic exam of the chest. Views: 1 view. COMPARISON: CR XR chest 1V portable [id number] 11/18/2024 2:13 PM FINDINGS: Lungs: Similar scarring in the left lower lobe. Pleural spaces: No sizable pleural effusion or pneumothorax. Heart/Mediastinum: No cardiomegaly. Bones/joints: Extensive thoracolumbar spinal fusion. No acute fracture. XR/XR chest 1V portable [id number] IMPRESSION: No interval change.
--- NOTE | 2024-12-15 11:00 | PC.PHAR ---
Addendum entered by Radha Mendoza 12/15/24 12:42: Med list verified verbally by phone with Alexandria. Addendum entered by Radha Mendoza 12/15/24 12:23: Phoned for med list 11:o5am, 11:45am and 12:30pm. Original Note: Pt is a resident at [facility] who is rehabing at [facility] currently. Her nurse is Alexandria [phone]
--- NOTE | 2024-12-15 11:15 | ED_ITS ---
HPI - General Adult 2 General: Chief complaint: Altered Mental Status Stated complaint: Rapid response Time Seen by Provider: 12/15/24 10:53 History of Present Illness: 89-year-old female presents emergency ro om after rapid response to orthopedic clinic she recently had surgery on her left lower leg she was there for follow- up she also recently was treated for a UTI evidently it was multi organism and she had pills as well as some shots. While at the orthopedic doctors office she became nonresponsive for a brief period of time and seemed somewhat lethargic. She usually lives at a [facility]. She has a family members with her who accompanied her to the doctor's office today but family member ([id number]) is not highly involved with her care on a regular basis. The [id number] states that a granddaughter usually visits her regularly and helps organize the logistics for her follow-up care etc. Patient denies any chest pain abdominal pain denies dysuria urgency or frequency denies any fever sweats or chills. Nursing staff is contacting the [facility] to get an update on any recent health changes or concerns at their facility. Associated symptoms: Deny chest pain, dyspnea or rash Related Data Home Medications ?Medication ?Instructions ?Recorded ?Confirmed acetaminophen 325 mg tablet 650 mg PO QID PRN Pain 07/2312/15/24 bisacodyl 10 mg rectal suppository 10 mg WV DAILY PRN Constipation 10/12/21 12/15/24 (Dulcolax (bisacodyl)) magnesium hydroxide 400 mg/5 mL 30 ml PO DAILY PRN Con stipation 10/12/21 12/15/24 oral suspension (Milk of Magnesia) sodium phosphates 19 gram-7 118 ml WV DAILY PRN Consti pation 10/12/21 12/15/24 gram/118 mL enema (Fleet Enema) Lactobacillus rhamnosus GG 10 1 cap PO DAILY PRN ANTIB IOTICS 02/09/24 12/15/24 billion cell capsule (Culturelle) melatonin 1 mg tablet 1 mg PO BEDTIME 02/09/24 propylene glycol 0.6 % eye drops 1 - 2 drp ophthalmic (eye) DAILY 02/09/24 12/15/24 (Systane Complete) PRN Dry Eyes cyanocobalamin (vitamin B-12) 2,000 mcg PO DAILY 09/0112/15/24 1,000 mcg tablet (Vitamin B-12) polyethylene glycol 3350 17 17 g PO DAILY PRN Constipa tion 09/01/24 12/15/24 gram/dose oral powder (Miralax) vit C 250 mg-vit E 90 mg-zinc 40 1 tab PO BID 09/01/24 12/15/24 mg-copper 1 [id number]-[id number] capsule (PreserVision AREDS-2) lactulose 10 gram/15 mL oral 30 ml PO DAILY PRN Consti pation 11/18/24 12/15/24 solution Previous Rx's ?Medication ?Instructions ?Recorded calcium carbonate 1,000 mg (5 x 200 mg calcium (500 02/09/24 mg)) PO Q4H PRN DYSPEPSI #90 tabs aspirin 325 mg tablet,delayed 325 mg PO DAILY 35 days #35 tabs 11/22/24 release docusate sodium 100 mg capsule 100 mg PO BID 30 days # 60 caps 11/22/24 hydrocodone 10 mg-acetaminophen 1 tab PO Q6H PRN Pain 7 days #28 11/22/24 325 mg tablet tabs metoprolol tartrate 25 mg tablet 25 mg PO BID@0900,210 0 30 days #30 11/22/24 tabs Allergies Allergy/AdvReac Type Severity Reaction Status Date / Time ciprofloxacin Allergy Unknown ALGY-Redness Verified 12/15/24 10:17 of Skin Penicillins Allergy Unknown ALGY-Rash,Not Verified 12/15/24 10:17 Entered Review of Systems 2 Const: Denies: fever(s) or chills Card: Denies: chest pain Resp: Denies: dyspnea GI: Denies: abdominal pain : Denies: dysuria, urinary frequency or urinary urgency Musc: Denies: neck pain or back pain Skin/Breast: Denies: rash PFSH ED 2 PFSH: Medical History (Updated 12/16/24 @ 06:55 by Tao Albert DO) Cauda equina syndrome Hypertension Closed right trimalleolar fracture Bimalleolar fracture of right ankle Idiopathic peripheral neuropathy Osteoarthritis of knee Depression Chronic narcotic use Follows with Dr. Olvera Edema Nerve pain Physical deconditioning Weakness of both legs C. difficile diarrhea Small bowel obstruction Chronic back pain COVID-19 virus infection Surgical History History of lumbar laminectomy for spinal cord decompression S/P exploratory laparotomy for perforated appendix History of hip surgery Left -- screws History of cataract surgery History of back surgery spinal rods History of hysterectomy / BSO History of cholecystectomy Family History Denies family history of Diabetes Dementia Social History Smoking and tobacco/nicotine status: never used tobacco/nicotine Alcohol intake: never Caregiver/support person: Yes Household members: caregiver Housing: Assisted Living Facility Physical Exam 2 Const: GENERAL APPEARANCE: cooperative ORIENTATION/CONSCIOUSNESS: Yes awake HENMT: COMMON NORMALS: normocephalic, atraumatic and hearing grossly normal bilaterally HEAD & SCALP: normocephalic and atraumatic Resp: COMMON NORMALS: normal respiratory effort, No retractions, No use of accessory muscles and clear to auscultation bilaterally AUSCULTATION: clear to auscultation bilaterally Cardio: COMMON NORMALS: regular rate, regular rhythm and No murmurs present (Cardio) RATE: regular rate RHYTHM: regular rhythm GI: COMMON NORMALS: Soft to palpation and No hepatosplenomegaly present A USCULTATION: Yes normoactive bowel sounds PALPATION: Yes Soft to palpation, No Tenderness to palpation present (GI), No Guarding due to palpation present (GI) and Yes No hepatosplenomegaly present Extremity: COMMON NORMALS: normal to inspection, capillary refill normal and no calf tenderness OTHER: Kirstie from incision site and the left leg appear clean and dry there is no evidence of erythema induration no drainage. There is a role for kirstie across the anterior portion of the knee and then inferiorly at the ankle and the dorsum of the foot none appear to be infected at this time Skin: COMMON NORMALS: no rashes or lesions noted GENERAL SKIN EXAM: no rashes or lesions noted Course 2 Vital Signs: Vital signs: Vital Signs Temperature 97.7 F 12/16/24 04:00 Pulse Rate 84 12/16/24 04:00 Respiratory Rate 18 12/16/24 04:00 Blood Pressure 137/73 12/16/24 04:00 Pulse Oximetry 97 12/16/24 04:00 Oxygen Delivery Me thod Room Air 12/16/24 04:00 MDM - General Adult Medical Decision Making Neo completed a course of antibiotics for cystitis. Has mildly elevated lactic. Cultures done given dose of Rocephin.Discussed with hospitalist will place on observation Medical Records I reviewed the patient's medical records. Lab Data I reviewed the patient's lab results. 12/15/24 12:00 12/16/24 05:01 Radiology Impressions Chest X-Ray 12/15/24 10:54 IMPRESSION: No interval change. Head CT 12/15/24 11:17 IMPRESSION: 1. No acute intracranial hemorrhage or edema. 2. Moderate atrophy and small vessel disease. Similar to the prior study of 02/06/2024. Chest CTA 12/15/24 14:30 IMPRESSION: 1. No pulmonary embolism. 2. No pneumonia. 3. No mediastinal or hilar adenopathy. 4. 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 5. Ectatic thoracic aorta. Laboratory Results WBC 5.06 10^3/uL (3.29-11.43) 12/15/24 12:00 RBC 3.29 10^6/uL (3.85-5.65) L 12/15/24 12:00 Hgb 10.90 g/dL (11.27-16.99) L 12/15/24 12:00 Hct 36.9 % (36-47) 12/15/24 12:00 MCV 112.2 fl (85-98) H 12/15/24 12:00 MCH 33.1 pg (27-33) H 12/15/24 12:00 MCHC 29.5 g/dL (30-55) L 12/15/24 12:00 RDW 13.9 % (12.1-15.1) 12/15/24 12:00 Plt Count 174 10^3/cmm (157-399) 12/15/24 12:00 MPV 10.3 fL (7.4-10.4) 12/15/24 12:00 Neut % (Auto) 46.2 % 12/15/24 12:00 Lymph % (Auto) 37.9 % 12/15/24 12:00 [place] % (Auto) 12.3 % 12/15/24 12:00 Eos % (Auto) 2.0 % 12/15/24 12:00 Baso % (Auto) 1.2 % 12/15/24 12:00 Neut # (Auto) 2.34 10^3/uL (1.8-7.7) 12/15/24 12:00 Lymph # (Auto) 1.9 10^3/uL (0.8-4.8) 12/15/24 12:00 [place] # (Auto) 0.6 10^3/uL (0.2-0.9) 12/15/24 12:00 Eos # (Auto) 0.1 10^3/uL (0.0-0.8) 12/15/24 12:00 Baso # (Auto) 0.1 10^3/uL (0.0-0.1) 12/15/24 12:00 Nucleated RBC % (auto) 0 % 12/15/24 12:00 Nucleated RBCs # 0.0 /100WBC 12/15/24 12:00 Specimen Type Arterial 12/15/24 11:14 Sample Site Radial, left 12/15/24 11:14 ABG pH 7.39 (7.35-7.45) 12/15/24 11:14 ABG pCO2 39.3 mmHg (35-45) 12/15/24 11:14 ABG pO2 73.0 mmHg (80.0-100.0) L 12/15/24 11:14 ABG PO2/FiO2 Ratio 347 12/15/24 11:14 ABG HCO3 23.5 mmol/L (22-26) 12/15/24 11:14 ABG O2 Saturation 95.0 12/15/24 11:14 ABG Base Excess -1.4 mmol/L (-2.0-2.0) 12/15/24 11:14 Sebas Test Pos 12/15/24 11:14 A-a O2 Gradient 3.7 mmHg (5-10) L 12/15/24 11:14 Hematocrit 35.7 % (37-47) L 12/15/24 11:14 Hgb O2 Saturation 93.2 % (95-100) L 12/15/24 11:14 Carboxyhemoglobin 1.3 %THgb (0.4-20.1) 12/15/24 11:14 Methemoglobin 0.7 % (0.4-1.5) 12/15/24 11:14 Total Hemoglobin 11.6 g/dL (12-16) L 12/15/24 11:14 Sodium 142.0 mmol/L (131-143) 12/15/24 11:14 Potassium 4.3 mmol/L (3.5-5.0) 12/15/24 11:14 Glucose 137.0 mg/dL (70-115) H 12/15/24 11:14 Ionized Calcium 1.2 mmol/L (1.1-1.4) 12/15/24 11:14 O2 Delivery Device Room air 12/15/24 11:14 FiO2 21.0 % 12/15/24 11:14 Trapeze Artist ID Monro 12/15/24 11:14 Sodium 139 mmol/L (136-145) 12/15/24 12:00 Potassium 5.0 mmol/L (3.5-5.1) 12/15/24 12:00 Chloride 104 mmol/L (98-107) 12/15/24 12:00 Carbon Dioxide 19 mmol/L (22-29) L 12/15/24 12:00 Anion Gap 21.0 (5-19) H 12/15/24 12:00 BUN 23 mg/dL (8-23) 12/15/24 12:00 Creatinine 1.1 mg/dL (0.5-0.9) H 12/15/24 12:00 GFR Calculation Not Reportable 12/15/24 12:00 Glucose 105 mg/dL (65-115) 12/15/24 12:00 Calculated Osmolality 292 mOsm/kg (285-295) 12/15/24 12:00 Lactic Acid 2.5 mmol/L (0.5-2.2) H 12/15/24 12:00 Lactic Acid (Sepsis) 1.4 mmol/L (0.5-2.2) 12/15/24 15:02 Calcium 9.0 mg/dL (8.5-10.5) 12/15/24 12:00 Total Bilirubin 0.3 mg/dL (0.15-1.2) 12/15/24 12:00 AST 22 U/L (0-32) 12/15/24 12:00 ALT 13 U/L (0-33) 12/15/24 12:00 Alkaline Phosphatase 136 U/L (35-105) H 12/15/24 12:00 Troponin T Baseline 26 ng/L (0-10) H 12/15/24 12:00 Troponin T 120 Minute 24.21 ng/L (0-10) H 12/15/24 13:36 Delta Troponin T -1.79 ABS# (0-10) L 12/15/24 13:36 Total Protein 7.0 g/dL (6.6-8.7) 12/15/24 12:00 Albumin 3.6 g/dL (3.5-5.2) 12/15/24 12:00 Globulin 3.4 g/dL (1.3-4.6) 12/15/24 12:00 Procalcitonin 0.11 ng/mL (0-0.5) 12/15/24 13:36 Urine Color Dark yellow (Yellow) A 12/15/24 12:42 Urine Appearance Clear (CLEAR) 12/15/24 12:42 Urine pH 5.5 (5-7) 12/15/24 12:42 Ur Specific [place] 1.013 (1.005-1.030) 12/15/24 12:42 Urine Protein Negative (Negative) 12/15/24 12:42 Urine Glucose (UA) Negative (Normal) 12/15/24 12:42 Urine Ketones Negative (Negative) 12/15/24 12:42 Urine Blood Negative (Negative) 12/15/24 12:42 Urine Nitrate Negative (Negative) 12/15/24 12:42 Urine Bilirubin Negative (Negative) 12/15/24 12:42 Urine Urobilinogen 0.2 mg/dL (Negative) 12/15/24 12:42 Ur Leukocyte Esterase Negative (Negative) 12/15/24 12:42 Urine RBC 0-2 /hpf (0-2) 12/15/24 12:42 Urine WBC 0-5 /hpf (0-5) 12/15/24 12:42 Ur Squamous Epith Cells 0-5 /hpf (0-5) 12/15/24 12:42 Amorphous Sediment Not Reportable 12/15/24 12:42 Urine Bacteria None seen /hpf (NONE) 12/15/24 12:42 Hyaline Casts 2.87 /lpf 12/15/24 12:42 Influenza A (PCR) Negative (Negative) 12/15/24 12:42 Influenza Type B (PCR) Negative (Negative) 12/15/24 12:42 RSV (PCR) Negative (Negative) 12/15/24 12:42 SARS-CoV-2 (PCR) Negative (Negative) 12/15/24 12:42 All radiology interpretation(s) finalized by discharge Discharge Plan Discharge Patient Disposition: Admitted As Inpatient Admit Provider: Dereck Moralez Clinical Impression: Pre-syncope, Hypertension, Elevated lactic acid level Condition: Stable Coding Level of Care Code ED Multimedia Coordinator for Nii Rojas
--- NOTE | 2024-12-15 11:17 | CT_ITS ---
WS: [id number] CT HEAD NONCONTRAST HISTORY: AMS TECHNIQUE: Contiguous axial imaging performed through the brain. Bone and soft tissue windows. Sagittal and coronal reformats reviewed. All CT scans at [facility] use at least one of these dose optimization techniques: automated exposure control; mA and/or kV adjustment per patient size (includes targeted exams where dose is matched to clinical indication); or iterative reconstruction. DLP: 1024.89 mGy.cm COMPARISON: 02/06/2024 No acute intracranial hemorrhage, midline shift or mass effect. Moderate atrophy and small vessel disease surrounding the ventricles. Similar to the prior head CT. No acute infarct. Mild cerebellar atrophy. Ventricles: Normal size with no hydrocephalus. Mild atherosclerotic plaque to the carotid cavernous sinuses. Paranasal sinuses: As visualized are clear. Mastoid air cells: Well pneumatized. Calvarium and scalp: Skull is intact with no soft tissue edema or swelling. CT/CT head wo con* [id number] IMPRESSION: 1. No acute intracranial hemorrhage or edema. 2. Moderate atrophy and small vessel disease. Similar to the prior study of 02/06/2024.
[2024-12-15 11:28] LABS: ABG PCO2 39.3 mmHg (35-45); ABG PH Result 7.39 (7.35-7.45); Alveolar-Arterial Oxygen Gradi 3.7 mmHg (5-10); Arterial Blood Gas Hematocrit 35.7 % (37-47); Base Excess ABG -1.4 mmol/L (-2.0-2.0); Blood Gas Allen Test Pos; Blood Gas Operator Identificat MONRO; Blood Gas Sample Site Radial, left; Blood Gas Sample Type Arterial; Carboxyhemoglobin 1.3 %THgb (0.4-20.1); HCO3 ABG 23.5 mmol/L (22-26); HGB O2 Sat 93.2 % (95-100); Ionized Calcium Level - ABG 1.2 mmol/L (1.1-1.4); Methemoglobin 0.7 % (0.4-1.5); Oxygen Device ROOM AIR; PO2 FiO2 Ratio Arterial Blood 347; Potassium Level - ABG 4.3 mmol/L (3.5-5.0); Total Hemoglobin 11.6 g/dL (12-16)
[2024-12-15 12:11] LABS: Basophils # 0.1 10^3/uL (0.0-0.1); Basophils % 1.2 %; Eosinophils # 0.1 10^3/uL (0.0-0.8); Hematocrit 36.9 % (36-47); Lymphocytes # 1.9 10^3/uL (0.8-4.8); Lymphocytes % 37.9 %; Mean Corpuscular HGB Conc 29.5 g/dL (30-55); Mean Corpuscular Hemoglobin 33.1 pg (27-33); Mean Corpuscular Volume 112.2 fl (85-98); Mean Platelet Volume 10.3 fL (7.4-10.4); Monocytes # 0.6 10^3/uL (0.2-0.9); Monocytes % 12.3 %; Neutrophils # 2.34 10^3/uL (1.8-7.7); Neutrophils % 46.2 %; Nucleated Red Blood Cells % 0 %; Platelet Count 174 10^3/cmm (157-399); Red Blood Count 3.29 10^6/uL (3.85-5.65); Red Cell Distribution Width 13.9 % (12.1-15.1); White Blood Count 5.06 10^3/uL (3.29-11.43)
[2024-12-15 12:32] LABS: Troponin(5th) Baseline 26 ng/L (0-10)
[2024-12-15 12:37] LABS: Lactic Sepsis W/Reflex 2.5 mmol/L (0.5-2.2)
[2024-12-15 12:38] LABS: Alanine Aminotransferase 13 U/L (0-33); Albumin Level 3.6 g/dL (3.5-5.2); Alkaline Phosphatase 136 U/L (35-105); Aspartate Amino Transferase 22 U/L (0-32); Blood Urea Nitrogen 23 mg/dL (8-23); Carbon Dioxide 19 mmol/L (22-29); Chloride 104 mmol/L (98-107); Creatinine Clr Calc Pharmacy 42.6168; Globulin 3.4 g/dL (1.3-4.6); Glucose 105 mg/dL (65-115); Osmolality Calculated 292 mOsm/kg (285-295); Sodium 139 mmol/L (136-145); Total Bilirubin 0.3 mg/dL (0.15-1.2)
[2024-12-15 12:56] LABS: Bilirubin Urine Negative (Negative); Blood Urine Negative (Negative); Glucose Urine UA Negative (Normal); Ketones Urine Negative (Negative); Leukocyte Esterase Urine Negative (Negative); Nitrate Urine Negative (Negative); Protein Urine Negative (Negative); Specific Gravity, Urine 1.013 (1.005-1.030); Urine Appearance Clear (CLEAR); Urobilinogen Urine 0.2 mg/dL (Negative); pH Urine 5.5 (5-7)
[2024-12-15 12:59] LABS: Add Urine Microscopic? YES; Bacteria Urine None Seen /hpf; Hyaline Casts Urine 2.87 /lpf; RBC Urine 0-2 /hpf (0-2); Squamous Epithelial Cell Urine 0-5 /hpf (0-5); WBC Urine 0-5 /hpf (0-5)
[2024-12-15 13:13] LABS: UA Slide Review UA Slide Review Perf; Urine Color Dark Yellow (Yellow)
[2024-12-15 13:15] LABS: Add Urine Culture? No
--- NOTE | 2024-12-15 13:16 | ECG_ITS ---
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 Measurements Intervals [place] Rate: 82 P: 163 [place]: 172 QRS: -20 QRSD: 71 T: -29 QT: 360 QTc: 423 Interpretive Statements SINUS RHYTHM WITH OCCASIONAL VENTRICULAR PREMATURE COMPLEXES LOW QRS VOLTAGE IN EXTREMITY LEADS [QRS DEFLECTION < 0.5 mV IN LIMB LEADS] Compared to ECG 12/15/2024 11:01:49 Ventricular premature complex(es) now present Electronically Signed On 12-15-2024 21:44:48 CDT by Charla Quinteros M.D. [email or web address] [id number]
[2024-12-15 13:32] LABS: Influenza A NEGATIVE (Negative); Influenza B NEGATIVE (Negative); Respiratory Syncytial Virus Ce NEGATIVE (Negative); SARS-CoV-2 PCR NEGATIVE (Negative)
[2024-12-15 13:54] LABS: Reflex Lactate Order REFLEX LACTIC ORDERD
[2024-12-15 14:00] LABS: Troponin 5 2HR 24.21 ng/L (0-10)
[2024-12-15 14:01] LABS: Troponin 5 2HR Delta -1.79 ABS# (0-10)
--- NOTE | 2024-12-15 14:30 | CT_ITS ---
WS: [id number] CT CHEST ANGIOGRAPHY WITH REFORMATS HISTORY: Hypoxia, syncope TECHNIQUE: Contiguous axial images are obtained through the chest during arterial injection of intravenous contrast. Images are reconstructed to evaluate the pulmonary arteries. MIP imaging also reviewed. All CT scans at [facility] use at least one of these dose optimization techniques: automated exposure control; mA and/or kV adjustment per patient size (includes targeted exams where dose is matched to clinical indication); or iterative reconstruction. CONTRAST: Omnipaque 350; 100 mL IV. DLP: 381.17 mGy.cm COMPARISON: 04/04/2010 Clear opacification of the pulmonary artery. No central emboli. Normal size pulmonary artery. Linear area of decreased attenuation in the proximal RIGHT lower lobe pulmonary artery is the arterial wall. This is not a thrombus. No corresponding abnormality on the MIP imaging. Hyperinflated lungs with no mass or pneumonia. Mild dependent changes and pleural thickening at the LEFT lung base. Atherosclerosis aorta. Ectatic aorta with no aneurysm. Mild cardiomegaly. No mediastinal or hilar adenopathy. Small hiatal hernia. LEFT adrenal gland hyperplasia. Prior cholecystectomy. Increase in thoracic kyphosis. Extensive thoracolumbar fusion hardware. Anterior wedging of T7. Prior T10 compression fracture. Fractures are similar to 02/06/2024. CT/CT angio chest PE protcl [id number] IMPRESSION: 1. No pulmonary embolism. 2. No pneumonia. 3. No mediastinal or hilar adenopathy. 4. Extensive thoracolumbar fusion hardware with osteoporotic compression fract ures. 5. Ectatic thoracic aorta.
[2024-12-15] MEDS: sodium chloride 0.9% 500 ML 999 ML IV (14:36)
[2024-12-15] MEDS: iohexol 350 mg/mL 500 mL Btl (per mL) IV (14:50)
[2024-12-15] MEDS: cefTRIAXone 1,000 mg SDV 1000 MG IVP (14:57)
[2024-12-15 15:29] LABS: Lactic Acid level (Lactate) 1.4 mmol/L (0.5-2.2)
--- NOTE | 2024-12-15 17:18 | ECG_ITS ---
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 Measurements Intervals [place] Rate: 69 P: 128 [place]: 161 QRS: 14 QRSD: 75 T: 12 QT: 381 QTc: 408 Interpretive Statements SINUS RHYTHM LOW QRS VOLTAGE IN PRECORDIAL LEADS [QRS DEFLECTION < 1.0 mV IN CHEST LEADS] Compared to ECG 12/15/2024 13:16:57 Ventricular premature complex(es) no longer present Electronically Signed On 12-15-2024 21:40:11 CDT by Charla Quinteros M.D. [id number]
--- NOTE | 2024-12-15 17:31 | USCV_ITS ---
Delia Arthur Age: 89 Gender: F : 1935 Exam Date: 12/15/2024 23:43 Ordering Phys: Dereck Moralez MD Technologist: TATYANA [place] [facility] [place]ication: presyncope BP: 114 / 59 HR: 65 Rhythm: Sinus Technical Quality: Adequate MEASUREMENTS (Male / Female) Normal Values 2D ECHO LV Diastolic Diameter PLAX 3.9 cm 4.2 - 5.9 / 3.9 - 5.3 cm IVS Diastolic Thickness 1.0 cm 0.6 - 1.0 / 0.6 - 0.9 cm IVS Systolic Thickness 1.3 cm LVPW Diastolic Thickness 1.4 cm 0.6 - 1.0 / 0.6 - 0.9 cm LVPW Systolic Thickness 1.5 cm LVOT Diameter 1.9 cm LV Ejection Fraction 2D Teich 59.1 % LV Ejection Fraction MOD 4C 65.4 % LV Ejection Fraction MOD 2C 63.3 % LV Ejection Fraction 2C AL 65.4 % LA Diameter 3.6 cm Aorta at Sinotubular Diameter 3.0 cm IVC Diameter 0.6 cm M-MODE LA Ao Ratio MM 1.0 AV Cusp Separation MM 1.1 cm DOPPLER AV Peak Velocity 90.0 cm/s LVOT Peak Velocity 58.0 cm/s AV Area Cont Eq vti 2.6 cm squared AV Area Cont Eq pk 1.8 cm squared MV Peak Velocity 80.0 cm/s MV Area PHT 3.0 cm squared Mitral E to A Ratio 1.4 TV Peak Velocity 319.5 cm/s TR Peak Velocity 329.0 cm/s TR Peak Gradient 43.3 mmHg TV Peak E Velocity 42.0 cm/s PV Peak Velocity 92.0 cm/s FINDINGS Left Ventricle Normal left ventricular size and systolic function, EF 65%. No regional wall motion abnormalities. Right Ventricle The right ventricle is normal in size and function. Right Atrium Mildly increased right atrial size. Left Atrium Mildly increased left atrial size. Mitral Valve Thickened mitral valve. Moderate mitral annular calcification. Trace mitral valve regurgitation. Aortic Valve Thickened aortic valve. Tricuspid Valve Moderate to severe tricuspid valve regurgitation. Estimated pulmonary artery peak systolic pressure 54 mmHg Pulmonic Valve Pulmonic valve not well visualized. Pericardium Normal pericardium without effusion. Aorta Normal aortic annulus size. IVC Normal inferior vena cava. CONCLUSIONS Normal left ventricular size and systolic function, EF 65%. No regional wall motion abnormalities. Mild biatrial enlargementThickened mitral valve. Moderate mitral annular calcification. Trace mitral valve regurgitation. Thickened aortic valve. Moderate to severe tricuspid valve regurgitation. Moderate pulmonary hypertension. Estimated pulmonary artery peak systolic pressure 54 mmHg. There is no pericardial effusion. There are no intracardiac masses. Compared to the previous study from 10/03/2016, the PA pressure appears to have gotten worse Dr Charla Quinteros MD FACC (Electronically Signed) Final Date: 16 December 2024 18:39 S
--- NOTE | 2024-12-15 18:00 | P.HP_ITS ---
Providers/Chief Complaint 2 Admitting Physician: Dereck Moralez MD Primary Care Provider: Britton Vu DO Chief Complaint: Rapid response History of Present Illness Delia Arthur is a 89 year old female with past medical history of cauda equina post back surgery, wheelchair-bound, who recently underwent ORIF for left tibial fracture, hypertension, C. difficile colitis in past who was a rapid response at orthopedic clinic today. As per the conversation with the ER physician patient was sitting up in her wheelchair and had a near syncopal event hence the rapid response was called. As per patient she is thinks she was about to pass out but did not pass out. She denies having any aura, nausea, vomiting, chest pain, palpitation, dizziness around the event. She states she has these events on and off but last was many years ago. States she has been getting once a day IM injection of antibiotic for a possible UTI at half-way with last dose on Friday. Not sure if she has been having diarrhea because she has been chronically incontinent of her bowel movements. As per daughter who is at bedside patient has been having occasional episodes of confusion since her leg surgery. Review of Systems 2 General: Reports: 10 or more systems reviewed and unremarkable except in HPI and below Const: Denies: fever(s), chills, body aches, change in appetite, change in weight, malaise, night sweats, diaphoresis, change in sleep pattern, daytime sleepiness or snoring Eyes: Denies: change in vision, blurry vision, photophobia, eye discomfort or eye discharge ENMT: Denies: throat pain, enlarged tonsils, hoarseness, mouth pain, oral sores, dry mouth, tinnitus, nasal congestion or post nasal drip Card: Denies: chest pain, palpitations, irregular heart rhythm, edema, swelling of feet/ankles, lightheadedness, syncope, pre-syncope, dyspnea on exertion, orthopnea, leg pain with exertion or acrocyanosis Resp: Denies: dyspnea, productive cough, non-productive cough, wheezing, stridor, pain on inspiration, change in phlegm color, hemoptysis or chest congestion GI: Denies: abdominal pain, nausea, vomiting, hematemesis, coffee ground emesis, dysphagia, heartburn, diarrhea, constipation, bloating, GI cramping, change in bowel habits, pain on defecation, hematochezia or melena : Denies: flank pain, dysuria, urinary frequency, urinary urgency, urinary hesitancy, nocturia or hematuria Musc: Denies: neck pain, back pain, extremity pain, joint pain, joint swelling, joint redness, joint stiffness or limited range of motion Neuro: Denies: headache(s), numbness in extremities, weakness in extremities, sensory changes, lack of coordination, difficulty walking, frequent falls, dizziness, vertigo, confusion, Slurred speech present, difficulty communicating thoughts or seizure-like activity Psych: Denies: anxiety, depression, mood swings, panic attacks, hopelessness or irritability Endo: Denies: polyuria, polydipsia, tired all the time, cold intolerance, excessive sweating, flushing or heat intolerance Miki/Lymph: Denies: easy bruising or easy bleeding All/Imm: Denies: tongue swelling, facial swelling or acute wheezing Medications/Allergies Home Medications ?Medication ?Instructions ?Recorded ?Confirmed ?Last Taken ?Type acetaminophen 325 mg tablet 650 mg PO QID PRN Pain 07/2312/15/24 11/17/24 History bisacodyl 10 mg rectal suppository 10 mg [place] DAILY PRN Constipation 10/12/21 12/15/24 Unknown History (Dulcolax (bisacodyl)) magnesium hydroxide 400 mg/5 mL 30 ml PO DAILY PRN Con stipation 10/12/21 12/15/24 Unknown History oral suspension (Milk of Magnesia) sodium phosphates 19 gram-7 118 ml [place] DAILY PRN Consti pation 10/12/21 12/15/24 Unknown History gram/118 mL enema (Fleet Enema) Lactobacillus rhamnosus GG 10 1 cap PO DAILY PRN ANTIB IOTICS 02/09/24 12/15/24 12/15/24 History billion cell capsule (Culturelle) calcium carbonate 1,000 mg (5 x 200 mg calcium (500 02/09/24 12/15/24 09/01/24 Rx mg)) PO Q4H PRN DYSPEPSI #90 tabs melatonin 1 mg tablet 1 mg PO BEDTIME 02/09/2412/14/24 History propylene glycol 0.6 % eye drops 1 - 2 drp ophthalmic (eye) DAILY 02/09/24 12/15/24 Unknown History (Systane Complete) PRN Dry Eyes cyanocobalamin (vitamin B-12) 2,000 mcg PO DAILY 09/0112/15/24 12/15/24 History 1,000 mcg tablet (Vitamin B-12) polyethylene glycol 3350 17 17 g PO DAILY PRN Constipa tion 09/01/24 12/15/24 Unknown History gram/dose oral powder (Miralax) vit C 250 mg-vit E 90 mg-zinc 40 1 tab PO BID 09/01/24 12/15/24 12/15/24 History mg-copper 1 mx-[id number] capsule (PreserVision AREDS-2) lactulose 10 gram/15 mL oral 30 ml PO DAILY PRN Consti pation 11/18/24 12/15/24 Unknown History solution aspirin 325 mg tablet,delayed 325 mg PO DAILY 35 days #35 tabs 11/22/24 12/15/24 12/15/24 Rx release docusate sodium 100 mg capsule 100 mg PO BID 30 days # 60 caps 11/22/24 12/15/24 12/15/24 Rx hydrocodone 10 mg-acetaminophen 1 tab PO Q6H PRN Pain 7 days #28 11/22/24 12/15/24 11/14/24 Rx 325 mg tablet tabs metoprolol tartrate 25 mg tablet 25 mg PO BID@0900,210 0 30 days #30 11/22/24 12/15/24 12/15/24 Rx tabs Allergies Allergy/AdvReac Type Severity Reaction Status Date / Time ciprofloxacin Allergy Unknown ALGY-Redness Verified 12/15/24 10:17 of Skin Penicillins Allergy Unknown ALGY-Rash,Not Verified 12/15/24 10:17 Entered PFSH Acute 2 PFSH: Medical History (Updated 12/15/24 @ 18:19 by Dereck Moralez MD) Cauda equina syndrome Hypertension Closed right trimalleolar fracture Bimalleolar fracture of right ankle Idiopathic peripheral neuropathy Osteoarthritis of knee Depression Chronic narcotic use Follows with Dr. Olvera Edema Nerve pain Physical deconditioning Weakness of both legs C. difficile diarrhea Small bowel obstruction Chronic back pain COVID-19 virus infection Surgical History History of lumbar laminectomy for spinal cord decompression S/P exploratory laparotomy for perforated appendix History of hip surgery Left -- screws History of cataract surgery History of back surgery spinal rods History of hysterectomy / BSO History of cholecystectomy Family History Denies family history of Diabetes Dementia Social History Smoking and tobacco/nicotine status: never used tobacco/nicotine Alcohol intake: never Caregiver/support person: Yes Household members: caregiver Housing: Assisted Living Facility Vitals/I&O/Wt Last Vital Signs Temp 97.9 F 12/15/24 17:31 Pulse 65 12/15/24 17:31 Resp 22 H 12/15/24 17:31 BP 114/59 12/15/24 17:31 Pulse Ox 98 12/15/24 17:31 O2 Del Method Room Air 12/15/24 17:31 12/15/24 12/15/24 12/15/24 06:59 14:59 22:59 Intake Total 500 / 500 Balance 500 / 500 Weight last 48 hrs Weight 88.451 kg Physical Exam 2 Narrative: General: No acute distress, AO x3 HEENT: PERRLA, pupils bilaterally equal and reactive Chest: Normal vesicular breath sounds, no added sounds, equal good air entry bilaterally CVS: S1-S2 regular, no murmurs, no tachycardia, no gallops, no rubs Abdomen: Soft, nontender, no organomegaly, bowel sounds present Neuro: No focal deficits, no facial deformity, AO x3, Data 12/15/24 12:00 12/15/24 12:00 Micro: Microbiology 12/15/24 12:29 Blood Culture - Preliminary Blood SPECIMEN COLLECTED 12/15/24 11:21 Blood Culture - Preliminary Blood SPECIMEN COLLECTED A&P Assessment and plan (1) Pre-syncope: Unknown cause. As of now patient does not have any sign of infection. UA negative for signs of UTI. She recently finished a 1 week course of IM antibiotics with last dose on Friday. Today is Friday. She denies of having any dysuria. Does have history of C. difficile in the past. Is chronically incontinent of bowel movements. Could be in setting of possible C. difficile, could be in setting of arrhythmia. Could be vasovagal. Does not give any history of seizures in the past. Electrolytes within normal limits. ABG done in the ER shows mild hypoxia. CTA negative for PE, pneumonia. CT head negative for acute normality. Hemoglobin stable. Monitor vitals. Telemetry. Check C. difficile stool study. Hold off IV antibiotics for now. Trend procalcitonin. Check carotid Dopplers. Check echocardiogram. Seizure precautions. IV fluids and NS at 75 cc/h for 1 bag. (2) Hypertension: Goal blood pressure less than 140/90 mmHg. Continue with home dose of metoprolol for now. Qualifiers: Hypertension type: primary hypertension Qualified Code(s): I10 - Essential (primary) hypertension (3) Cauda equina syndrome: Plan CODE STATUS: Discussed today with the patient. Daughter at bedside. DNR/DNI Cardiac diet Famotidine for PUD prophylaxis Heparin 5000 SQ Q12h PDMP PDMP Reviewed: Not Reviewed Attestations 2 Medical Necessity Statement*: Admission under observation for less than 2 midnights for further evaluation and management of presyncope. Diagnoses Pre-syncope R55 Primary hypertension I10 Hypertension type: primary hypertension Cauda equina syndrome G83.4
--- NOTE | 2024-12-15 18:22 | USCV_ITS ---
Delia Arthur Age: 89 Gender: F : 1935 Exam Date: 12/15/2024 23:23 Ordering Phys: Dereck Moralez MD Technologist: TATYANA Exam Location: [facility] [place] Indication: syncope Risk Factors: unknown Previous Vascular Surgery: unknown Right Brachial BP: 114 / 59 Left Brachial BP: / Right Left Velocity (cm/s) Spectral Plaque Velocity (cm/s) Spectral Plaque Syst/Diast Broadening Syst/Diast Broadening 110.00/14.10 Min Homo Prox CCA 90.40 / 6.30 Min Homo 98.30/ 19.30 Min Homo Mid CCA 120.60/ 12.70 Min Homo 77.60/ 12.80 Min Homo Distal CCA 79.60 / 6.30 Min Homo 77.60/ 18.00 Min Kem Prox ICA 64.50 / 10.60 Min Kem 82.80/ 18.00 None Homo Mid ICA 76.90 / 20.00 Min Hetro 62.90/ 15.30 Min Homo Distal ICA 91.00 / 23.50 Min Homo 86.70 Min Homo ECA 73.10 Min Hetro 1.10 ICA/CCA 1.10 Antegrade Vertebral Antegrade 57.40/ 7.50 cm/s 36.50/ 8.40 cm/s Tri Subclavian Tri 85.50 147.1 0 FINDINGS Comparison: none available. No significant elevation of systolic or diastolic velocities. Waveforms are normal. Minimal carotid atherosclerosis. CONCLUSIONS Bilateral ICA stenosis less than 50%. Dr. Marci Rene DO (Electronically Signed) Final Date: 16 December 2024 07:35 S
[2024-12-15] MEDS: docusate sodium 100 mg Capsule PO (18:33)
[2024-12-15] MEDS: HYDROcodone-acetaminophen 10-325 mg Tablet 1 TAB PO (18:33)
[2024-12-15] MEDS: heparin 5,000 unit/mL INJ 1 mL 5000 UNIT SUBCUT (18:34)
[2024-12-15] MEDS: famotidine 20 mg Tablet PO (18:46)
[2024-12-15 19:38] LABS: Troponin 5 6HR 19.97 ng/L (0-10)
[2024-12-15 19:39] LABS: Troponin 5 6HR Delta -6.03 ng/L (0-12)
[2024-12-15] MEDS: sodium chloride 0.9% 1,000 ML 75 ML IV (19:47)
[2024-12-15] MEDS: metoprolol tartrate 25 mg Tablet PO (19:48)
[2024-12-15 20:25] LABS: Procalcitonin 0.11 ng/mL (0-0.5)
[2024-12-16] VITALS (12 sets, daily range): BP systolic 82–143; BP diastolic 45–86; PULSE 62–97; RESP 15–24; TEMP 36.5–37.2; O2SAT 95–97
[2024-12-16] MEDS: heparin 5,000 unit/mL INJ 1 mL 5000 UNIT SUBCUT ×3 (01:43→17:05)
[2024-12-16] MEDS: HYDROcodone-acetaminophen 10-325 mg Tablet 1 TAB PO ×2 (05:24→20:46)
[2024-12-16 05:56] LABS: Basophils % 1.1 %; Eosinophils # 0.2 10^3/uL (0.0-0.8); Eosinophils % 4.6 %; Hematocrit 33.4 % (36-47); Lymphocytes % 52.8 %; Mean Corpuscular HGB Conc 30.2 g/dL (30-55); Mean Corpuscular Hemoglobin 33.1 pg (27-33); Mean Corpuscular Volume 109.5 fl (85-98); Mean Platelet Volume 10.5 fL (7.4-10.4); Monocytes # 0.4 10^3/uL (0.2-0.9); Monocytes % 10.2 %; Neutrophils # 1.15 10^3/uL (1.8-7.7); Nucleated Red Blood Cells % 0 %; Platelet Count 171 10^3/cmm (157-399); Red Blood Count 3.05 10^6/uL (3.85-5.65); Red Cell Distribution Width 14.1 % (12.1-15.1); White Blood Count 3.71 10^3/uL (3.29-11.43)
[2024-12-16 06:15] LABS: Alanine Aminotransferase 12 U/L (0-33); Albumin Level 3.3 g/dL (3.5-5.2); Alkaline Phosphatase 121 U/L (35-105); Anion Gap 16.9 (5-19); Aspartate Amino Transferase 19 U/L (0-32); Blood Urea Nitrogen 20 mg/dL (8-23); Calcium 8.6 mg/dL (8.5-10.5); Carbon Dioxide 21 mmol/L (22-29); Chloride 109 mmol/L (98-107); Creatinine Clr Calc Pharmacy 59.6358; Globulin 3.1 g/dL (1.3-4.6); Glucose 86 mg/dL (65-115); Osmolality Calculated 296 mOsm/kg (285-295); Phosphorus 3.2 mg/dL (2.5-4.5); Potassium 4.9 mmol/L (3.5-5.1); Sodium 142 mmol/L (136-145); Total Bilirubin 0.3 mg/dL (0.15-1.2); Total Protein 6.4 g/dL (6.6-8.7)
[2024-12-16 06:44] LABS: Procalcitonin 0.12 ng/mL (0-0.5)
[2024-12-16 06:57] LABS: Slide Review Slide Review Perform
[2024-12-16] MEDS: famotidine 20 mg Tablet PO ×2 (08:29→17:04)
[2024-12-16] MEDS: metoprolol tartrate 25 mg Tablet PO ×2 (08:29→20:25)
[2024-12-16] MEDS: docusate sodium 100 mg Capsule PO ×2 (08:30→17:05)
--- NOTE | 2024-12-16 09:49 | PM.DCS ---
Discharge Providers Date of Admission: 12/15/24 16:34 Date of Discharge: December 16, 2024 Attending Provider at Admission: Dereck Moralez MD Attending Provider at Discharge: Dereck Moralez MD Primary Care Provider: Britton Vu DO Diagnoses at Discharge Discharge Diagnosis (1) Pre-syncope: Status: Acute (2) Hypertension: Status: Acute Qualifiers: Hypertension type: primary hypertension Qualified Code(s): I10 - Essential (primary) hypertension (3) Cauda equina syndrome: Status: Acute Reason for Visit Reason for Visit: Rapid response Discharge Data Studies Completed and Pending Completed Studies During Hospitalization Category Date Time Status CT angio chest PE protcl [id number] Stat Cat Scan 12/15/24 14:[address] head wo con* [id number] Stat Cat Scan 12/15/24 11:17 Completed XR chest 1V portable [id number] Stat Exams 12/15/24 10:54 Completed US carotid duplex bilateral [CV carotid duplex BI* Ultrasound 12/15/24 18:22 Completed [id number]] Routine Pending at discharge Category Date Time Status Blood Culture Stat Lab 12/15/24 12:29 Results C.Diff PCR (Lab) Routine Lab 12/15/24 18:17 Uncollected Complete Blood Count w/Auto AM LABS Lab 12/17/24 04:00 Ordered Complete Blood Count w/Auto AM LABS Lab 12/18/24 04:00 Ordered Comprehensive Metabolic Panel AM LABS Lab 12/17/24 04:00 Ordered Comprehensive Metabolic Panel AM LABS Lab 12/18/24 04:00 Ordered Magnesium AM LABS Lab 12/17/24 04:00 Ordered Magnesium AM LABS Lab 12/18/24 04:00 Ordered Phosphorus AM LABS Lab 12/17/24 04:00 Ordered Phosphorus AM LABS Lab 12/18/24 04:00 Ordered CV. echo complete* [id number] Routine Ultrasound 12/15/24 17:31 Taken Radiology Impressions Chest X-Ray 12/15/24 10:54 IMPRESSION: No interval change. Head CT 12/15/24 11:17 IMPRESSION: 1. No acute intracranial hemorrhage or edema. 2. Moderate atrophy and small vessel disease. Similar to the prior study of 02/06/2024. Chest CTA 12/15/24 14:30 IMPRESSION: 1. No pulmonary embolism. 2. No pneumonia. 3. No mediastinal or hilar adenopathy. 4. 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 5. Ectatic thoracic aorta. Laboratory Results WBC 3.71 10^3/uL (3.29-11.43) 12/16/24 05:01 RBC 3.05 10^6/uL (3.85-5.65) L 12/16/24 05:01 Hgb 10.10 g/dL (11.27-16.99) L 12/16/24 05:01 Hct 33.4 % (36-47) L 12/16/24 05:01 MCV 109.5 fl (85-98) H 12/16/24 05:01 MCH 33.1 pg (27-33) H 12/16/24 05:01 MCHC 30.2 g/dL (30-55) 12/16/24 05:01 RDW 14.1 % (12.1-15.1) 12/16/24 05:01 Plt Count 171 10^3/cmm (157-399) 12/16/24 05:01 MPV 10.5 fL (7.4-10.4) H 12/16/24 05:01 Neut % (Auto) 31.0 % 12/16/24 05:01 Lymph % (Auto) 52.8 % 12/16/24 05:01 [place] % (Auto) 10.2 % 12/16/24 05:01 Eos % (Auto) 4.6 % 12/16/24 05:01 Baso % (Auto) 1.1 % 12/16/24 05:01 Neut # (Auto) 1.15 10^3/uL (1.8-7.7) L 12/16/24 05:01 Lymph # (Auto) 2.0 10^3/uL (0.8-4.8) 12/16/24 05:01 [place] # (Auto) 0.4 10^3/uL (0.2-0.9) 12/16/24 05:01 Eos # (Auto) 0.2 10^3/uL (0.0-0.8) 12/16/24 05:01 Baso # (Auto) 0.0 10^3/uL (0.0-0.1) 12/16/24 05:01 Nucleated RBC % (auto) 0 % 12/16/24 05:01 Nucleated RBCs # 0.0 /100WBC 12/16/24 05:01 Specimen Type Arterial 12/15/24 11:14 Sample Site Radial, left 12/15/24 11:14 ABG pH 7.39 (7.35-7.45) 12/15/24 11:14 ABG pCO2 39.3 mmHg (35-45) 12/15/24 11:14 ABG pO2 73.0 mmHg (80.0-100.0) L 12/15/24 11:14 ABG PO2/FiO2 Ratio 347 12/15/24 11:14 ABG HCO3 23.5 mmol/L (22-26) 12/15/24 11:14 ABG O2 Saturation 95.0 12/15/24 11:14 ABG Base Excess -1.4 mmol/L (-2.0-2.0) 12/15/24 11:14 Sebas Test Pos 12/15/24 11:14 A-a O2 Gradient 3.7 mmHg (5-10) L 12/15/24 11:14 Hematocrit 35.7 % (37-47) L 12/15/24 11:14 Hgb O2 Saturation 93.2 % (95-100) L 12/15/24 11:14 Carboxyhemoglobin 1.3 %THgb (0.4-20.1) 12/15/24 11:14 Methemoglobin 0.7 % (0.4-1.5) 12/15/24 11:14 Total Hemoglobin 11.6 g/dL (12-16) L 12/15/24 11:14 Sodium 142.0 mmol/L (131-143) 12/15/24 11:14 Potassium 4.3 mmol/L (3.5-5.0) 12/15/24 11:14 Glucose 137.0 mg/dL (70-115) H 12/15/24 11:14 Ionized Calcium 1.2 mmol/L (1.1-1.4) 12/15/24 11:14 O2 Delivery Device Room air 12/15/24 11:14 FiO2 21.0 % 12/15/24 11:14 Beverage Inspection Machine Tender ID [place] 12/15/24 11:14 Sodium 142 mmol/L (136-145) 12/16/24 05:01 Potassium 4.9 mmol/L (3.5-5.1) 12/16/24 05:01 Chloride 109 mmol/L (98-107) H 12/16/24 05:01 Carbon Dioxide 21 mmol/L (22-29) L 12/16/24 05:01 Anion Gap 16.9 (5-19) 12/16/24 05:01 BUN 20 mg/dL (8-23) 12/16/24 05:01 Creatinine 0.8 mg/dL (0.5-0.9) 12/16/24 05:01 GFR Calculation Not Reportable 12/16/24 05:01 Glucose 86 mg/dL (65-115) 12/16/24 05:01 Calculated Osmolality 296 mOsm/kg (285-295) H 12/16/24 05:01 Lactic Acid 2.5 mmol/L (0.5-2.2) H 12/15/24 12:00 Lactic Acid (Sepsis) 1.4 mmol/L (0.5-2.2) 12/15/24 15:02 Calcium 8.6 mg/dL (8.5-10.5) 12/16/24 05:01 Phosphorus 3.2 mg/dL (2.5-4.5) 12/16/24 05:01 Magnesium 2.0 mg/dL (1.7-2.3) 12/16/24 05:01 Total Bilirubin 0.3 mg/dL (0.15-1.2) 12/16/24 05:01 AST 19 U/L (0-32) 12/16/24 05:01 ALT 12 U/L (0-33) 12/16/24 05:01 Alkaline Phosphatase 121 U/L (35-105) H 12/16/24 05:01 Troponin T Baseline 26 ng/L (0-10) H 12/15/24 12:00 Troponin T 120 Minute 24.21 ng/L (0-10) H 12/15/24 13:36 Delta Troponin T -1.79 ABS# (0-10) L 12/15/24 13:36 Troponin T Hi Sens 6Hr 19.97 ng/L (0-10) H 12/15/24 18:20 Troponin T Hi Sens 6Hr Delta -6.03 ng/L (0-12) L 12/15/24 18:20 Total Protein 6.4 g/dL (6.6-8.7) L 12/16/24 05:01 Albumin 3.3 g/dL (3.5-5.2) L 12/16/24 05:01 Globulin 3.1 g/dL (1.3-4.6) 12/16/24 05:01 Procalcitonin 0.12 ng/mL (0-0.5) 12/16/24 05:01 Urine Color Dark yellow (Yellow) A 12/15/24 12:42 Urine Appearance Clear (CLEAR) 12/15/24 12:42 Urine pH 5.5 (5-7) 12/15/24 12:42 Ur Specific [place] 1.013 (1.005-1.030) 12/15/24 12:42 Urine Protein Negative (Negative) 12/15/24 12:42 Urine Glucose (UA) Negative (Normal) 12/15/24 12:42 Urine Ketones Negative (Negative) 12/15/24 12:42 Urine Blood Negative (Negative) 12/15/24 12:42 Urine Nitrate Negative (Negative) 12/15/24 12:42 Urine Bilirubin Negative (Negative) 12/15/24 12:42 Urine Urobilinogen 0.2 mg/dL (Negative) 12/15/24 12:42 Ur Leukocyte Esterase Negative (Negative) 12/15/24 12:42 Urine RBC 0-2 /hpf (0-2) 12/15/24 12:42 Urine WBC 0-5 /hpf (0-5) 12/15/24 12:42 Ur Squamous Epith Cells 0-5 /hpf (0-5) 12/15/24 12:42 Amorphous Sediment Not Reportable 12/15/24 12:42 Urine Bacteria None seen /hpf (NONE) 12/15/24 12:42 Hyaline Casts 2.87 /lpf 12/15/24 12:42 Influenza A (PCR) Negative (Negative) 12/15/24 12:42 Influenza Type B (PCR) Negative (Negative) 12/15/24 12:42 RSV (PCR) Negative (Negative) 12/15/24 12:42 SARS-CoV-2 (PCR) Negative (Negative) 12/15/24 12:42 Vitals Last Vital Signs Temp 98.1 F 12/16/24 08:00 Pulse 79 12/16/24 08:00 Resp 20 H 12/16/24 08:00 BP 82/58 12/16/24 08:00 Pulse Ox 97 12/16/24 08:00 O2 Del Method Room Air 12/16/24 08:00 Discharge Plan Discharge Patient Disposition: Home Condition: Stable Prescriptions: No Action acetaminophen 325 mg Tablet 650 mg PO QID PRN (Reason: Pain) magnesium hydroxide [Milk of Magnesia] 400 mg/5 mL Suspension 30 ml PO DAILY PRN (Reason: Constipation) bisacodyl [Dulcolax (bisacodyl)] 10 mg Suppository 10 mg [place] DAILY PRN (Reason: Constipation) Fleet Enema 19-7 gram/118 mL Enema 118 ml [place] DAILY PRN (Reason: Constipation) cyanocobalamin (vitamin B-12) [Vitamin B-12] 1,000 mcg Tablet 2,000 mcg PO DAILY polyethylene glycol 3350 [Miralax] 17 gram/dose Powder 17 g PO DAILY PRN (Reason: Constipation) PreserVision AREDS-2 250-90-40-1 mg Capsule 1 tab PO BID Culturelle 10 billion cell Capsule 1 cap PO DAILY PRN (Reason: ANTIBIOTICS) melatonin 1 mg Tablet 1 mg PO BEDTIME Systane Complete 0.6 % Drops 1 - 2 drp OPHTHALMIC (EYE) DAILY PRN (Reason: Dry Eyes) calcium carbonate 200 mg calcium (500 mg) Tablet,Chewable 1,000 mg PO Q4H PRN (Reason: DYSPEPSI) Qty: 90 0RF lactulose 10 gram/15 mL solution 30 ml PO DAILY PRN (Reason: Constipation) aspirin 325 mg Tablet,Delayed Release (Dr/Ec) 325 mg PO DAILY 35 Days Qty: 35 0RF docusate sodium 100 mg Capsule 100 mg PO BID 30 Days Qty: 60 0RF metoprolol tartrate 25 mg Tablet 25 mg PO BID@0900,2100 30 Days Qty: 30 0RF hydrocodone-acetaminophen 10-325 mg tablet 1 tab PO Q6H PRN (Reason: Pain) 7 Days Qty: 28 0RF Discharge Orders: Discharge Order (Routine); Ordered 12/16/24 Ordered By: Dereck Moralez Referrals: Britton Vu DO [Primary Care Provider] - 7-10 days Matt Lea MD [Hospitalist] - 01/12/25 3:00 pm Patient Instructions: Opioid Safety Discharge Attestations Status at Discharge: Cognitive status at discharge: cognitively intact, Behavioral status at discharge: cooperative, Coding Level of Care Code Acute Code for Chg Fwd Diagnoses Pre-syncope R55 Primary hypertension I10 Hypertension type: primary hypertension Cauda equina syndrome G83.4
[2024-12-16] MEDS: sodium chloride 0.9% 500 ML IV (11:22)
[2024-12-16] MEDS: midodrine 5 mg TABLET PO ×2 (14:16→20:25)
--- NOTE | 2024-12-16 15:23 | P.PN_ITS ---
Subjective 2 Subjective: No acute events overnight. Patient did not have any concerns for syncope or presyncope overnight. Today morning states she is feeling tired and lethargic. Blood pressure on examination found to be 85 systolic. Overnight patient has had occasional VPCs. No concerns of couplets or triplets. Vitals/I&O/Wt Last Vital Signs Temp 98.4 F 12/16/24 12:00 Pulse 82 12/16/24 14:00 Resp 18 12/16/24 12:32 BP 124/70 12/16/24 12:32 Pulse Ox 95 12/16/24 12:00 O2 Del Method Room Air 12/16/24 12:32 12/16/24 12/16/24 12/16/24 06:59 14:59 22:59 Intake Total 200 / 700 1480 / 1480 Output Total 200 / 200 Balance 200 / 700 1280 / 1280 Weight last 48 hrs Weight 91.898 kg Weight 93.485 kg Weight 88.451 kg Physical Exam 2 Narrative: General: No acute distress, AO x3 HEENT: PERRLA, pupils bilaterally equal and reactive Chest: Normal vesicular breath sounds, no added sounds, equal good air entry bilaterally CVS: S1-S2 regular, no murmurs, no tachycardia, no gallops, no rubs Abdomen: Soft, nontender, no organomegaly, bowel sounds present Neuro: No focal deficits, no facial deformity, AO x3, Data 12/16/24 05:01 12/16/24 05:01 Micro: Microbiology 12/15/24 12:29 Blood Culture - Preliminary Blood NEGATIVE TO DATE 12/15/24 11:21 Blood Culture - Preliminary Blood NEGATIVE TO DATE A&P Assessment and plan (1) Pre-syncope: Unknown cause. As of now patient does not have any sign of infection. UA negative for signs of UTI. She recently finished a 1 week course of IM antibiotics with last dose on Friday. Today is Friday. She denies of having any dysuria. Does have history of C. difficile in the past. Is chronically incontinent of bowel movements. Chances of arrhythmia are lower but patient continues to have occasional VPCs. Continue to monitor. Monitor electrolytes. High likelihood of in setting of borderline blood pressures. Found to be having 84 systolic today. No concerns for infection for now. Leuko no leukocytosis. No fever. UA negative for concerns for UTI. Patient recently finished course of IV antibiotics. Hold off on antibiotics. 500 cc IV fluid bolus. Target mean artery pressure over 65. If needed can start a low-dose midodrine 5 mg 3 times daily as needed for systolic of less than 100 mmHg. Cannot check orthostatic given patient being bed and wheelchair bound from cauda equina syndrome. Hemoglobin remained stable. Monitor vitals. Telemetry. Stool for C. difficile pending. Hold off IV antibiotics for now. Negative trend procalcitonin. Appreciate stable carotid Dopplers. C echocardiogram results pending heck echocardiogram. Seizure precautions. Continue with IV fluids NS at 75 cc/h. (2) Hypertension: Goal blood pressure less than 140/90 mmHg. Continue with home dose of metoprolol for now. Qualifiers: Hypertension type: primary hypertension Qualified Code(s): I10 - Essential (primary) hypertension (3) Cauda equina syndrome: (4) Orthostatic hypotension: Plan CODE STATUS: Discussed today with the patient. Daughter at bedside. DNR/DNI Cardiac diet Famotidine for PUD prophylaxis Heparin 5000 SQ Q12h PDMP PDMP Reviewed: Not Reviewed Attestations 2 Medical Necessity Statement*: Delia Arthur is being changed to inpatient status as stay will now exceed 2 midnights. Ongoing hospital care is necessary for further evaluation of presyncope with concerns for hypotension of unknown cause Diagnoses Pre-syncope R55 Primary hypertension I10 Hypertension type: primary hypertension Cauda equina syndrome G83.4 Orthostatic hypotension I95.1
[2024-12-17] MEDS: heparin 5,000 unit/mL INJ 1 mL 5000 UNIT SUBCUT ×2 (02:15→07:40)
[2024-12-17 04:35] VITALS: BP 165/80; PULSE 66; RESP 19; O2SAT 97
[2024-12-17 05:50] LABS: Eosinophils # 0.2 10^3/uL (0.0-0.8); Eosinophils % 4.1 %; Hematocrit 33.4 % (36-47); Lymphocytes # 2.2 10^3/uL (0.8-4.8); Lymphocytes % 52.9 %; Mean Corpuscular HGB Conc 31.1 g/dL (30-55); Mean Corpuscular Hemoglobin 33.4 pg (27-33); Mean Corpuscular Volume 107.4 fl (85-98); Mean Platelet Volume 10.1 fL (7.4-10.4); Monocytes # 0.4 10^3/uL (0.2-0.9); Monocytes % 9.4 %; Neutrophils # 1.34 10^3/uL (1.8-7.7); Neutrophils % 32.1 %; Nucleated Red Blood Cells % 0 %; Platelet Count 179 10^3/cmm (157-399); Red Blood Count 3.11 10^6/uL (3.85-5.65); White Blood Count 4.16 10^3/uL (3.29-11.43)
[2024-12-17 05:53] VITALS: PULSE 70
[2024-12-17 06:11] LABS: Alanine Aminotransferase 11 U/L (0-33); Albumin Level 3.6 g/dL (3.5-5.2); Alkaline Phosphatase 121 U/L (35-105); Anion Gap 14.6 (5-19); Aspartate Amino Transferase 18 U/L (0-32); Blood Urea Nitrogen 20 mg/dL (8-23); Calcium 8.9 mg/dL (8.5-10.5); Carbon Dioxide 24 mmol/L (22-29); Chloride 110 mmol/L (98-107); Creatinine Clr Calc Pharmacy 59.4855; Glucose 88 mg/dL (65-115); Magnesium 1.9 mg/dL (1.7-2.3); Osmolality Calculated 300 mOsm/kg (285-295); Phosphorus 3.2 mg/dL (2.5-4.5); Potassium 4.6 mmol/L (3.5-5.1); Sodium 144 mmol/L (136-145); Total Bilirubin 0.3 mg/dL (0.15-1.2); Total Protein 6.6 g/dL (6.6-8.7)
[2024-12-17] MEDS: docusate sodium 100 mg Capsule PO (07:40)
[2024-12-17] MEDS: midodrine 5 mg TABLET PO (07:40)
[2024-12-17] MEDS: famotidine 20 mg Tablet PO (07:40)
[2024-12-17] MEDS: metoprolol tartrate 25 mg Tablet PO (07:42)
[2024-12-17 08:00] VITALS: BP 175/66; PULSE 83; RESP 24; TEMP 36.6; O2SAT 98
--- NOTE | 2024-12-17 09:41 | P.DS_ITS ---
Discharge Providers Date of Admission: 12/15/24 16:34 Date of Discharge: December 17, 2024 Attending Provider at Admission: Dereck Moralez MD Attending Provider at Discharge: Dereck Moralez MD Primary Care Provider: Britton Vu DO Diagnoses at Discharge Discharge Diagnosis (1) Pre-syncope: Status: Acute (2) Hypertension: Status: Acute Qualifiers: Hypertension type: primary hypertension Qualified Code(s): I10 - Essential (primary) hypertension (3) Cauda equina syndrome: Status: Acute (4) Orthostatic hypotension: Status: Acute Reason for Visit Reason for Visit: Rapid response Hospital Course Hospital Course Delia Arthur is a 89 year old female with past medical history of cauda equina post back surgery, wheelchair-bound, who recently underwent ORIF for left tibial fracture, hypertension, C. difficile colitis in past who was a rapid response at orthopedic clinic today. As per the conversation with the ER physician patient was sitting up in her wheelchair and had a near syncopal event hence the rapid response was called. As per patient she is thinks she was about to pass out but did not pass out. She denies having any aura, nausea, vomiting, chest pain, palpitation, dizziness around the event. She states she has these events on and off but last was many years ago. States she has been getting once a day IM injection of antibiotic for a possible UTI at assisted with last dose on Friday. Not sure if she has been having diarrhea because she has been chronically incontinent of her bowel movements. As per daughter who is at bedside patient has been having occasional episodes of confusion since her leg surgery. She was admitted to the hospital further evaluation and management. She was monitored on telemetry. During hospitalization electrolytes, cultures, telemetry remained stable. She was monitored off antibiotics. UA on admission was negative for concerns for UTI. She did have episodes of hypotension which were thought to be in setting of autonomic dysfunction given her longstanding cauda equina syndrome. She was started on IV hydration and transition to oral midodrine which she tolerated well and after which her blood pressures improved. She has been discharged hemodynamically stable condition with continuation of all her medications as before. Midodrine 5 mg twice daily has been added to her medication list. Midodrine is to be withheld for a systolic of more than 140 mmHg. Physical Exam Narrative: General: No acute distress, AO x3 HEENT: PERRLA, pupils bilaterally equal and reactive Chest: Normal vesicular breath sounds, no added sounds, equal good air entry bilaterally CVS: S1-S2 regular, no murmurs, no tachycardia, no gallops, no rubs Abdomen: Soft, nontender, no organomegaly, bowel sounds present Neuro: No focal deficits, no facial deformity, AO x3, Discharge Data Studies Completed and Pending Completed Studies During Hospitalization Category Date Time Status CT angio chest PE protcl [id number] Stat Cat Scan 12/15/24 14:[address] head wo con* [id number] Stat Cat Scan 12/15/24 11:17 Completed XR chest 1V portable [id number] Stat Exams 12/15/24 10:54 Completed CV. echo complete* [id number] Routine Ultrasound 12/15/24 17:31 Completed US carotid duplex bilateral [CV carotid duplex BI* Ultrasound 12/15/24 18:22 Completed [id number]] Routine Pending at discharge Category Date Time Status Blood Culture Stat Lab 12/15/24 12:29 Results C.Diff PCR (Lab) Routine Lab 12/15/24 18:17 Uncollected Complete Blood Count w/Auto AM LABS Lab 12/18/24 04:00 Ordered Comprehensive Metabolic Panel AM LABS Lab 12/18/24 04:00 Ordered Magnesium AM LABS Lab 12/18/24 04:00 Ordered Phosphorus AM LABS Lab 12/18/24 04:00 Ordered Radiology Impressions Chest X-Ray 12/15/24 10:54 IMPRESSION: No interval change. Head CT 12/15/24 11:17 IMPRESSION: 1. No acute intracranial hemorrhage or edema. 2. Moderate atrophy and small vessel disease. Similar to the prior study of 02/06/2024. Chest CTA 12/15/24 14:30 IMPRESSION: 1. No pulmonary embolism. 2. No pneumonia. 3. No mediastinal or hilar adenopathy. 4. 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 5. Ectatic thoracic aorta. Microbiology 12/15/24 12:29 Blood Blood Culture - Preliminary NEGATIVE TO DATE 12/15/24 11:21 Blood Blood Culture - Preliminary NEGATIVE TO DATE Laboratory Results WBC 4.16 10^3/uL (3.29-11.43) 12/17/24 05:11 RBC 3.11 10^6/uL (3.85-5.65) L 12/17/24 05:11 Hgb 10.40 g/dL (11.27-16.99) L 12/17/24 05:11 Hct 33.4 % (36-47) L 12/17/24 05:11 MCV 107.4 fl (85-98) H 12/17/24 05:11 MCH 33.4 pg (27-33) H 12/17/24 05:11 MCHC 31.1 g/dL (30-55) 12/17/24 05:11 RDW 14.0 % (12.1-15.1) 12/17/24 05:11 Plt Count 179 10^3/cmm (157-399) 12/17/24 05:11 MPV 10.1 fL (7.4-10.4) 12/17/24 05:11 Neut % (Auto) 32.1 % 12/17/24 05:11 Lymph % (Auto) 52.9 % 12/17/24 05:11 Gregg % (Auto) 9.4 % 12/17/24 05:11 Eos % (Auto) 4.1 % 12/17/24 05:11 Baso % (Auto) 1.0 % 12/17/24 05:11 Neut # (Auto) 1.34 10^3/uL (1.8-7.7) L 12/17/24 05:11 Lymph # (Auto) 2.2 10^3/uL (0.8-4.8) 12/17/24 05:11 Gregg # (Auto) 0.4 10^3/uL (0.2-0.9) 12/17/24 05:11 Eos # (Auto) 0.2 10^3/uL (0.0-0.8) 12/17/24 05:11 Baso # (Auto) 0.0 10^3/uL (0.0-0.1) 12/17/24 05:11 Nucleated RBC % (auto) 0 % 12/17/24 05:11 Nucleated RBCs # 0.0 /100WBC 12/17/24 05:11 Specimen Type Arterial 12/15/24 11:14 Sample Site Radial, left 12/15/24 11:14 ABG pH 7.39 (7.35-7.45) 12/15/24 11:14 ABG pCO2 39.3 mmHg (35-45) 12/15/24 11:14 ABG pO2 73.0 mmHg (80.0-100.0) L 12/15/24 11:14 ABG PO2/FiO2 Ratio 347 12/15/24 11:14 ABG HCO3 23.5 mmol/L (22-26) 12/15/24 11:14 ABG O2 Saturation 95.0 12/15/24 11:14 ABG Base Excess -1.4 mmol/L (-2.0-2.0) 12/15/24 11:14 Sebas Test Pos 12/15/24 11:14 A-a O2 Gradient 3.7 mmHg (5-10) L 12/15/24 11:14 Hematocrit 35.7 % (37-47) L 12/15/24 11:14 Hgb O2 Saturation 93.2 % (95-100) L 12/15/24 11:14 Carboxyhemoglobin 1.3 %THgb (0.4-20.1) 12/15/24 11:14 Methemoglobin 0.7 % (0.4-1.5) 12/15/24 11:14 Total Hemoglobin 11.6 g/dL (12-16) L 12/15/24 11:14 Sodium 142.0 mmol/L (131-143) 12/15/24 11:14 Potassium 4.3 mmol/L (3.5-5.0) 12/15/24 11:14 Glucose 137.0 mg/dL (70-115) H 12/15/24 11:14 Ionized Calcium 1.2 mmol/L (1.1-1.4) 12/15/24 11:14 O2 Delivery Device Room air 12/15/24 11:14 FiO2 21.0 % 12/15/24 11:14 Miscellaneous Machine Operator ID Monro 12/15/24 11:14 Sodium 144 mmol/L (136-145) 12/17/24 05:11 Potassium 4.6 mmol/L (3.5-5.1) 12/17/24 05:11 Chloride 110 mmol/L (98-107) H 12/17/24 05:11 Carbon Dioxide 24 mmol/L (22-29) 12/17/24 05:11 Anion Gap 14.6 (5-19) 12/17/24 05:11 BUN 20 mg/dL (8-23) 12/17/24 05:11 Creatinine 0.7 mg/dL (0.5-0.9) 12/17/24 05:11 GFR Calculation Not Reportable 12/17/24 05:11 Glucose 88 mg/dL (65-115) 12/17/24 05:11 Calculated Osmolality 300 mOsm/kg (285-295) H 12/17/24 05:11 Lactic Acid 2.5 mmol/L (0.5-2.2) H 12/15/24 12:00 Lactic Acid (Sepsis) 1.4 mmol/L (0.5-2.2) 12/15/24 15:02 Calcium 8.9 mg/dL (8.5-10.5) 12/17/24 05:11 Phosphorus 3.2 mg/dL (2.5-4.5) 12/17/24 05:11 Magnesium 1.9 mg/dL (1.7-2.3) 12/17/24 05:11 Total Bilirubin 0.3 mg/dL (0.15-1.2) 12/17/24 05:11 AST 18 U/L (0-32) 12/17/24 05:11 ALT 11 U/L (0-33) 12/17/24 05:11 Alkaline Phosphatase 121 U/L (35-105) H 12/17/24 05:11 Troponin T Baseline 26 ng/L (0-10) H 12/15/24 12:00 Troponin T 120 Minute 24.21 ng/L (0-10) H 12/15/24 13:36 Delta Troponin T -1.79 ABS# (0-10) L 12/15/24 13:36 Troponin T Hi Sens 6Hr 19.97 ng/L (0-10) H 12/15/24 18:20 Troponin T Hi Sens 6Hr Delta -6.03 ng/L (0-12) L 12/15/24 18:20 Total Protein 6.6 g/dL (6.6-8.7) 12/17/24 05:11 Albumin 3.6 g/dL (3.5-5.2) 12/17/24 05:11 Globulin 3.0 g/dL (1.3-4.6) 12/17/24 05:11 Procalcitonin 0.12 ng/mL (0-0.5) 12/16/24 05:01 Urine Color Dark yellow (Yellow) A 12/15/24 12:42 Urine Appearance Clear (CLEAR) 12/15/24 12:42 Urine pH 5.5 (5-7) 12/15/24 12:42 Ur Specific [place] 1.013 (1.005-1.030) 12/15/24 12:42 Urine Protein Negative (Negative) 12/15/24 12:42 Urine Glucose (UA) Negative (Normal) 12/15/24 12:42 Urine Ketones Negative (Negative) 12/15/24 12:42 Urine Blood Negative (Negative) 12/15/24 12:42 Urine Nitrate Negative (Negative) 12/15/24 12:42 Urine Bilirubin Negative (Negative) 12/15/24 12:42 Urine Urobilinogen 0.2 mg/dL (Negative) 12/15/24 12:42 Ur Leukocyte Esterase Negative (Negative) 12/15/24 12:42 Urine RBC 0-2 /hpf (0-2) 12/15/24 12:42 Urine WBC 0-5 /hpf (0-5) 12/15/24 12:42 Ur Squamous Epith Cells 0-5 /hpf (0-5) 12/15/24 12:42 Amorphous Sediment Not Reportable 12/15/24 12:42 Urine Bacteria None seen /hpf (NONE) 12/15/24 12:42 Hyaline Casts 2.87 /lpf 12/15/24 12:42 Influenza A (PCR) Negative (Negative) 12/15/24 12:42 Influenza Type B (PCR) Negative (Negative) 12/15/24 12:42 RSV (PCR) Negative (Negative) 12/15/24 12:42 SARS-CoV-2 (PCR) Negative (Negative) 12/15/24 12:42 Vitals Last Vital Signs Temp 97.8 F 12/17/24 08:00 Pulse 83 12/17/24 08:00 Resp 24 H 12/17/24 08:00 BP 175/66 12/17/24 08:00 Pulse Ox 98 12/17/24 08:00 O2 Del Method Room Air 12/17/24 08:00 Discharge Plan Discharge Patient Disposition: Xfer SNF Condition: Stable Prescriptions: New midodrine 5 mg Tablet 5 mg PO BID Qty: 60 0RF Rx Instructions: Hold for Systolic of more than 140 mmhg Continued acetaminophen 325 mg Tablet 650 mg PO QID PRN (Reason: Pain) magnesium hydroxide [Milk of Magnesia] 400 mg/5 mL Suspension 30 ml PO DAILY PRN (Reason: Constipation) bisacodyl [Dulcolax (bisacodyl)] 10 mg Suppository 10 mg MA DAILY PRN (Reason: Constipation) Fleet Enema 19-7 gram/118 mL Enema 118 ml MA DAILY PRN (Reason: Constipation) cyanocobalamin (vitamin B-12) [Vitamin B-12] 1,000 mcg Tablet 2,000 mcg PO DAILY polyethylene glycol 3350 [Miralax] 17 gram/dose Powder 17 g PO DAILY PRN (Reason: Constipation) PreserVision AREDS-2 250-90-40-1 mg Capsule 1 tab PO BID Culturelle 10 billion cell Capsule 1 cap PO DAILY PRN (Reason: ANTIBIOTICS) melatonin 1 mg Tablet 1 mg PO BEDTIME Systane Complete 0.6 % Drops 1 - 2 drp OPHTHALMIC (EYE) DAILY PRN (Reason: Dry Eyes) calcium carbonate 200 mg calcium (500 mg) Tablet,Chewable 1,000 mg PO Q4H PRN (Reason: DYSPEPSI) Qty: 90 0RF lactulose 10 gram/15 mL solution 30 ml PO DAILY PRN (Reason: Constipation) aspirin 325 mg Tablet,Delayed Release (Dr/Ec) 325 mg PO DAILY 35 Days Qty: 35 0RF docusate sodium 100 mg Capsule 100 mg PO BID 30 Days Qty: 60 0RF metoprolol tartrate 25 mg Tablet 25 mg PO BID@0900,2100 30 Days Qty: 30 0RF hydrocodone-acetaminophen 10-325 mg tablet 1 tab PO Q6H PRN (Reason: Pain) 7 Days Qty: 28 0RF Discharge Orders: Discharge Order (Routine); Ordered 12/17/24 Ordered By: Dereck Moralez Referrals: [facility] [Outside] Britton Vu DO [Primary Care Provider] - 7-10 days (Please schedule appt with Dr. Vu within 7-10 days ) Matt Lea MD [Hospitalist] - 01/12/25 3:00 pm Patient Instructions: Midodrine (By mouth), Chronic Hypertension (DC), Hyp otension (DC), Near Syncope (DC), Opioid Safety Activity Restrictions/Additional Instructions: Hold midodrine for systolic blood pressure of more than 140 mmHg. Continue other medications as before. Discharge Attestations Time Spent in Discharge Care*: greater than 30 min Specific Discharge Activities: educating patient, educating and/or supporting family/caregiver, discussing with pcp/other providers, discussing with case management assistant/social workers/dc planners, documenting/other paperwork and evaluating patient/reviewing data Status at Discharge: Cognitive status at discharge: cognitively intact , Behavioral status at discharge: cooperative , Functional status at discharge: wheelchair bound , Overall status at discharge: patient is back to baseline Quality Metrics Clinical Quality Measures [ No reported AMI, CVA or VTE this stay] Coding Level of Care Code 31452 Total time (in minutes) for Discharge: 60 Diagnoses Pre-syncope R55 Primary hypertension I10 Hypertension type: primary hypertension Cauda equina syndrome G83.4 Orthostatic hypotension I95.1
[2024-12-17 10:28] VITALS: BP 126/60; PULSE 76; RESP 20; O2SAT 97
--- NOTE | 2024-12-17 10:54 | PC.NURSE ---
Patient discharged to [facility]. Report called to YVON Ji. Patient's transportation provided by [facility]. Patient left with all belongings along with personal electric wheelchair. Patient denies pain or needs. No distress observed.
== END 2024-12-17 10:54 | disposition skilled nursing facility (03) | DRG 312 ==
LOC: ER 11:39 → CSU 17:15 → ER IP 12-16 07:30
PROVIDERS: Admitting Provider Student in an Organized Health Care Education/Training Program; Emergency Provider Family Medicine; PCP Internal Medicine; Visit Provider Student in an Organized Health Care Education/Training Program
DX: I95.1 Orthostatic hypotension (principal); G83.4 Cauda equina syndrome; I10 Essential (primary) hypertension; R15.9 Full incontinence of feces; Z99.3 Dependence on wheelchair; Z86.19 Personal history of other infectious and parasitic diseases; Z79.82 Long term (current) use of aspirin
CPT/HCPCS: 36415; 36600; 70450; 71045; 71275; 80051; 80053; 81001; 82330; 82805; 83605; 83735; 84100; 84145; 84484; 85025; 87040; 87637; 93005; 93306; 93880; 94664; 96372; 99024; A9270; G0378; J0696; J1644; J7030; J7040; J9999

== ENCOUNTER → 2025-01-10 15:18 | Outpatient (BNVA) | payer MEDICARE, OTHER, SELFPAY | PROVIDERS: PCP Internal Medicine; Visit Provider Specialist | DX: Z98.890 Other specified postprocedural states (principal); Z87.81 Personal history of (healed) traumatic fracture | CPT/HCPCS: 73590; 99024 ==

== ENCOUNTER 2025-01-12 14:42 | Oncology outpatient (recurring) (ONCR) | payer MEDICARE, OTHER, SELFPAY | END 2025-01-29 23:59 | disposition home or self-care (01) | PROVIDERS: PCP Internal Medicine; Visit Provider Internal Medicine Medical Oncology | DX: D64.9 Anemia, unspecified (principal); D69.3 Immune thrombocytopenic purpura; R03.0 Elevated blood-pressure reading, without diagnosis of hypertension; M84.464A Pathological fracture, left fibula, initial encounter for fracture; M84.462A Pathological fracture, left tibia, initial encounter for fracture | CPT/HCPCS: 99205 ==

== ENCOUNTER 2025-02-08 09:16 | Emergency (ER) | payer MEDICARE, SELFPAY ==
[2025-02-08] VITALS (8 sets, daily range): BP systolic 132–134; BP diastolic 64–65; PULSE 64–72; RESP 16–18; TEMP 36.8; O2SAT 91–97
--- NOTE | 2025-02-08 09:18 | XRR_ITS ---
PROCEDURE INFORMATION: Exam: XR Chest Exam date and time: 02/08/2025 9:19 AM Age: 89 years old Clinical indication: Cough and dyspnea; Additional info: Dyspnea/cough TECHNIQUE: Imaging protocol: Radiologic exam of the chest. Views: 1 view. COMPARISON: CT angio chest PE protcl [id number] 12/15/2024 2:45 PM FINDINGS: Lungs: Nodule in the peripheral right mid lung measuring 13 x 15 mm. Lungs are otherwise clear. Pleural spaces: Unremarkable. No pleural effusion. No pneumothorax. Heart/Mediastinum: Cardiomegaly. Mediastinal contours unremarkable. Bones/joints: Posterior instrumented fusion in the thoracic spine. No acute osseous or soft tissue abnormality. XR/XR chest 1V portable [id number] IMPRESSION: 1. Nodule in the peripheral right mid lung measuring 13 x 15 mm. Concerning for infectious (including atypical) versus inflammatory etiology. Recommend imaging follow-up to resolution. Lungs are otherwise clear. 2. Cardiomegaly.
[2025-02-08] MEDS: methylPREDNISolone sod succ 125 mg/2 mL INJ IVP (09:26)
--- NOTE | 2025-02-08 09:30 | ED_ITS ---
HPI - SOB/Dyspnea 2 General: Chief Complaint: Shortness of Breath/Dyspnea Stated Complaint: SOBx 3days Time Seen by Provider: 02/08/25 09:18 History of Present Illness: HPI Narrative: 89-year-old female presents emergency ro om from local long-term complaining of productive cough and increasing shortness of breath for last 3 days. She typically wears 2 L by nasal cannula at baseline is satting in the low 90s on 2 L at this time. No reported fever she denies chest pain. No hemoptysis. Associated symptoms: Reports chest congestion; Deny abdominal pain, chest pain or fever(s) Related Data Home Medications ?Medication ?Instructions ?Recorded ?Confirmed acetaminophen 325 mg tablet 650 mg PO QID PRN Pain 07/2301/12/25 bisacodyl 10 mg rectal suppository 10 mg GA DAILY PRN Constipation 10/12/21 01/12/25 (Dulcolax (bisacodyl)) magnesium hydroxide 400 mg/5 mL 30 ml PO DAILY PRN Con stipation 10/12/21 01/12/25 oral suspension (Milk of Magnesia) sodium phosphates 19 gram-7 118 ml GA DAILY PRN Consti pation 10/12/21 01/12/25 gram/118 mL enema (Fleet Enema) Lactobacillus rhamnosus GG 10 1 cap PO DAILY PRN ANTIB IOTICS 02/09/24 01/12/25 billion cell capsule (Culturelle) melatonin 1 mg tablet 1 mg PO BEDTIME 02/09/24 propylene glycol 0.6 % eye drops 1 - 2 drp ophthalmic (eye) DAILY 02/09/24 01/12/25 (Systane Complete) PRN Dry Eyes cyanocobalamin (vitamin B-12) 2,000 mcg PO DAILY 09/0101/12/25 1,000 mcg tablet (Vitamin B-12) polyethylene glycol 3350 17 17 g PO DAILY PRN Constipa tion 09/01/24 01/12/25 gram/dose oral powder (Miralax) vit C 250 mg-vit E 90 mg-zinc 40 1 tab PO BID 09/01/24 01/12/25 mg-copper 1 [id number] capsule (PreserVision AREDS-2) lactulose 10 gram/15 mL oral 30 ml PO DAILY PRN Consti pation 11/18/24 01/12/25 solution midodrine 5 mg tablet 2.5 mg PO BID 01/10/2501/12 Previous Rx's ?Medication ?Instructions ?Recorded calcium carbonate 1,000 mg (5 x 200 mg calcium (500 02/09/24 mg)) PO Q4H PRN DYSPEPSI #90 tabs hydrocodone 10 mg-acetaminophen 1 tab PO Q6H PRN Pain 7 days #28 11/22/24 325 mg tablet tabs cefdinir 300 mg capsule 300 mg PO BID 10 days #20 ca ps 02/08/25 Allergies Allergy/AdvReac Type Severity Reaction Status Date / Time ciprofloxacin Allergy Unknown ALGY-Redness Verified 01/12/25 15:02 of Skin Penicillins Allergy Unknown ALGY-Rash,Not Verified 01/12/25 15:02 Entered Review of Systems 2 Const: Denies: fever(s) or chills Card: Denies: chest pain Resp: Reports: dyspnea, productive cough and chest congestion GI: Denies: abdominal pain : Denies: dysuria, urinary frequency or urinary urgency Musc: Denies: neck pain or back pain Skin/Breast: Denies: rash PFSH ED 2 PFSH: Medical History Cauda equina syndrome Hypertension Closed right trimalleolar fracture Bimalleolar fracture of right ankle Idiopathic peripheral neuropathy Osteoarthritis of knee Depression Chronic narcotic use Follows with Dr. Olvera Edema Nerve pain Physical deconditioning Weakness of both legs C. difficile diarrhea Small bowel obstruction Chronic back pain COVID-19 virus infection Surgical History History of lumbar laminectomy for spinal cord decompression S/P exploratory laparotomy for perforated appendix History of hip surgery Left -- screws History of cataract surgery History of back surgery spinal rods History of hysterectomy / BSO History of cholecystectomy Family History Denies family history of Diabetes Dementia Social History Smoking and tobacco/nicotine status: never used tobacco/nicotine Alcohol intake: never Caregiver/support person: Yes Household members: caregiver Housing: Assisted Living Facility Physical Exam 2 Const: GENERAL APPEARANCE: cooperative ORIENTATION/CONSCIOUSNESS: Yes awake, Yes oriented to person, Yes oriented to place and Yes oriented to time HENMT: COMMON NORMALS: normocephalic, atraumatic and hearing grossly normal bilaterally HEAD & SCALP: normocephalic and atraumatic Resp: AUSCULTATION: rhonchi and wheezes (slight) Cardio: COMMON NORMALS: regular rate, regular rhythm and No murmurs present (Cardio) RATE: regular rate RHYTHM: regular rhythm GI: COMMON NORMALS: Soft to palpation and No hepatosplenomegaly present A USCULTATION: Yes normoactive bowel sounds PALPATION: Yes Soft to palpation, No Tenderness to palpation present (GI), No Guarding due to palpation present (GI) and Yes No hepatosplenomegaly present Extremity: COMMON NORMALS: normal to inspection, capillary refill normal, no clubbing, cyanosis or edema, no calf tenderness and no pedal edema Neuro: SENSORIUM/ORIENTATION: Yes oriented to person, Yes oriented to place and Yes oriented to time Skin: COMMON NORMALS: no rashes or lesions noted GENERAL SKIN EXAM: no rashes or lesions noted Course 2 Vital Signs: Vital signs: Vital Signs Temperature 98.3 F 02/08/25 09:18 Pulse Rate 71 02/08/25 12:26 Respiratory Rate 16 02/08/25 09:43 Blood Pressure 132/64 02/08/25 12:26 Pulse Oximetry 97 02/08/25 12:26 Oxygen Delivery Me thod Nasal Cannula 02/08/25 10:53 Oxygen Flow Rate 2 02/08/25 10:53 MDM - SOB/Dyspnea Medical Decision Making No leukocytosis Chest x-ray shows an area in the right upper lobe with questionable for pneumonia. Based on her symptoms and physical exam findings we will start her on oral antibiotics. Patient should have repeat chest x-ray in 10 to 14 days to document resolution. Medical Records I reviewed the patient's medical records. Lab Data I reviewed the patient's lab results. 02/08/25 09:33 02/08/25 09:33 Labs/Radiology: Radiology Impressions Chest X-Ray 02/08/25 09:18 IMPRESSION: 1. Nodule in the peripheral right mid lung measuring 13 x 15 mm. Concerning for infectious (including atypical) versus inflammatory etiology. Recommend imaging follow-up to resolution. Lungs are otherwise clear. 2. Cardiomegaly. Laboratory Results WBC 7.53 10^3/uL (3.29-11.43) 02/08/25 09: RBC 3.18 10^6/uL (3.85-5.65) L 02/08/25 09:33 Hgb 10.50 g/dL (11.27-16.99) L 02/08/25 09:33 Hct 34.4 % (36-47) L 02/08/25 09: MCV 108.2 fl (85-98) H 02/08/25 09:33 MCH 33.0 pg (27-33) 02/08/25 09: MCHC 30.5 g/dL (30-55) 02/08/25 09: RDW 13.7 % (12.1-15.1) 02/08/25 09: Plt Count 141 10^3/cmm (157-399) L 02/08/25 09: MPV 10.6 fL (7.4-10.4) H 02/08/25 09:33 Neut % (Auto) 74.4 % 02/08/25 09: Lymph % (Auto) 13.8 % 02/08/25 09: [place] % (Auto) 11.0 % 02/08/25 09: Eos % (Auto) 0.1 % 02/08/25 09: Baso % (Auto) 0.4 % 02/08/25: Neut # (Auto) 5.60 10^3/uL (1.8-7.7) 02/08/25 09: Lymph # (Auto) 1.0 10^3/uL (0.8-4.8) 02/08/25 09:33 [place] # (Auto) 0.8 10^3/uL (0.2-0.9) 02/08/25 09: Eos # (Auto) 0.0 10^3/uL (0.0-0.8) 02/08/25 09: Baso # (Auto) 0.0 10^3/uL (0.0-0.1) 02/08/25 09: Nucleated RBC % (auto) 0 % 02/08/25: Nucleated RBCs # 0.0 /100WBC 02/08/25 09:33 Sodium 134 mmol/L (136-145) L 02/08/25 09:33 Potassium 5.4 mmol/L (3.5-5.1) H 02/08/25 09:33 Chloride 97 mmol/L (98-107) L 02/08/25 09:33 Carbon Dioxide 24 mmol/L (22-29) 02/08/25 09:33 Anion Gap 18.4 (5-19) 02/08/25 09:33 BUN 24 mg/dL (8-23) H 02/08/25 09:33 Creatinine 0.8 mg/dL (0.5-0.9) 02/08/25 09:33 GFR Calculation Not Reportable 02/08/25 09:33 Glucose 107 mg/dL (65-115) 02/08/25 09:33 Calculated Osmolality 283 mOsm/kg (285-295) L 02/08/25 09:33 Calcium 8.9 mg/dL (8.5-10.5) 02/08/25 09:33 Total Bilirubin 0.5 mg/dL (0.15-1.2) 02/08/25 09:33 AST 14 U/L (0-32) 02/08/25 09:33 ALT 12 U/L (0-33) 02/08/25 09:33 Alkaline Phosphatase 100 U/L (35-105) 02/08/25 09:33 Troponin T Baseline 42 ng/L (0-10) H 02/08/25 09:33 Troponin T 120 Minute 34.55 ng/L (0-10) H 02/08/25 11:10 Delta Troponin T -7.45 ABS# (0-10) L 02/08/25 11:10 Total Protein 6.8 g/dL (6.6-8.7) 02/08/25 09:33 Albumin 3.2 g/dL (3.5-5.2) L 02/08/25 09:33 Globulin 3.6 g/dL (1.3-4.6) 02/08/25 09:33 Urine Color Yellow (Yellow) 02/08/25 10:36 Urine Appearance Clear (CLEAR) 02/08/25 10:36 Urine pH 5.5 (5-7) 02/08/25 10:36 Ur Specific [place] 1.018 (1.005-1.030) 02/08/25 10:36 Urine Protein Trace (Negative) A 02/08/25 10:36 Urine Glucose (UA) Negative (Normal) 02/08/25 10:36 Urine Ketones Negative (Negative) 02/08/25 10:36 Urine Blood Negative (Negative) 02/08/25 10:36 Urine Nitrate Negative (Negative) 02/08/25 10:36 Urine Bilirubin Negative (Negative) 02/08/25 10:36 Urine Urobilinogen 1.0 mg/dL (Negative) 02/08/25 10:36 Ur Leukocyte Esterase Negative (Negative) 02/08/25 10:36 Urine RBC 0-2 /hpf (0-2) 02/08/25 10:36 Urine WBC 0-5 /hpf (0-5) 02/08/25 10:36 Ur Squamous Epith Cells 0-5 /hpf (0-5) 02/08/25 10:36 Amorphous Sediment Not Reportable 02/08/25 10:36 Urine Bacteria None seen /hpf (NONE) 02/08/25 10:36 Hyaline Casts 7.42 /lpf 02/08/25 10:36 Influenza A (PCR) Negative (Negative) 02/08/25 09:31 Influenza Type B (PCR) Negative (Negative) 02/08/25 09:31 RSV (PCR) Negative (Negative) 02/08/25 09:31 SARS-CoV-2 (PCR) Negative (Negative) 02/08/25 09:31 All radiology interpretation(s) finalized by discharge Discharge Plan Discharge Patient Disposition: Home Clinical Impression: Community acquired pneumonia Condition: Stable Prescriptions: New cefdinir 300 mg capsule 300 mg PO BID 10 Days Qty: 20 0RF No Action midodrine 5 mg tablet 2.5 mg PO BID Rx Instructions: Hold for Systolic of more than 140 mmhg acetaminophen 325 mg Tablet 650 mg PO QID PRN (Reason: Pain) magnesium hydroxide [Milk of Magnesia] 400 mg/5 mL Suspension 30 ml PO DAILY PRN (Reason: Constipation) bisacodyl [Dulcolax (bisacodyl)] 10 mg Suppository 10 mg GA DAILY PRN (Reason: Constipation) Fleet Enema 19-7 gram/118 mL Enema 118 ml GA DAILY PRN (Reason: Constipation) cyanocobalamin (vitamin B-12) [Vitamin B-12] 1,000 mcg Tablet 2,000 mcg PO DAILY polyethylene glycol 3350 [Miralax] 17 gram/dose Powder 17 g PO DAILY PRN (Reason: Constipation) PreserVision AREDS-2 250-90-40-1 mg Capsule 1 tab PO BID Culturelle 10 billion cell Capsule 1 cap PO DAILY PRN (Reason: ANTIBIOTICS) melatonin 1 mg Tablet 1 mg PO BEDTIME Systane Complete 0.6 % Drops 1 - 2 drp OPHTHALMIC (EYE) DAILY PRN (Reason: Dry Eyes) calcium carbonate 200 mg calcium (500 mg) Tablet,Chewable 1,000 mg PO Q4H PRN (Reason: DYSPEPSI) Qty: 90 0RF lactulose 10 gram/15 mL solution 30 ml PO DAILY PRN (Reason: Constipation) hydrocodone-acetaminophen 10-325 mg tablet 1 tab PO Q6H PRN (Reason: Pain) 7 Days Qty: 28 0RF Discharge Orders: Discharge ED (Routine); Ordered 02/08/25 Ordered By: Tao Albert Referrals: Britton Vu DO [Primary Care Provider, Internal Medicine] Discharge Diet: Usual diet Discharge Activity: Resume usual activity Patient Instructions: Opioid Safety, Pain Management Activity Restrictions/Additional Instructions: Thank you for choosing [facility] for your healthcare needs today. It is very important that you follow up as instructed or that you return to the Emergency Department should you have concerns or if your condition changes or worsens in any way. You are seen in the emergency room with complaints of shortness of breath chest x-ray shows small area concerning for pneumonia. Recommend that you start oral antibiotics 1 pill twice a day for 10 days she is to have a follow-up chest x- ray in 14 days primary care doctor can arrange this at the home. Print Language: Turkmen Coding Level of Care Code ED Alumina Refinery Operator for Nii Rojas
[2025-02-08] MEDS: ipratropium-albuterol 3 mL Neb INHALATION (09:43)
[2025-02-08 09:46] LABS: Basophils % 0.4 %; Eosinophils % 0.1 %; Hematocrit 34.4 % (36-47); Lymphocytes % 13.8 %; Mean Corpuscular HGB Conc 30.5 g/dL (30-55); Mean Corpuscular Volume 108.2 fl (85-98); Mean Platelet Volume 10.6 fL (7.4-10.4); Monocytes # 0.8 10^3/uL (0.2-0.9); Neutrophils % 74.4 %; Nucleated Red Blood Cells % 0 %; Platelet Count 141 10^3/cmm (157-399); Red Blood Count 3.18 10^6/uL (3.85-5.65); Red Cell Distribution Width 13.7 % (12.1-15.1); White Blood Count 7.53 10^3/uL (3.29-11.43)
[2025-02-08 09:57] LABS: Troponin(5th) Baseline 42 ng/L (0-10)
[2025-02-08 10:01] LABS: Alanine Aminotransferase 12 U/L (0-33); Albumin Level 3.2 g/dL (3.5-5.2); Alkaline Phosphatase 100 U/L (35-105); Anion Gap 18.4 (5-19); Aspartate Amino Transferase 14 U/L (0-32); Blood Urea Nitrogen 24 mg/dL (8-23); Calcium 8.9 mg/dL (8.5-10.5); Carbon Dioxide 24 mmol/L (22-29); Chloride 97 mmol/L (98-107); Creatinine Clr Calc Pharmacy 59.2805; Globulin 3.6 g/dL (1.3-4.6); Glucose 107 mg/dL (65-115); Osmolality Calculated 283 mOsm/kg (285-295); Potassium 5.4 mmol/L (3.5-5.1); Sodium 134 mmol/L (136-145); Total Protein 6.8 g/dL (6.6-8.7)
[2025-02-08 10:23] LABS: Total Bilirubin 0.5 mg/dL (0.15-1.2)
[2025-02-08 10:27] LABS: Slide Review Slide Review Perform
[2025-02-08 10:45] LABS: Bilirubin Urine Negative (Negative); Blood Urine Negative (Negative); Glucose Urine UA Negative (Normal); Ketones Urine Negative (Negative); Leukocyte Esterase Urine Negative (Negative); Nitrate Urine Negative (Negative); Protein Urine Trace (Negative); Specific Gravity, Urine 1.018 (1.005-1.030); Urine Appearance Clear (CLEAR); Urine Color Yellow (Yellow); pH Urine 5.5 (5-7)
[2025-02-08 10:48] LABS: Add Urine Microscopic? YES; Bacteria Urine None Seen /hpf; Hyaline Casts Urine 7.42 /lpf; RBC Urine 0-2 /hpf (0-2); Squamous Epithelial Cell Urine 0-5 /hpf (0-5); WBC Urine 0-5 /hpf (0-5)
--- NOTE | 2025-02-08 10:52 | ECG_ITS ---
[facility] Test Date: 2025-02-08 Pat Name: Delia Arthur Department: Room: Gender: Female Employment Consultant: : 1935 Requested By: Tao Kilpatrick Order Number: [id number] Hiral MD: Charla Quinteros M.D. Measurements Intervals [place] Rate: 68 P: 69 DC: 181 QRS: 15 QRSD: 81 T: 12 QT: 402 QTc: 428 Interpretive Statements SINUS RHYTHM WITH OCCASIONAL VENTRICULAR PREMATURE COMPLEXES Compared to ECG 12/15/2024 17:02:59 Ventricular premature complex(es) now present Electronically Signed On 02-09-2025 22:05:13 CDT by Charla Quinteros M.D. [email or web address]
[2025-02-08] MEDS: sodium chloride 0.9% 1,000 ML 999 ML IV (10:57)
[2025-02-08 11:08] LABS: Add Urine Culture? No; UA Slide Review UA Slide Review Perf
[2025-02-08 11:22] LABS: Influenza A NEGATIVE (Negative); Influenza B NEGATIVE (Negative); Respiratory Syncytial Virus Ce NEGATIVE (Negative); SARS-CoV-2 PCR NEGATIVE (Negative)
[2025-02-08 11:40] LABS: Troponin 5 2HR 34.55 ng/L (0-10)
[2025-02-08 11:42] LABS: Troponin 5 2HR Delta -7.45 ABS# (0-10)
== END 2025-02-08 13:32 | disposition home or self-care (01) ==
PROVIDERS: Emergency Provider Family Medicine; PCP Internal Medicine
DX: J18.9 Pneumonia, unspecified organism (principal); Z11.52 Encounter for screening for COVID-19; I10 Essential (primary) hypertension
CPT/HCPCS: 36415; 71045; 80053; 81001; 84484; 85025; 87637; 93005; 94640; 96374; 99285; J2919; J7030; J9999

== ENCOUNTER → 2025-02-21 15:42 | Outpatient (BNVA) | payer MEDICARE, SELFPAY | PROVIDERS: PCP Internal Medicine; Visit Provider Specialist | DX: Z98.890 Other specified postprocedural states (principal); Z87.81 Personal history of (healed) traumatic fracture | CPT/HCPCS: 73590; 99213 ==

== ENCOUNTER 2025-03-29 11:49 | Inpatient (IN) | payer MEDICARE, OTHER, SELFPAY ==
[2025-03-29] VITALS (10 sets, daily range): BP systolic 116–156; BP diastolic 49–82; PULSE 52–68; RESP 16–24; TEMP 36.6–36.7; O2SAT 97–100; BMI 27.8
--- OUTSIDE RECORDS SUMMARY | 2025-03-29 11:56 | XMS_ITS | Encounter Summary ---
Author Organization [facility] Address [address] [place] [address] Care Team Providers Care Program Supervisor Name Role Phone Yang Aviles MD, Hugo Ayala Primary Care Provider Encounter Details Date Type Department Care Team (Latest Contact Info) Description 03/02/[address] [facility] Pain Management Procedures [address] 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 No report expected. Procedure Note 09/11/2008 Finalized by interface cleanup utility. No report expected. us Eamon Waller MD DIAGNOSTIC IMAGING ORDERABLES Final Result documented in this encounter Visit Diagnoses Diagnosis Enthesopathy of hip region Arthropathy, unspecified, site unspecified documented in this encounter Care Teams Program Supervisor Relationship Specialty Start Date End Date Hugo Soria Jr., MD [address] [place] [phone] PCP - General 02/11/08 documented as of this encounter
--- OUTSIDE RECORDS SUMMARY | 2025-03-29 11:56 | XMS_ITS | Encounter Summary ---
Author Organization [facility] Address [address] [place] [address] Care Team Providers Care Immigration Inspector Name Role Phone Yang Aviles MD, Hugo Ayala Primary Care Provider Encounter Details Date Type Department Care Team (Latest Contact Info) Description 10/08/1999 Outpatient Historical [facility] Jake Hall NO ADDRESS ON FILE Lumbar disc displacement (Primary Dx) Social History Tobacco Use Types Packs/Day Years Used Date Smoking Tobacco: Never Assessed Comments Unknown Sex and Gender Information Value Date Recorded Sex Assigned at Not on file 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
--- OUTSIDE RECORDS SUMMARY | 2025-03-29 11:56 | XMS_ITS | Encounter Summary ---
Author Organization [facility] Address [address] [place] [address] Care Team Providers Care Stockroom Helper Name Role Phone Yang Aviles MD, Hugo Ayala Primary Care Provider Encounter Details Date Type Department Care Team ([facility] Contact Info) Description 03/10/2008 Outpatient Historical [facility] [address] 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
--- OUTSIDE RECORDS SUMMARY | 2025-03-29 11:57 | XMS_ITS | Encounter Summary ---
Author Organization [facility] Address [address] [facility] [address] 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
--- OUTSIDE RECORDS SUMMARY | 2025-03-29 11:57 | XMS_ITS | Encounter Summary ---
Author Organization [facility] Address [address] [place] [address] Care Team Providers Care Audit Practice Intern Name Role Phone Yang Aviles MD, Hugo Ayala Primary Care Provider Encounter Details Date Type Department Care Team (Latest Contact Info) Description 08/07/1999 Outpatient Historical [facility] Davey Rodriguez Sandoval [address] [place] [address] Joshua Griggs MD NO ADDRESS ON FILE Family history of malignant neoplasm of breast (Primary Dx) Social History Tobacco Use Types Packs/Day Years Used Date Smoking Tobacco: Never Assessed Comments Unknown Sex and Gender Information Value Date Recorded Sex Assigned at Not on file 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
--- OUTSIDE RECORDS SUMMARY | 2025-03-29 11:57 | XMS_ITS | Encounter Summary ---
Author Organization [facility] Address [address] [place] [address] Care Team Providers Care Community Educator Name Role Phone Yang Aviles MD, Hugo Ayala Primary Care Provider Encounter Details Date Type Department Care Team (Latest Contact Info) Description 07/22/2008 Outpatient Historical [facility] Pain Management Procedures [address] 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 Gender Identity Not on file Sexual Orientation Not on file documented as of this encounter Plan of Treatment Not on file documented as of this encounter Procedures Procedure Name Priority Date/Time Associated Diagnosis Comments XR FLUORO GREATER THAN 1 HOUR Routine 07/25/2008 11:23 AM ASSEMBLER LIQUID CENTER documented in this encounter Results * XR FLUORO > 1 HOUR (07/25/2008 11:23 AM ASSEMBLER LIQUID CENTER) Anatomical Region Laterality Modality Other 07/25/2008 11:2 3 AM ASSEMBLER LIQUID CENTER Narrative 07/25/2008 11:23 AM ASSEMBLER LIQUID CENTER Finalized by interface [employer] utility. No report expected. Procedure Note 09/11/2008 Finalized by interface cleanup utility. No report expected. Eamon Waller MD DIAGNOSTIC IMAGING ORDERABLES Final Result documented in this encounter Visit Diagnoses Diagnosis Postlaminectomy syndrome, lumbar region Thoracic or lumbosacral neuritis or radiculitis, unspecified Arthropathy, unspecified, site unspecified documented in this encounter Care Teams Community Educator Relationship Specialty Start [place] [address] [place] [phone] PCP - General 02/11/08 documented as of this encounter
--- OUTSIDE RECORDS SUMMARY | 2025-03-29 11:57 | XMS_ITS | Encounter Summary ---
Author Organization [facility] Address [address] [place] [address] Care Team Providers Care External Grinder Tool Name Role Phone Yang Aviles MD, Hugo Ayala Primary Care Provider Encounter Details Date Type Department Care Team (Latest Contact Info) Description 07/15/2002 Outpatient Historical [facility] Jaguar Keller MD [address] [place] [address] OSTEOPOROSIS NOS (Primary Dx); BACKACHE NOS; Lumbosacral spondylosis; Idiopathic scoliosis Social History Tobacco Use Types Packs/Day Years Used Date Smoking Tobacco: Never Assessed Comments Unknown Sex and Gender Information Value Date Recorded Sex Assigned at Not on file 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
--- OUTSIDE RECORDS SUMMARY | 2025-03-29 11:57 | XMS_ITS | Encounter Summary ---
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
--- OUTSIDE RECORDS SUMMARY | 2025-03-29 11:57 | XMS_ITS | Encounter Summary ---
Author Organization [facility] Address [address] [place] [address] Care Team Providers Care Can Closing Machine Operator Name Role Phone Yang Aviles MD, Hugo Ayaal Primary Care Provider Encounter Details Date Type Department Care Team (Late st Contact Info) Description 04/02/2008 Outpatient Historical [facility] [address] [place] [address] Gabi Marinelli PA [address] [place] [address] Social History Tobacco Use Types Packs/Day Years Used Date Smoking Tobacco: Never Assessed Comments Unknown Sex and Gender Information Value Date Recorded Sex Assigned at Not on file Legal Sex Female 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
--- OUTSIDE RECORDS SUMMARY | 2025-03-29 11:57 | XMS_ITS | Encounter Summary ---
Author Organization [facility] Address [address] [place] [address] Care Team Providers Care Security Systems Integrator Name Role Phone Yang Aviles MD, Hugo Ayala Primary Care Provider Encounter Details Date Type Department Care Team (Latest Contact Info) Description 08/06/2002 Outpatient Historical [facility] Hugo Soria Jr., MD [address] [place] [address] ACUTE URI NOS (Primary Dx); HYPERTENSION NOS Social History Tobacco Use Types Packs/Day Years Used Date Smoking Tobacco: Never Assessed Comments Unknown Sex and Gender Information Value Date Recorded Sex Assigned at Not on file Legal Sex Female 2:53 AM DIGITAL ADVERTISING SPECIALIST Gender Identity Not on file Sexual Orientation Not on file documented as of this encounter Plan of Treatment Not on file documented as of this encounter Visit Diagnoses Diagnosis Acute upper respiratory infections of unspecified site- Primary Unspecified essential hypertension documented in this encounter Care Teams Security Systems Integrator Relationship Specialty Start Date End Date Hugo Soria Jr., MD [address] [place] [address] PCP - General 02/11/08 documented as of this encounter
--- OUTSIDE RECORDS SUMMARY | 2025-03-29 11:57 | XMS_ITS | Encounter Summary ---
Author Organization [facility] Address [address] [place] [address] Care Team Providers Care Nonprofit Manager Name Role Phone Yang Aviles MD, Hugo Ayala Primary Care Provider Encounter Details Date Type Department Care Team (Latest Contact Info) Description 01/19/2002 Outpatient Historical [facility] Jaguar Keller MD [address] [place] [address] Idiopathic scoliosis (Primary Dx); Lumbosacral spondylosis; BACKACHE NOS; OSTEOPOROSIS NOS Social History Tobacco Use Types Packs/Day Years Used Date Smoking Tobacco: Never Assessed Comments Unknown Sex and Gender Information Value Date Recorded Sex Assigned at Not on file Legal Sex Female 2:53 AM 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
--- OUTSIDE RECORDS SUMMARY | 2025-03-29 11:57 | XMS_ITS | Encounter Summary ---
Author Organization [facility] Address [address] [place] [address] Care Team Providers Care Drapery Installer Name Role Phone Yang Aviles MD, Hugo Ayala Primary Care Provider Encounter Details Date Type Department Care Team (Latest Contact Info) Description 11/30/1999 Outpatient Historical [facility] Hugo Soria Jr., MD [address] [place] [address] Skin sensation disturb (Primary Dx) Social History Tobacco Use Types Packs/Day Years Used Date Smoking Tobacco: Never Assessed Comments Unknown Sex and Gender Information Value Date Recorded Sex Assigned at Not on file Legal Sex Female 2:53 AM HEALTH WORKER Gender Identity Not on file Sexual Orientation Not on file documented as of this encounter Plan of Treatment Not on file documented as of this encounter Visit Diagnoses Diagnosis Skin sensation disturb- Primary Disturbance of skin sensation documented in this encounter Care Teams Drapery Installer Relationship Specialty Start Date End Date Hugo Soria Jr., MD [address] [place] [address] PCP - General 02/11/08 documented as of this encounter
--- OUTSIDE RECORDS SUMMARY | 2025-03-29 11:57 | XMS_ITS | Encounter Summary ---
Author Organization [facility] Address [address] [place] [address] Care Team Providers Care Gas Usage Meter Clerk Name Role Phone Yang Aviles MD, Hugo Ayala Primary Care Provider Encounter Details Date Type Department Care Team (Latest Contact Info) Description 01/24/2005 Outpatient Historical [facility] Pain [facility] [address] [place] [phone] Eamon Waller MD NO ADDRESS ON FILE DISORDERS OF SACRUM (Primary Dx); LUMBAGO Social History Tobacco Use Types Packs/Day Years Used Date Smoking Tobacco: Never Assessed Comments Unknown Sex and Gender Information Value Date Recorded Sex Assigned at Not on file Legal Sex Female 2:53 AM CEMENT PATCHER Gender Identity Not on file Sexual Orientation Not on file documented as of this encounter Plan of Treatment Not on file documented as of this encounter Visit Diagnoses Diagnosis Disorders of sacrum- Primary Lumbago documented in this encounter Care Teams Gas Usage Meter Clerk Relationship Specialty Start Date End Date Hugo Soria Jr., MD [address] [place] [address] PCP - General 02/11/08 documented as of this encounter
--- OUTSIDE RECORDS SUMMARY | 2025-03-29 11:57 | XMS_ITS | Encounter Summary ---
Author Organization [facility] Address [address] [place] [address] Care Team Providers Care Farm Machine Operator Name Role Phone Yang Aviles MD, Hugo Ayala Primary Care Provider Encounter Details Date Type Department Care Team (Latest Contact Info) Description 12/23/2002 Outpatient Historical HIS [facility] Hugo Soria Jr., MD [address] [place] [address] HYPERTENSION NOS (Primary Dx); Pure hypercholesterolem Social History Tobacco Use Types Packs/Day Years Used Date Smoking Tobacco: Never Assessed Comments Unknown Sex and Gender Information Value Date Recorded Sex Assigned at Not on file Legal Sex Female 2:53 AM PROFESSOR OF BIBLICAL STUDIES Gender Identity Not on file Sexual Orientation Not on file documented as of this encounter Plan of Treatment Not on file documented as of this encounter Visit Diagnoses Diagnosis Unspecified essential hypertension- Primary Pure hypercholesterolem Pure hypercholesterolemia documented in this encounter Care Teams Farm Machine Operator Relationship Specialty Start Date End Date Hugo Soria Jr., MD [address] [place] [address] PCP - General 02/11/08 documented as of this encounter
--- OUTSIDE RECORDS SUMMARY | 2025-03-29 11:57 | XMS_ITS | Encounter Summary ---
Author Organization [facility] Address [address] [place] [address] Care Team Providers Care Capacity Planning Engineer Name Role Phone Yang Aviles MD, Hugo Ayala Primary Care Provider Encounter Details Date Type Department Care Team (Latest Contact Info) Description 10/16/1998 Outpatient Historical [facility] Jake Hall NO ADDRESS ON FILE Lumbar disc displacement (Primary Dx) Social History Tobacco Use Types Packs/Day Years Used Date Smoking Tobacco: Never Assessed Comments Unknown Sex and Gender Information Value Date Recorded Sex Assigned at Not on file Legal Sex Female 2:53 AM FISHING ROD TRIMMER Gender Identity Not on file Sexual Orientation Not on file documented as of this encounter Plan of Treatment Not on file documented as of this encounter Visit Diagnoses Diagnosis Lumbar disc displacement- Primary Displacement of lumbar intervertebral disc without myelopathy documented in this encounter Care Teams Capacity Planning Engineer Relationship Specialty Start Date End Date Hugo Soria Jr., MD [address] [place] [address] PCP - General 02/11/08 documented as of this encounter
--- OUTSIDE RECORDS SUMMARY | 2025-03-29 11:57 | XMS_ITS | Clinical Summary ---
Author Organization [facility] Address [address] [place] [address] Care Team Providers Care Lobby Porter Name Role Phone Yang Aviles MD, Hugo Ayala Primary Care Provider Allergies Active Allergy Reactions Criticality Noted Date Comments Adhes. Jhnh-Jgcv-Iqmluxmleyxt Rash Low 03/01/2011 Daptomycin Other (See Comments) 03/01/2011 Pt could not remember Penicillamine Rash Low 03/01/2011 Prednisone Rash Low 11/04/2013 Medications metoprolol tartrate (LOPRESSOR) 25 mg Oral tabletIndicati ons:S/P lumbar fusion Take 25 mg by mouth daily machine fur cleaner. Active aspirin (JASS) 81 mg Oral TabIndications :S/P lumbar fusion Take by mouth. Activ e CALCIUM CITRATE/VITAMI N D3 (CALCIUM CITRATE + ORAL)Indicatio ns:S/P lumbar fusion Take by mouth. Activ e alendronate (FOSAMAX) 70 mg Oral tabletIndicati ons:S/P lumbar fusion Take 70 mg by mouth every 7 days. empty stomach before other meds,with 8oz of water, stay upright 30 min Active polycarbophil calcium (FIBERCON) 625 mg Oral tabletIndicati ons:S/P lumbar fusion Take 625 mg by mouth daily. Active rosuvastatin (CRESTOR) 10 mg Oral tablet Take 10 mg by mouth daily at bedtime. Active HYDROcodone-ac etaminophen (NORCO) 7.5-325 mg Oral Tab Take 1-2 Tabs by mouth every 4 hours as needed for Pain. 60 Tab 3 2 Active docusate sodium (COLACE) 100 mg Oral capsule Take 1 Cap by mouth 2 times daily. 60 Cap 2 2 Active doxycycline (MONODOX) 100 mg Oral Cap Take 100 mg by mouth daily. Active OTHERIndicatio ns:Hyperextens ion of knee or lower leg Left knee brace with open flexion and stop at 0 degrees extension. (prevent hyperextension of the knee) 1 Each 0 2 Active OTHERIndicatio ns:Hyperextens ion of knee or lower leg Left leg brace adjustment. 1 Each 0 3 Active indapamide (LOZOL) 2.5 mg tablet Take 2.5 mg by mouth daily machine fur cleaner. Active potassium chloride (MICRO-K) 8 mEq Capsule, Sustained Release Take 8 mEq by mouth daily. Active VIT C/YAMILET AC/LUT/COPPER/ ZNOX (PRESERVISION LUTEIN ORAL) Take by mouth. Ac tive Active Problems Problem Noted Date Diagnosed Date Lumbar radiculopathy 02/25/2012 Overview (02/25/2012): Left L3 s/p spinal fusion, chronic Hyperextension of knee or lower leg 12/31/2011 Overview (12/31/2011): Left knee Knee instability 12/31/2011 Overview (12/31/2011): Left hyperextends Bilateral knee pain 10/03/2011 Senile osteoporosis 04/02/2011 Scoliosis 03/01/2011 Back pain 03/01/2011 Thoracic or lumbosacral neur itis or radiculitis, unspecified 03/01/2011 Overview (03/01/2011): LLE post-op with quad weakness and whole leg paresthesias S/P spinal fusion 03/01/2011 Overview (03/01/2011): T10 - Pelvis by Jerson Alvarez and Ernie Gómez in 12/2010 at [facility] up to T7 at later date Immunizations Immunization Administration Dates Next Due (TDVAX)(7 YRS UP) TETANUS AN D DIPHTHERIA TOXOIDS, ADSORBED (2 LF OF TETANUS TOXOID AND 2 LF OF DIPHTHERIA TOXOID), 0.5ML (PF), IM 03/02/2003 Family History Medical History Relation Name Comments Other Father Other Mother Relation Name Status Comments Father Mother Social History Tobacco Use Types Packs/Day Years Used Date Smoking Tobacco: Never Smokeless Tobacco: Never Alcohol Use Standard Drinks/Week Comments No 0 (1 standard drink = 0.6 oz pur e alcohol) Comments Unknown Sex and Gender Information Value Date Recorded Sex Assigned at Not on file Legal Sex Female 2:53 AM SUPERVISOR PUBLICATIONS Gender Identity Not on file Sexual Orientation Not on file Occupation Industry Job Start Date Job End Date Not on file Not on file Not on file Not on file Not on file Not on file Not on file Not on file Last Filed Vital Signs Vital Sign Reading Time Taken Comments Blood Pressure 128/84 01/23/2017 10:39 AM CDT Pulse 80 01/23/2017 10:39 AM CDT Temperature 37 C (98.6 F) 01/23/2017 10:39 AM CDT Respiratory Rate 14 12/15/2014 10:07 AM CDT Oxygen Saturation 97% 11/04/2013 2:53 PM SUPERVISOR PUBLICATIONS Inhaled Oxygen Concentration - - Weight 94.3 kg (208 lb) 01/23/2017 10:39 AM CDT Height 180.3 cm (5' 11 ) 01/23/2017 10:39 AM CDT Body Mass Index 29.01 01/23/2017 10:39 AM CDT Plan of Treatment Health Maintenance Due Date Last Done Comments PNEUMOCOCCAL VACCINE 50+ YEA RS (1 of 1 - PCV) 1985 ZOSTER VACCINE (1 of 2) 1985 DTAP/TDAP/TD VACCINES (1 - Tdap) 03/03/2003 03/02/20 03 RSV VACCINE (60+ or ) (1 - 1-dose 75+ series) 2010 OSTEOPOROSIS SCREENING 11/17/2018 11/17/2013, 2010 INFLUENZA VACCINE (#1) 2025 Medical Devices Explanted Type Area Plant Protection Superintendent Device Identifier Shelf Expiration Date Model / Serial / Lot Preexisting Hardware Explanted:Qty: 5 on 09/05/2011 by Jaguar Keller MD at [facility] N/A: Spine Thoracic Procedures Procedure Name Priority Date/Time Associated Diagnosis Comments XR DEXA BONE DENSITY AXIAL 1 OR MORE SITES Routine 11/17/2013 12:45 PM CDT Senile osteoporosis from Last 3 Months or Most Recently Relevant to Health Maintenance Results * XR DEXA BONE DENSITY AXIAL 1 OR MORE SITES (11/17/2013 12:45 PM CDT) Anatomical Region Laterality Modality Digital Radiogra phy 11/17/2013 12:3 1 PM CDT Narrative 11/18/2013 9:22 AM CDT PROCEDURE DEXA BONE DENSITY, 17 November 2013 Bone mineral densitometry was assessed by DEXA of the lumbar spine and left hip. There are no previous studies for comparison. The total bone density of the left hip measures 0.748 g/sq cm for a T score of -1.6. The femoral neck region measures 0.664 g/sq cm for a T score of -1.7. IMPRESSION osteopenia, with increased fracture risk Procedure Note Mario Sharma MD - 11/18/2013 PROCEDURE DEXA BONE DENSITY, 17 November 2013 Bone mineral densitometry was assessed by DEXA of the lumbar spine and left hip. There are no previous studies for comparison. The total bone density of the left hip measures 0.748 g/sq cm for a T score of -1.6. The femoral neck region measures 0.664 g/sq cm for a T score of -1.7. IMPRESSION osteopenia, with increased fracture risk us Lj [facility] ORDERABLES F inal Result from Last 3 Months or Most Recently Relevant to Health Maintenance Insurance MEDICARE PART A AND B [facility] Advance Directives For more information, please contact: [phone] Documents on File Type Date Recorded Patient Container Finishing Inspector Expl anation Advance Directive POA 09/04/2011 11:51 AM A dvance Directive POA Advance Directive Living Will 09/04/2011 * Full Code (Latest Code Status on File) Date Activated Date Inactivated Comments 09/04/2011 1:23 PM 09/07/2011 4:46 PM * Full Code Date Activated Date Inactivated Comments 09/04/2011 9:50 AM 09/04/2011 1:22 PM * Full Code Date Activated Date Inactivated Comments 09/04/2011 8:43 AM 09/04/2011 9:50 AM Care Teams Lobby Porter Relationship Specialty Start Date End Date Hugo Soria Jr., MD [facility] [place] [address] PCP - General 02/11/08
--- OUTSIDE RECORDS SUMMARY | 2025-03-29 11:57 | XMS_ITS | Encounter Summary ---
Author Organization [facility] Address [address] [place] [address] Care Team Providers Care Waste Machine Offbearer Name Role Phone Yang Aviles MD, Hugo Ayala Primary Care Provider Encounter Details Date Type Department Care Team (Latest Contact Info) Description 1998 Outpatient Historical [facility] Jake Hall NO ADDRESS ON FILE Lumbago (Primary Dx) Social History Tobacco Use Types Packs/Day Years Used Date Smoking Tobacco: Never Assessed Comments Unknown Sex and Gender Information Value Date Recorded Sex Assigned at Not on file Legal Sex Female 2:53 AM TEMPLATE CUTTER Gender Identity Not on file Sexual Orientation Not on file documented as of this encounter Plan of Treatment Not on file documented as of this encounter Visit Diagnoses Diagnosis Lumbago- Primary documented in this encounter Care Teams Waste Machine Offbearer Relationship Specialty Start Date End Date Hugo Soria Jr., MD [address] [place] [address] PCP - General 02/11/08 documented as of this encounter
--- OUTSIDE RECORDS SUMMARY | 2025-03-29 11:57 | XMS_ITS | Encounter Summary ---
Author Organization [facility] Address [address] [place] [address] Care Team Providers Care Set Up And Charger Name Role Phone Yang Aviles MD, Hugo Ayala Primary Care Provider Encounter Details Date Type Department Care Team (Latest Contact Info) Description 06/28/2003 Outpatient Historical [facility] [address] [place] [address] Jgauar Keller MD [address] [place] [address] Lumbosacral spondylosis (Primary Dx); BACKACHE NOS; Idiopathic scoliosis Social History Tobacco Use Types Packs/Day Years Used Date Smoking Tobacco: Never Assessed Comments Unknown Sex and Gender Information Value Date Recorded Sex Assigned at Not on file Legal Sex Female 2:53 AM EDGING SUPERVISOR Gender Identity Not on file Sexual Orientation Not on file documented as of this encounter Plan of Treatment Not on file documented as of this encounter Visit Diagnoses Diagnosis Lumbosacral spondylosis- Primary Lumbosacral spondylosis without myelopathy Backache, unspecified Idiopathic scoliosis Scoliosis (and kyphoscoliosis), idiopathic documented in this encounter Care Teams Set Up And Charger Relationship Specialty Start Date End Date Hugo Soria Jr., MD [address] [place] [address] PCP - General 02/11/08 documented as of this encounter
--- OUTSIDE RECORDS SUMMARY | 2025-03-29 11:57 | XMS_ITS | Encounter Summary ---
Author Organization [facility] Address [address] [place] [address] Care Team Providers Care Barber Name Role Phone Yang Aviles MD, Hugo Ayala Primary Care Provider Encounter Details Date Type Department Care Team (Latest Contact Info) Description 08/09/2004 Outpatient Historical [facility] [address] [address] Jaguar Keller MD [address] [place] [address] CERVICAL SPONDYLOSIS (Primary Dx) Social History Tobacco Use Types Packs/Day Years Used Date Smoking Tobacco: Never Assessed Comments Unknown Sex and Gender Information Value Date Recorded Sex Assigned at Not on file Legal Sex Female 2:53 AM BLUNGER Gender Identity Not on file Sexual Orientation Not on file documented as of this encounter Plan of Treatment Not on file documented as of this encounter Visit Diagnoses Diagnosis Cervical spondylosis without myelopathy- Primary documented in this encounter Care Teams Barber Relationship Specialty Start Date End Date Hugo Soria Jr., MD [address] [place] [address] PCP - General 02/11/08 documented as of this encounter
--- OUTSIDE RECORDS SUMMARY | 2025-03-29 11:57 | XMS_ITS | Encounter Summary ---
Author Organization [facility] Address [address] [place] [address] Care Team Providers Care Magneto Specialist Name Role Phone Yang Aviles MD, Hugo Ayala Primary Care Provider Encounter Details Date Type Department Care Team ([facility] Contact Info) Description 08/09/2004 Outpatient Historical [facility] [address] [facility] [place] [address] Hugo Soria Jr., MD [address] [place] [address] JOINT PAIN-SHLDER (Primary Dx) Social History Tobacco Use Types Packs/Day Years Used Date Smoking Tobacco: Never Assessed Comments Unknown Sex and Gender Information Value Date Recorded Sex Assigned at Not on file Legal Sex Female 2:53 AM HEAD KILN OPERATOR Gender Identity Not on file Sexual Orientation Not on file documented as of this encounter Plan of Treatment Not on file documented as of this encounter Visit Diagnoses Diagnosis Pain in joint, shoulder region- Primary documented in this encounter Care Teams Magneto Specialist Relationship Specialty Start Date End Date Hugo Soria Jr., MD [address] [place] [address] PCP - General 02/11/08 documented as of this encounter
--- OUTSIDE RECORDS SUMMARY | 2025-03-29 11:57 | XMS_ITS | Encounter Summary ---
Author Organization [facility] Address [address] [place] [address] Care Team Providers Care Teleprinter Name Role Phone Yang Aviles MD, Hugo Ayala Primary Care Provider Encounter Details Date Type Department Care Team (Latest Contact Info) Description 12/11/1998 Outpatient Historical HIS [facility] Jake Hall NO ADDRESS ON FILE Lumbago (Primary Dx) Social History Tobacco Use Types Packs/Day Years Used Date Smoking Tobacco: Never Assessed Comments Unknown Sex and Gender Information Value Date Recorded Sex Assigned at Not on file Legal Sex Female 2:53 AM 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
--- OUTSIDE RECORDS SUMMARY | 2025-03-29 11:57 | XMS_ITS | Encounter Summary ---
Author Organization [facility] Address [address] [place] [address] Care Team Providers Care Interior Design Principal Name Role Phone Yang Aviles MD, Hugo Ayala Primary Care Provider Encounter Details Date Type Department Care Team (Latest Contact Info) Description 03/12/2000 Outpatient Historical [facility] Hugo Soria Jr., MD [facility] [place] [address] Pain in joint, shoulder region (Primary Dx); Osteoarthrosis, unspecified whether generalized or localized, unspecified site; Adhesive capsulit shlder Social History Tobacco Use Types Packs/Day Years Used Date Smoking Tobacco: Never Assessed Comments Unknown Sex and Gender Information Value Date Recorded Sex Assigned at Not on file Legal Sex Female 2:53 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
--- OUTSIDE RECORDS SUMMARY | 2025-03-29 11:57 | XMS_ITS | Encounter Summary ---
Author Organization [facility] Address [address] [place] [address] Care Team Providers Care Drip Box Tender Name Role Phone Yang Aviles MD, Hugo Ayala Primary Care Provider Encounter Details Date Type Department Care Team (Late st Contact Info) Description 07/07/2002 Outpatient Historical [facility] Services [address] [place] [address] Jaguar Keller MD [address] [place] [address] Social History Tobacco Use Types Packs/Day Years Used Date Smoking Tobacco: Never Assessed Comments Unknown Sex and Gender Information Value Date Recorded Sex Assigned at Not on file Legal Sex Female 2:53 AM VICE PRESIDENT OF TALENT MANAGEMENT Gender Identity Not on file Sexual Orientation Not on file documented as of this encounter Plan of Treatment Not on file documented as of this encounter Visit Diagnoses Not on filedocumented in this encounter Care Teams Drip Box Tender Relationship Specialty Start Date End Date Hugo Soria Jr., MD [address] [place] [address] PCP - General 02/11/08 documented as of this encounter
--- OUTSIDE RECORDS SUMMARY | 2025-03-29 11:57 | XMS_ITS | Encounter Summary ---
Author Organization [facility] Address [address] [place] [address] Care Team Providers Care Set Up Mold Technician Name Role Phone Yang Aviles MD, Hugo Ayala Primary Care Provider Encounter Details Date Type Department Care Team (Latest Contact Info) Description 01/01/2005 Outpatient [facility] [address] [place] [address] [address] Jaguar Keller MD [address] [place] [address] CERVICALGIA (Primary Dx) Social History Tobacco Use Types Packs/Day Years Used Date Smoking Tobacco: Never Assessed Comments Unknown Sex and Gender Information Value Date Recorded Sex Assigned at Not on file Legal Sex Female 2:53 AM IMPORT CUSTOMS CLEARING AGENT Gender Identity Not on file Sexual Orientation Not on file documented as of this encounter Plan of Treatment Not on file documented as of this encounter Visit Diagnoses Diagnosis Cervicalgia- Primary documented in this encounter Care Teams Set Up Mold Technician Relationship Specialty Start Date End Date Hugo Soria Jr., MD [address] [place] [address] PCP - General 02/11/08 documented as of this encounter
--- OUTSIDE RECORDS SUMMARY | 2025-03-29 11:57 | XMS_ITS | Encounter Summary ---
Author Organization [facility] Address [address] [place] [address] Care Team Providers Care Railway Shunter Name Role Phone Yang Aviles MD, Hugo Ayala Primary Care Provider Encounter Details Date Type Department Care Team (Latest Contact Info) Description 03/02/2003 Outpatient Historical [facility] Hugo Soria Jr., MD [facility] [place] [address] Gynecologic examination (Primary Dx); Diffus cystic mastopathy; VACCINE FOR TETANUS + DIPHTHERIA Social History Tobacco Use Types Packs/Day Years Used Date Smoking Tobacco: Never Assessed Comments Unknown Sex and Gender Information Value Date Recorded Sex Assigned at Not on file Legal Sex Female 2:53 AM 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
--- OUTSIDE RECORDS SUMMARY | 2025-03-29 11:57 | XMS_ITS | Encounter Summary ---
Author Organization [facility] Address [address] [place] [address] Care Team Providers Care Personal Lines Account Manager Name Role Phone Yang Aviles MD, Hugo Ayala Primary Care Provider Encounter Details Date Type Department Care Team (Latest Contact Info) Description 04/13/1999 Outpatient Historical HIS [facility] Hugo Soria Jr., MD [address] [place] [address] Abnormal involuntary movements(781.0) (Primary Dx); Bronchitis, not specified as acute or chronic Social History Tobacco Use Types Packs/Day Years Used Date Smoking Tobacco: Never Assessed Comments Unknown Sex and Gender Information Value Date Recorded Sex Assigned at Not on file Legal Sex Female 2:53 AM AQUATICS DIRECTOR Gender Identity Not on file Sexual Orientation Not on file documented as of this encounter Plan of Treatment Not on file documented as of this encounter Visit Diagnoses Diagnosis Abnormal involuntary movements(781.0)- Primary Abnormal involuntary movements Bronchitis, not specified as acute or chronic documented in this encounter Care Teams Personal Lines Account Manager Relationship Specialty Start Date End Date Hugo Soria Jr., MD [address] [place] [address] PCP - General 02/11/08 documented as of this encounter
--- OUTSIDE RECORDS SUMMARY | 2025-03-29 11:57 | XMS_ITS | Encounter Summary ---
Author Organization [facility] Address [address] [place] [address] Care Team Providers Care Ham Stripper Name Role Phone Yang Aviles MD, Hugo Ayala Primary Care Provider Encounter Details Date Type Department Care Team (Latest Contact Info) Description 10/19/1999 Outpatient Historical HIS [facility] Hugo Soria Jr., MD [address] [place] [address] Osteoarthrosis, unspecified whether generalized or localized, unspecified site (Primary Dx); Other and unspecified angina pectoris; Abnormal involuntary movements(781.0) Social History Tobacco Use Types Packs/Day Years Used Date Smoking Tobacco: Never Assessed Comments Unknown Sex and Gender Information Value Date Recorded Sex Assigned at Not on file Legal Sex Female 2:53 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
--- OUTSIDE RECORDS SUMMARY | 2025-03-29 11:57 | XMS_ITS | Encounter Summary ---
Author Organization [facility] Address [address] [place] [address] Care Team Providers Care Corrections Counselor Name Role Phone Yang Aviles MD, Hugo Ayala Primary Care Provider Encounter Details Date Type Department Care Team (Latest Contact Info) Description 06/11/2002 Outpatient Historical [facility] Jaguar Keller MD [address] [place] [address] Idiopathic scoliosis (Primary Dx); Lumbosacral spondylosis; BACKACHE NOS; OSTEOPOROSIS NOS Social History Tobacco Use Types Packs/Day Years Used Date Smoking Tobacco: Never Assessed Comments Unknown Sex and Gender Information Value Date Recorded Sex Assigned at Not on file Legal Sex Female 2:53 AM OUTSIDE SALES ENGINEER Gender Identity Not on file Sexual Orientation Not on file documented as of this encounter Plan of Treatment Not on file documented as of this encounter Visit Diagnoses Diagnosis Idiopathic scoliosis- Primary Scoliosis (and kyphoscoliosis), idiopathic Lumbosacral 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
--- OUTSIDE RECORDS SUMMARY | 2025-03-29 11:57 | XMS_ITS | Encounter Summary ---
Author Organization [facility] Address [address] [place] [address] Care Team Providers Care Subassembler Name Role Phone Yang Aviles MD, Hugo Ayala Primary Care Provider Encounter Details Date Type Department Care Team (Latest Contact Info) Description 12/23/2002 Outpatient Historical [facility] Hugo Soria Jr., MD [address] [place] [address] PURE HYPERCHOLESTEROLEM (Primary Dx) Social History Tobacco Use Types Packs/Day Years Used Date Smoking Tobacco: Never Assessed Comments Unknown Sex and Gender Information Value Date Recorded Sex Assigned at Not on file Legal Sex Female 2:53 AM 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
--- OUTSIDE RECORDS SUMMARY | 2025-03-29 11:57 | XMS_ITS | Encounter Summary ---
Author Organization [facility] Address [address] [place] [address] Care Team Providers Care Industrial Coffee Grinder Name Role Phone Yang Aviles MD, Hugo Ayala Primary Care Provider Encounter Details Date Type Department Care Team ([facility] Contact Info) Description 04/08/2008 Outpatient Historical [facility] Gabi Marinelli PA [address] [place] [address] Social History Tobacco Use Types Packs/Day Years Used Date Smoking Tobacco: Never Assessed Comments Unknown Sex and Gender Information Value Date Recorded Sex Assigned at Not on file Legal Sex Female 2:53 AM SODA ROOM OPERATOR Gender Identity Not on file Sexual Orientation Not on file documented as of this encounter Plan of Treatment Not on file documented as of this encounter Visit Diagnoses Not on filedocumented in this encounter Care Teams Industrial Coffee Grinder Relationship Specialty Start Date End Date Hugo Soria Jr., MD [address] [place] [phone] PCP - General 02/11/08 documented as of this encounter
--- OUTSIDE RECORDS SUMMARY | 2025-03-29 11:57 | XMS_ITS | Encounter Summary ---
Author Organization [facility] Address [address] [place] [address] Care Team Providers Care Bender Machine Name Role Phone Yang Aviles MD, Hugo Ayala Primary Care Provider Encounter Details Date Type Department Care Team (Latest Contact Info) Description 07/05/2004 Outpatient Historical [facility] [address] [place] [address] Jaguar Keller MD [address] [place] [address] CERVICALGIA (Primary Dx); Cervical spondylosis; BACKACHE NOS Social History Tobacco Use Types Packs/Day Years Used Date Smoking Tobacco: Never Assessed Comments Unknown Sex and Gender Information Value Date Recorded Sex Assigned at Not on file Legal Sex Female 2:53 AM DEVOPS SOLUTIONS ARCHITECT Gender Identity Not on file Sexual Orientation Not on file documented as of this encounter Plan of Treatment Not on file documented as of this encounter Visit Diagnoses Diagnosis Cervicalgia- Primary Cervical spondylosis Cervical spondylosis without myelopathy Backache, unspecified documented in this encounter Care Teams Bender Machine Relationship Specialty Start Date End Date Hugo Soria Jr., MD [address] [place] [address] PCP - General 02/11/08 documented as of this encounter
--- OUTSIDE RECORDS SUMMARY | 2025-03-29 11:57 | XMS_ITS | Encounter Summary ---
Author Organization [facility] Address [address] [place] [address] Care Team Providers Care Press Feeder Broomcorn Name Role Phone Yang Aviles MD, Hugo Ayala Primary Care Provider Encounter Details Date Type Department Care Team (Late st Contact Info) Description 07/12/2002 Outpatient Historical [facility] Imaging Services [address] [place] [address] Jaguar Keller MD [address] [place] [address] Social History Tobacco Use Types Packs/Day Years Used Date Smoking Tobacco: Never Assessed Comments Unknown Sex and Gender Information Value Date Recorded Sex Assigned at Not on file Legal Sex Female 2:53 AM SPECTROGRAPH OPERATOR Gender Identity Not on file Sexual Orientation Not on file documented as of this encounter Plan of Treatment Not on file documented as of this encounter Visit Diagnoses Not on filedocumented in this encounter Care Teams Press Feeder Broomcorn Relationship Specialty Start Date End Date Hugo Soria Jr., MD [address] [place] [address] PCP - General 02/11/08 documented as of this encounter
--- OUTSIDE RECORDS SUMMARY | 2025-03-29 11:57 | XMS_ITS | Encounter Summary ---
Author Organization [facility] Address [address] [place] [address] Care Team Providers Care Chief Green Officer Name Role Phone Yang Aviles MD, Hugo Ayala Primary Care Provider Encounter Details Date Type Department Care Team ([facility] Contact Info) Description 10/26/2001 Outpatient Historical [facility] IngridRicco MD [address] [phone] FAMILY HX-GI DISORDERS (Primary Dx); SCREENING MAL NEOP-COLON Social History Tobacco Use Types Packs/Day Years Used Date Smoking Tobacco: Never Assessed Comments Unknown Sex and Gender Information Value Date Recorded Sex Assigned at Not on file Legal Sex Female 2:53 AM HAT FINISHER Gender Identity Not on file Sexual Orientation Not on file documented as of this encounter Plan of Treatment Not on file documented as of this encounter Visit Diagnoses Diagnosis Family history of digestive disorders- Primary Special screening for malignant neoplasms, colon documented in this encounter Care Teams Chief Green Officer Relationship Specialty Start Date End Date Hugo Soria Jr., MD [address] [place] [address] PCP - General 02/11/08 documented as of this encounter
--- OUTSIDE RECORDS SUMMARY | 2025-03-29 11:57 | XMS_ITS | Encounter Summary ---
Author Organization [facility] Address [address] [place] [address] Care Team Providers Care Honest John Rocket Crew Member Name Role Phone Yang Aviles MD, Hugo Ayala Primary Care Provider Encounter Details Date Type Department Care Team (Latest Contact Info) Description 08/07/1999 Outpatient Historical [facility] [place] [address] [place] [address] Piter Yeboah MD NO ADDRESS ON FILE Gynecologic examination (Primary Dx) Social History Tobacco Use Types Packs/Day Years Used Date Smoking Tobacco: Never Assessed Comments Unknown Sex and Gender Information Value Date Recorded Sex Assigned at Not on file Legal Sex Female 2:53 AM TAPE FOLDING 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
--- OUTSIDE RECORDS SUMMARY | 2025-03-29 11:57 | XMS_ITS | Encounter Summary ---
Author Organization [facility] Address [address] [place] [address] Care Team Providers Care Gwot Ia/Ilo Intelligence Support Name Role Phone Yang Aviles MD, Hugo Ayala Primary Care Provider Encounter Details Date Type Department Care Team (Latest Contact Info) Description 11/05/2000 Outpatient Historical [facility] Hugo Soria Jr., MD [address] [place] [address] Screening for malignant neoplasm of the cervix (Primary Dx); Screening for other and unspecified endocrine, nutritional, metabolic, and immunity disorders; Screening for nephropathy; Screening for lipoid disorders Social History Tobacco Use Types Packs/Day Years Used Date Smoking Tobacco: Never Assessed Comments Unknown Sex and Gender Information Value Date Recorded Sex Assigned at Not on file Legal Sex Female 2:53 AM CUT AND COVER LINE WORKER Gender Identity Not on file Sexual Orientation Not on file documented as of this encounter Plan of Treatment Not on file documented as of this encounter Visit Diagnoses Diagnosis Screening for malignant neoplasm of the cervix- Primary Screening for other and unspecified endocrine, nutritional, metabolic, and immunity disorders Screening for nephropathy Screening for lipoid disorders documented in this encounter Care Teams Gwot Ia/Ilo Intelligence Support Relationship Specialty Start Date End Date Hugo Soria Jr., MD [address] [place] [address] PCP - General 02/11/08 documented as of this encounter
--- OUTSIDE RECORDS SUMMARY | 2025-03-29 11:57 | XMS_ITS | Encounter Summary ---
Author Organization [facility] Address [address] [place] [address] Care Team Providers Care Refrigerator Assembler Name Role Phone Yang Aviles MD, Hugo Ayala Primary Care Provider Encounter Details Date Type Department Care Team (Latest Contact Info) Description 08/14/1998 Outpatient Historical [facility] Imaging Services-Davey Rodriguez [place] [address] [address] Matt Rodriguez MD [address] [place] [address] Lumbago (Primary Dx) Social History Tobacco Use Types Packs/Day Years Used Date Smoking Tobacco: Never Assessed Comments Unknown Sex and Gender Information Value Date Recorded Sex Assigned at Not on file Legal Sex Female 2:53 AM BASIN FINISH OPERATOR TIG WELDER Gender Identity Not on file Sexual Orientation Not on file documented as of this encounter Plan of Treatment Not on file documented as of this encounter Visit Diagnoses Diagnosis Lumbago- Primary documented in this encounter Care Teams Refrigerator Assembler Relationship Specialty Start Date End Date Hugo Soria Jr., MD [address] [place] [address] PCP - General 02/11/08 documented as of this encounter
--- OUTSIDE RECORDS SUMMARY | 2025-03-29 11:57 | XMS_ITS | Encounter Summary ---
Author Organization [facility] Address [address] [place] [address] Care Team Providers Care Software Development Project Manager Name Role Phone Yang Aviles MD, Hugo Ayala Primary Care Provider Encounter Details Date Type Department Care Team (Latest Contact Info) Description 01/24/2005 Outpatient Historical [facility] Procedures [address] [place] [address] Eamon Waller MD NO ADDRESS ON FILE DISORDERS OF SACRUM (Primary Dx) Social History Tobacco Use Types Packs/Day Years Used Date Smoking Tobacco: Never Assessed Comments Unknown Sex and Gender Information Value Date Recorded Sex Assigned at Not on file Legal Sex Female 2:53 AM LEAD SHOP OPERATOR Gender Identity Not on file Sexual Orientation Not on file documented as of this encounter Plan of Treatment Not on file documented as of this encounter Visit Diagnoses Diagnosis Disorders of sacrum- Primary documented in this encounter Care Teams Software Development Project Manager Relationship Specialty Start Date End Date Hugo Soria Jr., MD [address] [place] [address] PCP - General 02/11/08 documented as of this encounter
--- OUTSIDE RECORDS SUMMARY | 2025-03-29 11:57 | XMS_ITS | Encounter Summary ---
Author Organization [facility] Address [address] [place] [address] Care Team Providers Care Account Service Associate Name Role Phone Yang Aviles MD, Hugo Ayala Primary Care Provider Encounter Details Date Type Department Care Team (Late st Contact Info) Description 03/02/2003 Outpatient Historical [facility] Hugo Soria Jr., MD [address] [place] [address] Social History Tobacco Use Types Packs/Day Years Used Date Smoking Tobacco: Never Assessed Comments Unknown Sex and Gender Information Value Date Recorded Sex Assigned at Not on file Legal Sex Female 2:53 AM SUPERVISOR SOLDERING Gender Identity Not on file Sexual Orientation Not on file documented as of this encounter Plan of Treatment Not on file documented as of this encounter Visit Diagnoses Not on filedocumented in this encounter Care Teams Account Service Associate Relationship Specialty Start Date End Date Hugo Soria Jr., MD [address] [place] [address] PCP - General 02/11/08 documented as of this encounter
--- OUTSIDE RECORDS SUMMARY | 2025-03-29 11:57 | XMS_ITS | Encounter Summary ---
Author Organization [facility] Address [address] [place] [address] Care Team Providers Care Senior Validation Engineer Name Role Phone Yang Aviles MD, Hugo Ayala Primary Care Provider Encounter Details Date Type Department Care Team (Latest Contact Info) Description 01/01/[address] [facility] [address] [place] [phone] Jaguar Keller MD [address] [place] [address] CERVICALGIA (Primary Dx); BACKACHE NOS; LUMB/LUMBOSAC DISC DEGEN; LUMBOSACRAL NEURITIS NOS Social History Tobacco Use Types Packs/Day Years Used Date Smoking Tobacco: Never Assessed Comments Unknown Sex and Gender Information Value Date Recorded Sex Assigned at Not on file Legal Sex Female 2:53 AM STONECUTTER HAND Gender Identity Not on file Sexual Orientation Not on file documented as of this encounter Plan of Treatment Not on file documented as of this encounter Visit Diagnoses Diagnosis Cervicalgia- Primary Backache, unspecified Degeneration of lumbar or lumbosacral intervertebral disc Thoracic or lumbosacral neuritis or radiculitis, unspecified documented in this encounter Care Teams Senior Validation Engineer Relationship Specialty Start Date End Date Hugo Soria Jr., MD [address] [place] [address] PCP - General 02/11/08 documented as of this encounter
--- OUTSIDE RECORDS SUMMARY | 2025-03-29 11:57 | XMS_ITS | Encounter Summary ---
Author Organization [facility] Address [address] [place] [address] Care Team Providers Care Avp Name Role Phone Yang Aviles MD, Hugo Ayala Primary Care Provider Encounter Details Date Type Department Care Team (Latest Contact Info) Description 12/20/1999 Outpatient Historical [facility] Hugo Soria Jr., MD [address] [place] [address] Cerebrovascular anomaly (Primary Dx); Skin sensation disturb Social History Tobacco Use Types Packs/Day Years Used Date Smoking Tobacco: Never Assessed Comments Unknown Sex and Gender Information Value Date Recorded Sex Assigned at Not on file Legal Sex Female 2:53 AM AOC AADC OPERATIONS STAFF OFFICER Gender Identity Not on file Sexual Orientation Not on file documented as of this encounter Plan of Treatment Not on file documented as of this encounter Visit Diagnoses Diagnosis Cerebrovascular 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
--- OUTSIDE RECORDS SUMMARY | 2025-03-29 11:57 | XMS_ITS | Encounter Summary ---
Author Organization [facility] Address [address] [place] [address] Care Team Providers Care Vp Compliance Name Role Phone Yang Aviles MD, Hugo Ayala Primary Care Provider Encounter Details Date Type Department Care Team ([facility] Contact Info) Description 08/09/2004 Outpatient Historical [facility] [place] [address] Social History Tobacco Use Types Packs/Day Years Used Date Smoking Tobacco: Never Assessed Comments Unknown Sex and Gender Information Value Date Recorded Sex Assigned at Not on file Legal Sex Female 2:53 AM REAL ESTATE ASSESSOR Gender Identity Not on file Sexual Orientation Not on file documented as of this encounter Plan of Treatment Not on file documented as of this encounter Visit Diagnoses Not on filedocumented in this encounter Care Teams Vp Compliance Relationship Specialty Start Date End Date Hugo Soria Jr., MD [address] [place] [address] PCP - General 02/11/08 documented as of this encounter
--- OUTSIDE RECORDS SUMMARY | 2025-03-29 11:57 | XMS_ITS | Encounter Summary ---
Author Organization [facility] Address [address] [place]: [place] [address] Care Team Providers Care Sand Filler Name Role Phone Yang Aviles MD, Hugo Ayala Primary Care Provider Encounter Details Date Type Department Care Team (Late st Contact Info) Description 11/05/2000 Outpatient Historical Hugo Soria Jr., MD [address] [place] [address] Social History Tobacco Use Types Packs/Day Years Used Date Smoking Tobacco: Never Assessed Comments Unknown Sex and Gender Information Value Date Recorded Sex Assigned at Not on file Legal Sex Female 2:53 AM [employer] MEDIC Gender Identity Not on file Sexual Orientation Not on file documented as of this encounter Plan of Treatment Not on file documented as of this encounter Visit Diagnoses Not on filedocumented in this encounter Care Teams Sand Filler Relationship Specialty Start Date End Date Hugo Soria Jr., MD [address] [place] [address] PCP - General 02/11/08 documented as of this encounter
--- OUTSIDE RECORDS SUMMARY | 2025-03-29 11:57 | XMS_ITS | Encounter Summary ---
Author Organization [facility] Address [address] [place] [address] Care Team Providers Care Compressor Station Operator Name Role Phone Yang Aviles MD, Hugo Ayala Primary Care Provider Encounter Details Date Type Department Care Team (Latest Contact Info) Description 01/17/2005 Outpatient [facility] [address] [address] Jaguar Keller MD [address] [place] [address] LUMB/LUMBOSAC DISC DEGEN (Primary Dx) Social History Tobacco Use Types Packs/Day Years Used Date Smoking Tobacco: Never Assessed Comments Unknown Sex and Gender Information Value Date Recorded Sex Assigned at Not on file Legal Sex Female 2:53 AM BARREL POLISHER INSIDE Gender Identity Not on file Sexual Orientation Not on file documented as of this encounter Plan of Treatment Not on file documented as of this encounter Visit Diagnoses Diagnosis Degeneration of lumbar or lumbosacral intervertebral disc- Primary documented in this encounter Care Teams Compressor Station Operator Relationship Specialty Start Date End Date Hugo Soria Jr., MD [address] [place] [address] PCP - General 02/11/08 documented as of this encounter
--- OUTSIDE RECORDS SUMMARY | 2025-03-29 11:57 | XMS_ITS | Encounter Summary ---
Author Organization [facility] Address [address] [place] [address] Care Team Providers Care Senior Education Specialist Name Role Phone Yang Aviles MD, Hugo Ayala Primary Care Provider Encounter Details Date Type Department Care Team (Latest Contact Info) Description 07/05/2004 Outpatient [facility] [address] [address] Jaguar Keller MD [address] [place] [address] CERVICAL SPONDYLOSIS (Primary Dx) Social History Tobacco Use Types Packs/Day Years Used Date Smoking Tobacco: Never Assessed Comments Unknown Sex and Gender Information Value Date Recorded Sex Assigned at Not on file Legal Sex Female 2:53 AM WOOD SCRAP HANDLER Gender Identity Not on file Sexual Orientation Not on file documented as of this encounter Plan of Treatment Not on file documented as of this encounter Visit Diagnoses Diagnosis Cervical spondylosis without myelopathy- Primary documented in this encounter Care Teams Senior Education Specialist Relationship Specialty Start Date End Date Hugo Soria Jr., MD [address] [place] [address] PCP - General 02/11/08 documented as of this encounter
--- OUTSIDE RECORDS SUMMARY | 2025-03-29 11:57 | XMS_ITS | Encounter Summary ---
Author Organization [facility] Address [address] [place] [address] Care Team Providers Care Salesperson China And Glassware Name Role Phone Yang Aviles MD, Hugo Ayala Primary Care Provider Encounter Details Date Type Department Care Team (Latest Contact Info) Description 10/02/2001 Outpatient Historical [facility] Hugo Soria Jr., MD [address] [place] [address] HYPERTENSION NOS (Primary Dx); OSTEOARTHROS NOS-UNSPEC; OSTEOPOROSIS NOS; SCREENING MAL NEOP-CERVIX Social History Tobacco Use Types Packs/Day Years Used Date Smoking Tobacco: Never Assessed Comments Unknown Sex and Gender Information Value Date Recorded Sex Assigned at Not on file Legal Sex Female 2:53 AM DEVELOPMENT DIRECTOR Gender Identity Not on file Sexual Orientation Not on file documented as of this encounter Plan of Treatment Not on file documented as of this encounter Visit Diagnoses Diagnosis Unspecified essential hypertension- Primary Osteoarthrosis, unspecified whether generalized or localized, unspecified site Osteoporosis, unspecified Screening for malignant neoplasm of the cervix documented in this encounter Care Teams Salesperson [employer] Glassware Relationship Specialty Start Date End Date Hugo Soria Jr., MD [address] [place] [address] PCP - General 02/11/08 documented as of this encounter
--- OUTSIDE RECORDS SUMMARY | 2025-03-29 11:57 | XMS_ITS | Encounter Summary ---
Author Organization [facility] Address [address] [place] [address] Care Team Providers Care Scooper Name Role Phone Yang Aviles MD, Hugo Ayala Primary Care Provider Encounter Details Date Type Department Care Team (Latest Contact Info) Description 07/26/2008 Outpatient Historical [facility] Pain Management Procedures [address] [place] [address] Eamon Waller MD NO ADDRESS ON FILE Postlaminectomy Syndrome, Lumbar Region; Thoracic or Lumbosacral Neuritis or Radiculitis, Unspecified; Unspecified Arthropathy, Site Unspecified; Personal History of Allergy to Penicillin Social History Tobacco Use Types Packs/Day Years Used Date Smoking Tobacco: Never Assessed Comments Unknown Sex and Gender Information Value Date Recorded Sex Assigned at Not on file Legal Sex Female 2:53 AM BINDER FIXER Gender Identity Not on file Sexual Orientation Not on file documented as of this encounter Plan of Treatment Not on file documented as of this encounter Procedures Procedure Name Priority Date/Time Associated Diagnosis Comments XR FLUORO GREATER THAN 1 HOUR Routine 08/09/2008 12:57 PM BINDER FIXER documented in this encounter Results * XR FLUORO > 1 HOUR (08/09/2008 12:57 PM BINDER FIXER) Anatomical Region Laterality Modality Other 08/09/2008 12:5 7 PM BINDER FIXER Narrative 03/03/2013 8:33 AM CDT This exam has been autofinalized. Procedure Note [facility], Radiologist, MD - 03/03/2013 This exam has been autofinalized. us Eamon Waller MD DIAGNOSTIC IMAGING ORDERABLES Final Result documented in this encounter Visit Diagnoses Diagnosis Postlaminectomy syndrome, lumbar region Thoracic or lumbosacral neuritis or radiculitis, unspecified Arthropathy, unspecified, site unspecified Personal history of allergy to penicillin documented in this encounter Care Teams Scooper Relationship Specialty Start Date End Date Hugo Soria Jr., MD [address] [place] [address] PCP - General 02/11/08 documented as of this encounter
--- OUTSIDE RECORDS SUMMARY | 2025-03-29 11:57 | XMS_ITS | Encounter Summary ---
Author Organization [facility] Address [address] [place] [address] Care Team Providers Care Speech Therapy Teacher Name Role Phone Yang Aviles MD, Hugo Ayala Primary Care Provider Encounter Details Date Type Department Care Team (Latest Contact Info) Description 01/17/2005 Outpatient Historical [facility] [address] [place] [address] Jaguar Keller MD [address] [place] [address] BACKACHE NOS (Primary Dx); LUMB/LUMBOSAC DISC DEGEN; Idiopathic scoliosis; LUMBOSACRAL NEURITIS NOS Social History Tobacco Use Types Packs/Day Years Used Date Smoking Tobacco: Never Assessed Comments Unknown Sex and Gender Information Value Date Recorded Sex Assigned at Not on file Legal Sex Female 2:53 AM CONCRETE LABORER Gender Identity Not on file Sexual Orientation Not on file documented as of this encounter Plan of Treatment Not on file documented as of this encounter Visit Diagnoses Diagnosis Backache, unspecified- Primary 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
--- OUTSIDE RECORDS SUMMARY | 2025-03-29 11:57 | XMS_ITS | Encounter Summary ---
Author Organization [facility] Address [address] [place] [address] Care Team Providers Care Concrete Building Assembler Name Role Phone Yang Aviles MD, Hugo Ayala Primary Care Provider Encounter Details Date Type Department Care Team (Latest Contact Info) Description 03/18/2003 Outpatient Historical [facility] Hugo Soria Jr., MD [address] [place] [address] Pure hypercholesterolem (Primary Dx); LUMP OR MASS IN BREAST Social History Tobacco Use Types Packs/Day Years Used Date Smoking Tobacco: Never Assessed Comments Unknown Sex and Gender Information Value Date Recorded Sex Assigned at Not on file Legal Sex Female 2:53 AM IMPORT EXPORT CLERK Gender Identity Not on file Sexual Orientation Not on file documented as of this encounter Plan of Treatment Not on file documented as of this encounter Visit Diagnoses Diagnosis Pure hypercholesterolem- Primary Pure hypercholesterolemia Lump or mass in breast documented in this encounter Care Teams Concrete Building Assembler Relationship Specialty Start Date End Date Hugo Soria Jr., MD [address] [place] [address] PCP - General 02/11/08 documented as of this encounter
--- OUTSIDE RECORDS SUMMARY | 2025-03-29 11:57 | XMS_ITS | Encounter Summary ---
Author Organization [facility] Address [address] [place] [address] Care Team Providers Care Systems Engineer Name Role Phone Yang Aviles MD, Hugo Ayala Primary Care Provider Encounter Details Date Type Department Care Team (Latest Contact Info) Description 12/17/2002 Outpatient Historical [facility] Hugo Soria Jr., MD [address] [place] [address] HYPERTENSION NOS (Primary Dx); Pure hypercholesterolem; OSTEOPOROSIS NOS; VACCINE FOR STREP PNEUMONIAE Social History Tobacco Use Types Packs/Day Years Used Date Smoking Tobacco: Never Assessed Comments Unknown Sex and Gender Information Value Date Recorded Sex Assigned at Not on file Legal Sex Female 2:53 AM SUPPLY CHAIN CONSULTANT Gender Identity Not on file Sexual Orientation Not on file documented as of this encounter Plan of Treatment Not on file documented as of this encounter Visit Diagnoses Diagnosis Unspecified essential hypertension- Primary Pure hypercholesterolem Pure hypercholesterolemia Osteoporosis, unspecified Need for prophylactic vaccination against Streptococcus pneumoniae (pneumococcus) Need for prophylactic vaccination against streptococcus pneumoniae (pneumococcus) documented in this encounter Care Teams Systems Engineer Relationship Specialty Start Date End Date Hugo Soria Jr., MD [address] [place] [address] PCP - General 02/11/08 documented as of this encounter
--- OUTSIDE RECORDS SUMMARY | 2025-03-29 11:58 | XMS_ITS | Encounter Summary ---
Author Organization [email or web address] Address [address] [place] [address] Care Team Providers Care Building Components Designer Name Role Phone Yang Aviles MD, Hugo Ayala Primary Care Provider Encounter Details Date Type Department Care Team (Latest Contact Info) Description 08/27/2005 Outpatient Historical [facility] Pain Management Procedures [address] [place] [address] Eamon Waller MD NO ADDRESS ON FILE POSTLAMINECT SYND-LUMBAR (Primary Dx) Social History Tobacco Use Types Packs/Day Years Used Date Smoking Tobacco: Never Assessed Comments Unknown Sex and Gender Information Value Date Recorded Sex Assigned at Not on file Legal Sex Female 2:53 AM TUBULAR PRODUCTS FABRICATOR Gender Identity Not on file Sexual Orientation Not on file documented as of this encounter Plan of Treatment Not on file documented as of this encounter Visit Diagnoses Diagnosis Postlaminectomy syndrome, lumbar region- Primary documented in this encounter Care Teams Building Components Designer Relationship Specialty Start Date End Date Hugo Soria Jr., MD [address] [place] [address] PCP - General 02/11/08 documented as of this encounter
--- OUTSIDE RECORDS SUMMARY | 2025-03-29 11:58 | XMS_ITS | Encounter Summary ---
Author Organization [facility] Address [address] [place] [address] Care Team Providers Care Forestry Pilot Name Role Phone Yang Aviles MD, Hugo Ayala Primary Care Provider Encounter Details Date Type Department Care Team ([facility] Contact Info) Description 08/09/2008 Outpatient Historical [facility] Pain [facility] [address] [place] [address] Eamon Waller MD NO ADDRESS ON FILE Social History Tobacco Use Types Packs/Day Years Used Date Smoking Tobacco: Never Assessed Comments Unknown Sex and Gender Information Value Date Recorded Sex Assigned at Not on file Legal Sex Female 2:53 AM PHOTOENGRAVING SUPERVISOR Gender Identity Not on file Sexual Orientation Not on file documented as of this encounter Plan of Treatment Not on file documented as of this encounter Visit Diagnoses Not on filedocumented in this encounter Care Teams Forestry Pilot Relationship Specialty Start Date End Date Hugo Soria Jr., MD [address] [place] [address] PCP - General 02/11/08 documented as of this encounter
--- OUTSIDE RECORDS SUMMARY | 2025-03-29 11:58 | XMS_ITS | Encounter Summary ---
Author Organization [facility] Address [address] [place] [address] Care Team Providers Care Batch Attendant Name Role Phone Yang Aviles MD, Hugo Ayala Primary Care Provider Encounter Details Date Type Department Care Team (Latest Contact Info) Description 05/15/2005 Outpatient Historical [facility] [address] [place] [address] JesusLela, REPAIRER WELDING EQUIPMENT [address] [place] [address] POSTLAMINECT SYND-LUMBAR (Primary Dx); LUMBOSACRAL NEURITIS NOS; DISORDERS OF SACRUM Social History Tobacco Use Types Packs/Day Years Used Date Smoking Tobacco: Never Assessed Comments Unknown Sex and Gender Information Value Date Recorded Sex Assigned at Not on file Legal Sex Female 2:53 AM SPINNING SUPERVISOR Gender Identity Not on file Sexual Orientation Not on file documented as of this encounter Plan of Treatment Not on file documented as of this encounter Visit Diagnoses Diagnosis Postlaminectomy syndrome, lumbar region- Primary Thoracic or lumbosacral neuritis or radiculitis, unspecified Disorders of sacrum documented in this encounter Care Teams Batch Attendant Relationship Specialty Start Date End Date Hugo Soria Jr., MD [address] [place] [address] PCP - General 02/11/08 documented as of this encounter
--- OUTSIDE RECORDS SUMMARY | 2025-03-29 11:58 | XMS_ITS | Encounter Summary ---
Author Organization [facility] Address [address] [place] [address] Care Team Providers Care Claim Agent Name Role Phone Yang Aviles MD, Hugo Ayala Primary Care Provider Encounter Details Date Type Department Care Team ([facility] Contact Info) Description 12/03/2005 Outpatient Historical [facility] [address] [place] [address] Social History Tobacco Use Types Packs/Day Years Used Date Smoking Tobacco: Never Assessed Comments Unknown Sex and Gender Information Value Date Recorded Sex Assigned at Not on file Legal Sex Female 2:53 AM GENERAL LOT ATTENDANT Gender Identity Not on file Sexual Orientation Not on file documented as of this encounter Plan of Treatment Not on file documented as of this encounter Visit Diagnoses Not on filedocumented in this encounter Care Teams Claim Agent Relationship Specialty Start Date End Date Hugo Soria Jr., MD [address] [place] [address] PCP - General 02/11/08 documented as of this encounter
--- OUTSIDE RECORDS SUMMARY | 2025-03-29 11:58 | XMS_ITS | Encounter Summary ---
Author Organization [facility] Address [address] [place] [address] Care Team Providers Care Merchandise Distributor Name Role Phone Yang Aviles MD, Hugo Ayala Primary Care Provider Encounter Details Date Type Department Care Team (Latest Contact Info) Description 02/21/2005 Outpatient Historical [facility] [address] [place] [address] Jaguar Keller MD [address] [place] [address] BACKACHE NOS (Primary Dx); DISORDERS OF SACRUM Social History Tobacco Use Types Packs/Day Years Used Date Smoking Tobacco: Never Assessed Comments Unknown Sex and Gender Information Value Date Recorded Sex Assigned at Not on file Legal Sex Female 2:53 AM HYDRAULIC BARKER OPERATOR Gender Identity Not on file Sexual Orientation Not on file documented as of this encounter Plan of Treatment Not on file documented as of this encounter Visit Diagnoses Diagnosis Backache, unspecified- Primary Disorders of sacrum documented in this encounter Care Teams Merchandise Distributor Relationship Specialty Start Date End Date Hugo Soria Jr., MD [address] [place] [address] PCP - General 02/11/08 documented as of this encounter
--- OUTSIDE RECORDS SUMMARY | 2025-03-29 11:58 | XMS_ITS | Encounter Summary ---
Author Organization [facility] Address [address] [place] [address] Care Team Providers Care Ditch Digger Name Role Phone Yang Aviles MD, Hugo Ayala Primary Care Provider Encounter Details Date Type Department Care Team (Latest Contact Info) Description 04/03/2005 Outpatient Historical [facility] Pain [facility] [address] [place] [phone] Eamon Waller MD NO ADDRESS ON FILE LUMBAGO (Primary Dx); DISORDERS OF SACRUM Social History Tobacco Use Types Packs/Day Years Used Date Smoking Tobacco: Never Assessed Comments Unknown Sex and Gender Information Value Date Recorded Sex Assigned at Not on file Legal Sex Female 2:53 AM HAND TRIMMER Gender Identity Not on file Sexual Orientation Not on file documented as of this encounter Plan of Treatment Not on file documented as of this encounter Visit Diagnoses Diagnosis Lumbago- Primary Disorders of sacrum documented in this encounter Care Teams Ditch Digger Relationship Specialty Start Date End Date Hugo Soria Jr., MD [address] [place] [address] PCP - General 02/11/08 documented as of this encounter
--- OUTSIDE RECORDS SUMMARY | 2025-03-29 11:58 | XMS_ITS | Encounter Summary ---
Author Organization [facility] Address [address] [place] [address] Care Team Providers Care Stock Grader Name Role Phone Yang Aviles MD, Hugo Ayala Primary Care Provider Encounter Details Date Type Department Care Team ([facility] Contact Info) Description 07/26/1998 Outpatient Historical [facility] Davey Rodriguez [address] [place] [address] Fernanda Naik MD NO ADDRESS ON FILE Family history of malignant neoplasm of breast (Primary Dx) Social History Tobacco Use Types Packs/Day Years Used Date Smoking Tobacco: Never Assessed Comments Unknown Sex and Gender Information Value Date Recorded Sex Assigned at Not on file Legal Sex Female 2:53 AM PORTAINER OPERATOR Gender Identity Not on file Sexual Orientation Not on file documented as of this encounter Plan of Treatment Not on file documented as of this encounter Visit Diagnoses Diagnosis Family history of malignant neoplasm of breast- Primary documented in this encounter Care Teams Stock Grader Relationship Specialty Start Date End Date Hugo Soria Jr., MD [address] [place] [address] PCP - General 02/11/08 documented as of this encounter
--- OUTSIDE RECORDS SUMMARY | 2025-03-29 11:58 | XMS_ITS | Encounter Summary ---
Author Organization [facility] Address [address] [place] [address] Care Team Providers Care Inspector And Unloader Name Role Phone Yang Aviles MD, Hugo Ayala Primary Care Provider Encounter Details Date Type Department Care Team (Latest Contact Info) Description 04/03/2005 Outpatient Historical [facility] [address] [phone] Eamon Waller MD NO ADDRESS ON FILE DISORDERS OF SACRUM (Primary Dx) Social History Tobacco Use Types Packs/Day Years Used Date Smoking Tobacco: Never Assessed Comments Unknown Sex and Gender Information Value Date Recorded Sex Assigned at Not on file Legal Sex Female 2:53 AM CHEMICAL TECHNICIAN Gender Identity Not on file Sexual Orientation Not on file documented as of this encounter Plan of Treatment Not on file documented as of this encounter Visit Diagnoses Diagnosis Disorders of sacrum- Primary documented in this encounter Care Teams Inspector And Unloader Relationship Specialty Start Date End Date Hugo Soria Jr., MD [address] [place] [address] PCP - General 02/11/08 documented as of this encounter
--- OUTSIDE RECORDS SUMMARY | 2025-03-29 11:58 | XMS_ITS | Encounter Summary ---
Author Organization [facility] Address [address] [place] [address] Care Team Providers Care Special Events Planner Name Role Phone Yang Aviles MD, Hugo Ayala Primary Care Provider Encounter Details Date Type Department Care Team (Latest Contact Info) Description 02/21/2005 Outpatient [facility] [address] [address] Jaguar Keller MD [address] [place] [address] DISORDERS OF SACRUM (Primary Dx) Social History Tobacco Use Types Packs/Day Years Used Date Smoking Tobacco: Never Assessed Comments Unknown Sex and Gender Information Value Date Recorded Sex Assigned at Not on file Legal Sex Female 2:53 AM MACHINE CEMENTER Gender Identity Not on file Sexual Orientation Not on file documented as of this encounter Plan of Treatment Not on file documented as of this encounter Visit Diagnoses Diagnosis Disorders of sacrum- Primary documented in this encounter Care Teams Special Events Planner Relationship Specialty Start Date End Date Hugo Soria Jr., MD [address] [place] [address] PCP - General 02/11/08 documented as of this encounter
--- OUTSIDE RECORDS SUMMARY | 2025-03-29 11:58 | XMS_ITS | Encounter Summary ---
Author Organization [facility] Address [address] [place] [address] Care Team Providers Care Painter Aircraft Name Role Phone Yang Aviles MD, Hugo Ayala Primary Care Provider Encounter Details Date Type Department Care Team (Latest Contact Info) Description 02/07/2005 Outpatient Historical [facility] Pain [facility] [address] [place] [phone] Eamon Waller MD NO ADDRESS ON FILE DISORDERS OF SACRUM (Primary Dx); LUMBAGO Social History Tobacco Use Types Packs/Day Years Used Date Smoking Tobacco: Never Assessed Comments Unknown Sex and Gender Information Value Date Recorded Sex Assigned at Not on file Legal Sex Female 2:53 AM OB/GYN DOCTOR Gender Identity Not on file Sexual Orientation Not on file documented as of this encounter Plan of Treatment Not on file documented as of this encounter Visit Diagnoses Diagnosis Disorders of sacrum- Primary Lumbago documented in this encounter Care Teams Painter Aircraft Relationship Specialty Start Date End Date Hugo Soria Jr., MD [address] [place] [address] PCP - General 02/11/08 documented as of this encounter
--- OUTSIDE RECORDS SUMMARY | 2025-03-29 11:58 | XMS_ITS | Encounter Summary ---
Author Organization [facility] Address [address] [place] [address] Care Team Providers Care Rice Cleaning Machine Tender Name Role Phone Yang Aviles MD, Hugo Ayala Primary Care Provider Encounter Details Date Type Department Care Team (Latest Contact Info) Description 02/07/2005 Outpatient Historical [facility] Pain Management Procedures [address] [place] [address] Eamon Waller MD NO ADDRESS ON FILE DISORDERS OF SACRUM (Primary Dx) Social History Tobacco Use Types Packs/Day Years Used Date Smoking Tobacco: Never Assessed Comments Unknown Sex and Gender Information Value Date Recorded Sex Assigned at Not on file Legal Sex Female 2:53 AM FACILITY MECHANIC Gender Identity Not on file Sexual Orientation Not on file documented as of this encounter Plan of Treatment Not on file documented as of this encounter Visit Diagnoses Diagnosis Disorders of sacrum- Primary documented in this encounter Care Teams Rice Cleaning Machine Tender Relationship Specialty Start Date End Date Hugo Soria Jr., MD [address] [place] [phone] PCP - General 02/11/08 documented as of this encounter
--- OUTSIDE RECORDS SUMMARY | 2025-03-29 11:58 | XMS_ITS | Encounter Summary ---
Author Organization [facility] Address [address] [place] [address] Care Team Providers Care Director Hematology Name Role Phone Yang Aviles MD, Hugo Ayala Primary Care Provider Encounter Details Date Type Department Care Team (Latest Contact Info) Description 06/26/2005 Outpatient Historical [facility] Pain [facility] [address] [place] [address] Eamon Waller MD NO ADDRESS ON FILE POSTLAMINECT SYND-LUMBAR (Primary Dx); LUMBOSACRAL NEURITIS NOS; LUMBAGO Social History Tobacco Use Types Packs/Day Years Used Date Smoking Tobacco: Never Assessed Comments Unknown Sex and Gender Information Value Date Recorded Sex Assigned at Not on file Legal Sex Female 2:53 AM SCOOP FILLER Gender Identity Not on file Sexual Orientation Not on file documented as of this encounter Plan of Treatment Not on file documented as of this encounter Visit Diagnoses Diagnosis Postlaminectomy syndrome, lumbar region- Primary Thoracic or lumbosacral neuritis or radiculitis, unspecified Lumbago documented in this encounter Care Teams Director Hematology Relationship Specialty Start Date End Date Hugo Soria Jr., MD [address] [place] [address] PCP - General 02/11/08 documented as of this encounter
--- OUTSIDE RECORDS SUMMARY | 2025-03-29 11:58 | XMS_ITS | Encounter Summary ---
Author Organization [facility] Address [address] [place] [address] Care Team Providers Care Chief Drafter Name Role Phone Yang Aviles MD, Hugo Ayala Primary Care Provider Encounter Details Date Type Department Care Team (Latest Contact Info) Description 12/10/2005 Outpatient Historical HIS CANCELLED ADMISSION Lela Jesus, SUPPLY CHAIN DIRECTOR [address] [facility] [address] [place] [address] Encounters for Unspecified Administrative Purpose (Primary Dx) Social History Tobacco Use Types Packs/Day Years Used Date Smoking Tobacco: Never Assessed Comments Unknown Sex and Gender Information Value Date Recorded Sex Assigned at Not on file Legal Sex Female 2:53 AM PAPER CONSERVATOR Gender Identity Not on file Sexual Orientation Not on file documented as of this encounter Plan of Treatment Not on file documented as of this encounter Visit Diagnoses Diagnosis Encounters for unspecified administrative purpose- Primary documented in this encounter Care Teams Chief Drafter Relationship Specialty Start Date End Date Hugo Soria Jr., MD [address] [place] [address] PCP - General 02/11/08 documented as of this encounter
--- OUTSIDE RECORDS SUMMARY | 2025-03-29 11:58 | XMS_ITS | Encounter Summary ---
Author Organization [facility] Address [address] [place] [address] Care Team Providers Care Computer Training Specialist Name Role Phone Yang Aviles MD, Hugo Ayala Primary Care Provider Encounter Details Date Type Department Care Team ([facility] Contact Info) Description 08/27/2005 Outpatient Historical [facility] [address] [place] [phone] Social History Tobacco Use Types Packs/Day Years Used Date Smoking Tobacco: Never Assessed Comments Unknown Sex and Gender Information Value Date Recorded Sex Assigned at Not on file Legal Sex Female 2:53 AM POCKET SETTER Gender Identity Not on file Sexual Orientation Not on file documented as of this encounter Plan of Treatment Not on file documented as of this encounter Visit Diagnoses Not on filedocumented in this encounter Care Teams Computer Training Specialist Relationship Specialty Start Date End Date Hugo Soria Jr., MD [address] [place] [address] PCP - General 02/11/08 documented as of this encounter
--- OUTSIDE RECORDS SUMMARY | 2025-03-29 11:58 | XMS_ITS | Encounter Summary ---
Author Organization [facility] Address [address] [place] [address] Care Team Providers Care Curer Acid Drum Name Role Phone Yang Aviles MD, Hugo Ayala Primary Care Provider Encounter Details Date Type Department Care Team (Latest Contact Info) Description 12/03/2005 Outpatient Historical [facility] [address] [facility] [address] [place] [address] Jesus, Crystal A, TALENT DIRECTOR [address] [place] [address] Encounters for Unspecified Administrative Purpose (Primary Dx) Social History Tobacco Use Types Packs/Day Years Used Date Smoking Tobacco: Never Assessed Comments Unknown Sex and Gender Information Value Date Recorded Sex Assigned at Not on file Legal Sex Female 2:53 AM MEDICAL CASE MANAGER Gender Identity Not on file Sexual Orientation Not on file documented as of this encounter Plan of Treatment Not on file documented as of this encounter Visit Diagnoses Diagnosis Encounters for unspecified administrative purpose- Primary documented in this encounter Care Teams Curer Acid Drum Relationship Specialty Start Date End Date Hugo Soria Jr., MD [address] [place] [address] PCP - General 02/11/08 documented as of this encounter
--- OUTSIDE RECORDS SUMMARY | 2025-03-29 11:58 | XMS_ITS | Encounter Summary ---
Author Organization [facility] Address [address] [place] [address] Care Team Providers Care Radio Aerial Installer Name Role Phone Yang Aviles MD, Hugo Ayala Primary Care Provider Encounter Details Date Type Department Care Team (Latest Contact Info) Description 07/16/2005 Outpatient Historical [facility] Pain Management Procedures [address] [place] [address] Eamon Waller MD NO ADDRESS ON FILE POSTLAMINECT SYND-LUMBAR (Primary Dx) Social History Tobacco Use Types Packs/Day Years Used Date Smoking Tobacco: Never Assessed Comments Unknown Sex and Gender Information Value Date Recorded Sex Assigned at Not on file Legal Sex Female 2:53 AM HEDIS NURSE Gender Identity Not on file Sexual Orientation Not on file documented as of this encounter Plan of Treatment Not on file documented as of this encounter Visit Diagnoses Diagnosis Postlaminectomy syndrome, lumbar region- Primary documented in this encounter Care Teams Radio Aerial Installer Relationship Specialty Start Date End Date Hugo Soria Jr., MD [address] [place] [address] PCP - General 02/11/08 documented as of this encounter
--- OUTSIDE RECORDS SUMMARY | 2025-03-29 11:58 | XMS_ITS | Encounter Summary ---
Author Organization [facility] Address [address] [place] [address] Care Team Providers Care Granite Polisher Machine Name Role Phone Yang Aviles MD, Hugo Ayala Primary Care Provider Encounter Details Date Type Department Care Team (Latest Contact Info) Description 05/15/2005 Outpatient Historical [facility] [address] [facility] [address] [place] [address] Jesus, Crystal A, CHIEF DIGITAL OFFICER [address] [place] [address] LUMBAGO (Primary Dx) Social History Tobacco Use Types Packs/Day Years Used Date Smoking Tobacco: Never Assessed Comments Unknown Sex and Gender Information Value Date Recorded Sex Assigned at Not on file Legal Sex Female 2:53 AM MULTIMEDIA SERVICES MANAGER Gender Identity Not on file Sexual Orientation Not on file documented as of this encounter Plan of Treatment Not on file documented as of this encounter Visit Diagnoses Diagnosis Lumbago- Primary documented in this encounter Care Teams Granite Polisher Machine Relationship Specialty Start Date End Date Hugo Soria Jr., MD [address] [place] [address] PCP - General 02/11/08 documented as of this encounter
--- OUTSIDE RECORDS SUMMARY | 2025-03-29 11:58 | XMS_ITS | Patient Health Record ---
Author Organization [facility] Address [address] [place] [address] Care Team Providers Care Sanitation Tank Washer Name Role Phone Hugo Soria Unavailable [phone] Allergies Allergen (clinical drug ingredient) Drug/Non Drug Allergy documented on EMR Reaction Allergy Type Onset Date Status Prednisone rash Drug Allergy Active Substance with penicillin structure and antibacterial mechanism of action (substance) Penicillins Unknown Drug Allergy 08/22/2003 Active Reason For Referral No Information Medications Medication SIG (Take, Route, Frequency, Duration) Notes Start Date End Date Status Potassium Chloride Take 1 cap by mouth daily; Duration: 30 *please review for potential update for e-prescription and drug interaction check* Potassium Chloride 8mEq Capsules, Extended Release Take 1 cap by mouth daily #30 (Thirty) capsule(s) 12/20/2013 Active Crestor 20 MG Tablet Take 1 tablet(s) by mouth daily in p.m. Oral; Duration: 30 Crestor (Rosuvastatin) 20mg Tablet Take 1 tablet(s) by mouth daily in p.m. #30 (Thirty) tablet(s) 04/09/2012 Active Indapamide 2.5 mg Tablet Take 1 tablet(s) by mouth qam Oral; Duration: 30 Indapamide 2.5mg Tablet Take 1 tablet(s) by mouth qam #30 (Thirty) tablet(s) 01/17/2014 Active Calcium 600 mg calcium (1,500 mg) Tablet Take 1 tablet(s) by mouth tid Oral; Duration: 30 *please review for potential update for e-prescription and drug interaction check* Calcium 600 Tablets 1 tab(s) po tid 08/22/2003 Active Aspirin 81 MG Tablet Chewable 1 tab(s) po q PM Oral; Duration: 30 Aspirin (ASA) 81mg Chewable Tablet 1 tab(s) po q PM 07/09/2012 Active Alendronate Sodium 70 MG Tablet Take 1 tablet(s) by mouth q week Oral; Duration: 30 Alendronate Sodium 70mg Tablet Take 1 tablet(s) by mouth q week #4 (Four) tablet(s) 06/16/2013 Active Gabapentin 100 MG Capsule 2 cap(s) po bid Oral; Duration: 30 Gabapentin 100mg Capsules 2 cap(s) po bid #120 (One Lanagan and Twenty) capsule(s) 01/17/2014 Active Toprol XL 25 MG Tablet Extended Release 24 Hour Take 1 tablet(s) by mouth daily Oral; Duration: 30 Toprol XL (Metoprolol) 25mg Tablets, Extended Release Take 1 tablet(s) by mouth daily #30 (Thirty) tablet(s) 12/17/2013 Active Immunizations Vaccine Route Administration Date Status Comme nts Flu vaccine no Preserv 3 and > IM Intramuscular 06/13/2010 Administered Social History Social History Additional Details Category Social Info Options Details zzMigrated Social History Migrated Social History Accepted Portal User: User Name: [email or web address] Initial Password [email or web address] Highest Level of Education High School Education (9-12) Completed 12th grade only Problems Problem Type SNOMED Code ICD Code Onset Dates Problem Status W/U Status Risk Notes Problem Shortness of breath (331938822) Shortness of breath (786.05) 2015 Active confirmed Jan-98 5911- Problem Lumbosacral spondylosis without myelopathy (87711909) 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 Active confirmed Jan-98 5911- Problem Localized, primary osteoarthritis (532090817) Knee DJD (715.16) 2014 Active confirmed Jan-98 5911- Problem Pain in limb (33485254) Leg pain (729.5) 2014 Active confirmed Jan-98 5911- Problem Lumbar radiculopathy (364779348) Lumbar radiculopathy (722.10) 2010 Active confirmed Jan-98 5911- Problem Adjustment disorder with depressed mood (38074461) Adjustment disorder with depressed mood (309.0) 2007 Problem resolved confirmed Jan-98 5911- Problem Mixed hyperlipidemia (402970808) Mixed hyperlipidemia (272.2) 2002 Problem resolved confirmed Jan-98 5911- Problem Drug induced neutropenia (03398047) Drug induced neutropenia (288.03) 2006 Problem resolved confirmed Jan-98 5911- Problem Leukocytopenia (36713328) Leukocytopenia, unspecified (288.50) 2016 Problem resolved confirmed Jan-98 5911- Problem Allergic rhinitis caused by pollen (disorder) (72377853) Allergic rhinitis due to pollen (477.0) 2015 Problem resolved confirmed Jan-98 5911- Problem Acute non-suppurativ e otitis media - serous (465918677) Acute serous otitis media (381.01) 2012 Problem resolved confirmed Jan-98 5911- Problem Acute maxillary sinusitis (08408836) Acute maxillary sinusitis (461.0) 2007 Problem resolved confirmed Jan-98 5911- Problem Acute frontal sinusitis (77187562) Acute frontal sinusitis (461.1) 2011 Problem resolved confirmed Jan-98 5911- Problem Chronic rhinitis (97686748) Chronic rhinitis (472.0) 2007 Problem resolved confirmed Jan-98 5911- Problem Chronic kidney disease stage 2 (746390046) Chronic kidney disease, Stage II (mild) (585.2) 2008 Problem resolved confirmed Jan-98 5911- Problem Idiopathic osteoporosis (8104048) Idiopathic osteoporosis (733.02) 2006 Problem resolved confirmed Jan-98 5911- Problem Edema (976626057) Edema (782.3) 2005 Problem resolved confirmed Jan-98 5911- Problem Cough (85357629) Cough (786.2) 2011 Problem resolved confirmed Jan-98 5911- Problem Urinary frequency (484021065) Urinary frequency (788.41) 2008 Problem resolved confirmed Jan-98 5911- Problem Abnormality of red blood cells (71259281) Other abnormality of red blood cells (790.09) 2011 Problem resolved confirmed Jan-98 5911- Problem Pancytopenia (266966088) Other pancytopenia (284.19) 2016 Problem resolved confirmed Jan-98 5911- Problem Rash (548108697) Rash (782.1) 2006 Problem resolved confirmed Jan-98 5911- Problem Depression (515756179) Depression (311) 2016 Problem resolved confirmed Jan-98 5911- Problem Dizziness (374072597) Dizziness (780.4) 1 2009 Problem resolved confirmed Jan-98 5911- Problem Low back pain (938629738) Low back pain (724.2) 2005 Problem resolved confirmed Jan-98 5911- Problem Neck pain (89504065) Neck pain (723.1) 2006 Problem resolved confirmed Jan-98 5911- Problem Fatigue (78322649) Fatigue (780.79) 06/24 Problem resolved confirmed Jan-98 5911- Problem Iron deficiency anemia (63271401) Iron deficiency anemia, unspecified (280.9) 2010 Problem resolved confirmed Jan-98 5911- Problem Hypercholesterolemia (88814700) Hypercholesterolemia (272.0) 2010 Problem resolved confirmed Jan-98 5911- Problem Shoulder pain (28658125) Shoulder pain (719.41) 2003 Problem resolved confirmed Jan-98 5911- Problem Breast mass (72644679) Breast mass (611.72) 2003 Problem resolved confirmed Jan-98 5911- Problem 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) Other abnormal laboratory result on blood (790.99) 2007 Problem resolved confirmed Jan-98 5911- Problem Sore throat (837174358) Sore Throat (462) 2008 Problem resolved confirmed Jan-98 5911- Problem Acquired deformity o f toe (74380797) Acquired hammertoe (735.4) 2012 Problem resolved confirmed Jan-98 5911- Problem Generalized abdomina l pain (024613462) Generalized abdominal pain (789.07) 2005 Problem resolved confirmed Jan-98 5911- Problem Generalized osteoarthritis (986867589) Generalized osteoarthritis, multiple sites (715.09) 2008 Problem resolved confirmed Jan-98 5911- Problem Foot pain (89493641) Foot pain (729.5) 2012 Problem resolved confirmed Jan-98 5911- Problem Hypertension (91302549) Hypertension (401.1) 2005 Problem resolved confirmed Jan-98 5911- Problem Insomnia (635093747) Insomnia (307.41) 2006 Problem resolved confirmed Jan-98 5911- Problem Peripheral neuropath y (906045928) Peripheral neuropathy (356.9) 2010 Problem resolved confirmed Jan-98 5911- Problem Precordial pain (64489423) Precordial chest pain (786.51) 2004 Problem resolved confirmed Jan-98 5911- Problem Breast examination (84635097) Screening breast exam - other (V76.19) 2008 Problem resolved confirmed Jan-98 5911- Problem Screening for malignant neoplasm of colon (268033562) Screening for colorectal cancer (V76.49) 2014 Problem resolved confirmed Jan-98 5911- Problem Sinus tachycardia (52718407) Sinus tachycardia (427.89) 2016 Problem resolved confirmed Jan-98 5911- Problem Chronic osteomyeliti s (26039750) Chronic osteomyelitis (730.18) 2012 Problem resolved confirmed Jan-98 5911- Problem Tremor (03577559) Tremor (781.0) 2008 Problem resolved confirmed Jan-98 5911- Problem Needs influenza immunization (743960815) Vaccination against other viral diseases, Influenza (V04.81) 2004 Problem resolved confirmed Jan-98 5911- Problem Acute upper respiratory infection (80019435) Acute upper respiratory infection (465.8) 2005 Problem resolved confirmed Jan-98 5911- Problem Allergic rhinitis caused by pollen (06545644) Allergic rhinitis, pollen-induced (477.0) 2015 Problem resolved confirmed Jan-98 5911- Problem Constipation secondary to opiate use (E935.2) 2014 Problem resolved confirmed Jan-98 5911- Problem Acute emotional reaction to stress (308.0) 2005 Problem resolved confirmed Jan-98 5911- Problem Anxiety (70680707) Anxiety (300.02) 10/01 Problem resolved confirmed Jan-98 5911- Problem Benign paroxysmal positional vertigo (426033297) BPPV (386.11) 2004 Problem resolved confirmed Jan-98 5911- Problem Itching (522665946) Itching (698.9) 04/05 Problem resolved confirmed Jan-98 5911- Problem Knee pain (0951321636) Knee pain (719.46) 2013 Problem resolved confirmed Jan-98 5911- Problem Disorder of hematopoietic system (19983712) Abnormal hematologic findings (790.99) 2012 Problem resolved confirmed Jan-98 5911- Problem Acute sinusitis (21560081) Acute sinusitis (461.8) 2006 Problem resolved confirmed Jan-98 5911- Problem Atherosclerosis of [place] extremity arteries (440.20) 2013 Problem resolved confirmed Jan-98 5911- Problem Eczema (03207880) Eczema (691.8) 2010 Problem resolved confirmed Jan-98 5911- Problem Closed fracture of pelvis (05423070) Unspecified closed pelvic fracture (808.8) 2005 Problem resolved confirmed Jan-98 5911- Problem Abnormal laborat ory test findings without diagnosis (796.4) 2006 Problem resolved confirmed Jan-98 5911- Problem Diverticulitis of colon (579588235) Diverticulitis of colon (562.11) 2005 Problem resolved confirmed Jan-98 5911- Problem Hip pain (78655158) Hip pain (719.45) 2007 Problem resolved confirmed Jan-98 5911- Problem Muscle pain (27747992) Muscle aches (729.1) 2016 Problem resolved confirmed Jan-98 5911- Problem Essential hypertension (23366057) Essential hypertension (401.1) 2004 Problem resolved confirmed Jan-98 5911- Problem Other disorders of white blood cells, NEC (288.8) 2005 Problem resolved confirmed Jan-98 5911- Problem Pedal edema (962208091) Pedal edema (782.3) 2013 Problem resolved confirmed Jan-98 5911- Problem Primary hypercholesterolemia (545891102) Primary hypercholesterolemia (272.0) 2004 Problem resolved confirmed Jan-98 5911- Problem Syncope (505923116) Syncope (780.2) 04/05 Problem resolved confirmed Jan-98 5911- Problem Aplastic anemia (712886954) 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 Complications kept her in the hospital for 5 months. MRSA and L leg paralysis;
--- OUTSIDE RECORDS SUMMARY | 2025-03-29 11:58 | XMS_ITS | Clinical Summary ---
Author Organization [facility] Address [address] [place]: [place] [address] Care Team Providers Care Custom Protection Officer Name Role Phone Yang Aviles MD, Hugo Ayala Primary Care Provider Allergies Active Allergy Reactions Criticality Noted Date Comments Adhes. Jvaz-Onrl-Xlsxbxgowwor Rash Low 03/01/2011 Daptomycin Other (See Comments) 03/01/2011 Pt could not remember Penicillamine Rash Low 03/01/2011 Prednisone Rash Low 11/04/2013 Active Problems Problem Noted Date Diagnosed Date Lumbar radiculopathy 02/25/2012 Overview (12/28/2020): Left L3 s/p spinal fusion, chronic Hyperextension of knee or lower leg 12/31/2011 Overview (12/28/2020): Left knee Knee instability 12/31/2011 Overview (12/28/2020): Left hyperextends Bilateral knee pain 10/03/2011 Senile osteoporosis 04/02/2011 Back pain 03/01/2011 Scoliosis 03/01/2011 Thoracic or lumbosacral neur itis or radiculitis, unspecified 03/01/2011 Overview (12/28/2020): LLE post-op with quad weakness and whole leg paresthesias S/P spinal fusion 03/01/2011 Overview (12/28/2020): T10 - Pelvis by Jerson Alvarez and Ernie Gómez in 12/2010 at [facility] up to T7 at later date Immunizations [...] at Not on file Legal Sex Female 3:33 PM 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 Gender Identity Not on file Sexual Orientation Not on file Last Filed Vital Signs Vital Sign Reading Time Taken Comments Blood Pressure 128/84 01/23/2017 10:39 AM CDT Pulse 80 01/23/2017 10:39 AM CDT Temperature 37 C (98.6 F) 01/23/2017 10:39 AM CDT Respiratory Rate 14 12/15/2014 10:07 AM CDT Oxygen Saturation - - Inhaled Oxygen Concentration - - Weight 94.3 [...] 1-dose 75+ series) 2010 OSTEOPOROSIS SCREENING 11/17/2018 4, 11/17/2013, 04/23/2011 INFLUENZA VACCINE (#1) 2025 Medical Devices Explanted Type Area Radio Station Engineer Device Identifier Shelf Expiration Date Model / Serial / Lot Preexisting Hardware Explanted:Qty: 5 on 09/05/2011 by Jaguar Keller MD N/A: Spine Thoracic Procedures Procedure Name Priority Date/Time Associated Diagnosis Comments XR DEXA BONE DENSITY AXIAL 1 OR MORE SITES Routine 11/17/2013 12:45 PM CDT Senile osteoporosis from Last 3 Months or Most Recently Relevant to Health Maintenance Results * XR DEXA BONE DENSITY AXIAL 1 OR MORE SITES (11/17/2013 12:45 PM CDT) Anatomical Region Laterality Modality Other Narrative 11/18/2013 9:22 AM CDT PROCEDURE DEXA [...] risk Procedure Note Mario Sharma MD - 11/05/2022 PROCEDURE DEXA BONE DENSITY, 17 November 2013 [...] -1.7. IMPRESSION osteopenia, with increased fracture risk [facility] ORDERABLES F inal Result from Last 3 Months or Most Recently Relevant to Health Maintenance Care Teams Custom Protection Officer Relationship Specialty Start Date End Date Hugo Soria Jr., MD [address] [place] [address] PCP - General 02/11/08
--- OUTSIDE RECORDS SUMMARY | 2025-03-29 11:58 | XMS_ITS | Encounter Summary ---
Author Organization [facility] Address [address] [place] [address] Care Team Providers Care Botany Teacher Name Role Phone Yang Aviles MD, Hugo Ayala Primary Care Provider Encounter Details Date Type Department Care Team ([facility] st Contact Info) Description 09/06/2008 Outpatient Historical [facility] [address] [address] Eamon Waller MD NO ADDRESS ON FILE Social History Tobacco Use Types Packs/Day Years Used Date Smoking Tobacco: Never Assessed Comments Unknown Sex and Gender Information Value Date Recorded Sex Assigned at Not on file Legal Sex Female 2:53 AM JOURNEY LINEMAN Gender Identity Not on file Sexual Orientation Not on file documented as of this encounter Plan of Treatment Not on file documented as of this encounter Visit Diagnoses Not on filedocumented in this encounter Care Teams Botany Teacher Relationship Specialty Start Date End Date Hugo Soria Jr., MD [address] [place] [phone] PCP - General 02/11/08 documented as of this encounter
--- OUTSIDE RECORDS SUMMARY | 2025-03-29 11:58 | XMS_ITS | Encounter Summary ---
Author Organization [facility] Address [address] [place] [address] Care Team Providers Care Electrical And Radio Mechanic Name Role Phone Yang Aviles MD, Hugo Ayala Primary Care Provider Encounter Details Date Type Department Care Team (Latest Contact Info) Description 07/16/2005 Outpatient Historical [facility] [address] [place] [address] Eamon Waller MD NO ADDRESS ON FILE LUMBOSACRAL NEURITIS NOS (Primary Dx); POSTLAMINECT SYND-LUMBAR; LUMBAGO Social History Tobacco Use Types Packs/Day Years Used Date Smoking Tobacco: Never Assessed Comments Unknown Sex and Gender Information Value Date Recorded Sex Assigned at Not on file Legal Sex Female 2:53 AM VOCATIONAL TECHNICAL EDUCATION DIRECTOR Gender Identity Not on file Sexual Orientation Not on file documented as of this encounter Plan of Treatment Not on file documented as of this encounter Visit Diagnoses Diagnosis Thoracic or lumbosacral neuritis or radiculitis, unspecified- Primary Postlaminectomy syndrome, lumbar region Lumbago documented in this encounter Care Teams Electrical And Radio Mechanic Relationship Specialty Start Date End Date Hugo Soria Jr., MD [address] [place] [address] PCP - General 02/11/08 documented as of this encounter
--- OUTSIDE RECORDS SUMMARY | 2025-03-29 11:58 | XMS_ITS | Encounter Summary ---
Author Organization [facility] Address [address] [place] [address] Care Team Providers Care Starcher And Tenter Range Feeder Name Role Phone Yang Aviles MD, Hugo Ayala Primary Care Provider Encounter Details Date Type Department Care Team (Latest Contact Info) Description 06/26/2005 Outpatient Historical [facility] Pain Management Procedures [address] [place] [address] Eamon Waller MD NO ADDRESS ON FILE DISORDERS OF SACRUM (Primary Dx) Social History Tobacco Use Types Packs/Day Years Used Date Smoking Tobacco: Never Assessed Comments Unknown Sex and Gender Information Value Date Recorded Sex Assigned at Not on file Legal Sex Female 2:53 AM GRAPHIC DESIGNER Gender Identity Not on file Sexual Orientation Not on file documented as of this encounter Plan of Treatment Not on file documented as of this encounter Visit Diagnoses Diagnosis Disorders of sacrum- Primary documented in this encounter Care Teams Starcher And Tenter Range Feeder Relationship Specialty Start Date End Date Hugo Soria Jr., MD [address] [place] [phone] PCP - General 02/11/08 documented as of this encounter
--- OUTSIDE RECORDS SUMMARY | 2025-03-29 11:58 | XMS_ITS | Encounter Summary ---
Author Organization [facility] Address [address] [place] [address] Care Team Providers Care Van Owner Operator Name Role Phone Yang Aviles MD, Hugo Ayala Primary Care Provider Encounter Details Date Type Department Care Team (Latest Contact Info) Description 04/08/2005 Outpatient Historical [facility] Pain Management Procedures [address] [place] [address] Eamon Waller MD NO ADDRESS ON FILE DISORDERS OF SACRUM (Primary Dx) Social History Tobacco Use Types Packs/Day Years Used Date Smoking Tobacco: Never Assessed Comments Unknown Sex and Gender Information Value Date Recorded Sex Assigned at Not on file Legal Sex Female 2:53 AM CONSTRUCTION TECHNOLOGY INSTRUCTOR Gender Identity Not on file Sexual Orientation Not on file documented as of this encounter Plan of Treatment Not on file documented as of this encounter Visit Diagnoses Diagnosis Disorders of sacrum- Primary documented in this encounter Care Teams Van Owner Operator Relationship Specialty Start Date End Date Hugo Soria Jr., MD [address] [place] [address] PCP - General 02/11/08 documented as of this encounter
--- OUTSIDE RECORDS SUMMARY | 2025-03-29 11:59 | XMS_ITS | Encounter Summary ---
Author Organization [facility] Address [address] [place] [address] Care Team Providers Care Spinneret Cleaner Name Role Phone Yang Aviles MD, Hugo Ayala Primary Care Provider Encounter Details Date Type Department Care Team (Latest Contact Info) Description 04/15/2006 Outpatient Historical [facility] Orthopedics- 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
--- OUTSIDE RECORDS SUMMARY | 2025-03-29 11:59 | XMS_ITS | Encounter Summary ---
Author Organization [facility] Address [address] [place] [address] Care Team Providers Care Roustabout Crew Leader Name Role Phone Yang Aviles MD, Hugo Ayala Primary Care Provider Encounter Details Date Type Department Care Team (Latest Contact Info) Description 03/14/2006 Outpatient Historical [facility] Orthopedics- 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 Gender Identity Not on file Sexual Orientation Not on file documented as of this encounter Plan of Treatment Not on file documented as of this encounter Visit Diagnoses Diagnosis Closed fracture of unspecified part of neck of femur (CMS/HCC)- Primary Closed fracture of unspecified part of neck of femur Primary localized osteoarthrosis, lower leg Pain in joint, pelvic region and thigh documented in this encounter Care Teams Roustabout Crew Leader Relationship Specialty Start Date End Date Hugo Soria Jr., MD [address] [place] [phone] PCP - General 02/11/08 documented as of this encounter
--- OUTSIDE RECORDS SUMMARY | 2025-03-29 11:59 | XMS_ITS | Encounter Summary ---
Author Organization [facility] Address [address] [place] [address] Care Team Providers Care Dbas Name Role Phone Yang Aviles MD, Hugo Ayala Primary Care Provider Encounter Details Date Type Department Care Team ([facility] Contact Info) Description 02/25/2008 Outpatient Historical [facility] Pain [facility] [address] 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
--- OUTSIDE RECORDS SUMMARY | 2025-03-29 11:59 | XMS_ITS | Encounter Summary ---
Author Organization [facility] Address [address] [place] [address] Care Team Providers Care Metal Gauge Maker Name Role Phone Yang Aviles MD, Hugo Ayala Primary Care Provider Encounter Details Date Type Department Care Team (Latest Contact Info) Description 03/14/2006 Outpatient Historical [facility] Jaguar Keller MD [address] [place] [address] Enthesopathy of Hip Region (Primary Dx) Social History Tobacco Use Types Packs/Day Years Used Date Smoking Tobacco: Never Assessed Comments Unknown Sex and Gender Information Value Date Recorded Sex Assigned at Not on file Legal Sex Female 2:53 AM GLUER Gender Identity Not on file Sexual Orientation Not on file documented as of this encounter Plan of Treatment Not on file documented as of this encounter Visit Diagnoses Diagnosis Enthesopathy of hip region- Primary documented in this encounter Care Teams Metal Gauge Maker Relationship Specialty Start Date End Date Hugo Soria Jr., MD [address] [place] [phone] PCP - General 02/11/08 documented as of this encounter
--- OUTSIDE RECORDS SUMMARY | 2025-03-29 11:59 | XMS_ITS | Encounter Summary ---
Author Organization [facility] Address [address] [place] [address] Care Team Providers Care Log Haul Chain Feeder Name Role Phone Yang Aviles MD, Hugo Ayala Primary Care Provider Encounter Details Date Type Department Care Team ([facility] Contact Info) Description 02/18/2008 Outpatient Historical [facility] [place] Jaguar Keller MD [address] [place] [address] Social History Tobacco Use Types Packs/Day Years Used Date Smoking Tobacco: Never Assessed Comments Unknown Sex and Gender Information Value Date Recorded Sex Assigned at Not on file Legal Sex Female 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
--- OUTSIDE RECORDS SUMMARY | 2025-03-29 11:59 | XMS_ITS | Encounter Summary ---
Author Organization [facility] Address [address] [place] [address] Care Team Providers Care Room Service Runner Name Role Phone Yang Aviles MD, Hugo Ayala Primary Care Provider Encounter Details Date Type Department Care Team (Latest Contact Info) Description 02/24/2008 Outpatient Historical [facility] Pain Management Procedures [address] [place] [address] Eamon Waller MD NO ADDRESS ON FILE Lumbago; Pain in Joint, Pelvic Region and Thigh; Unspecified Arthropathy, Site Unspecified; Personal History of Allergy to Penicillin Social History Tobacco Use Types Packs/Day Years Used Date Smoking Tobacco: Never Assessed Comments Unknown Sex and Gender Information Value Date Recorded Sex Assigned at Not on file Legal Sex Female 2:53 AM CANE PILER Gender Identity Not on file Sexual Orientation Not on file documented as of this encounter Plan of Treatment Not on file documented as of this encounter Procedures Procedure Name Priority Date/Time Associated Diagnosis Comments XR FLUORO GREATER THAN 1 HOUR Routine 02/25/2008 10:50 AM CDT documented in this encounter Results * XR FLUORO > 1 HOUR (02/25/2008 10:50 AM CDT) Anatomical Region Laterality Modality Other 02/25/2008 10:5 0 AM CDT Narrative 02/25/2008 10:50 AM CDT Finalized by RemitDATAup utility. No report expected. Procedure Note 09/11/2008 Finalized by interface cleanup utility. No report expected. us Eamon Waller MD DIAGNOSTIC IMAGING ORDERABLES Final Result documented in this encounter Visit Diagnoses Diagnosis Lumbago Pain in joint, pelvic region and thigh Arthropathy, unspecified, site unspecified Personal history of allergy to penicillin documented in this encounter Care Teams Room Service Runner Relationship Specialty [place] [address] [place] [phone] PCP - General 02/11/08 documented as of this encounter
--- OUTSIDE RECORDS SUMMARY | 2025-03-29 11:59 | XMS_ITS | Encounter Summary ---
Author Organization [facility] Address [address] [place] [address] Care Team Providers Care Talent Sourcing Specialist Name Role Phone Yang Aviles MD, Hugo Ayala Primary Care Provider Encounter Details Date Type Department Care Team (Latest Contact Info) Description 02/06/2006 Outpatient Historical [facility] [address] [place] [address] Jesus, Crystal A, ALCOHOL STILL OPERATOR [address] [place] [address] Postlaminectomy Syndrome, Lumbar Region (Primary Dx); Thoracic or Lumbosacral Neuritis or Radiculitis, Unspecified Social History Tobacco Use Types Packs/Day Years Used Date Smoking Tobacco: Never Assessed Comments Unknown Sex and Gender Information Value Date Recorded Sex Assigned at Not on file Legal Sex Female 2:53 AM COLLECTIONS CLERK Gender Identity Not on file Sexual Orientation Not on file documented as of this encounter Plan of Treatment Not on file documented as of this encounter Visit Diagnoses Diagnosis Postlaminectomy syndrome, lumbar region- Primary Thoracic or lumbosacral neuritis or radiculitis, unspecified documented in this encounter Care Teams Talent Sourcing Specialist Relationship Specialty Start Date End Date Hugo Soria Jr., MD [address] [place] [address] PCP - General 02/11/08 documented as of this encounter
--- OUTSIDE RECORDS SUMMARY | 2025-03-29 11:59 | XMS_ITS | Encounter Summary ---
Author Organization [facility] Address [address] [place] [address] Care Team Providers Care Band Top Maker Name Role Phone Yang Aviles MD, Hugo Ayala Primary Care Provider Encounter Details Date Type Department Care Team (Latest Contact Info) Description 07/26/1998 Outpatient Historical [facility] OBGYN-[facility] [place] [address] [place] [address] Piter Yeboah MD NO ADDRESS ON FILE Gynecologic examination (Primary Dx) Social History Tobacco Use Types Packs/Day Years Used Date Smoking Tobacco: Never Assessed Comments Unknown Sex and Gender Information Value Date Recorded Sex Assigned at Not on file Legal Sex Female 2:53 AM VMWARE 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
--- OUTSIDE RECORDS SUMMARY | 2025-03-29 11:59 | XMS_ITS | Encounter Summary ---
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
--- OUTSIDE RECORDS SUMMARY | 2025-03-29 11:59 | XMS_ITS | Encounter Summary ---
Author Organization [facility] Address [address] [place] [address] Care Team Providers Care Clinical Support Manager Name Role Phone Yang Aviles MD, Hugo Ayala Primary Care Provider Encounter Details Date Type Department Care Team (Latest Contact Info) Description 08/14/1998 Outpatient Historical [facility] Jake Hall NO ADDRESS ON FILE Lumbago (Primary Dx) Social History Tobacco Use Types Packs/Day Years Used Date Smoking Tobacco: Never Assessed Comments Unknown Sex and Gender Information Value Date Recorded Sex Assigned at Not on file Legal Sex Female 2:53 AM WILDLIFE 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
--- OUTSIDE RECORDS SUMMARY | 2025-03-29 11:59 | XMS_ITS | Encounter Summary ---
Author Organization [facility] Address [address] [place] [address] Care Team Providers Care Supervisor Coin Machine Name Role Phone Yang Aviles MD, Hugo Ayala Primary Care Provider Encounter Details Date Type Department Care Team (Latest Contact Info) Description 02/06/2006 Outpatient Historical [facility] [address] [facility] [address] [place] [address] Jesus, Crystal A, LIBRARY ATTENDANT [address] [place] [address] Postlaminectomy Syndrome, Lumbar Region (Primary Dx) Social History Tobacco Use Types Packs/Day Years Used Date Smoking Tobacco: Never Assessed Comments Unknown Sex and Gender Information Value Date Recorded Sex Assigned at Not on file Legal Sex Female 2:53 AM NEEDLE MOLDER Gender Identity Not on file Sexual Orientation Not on file documented as of this encounter Plan of Treatment Not on file documented as of this encounter Visit Diagnoses Diagnosis Postlaminectomy syndrome, lumbar region- Primary documented in this encounter Care Teams Supervisor Coin Machine Relationship Specialty Start Date End Date Hugo Soria Jr., MD [address] [place] [address] PCP - General 02/11/08 documented as of this encounter
--- OUTSIDE RECORDS SUMMARY | 2025-03-29 11:59 | XMS_ITS | Encounter Summary ---
Author Organization [facility] Address [address] [place] [address] Care Team Providers Care Hat Band Attacher Name Role Phone Yang Aviles MD, Hugo Ayala Primary Care Provider Encounter Details Date Type Department Care Team (Latest Contact Info) Description 01/02/1998 Outpatient Historical [facility] Jake Hall NO ADDRESS ON FILE Sprain of neck (Primary Dx) Social History Tobacco Use Types Packs/Day Years Used Date Smoking Tobacco: Never Assessed Comments Unknown Sex and Gender Information Value Date Recorded Sex Assigned at Not on file Legal Sex Female 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
--- OUTSIDE RECORDS SUMMARY | 2025-03-29 11:59 | XMS_ITS | Encounter Summary ---
Author Organization [facility] Address [address] [place] [address] Care Team Providers Care Superintendent Water And Sewer Systems Name Role Phone Yang Aviles MD, Hugo Ayala Primary Care Provider Encounter Details Date Type Department Care Team (Latest Contact Info) Description 12/08/1997 Outpatient Historical [facility] Jake Hall NO ADDRESS ON FILE Sprain and strain of other specified sites of shoulder and upper arm (Primary Dx) Social History Tobacco Use Types Packs/Day Years Used Date Smoking Tobacco: Never Assessed Comments Unknown Sex and Gender Information Value Date Recorded Sex Assigned at Not on file Legal Sex Female 2:53 AM HEALTH CARE MANAGER Gender Identity Not on file Sexual Orientation Not on file documented as of this encounter Plan of Treatment Not on file documented as of this encounter Visit Diagnoses Diagnosis Sprain and strain of other specified sites of shoulder and upper arm- Primary documented in this encounter Care Teams Superintendent Water And Sewer Systems Relationship Specialty Start Date End Date Hugo Soria Jr., MD [address] [place] [address] PCP - General 02/11/08 documented as of this encounter
--- NOTE | 2025-03-29 12:03 | XRR_ITS ---
PROCEDURE INFORMATION: Exam: XR Chest Exam date and time: 03/29/2025 12:05 PM Age: 89 years old Clinical indication: Pain; Angina pectoris; Additional info: Cp TECHNIQUE: Imaging protocol: Radiologic exam of the chest. Views: 1 view. COMPARISON: CR XR chest 1V portable [id number] 02/08/2025 9:19 AM FINDINGS: Lungs: Moderate right and small left pleural effusion with atelectasis or infiltrate in the adjacent lung also much greater on the right side than the left. Increased soft tissue density in the medial right upper lobe is suspicious for a mass. Chest CT recommended. Pleural spaces: See Lungs finding. Heart/Mediastinum: See Vasculature finding. Vasculature: Borderline cardiomegaly and uncoiling of the thoracic aorta. Bones/joints: Extensive prior surgery involving the lower thoracic and lumbar spine. XR/XR chest 1V portable [id number] IMPRESSION: Bilateral opacities developing, [id number]-left including a masslike density in the right upper lobe. Chest CT recommended.
--- NOTE | 2025-03-29 12:03 | ECG_ITS ---
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 Measurements Intervals Bucks Rate: 64 P: 0 NV: 0 QRS: 18 QRSD: 76 T: 120 QT: 397 QTc: 412 Interpretive Statements ATRIAL FIBRILLATION NONSPECIFIC ST & T-WAVE ABNORMALITY Compared to ECG 02/08/2025 10:52:14 T-wave abnormality now present Sinus rhythm no longer present Ventricular premature complex(es) no longer present Electronically Signed On 03-31-2025 10:26:23 CDT by Leif Farfan M.D. [email or web address]
--- NOTE | 2025-03-29 12:09 | W.ED.ARRPALP ---
HPI - Arrhythmia/Palpitations General: Chief Complaint: Arrhythmia/Palpitations Stated Complaint: heart flutter Time Seen by Provider: 03/29/25 11:56 Source: patient and EMS Mode of arrival: EMS Limitations: no limitations History of Present Illness: 89-year-old female is here from assisted living states that today she been having some fluttering in her heart with some very mild intermittent chest pains. She denies any shortness of breath she denies any vomiting or diarrhea. Denies any abdominal pain denies any worse improving factors Associated symptoms: Deny nausea or vomiting Related Data Home Medications ?Medication ?Instructions ?Recorded ?Confirmed acetaminophen 325 mg tablet 650 mg PO QID PRN Pain 10/12/21 02/21/25 bisacodyl 10 mg rectal suppository 10 mg OK DAILY PRN Constipation 10/12/21 02/21/25 (Dulcolax (bisacodyl)) magnesium hydroxide 400 mg/5 mL 30 ml PO DAILY PRN Constipation 10/12/21 02/21/25 oral suspension (Milk of Magnesia) sodium phosphates 19 gram-7 118 ml OK DAILY PRN Constipation 10/12/21 02/21/25 gram/118 mL enema (Fleet Enema) Lactobacillus rhamnosus GG 10 1 cap PO DAILY PRN ANTIBIOTICS 02/09/24 02/21/25 billion cell capsule (Culturelle) melatonin 1 mg tablet 1 mg PO BEDTIME 02/09/24 02/21/25 propylene glycol 0.6 % eye drops 1 - 2 drp ophthalmic (eye) DAILY 02/09/24 02/21/25 (Systane Complete) PRN Dry Eyes cyanocobalamin (vitamin B-12) 2,000 mcg PO DAILY 09/01/24 02/21/25 1,000 mcg tablet (Vitamin B-12) polyethylene glycol 3350 17 17 g PO DAILY PRN Constipation 09/01/24 02/21/25 gram/dose oral powder (Miralax) vit C 250 mg-vit E 90 mg-zinc 40 1 tab PO BID 09/01/24 02/21/25 mg-copper 1 [id number] capsule (PreserVision AREDS-2) lactulose 10 gram/15 mL oral 30 ml PO DAILY PRN Constipation 11/18/24 02/21/25 solution midodrine 5 mg tablet 2.5 mg PO BID 01/10/25 02/21/25 Previous Rx's ?Medication ?Instructions ?Recorded calcium carbonate 1,000 mg (5 x 200 mg calcium (500 02/09/24 mg)) PO Q4H PRN DYSPEPSI #90 tabs hydrocodone 10 mg-acetaminophen 1 tab PO Q6H PRN Pain 7 days #28 11/22/24 325 mg tablet tabs Allergies Allergy/AdvReac Type Severity Reaction Status Date / Time ciprofloxacin Allergy Unknown ALGY-Redness Verified 02/21/25 15:41 of Skin Penicillins Allergy Unknown ALGY-Rash,Not Verified 02/21/25 15:41 Entered Review of Systems Const: Denies: fever(s), chills, body aches or change in appetite ENMT: Denies: throat pain or dental pain Card: Reports: chest pain Resp: Denies: dyspnea GI: Denies: abdominal pain, nausea, vomiting or diarrhea Musc: Denies: neck pain or back pain Skin/Breast: Denies: rash Neuro: Denies: headache(s) PFSH ED PFSH: Medical History Cauda equina syndrome Hypertension Closed right trimalleolar fracture Bimalleolar fracture of right ankle Idiopathic peripheral neuropathy Osteoarthritis of knee Depression Chronic narcotic use Follows with Dr. Olvera Edema Nerve pain Physical deconditioning Weakness of both legs C. difficile diarrhea Small bowel obstruction Chronic back pain COVID-19 virus infection Surgical History History of lumbar laminectomy for spinal cord decompression S/P exploratory laparotomy for perforated appendix History of hip surgery Left -- screws History of cataract surgery History of back surgery spinal rods History of hysterectomy / BSO History of cholecystectomy Family History Denies family history of Diabetes Dementia Social History Smoking and tobacco/nicotine status: never used tobacco/nicotine Alcohol intake: never Caregiver/support person: Yes Household members: caregiver Housing: Assisted Living Facility Physical Exam Const: COMMON NORMALS: patient oriented x3 HENMT: COMMON NORMALS: normocephalic and atraumatic HEAD & SCALP: normocephalic and atraumatic Eye: COMMON NORMALS: conjunctivae normal CONJUNCTIVA: Yes conjunctivae normal Neck/C-Spine: COMMON NORMALS: full ROM and supple Chest: COMMONS NORMALS: normal inspection of the chest and normal palpation of entire chest wall Resp: COMMON NORMALS: No retractions and No use of accessory muscles OTHER: Decreased breath sounds on the right Cardio: COMMON NORMALS: regular rate, regular rhythm and No murmurs present (Cardio) RATE: regular rate RHYTHM: regular rhythm GI: COMMON NORMALS: Normal to inspection, nondistended, normoactive bowel sounds present, Soft to palpation, non-tender and no masses PALPATION: Yes Soft to palpation Extremity: COMMON NORMALS: full ROM NARRATIVE EXTREMITY EXAM: 2+ edema to lower extremities Neuro: COMMON NORMALS: patient oriented x3, moves all extremities and no focal motor deficits Psych: COMMON NORMALS: mental status grossly normal, Normal thought process present and cooperative THOUGHT PROCESS: Normal thought process present Skin: COMMON NORMALS: no rashes or lesions noted and no wounds GENERAL SKIN EXAM: no rashes or lesions noted Course Vital Signs: Vital signs: Vital Signs Temperature 98.1 F 03/29/25 11:52 Pulse Rate 64 03/29/25 13:30 Respiratory Rate 24 H 03/29/25 13:30 Blood Pressure 125/82 03/29/25 13:30 Pulse Oximetry 98 03/29/25 13:30 Oxygen Delivery Me thod Nasal Cannula 03/29/25 13:30 Oxygen Flow Rate 3 03/29/25 13:30 MDM - Arrhythmia/Palpitations Medical Decision Making Patient presents here chest pain he is also having some dyspnea she is requiring oxygen here does have a large right-sided pleural effusion on x-ray along with elevated BNP likely heart failure will admit her at this time and start Lasix. Medical Records I reviewed the patient's medical records. Lab Data I reviewed the patient's lab results. 03/29/25 12:10 03/29/25 12:34 Laboratory Results WBC 5.50 10^3/uL (3.29-11.43) 03/29/25 12:10 RBC 3.83 10^6/uL (3.85-5.65) L 03/29/25 12:10 Hgb 12.00 g/dL (11.27-16.99) 03/29/25 12:10 Hct 41.6 % (36-47) 03/29/25 12:10 MCV 108.6 fl (85-98) H 03/29/25 12:10 MCH 31.3 pg (27-33) 03/29/25 12:10 MCHC 28.8 g/dL (30-55) L 03/29/25 12:10 RDW 15.0 % (12.1-15.1) 03/29/25 12:10 Plt Count 90 10^3/cmm (157-399) L 03/29/25 12:10 MPV 11.1 fL (7.4-10.4) H 03/29/25 12:10 Neut % (Auto) 49.9 % 03/29/25 12:10 Lymph % (Auto) 40.4 % 03/29/25 12:10 [place] % (Auto) 8.2 % 03/29/25 12:10 Eos % (Auto) 1.1 % 03/29/25 12:10 Baso % (Auto) 0.4 % 03/29/25 12:10 Neut # (Auto) 2.75 10^3/uL (1.8-7.7) 03/29/25 12:10 Lymph # (Auto) 2.2 10^3/uL (0.8-4.8) 03/29/25 12:10 [place] # (Auto) 0.5 10^3/uL (0.2-0.9) 03/29/25 12:10 Eos # (Auto) 0.1 10^3/uL (0.0-0.8) 03/29/25 12:10 Baso # (Auto) 0.0 10^3/uL (0.0-0.1) 03/29/25 12:10 Nucleated RBC % (auto) 0 % 03/29/25 12:10 Nucleated RBCs # 0.0 /100WBC 03/29/25 12:10 Sodium 140 mmol/L (136-145) 03/29/25 12:34 Potassium 4.6 mmol/L (3.5-5.1) 03/29/25 12:34 Chloride 98 mmol/L (98-107) 03/29/25 12:34 Carbon Dioxide 31 mmol/L (22-29) H 03/29/25 12:34 Anion Gap 15.6 (5-19) 03/29/25 12:34 BUN 11 mg/dL (8-23) 03/29/25 12:34 Creatinine 0.7 mg/dL (0.5-0.9) 03/29/25 12:34 GFR Calculation Not Reportable 03/29/25 12:34 Glucose 115 mg/dL (65-115) 03/29/25 12:34 Calculated Osmolality 290 mOsm/kg (285-295) 03/29/25 12:34 Calcium 9.3 mg/dL (8.5-10.5) 03/29/25 12:34 Total Bilirubin 0.4 mg/dL (0.15-1.2) 03/29/25 12:34 AST 19 U/L (0-32) 03/29/25 12:34 ALT 10 U/L (0-33) 03/29/25 12:34 Alkaline Phosphatase 97 U/L (35-105) 03/29/25 12:34 Troponin T Baseline 27 ng/L (0-10) H 03/29/25 12:10 NT-Pro-B Natriuret Pep 8272 pg/mL (0-450) H 03/29/25 12:34 Total Protein 7.3 g/dL (6.6-8.7) 03/29/25 12:34 Albumin 3.6 g/dL (3.5-5.2) 03/29/25 12:34 Globulin 3.7 g/dL (1.3-4.6) 03/29/25 12:34 All radiology interpretation(s) finalized by discharge EKG Data EKG 1: I personally reviewed and interpreted this EKG as follows: EKG interpretation date: 03/29/25 EKG interpretation time: 12:00 Interpretation: afib hr [address] elevation qrs 76 qtc 407 Discharge Plan Discharge Patient Disposition: Admitted As Inpatient Clinical Impression: Pleural effusion, Chest pain Condition: Stable Coding Level of Care Code ED 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
[2025-03-29 12:26] LABS: Hematocrit 41.6 % (36-47); Hemoglobin 12.00 g/dL (11.27-16.99); Mean Corpuscular HGB Conc 28.8 g/dL (30-55); Mean Corpuscular Hemoglobin 31.3 pg (27-33); Mean Corpuscular Volume 108.6 fl (85-98); Nucleated Red Blood Cells % 0 %; Platelet Count 90 10^3/cmm (157-399); Red Blood Count 3.83 10^6/uL (3.85-5.65); White Blood Count 5.50 10^3/uL (3.29-11.43)
[2025-03-29 12:46] LABS: Troponin(5th) Baseline 27 ng/L (0-10)
[2025-03-29 13:23] LABS: Alanine Aminotransferase 10 U/L (0-33); Albumin Level 3.6 g/dL (3.5-5.2); Alkaline Phosphatase 97 U/L (35-105); Anion Gap 15.6 (5-19); Aspartate Amino Transferase 19 U/L (0-32); Blood Urea Nitrogen 11 mg/dL (8-23); Calcium 9.3 mg/dL (8.5-10.5); Carbon Dioxide 31 mmol/L (22-29); Chloride 98 mmol/L (98-107); Creatinine Clr Calc Pharmacy 59.2805; Globulin 3.7 g/dL (1.3-4.6); Glucose 115 mg/dL (65-115); Osmolality Calculated 290 mOsm/kg (285-295); Potassium 4.6 mmol/L (3.5-5.1); Sodium 140 mmol/L (136-145); Total Protein 7.3 g/dL (6.6-8.7)
[2025-03-29 13:39] LABS: NT Pro B Type Natriuretic Pept 8272 pg/mL (0-450)
--- NOTE | 2025-03-29 14:03 | ECG_ITS ---
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
[2025-03-29 14:43] LABS: Troponin 5 2HR 23.93 ng/L (0-10)
[2025-03-29 14:44] LABS: Troponin 5 2HR Delta -3.07 ABS# (0-10)
--- NOTE | 2025-03-29 15:01 | PM.HP ---
Providers/Chief Complaint Admitting Physician: Dr. Rubalcava Primary Care Provider: Britton Vu DO Chief Complaint: SOB, malaise History of Present Illness Delia Arthur is a 89 year old female presenting with ongoing SOB for about 2 weeks. Yesterday she had severe malaise around 5:00 PM and little improvement in the AM. She denies any prior cardiac history. Presenting with severe weakness, requiring rosita lift. She had an episode of low BP in the past. She doesn't remember her complete medical history. Recently treated for a pneumonia and finished a course of antibiotics. She also reports a several month history of difficulty swallowing with sensation of food getting stuck in esophagus. She has not had this evaluated previously. Presenting to ER for nonresolution of her malaise and SOB. Review of Systems Const: Reports: fatigue and malaise; Denies: fever(s) or chills Eyes: Denies: change in vision ENMT: Denies: mouth pain or nasal congestion Card: Denies: chest pain Resp: Reports: dyspnea; Denies: productive cough GI: Denies: abdominal pain, nausea, vomiting or diarrhea Musc: Denies: neck pain or back pain Neuro: Denies: headache(s), numbness in extremities, weakness in extremities or lack of coordination Psych: Denies: anxiety or depression Medications/Allergies Home Medications ?Medication ?Instructions ?Recorded ?Confirmed ?Last Taken ?Type acetaminophen 325 mg tablet 650 mg PO QID PRN Pain 10/12/21 03/29/25 03/26/25 17:40 History bisacodyl 10 mg rectal suppository 10 mg AL DAILY PRN Constipation 10/12/21 03/29/25 Unknown History (Dulcolax (bisacodyl)) magnesium hydroxide 400 mg/5 mL 30 ml PO DAILY PRN Constipation 10/12/21 03/29/25 02/27/25 09:20 History oral suspension (Milk of Magnesia) sodium phosphates 19 gram-7 118 ml AL DAILY PRN Constipation 10/12/21 03/29/25 Unknown History gram/118 mL enema (Fleet Enema) Lactobacillus rhamnosus GG 10 1 cap PO DAILY PRN ANTIBIOTICS 02/09/24 03/29/25 12/15/24 History billion cell capsule (Culturelle) melatonin 1 mg tablet 1 mg PO BEDTIME 02/09/24 03/29/25 03/28/25 19:10 History propylene glycol 0.6 % eye drops 1 - 2 drp ophthalmic (eye) DAILY 02/09/24 03/29/25 03/29/25 08:35 History (Systane Complete) PRN Dry Eyes cyanocobalamin (vitamin B-12) 2,000 mcg PO DAILY 09/01/24 03/29/25 03/29/25 08:35 History 1,000 mcg tablet (Vitamin B-12) polyethylene glycol 3350 17 17 g PO DAILY PRN Constipation 09/01/24 03/29/25 Unknown History gram/dose oral powder (Miralax) vit C 250 mg-vit E 90 mg-zinc 40 1 tab PO BID 09/01/24 03/29/25 03/29/25 08:30 History mg-copper 1 [id number] capsule (PreserVision AREDS-2) lactulose 10 gram/15 mL oral 30 ml PO DAILY PRN Constipation 11/18/24 03/29/25 Unknown History solution hydrocodone 10 mg-acetaminophen 1 tab PO Q6H PRN Pain 7 days #28 11/22/24 03/29/25 03/27/25 07:30 Rx 325 mg tablet tabs midodrine 5 mg tablet 2.5 mg PO BID 01/10/25 03/29/25 Unknown History calcium carbonate (Tums) 1,000 mg PO Q4H PRN DYSPEPSI 03/29/25 03/29/25 Unknown History docusate sodium 100 mg capsule 100 mg PO BID 03/29/25 03/29/25 03/29/25 08:35 History fluticasone propionate 50 1 spray intranasal DAILY PRN 03/29/25 03/29/25 Unknown History mcg/actuation nasal ALLERGIES spray,suspension metoprolol tartrate 25 mg tablet 25 mg PO BID AFIB 03/29/25 03/29/25 03/29/25 08:35 History sertraline 50 mg tablet (Zoloft) 50 mg PO DAILY 03/29/25 03/29/25 03/28/25 19:10 History Allergies Allergy/AdvReac Type Severity Reaction Status Date / Time ciprofloxacin Allergy Unknown ALGY-Redness Verified 02/21/25 15:41 of Skin Penicillins Allergy Unknown ALGY-Rash,Not Verified 02/21/25 15:41 Entered PFSH Acute PFSH: Medical History (Updated 03/29/25 @ 14:14 by Carito Yeung MD) Cauda equina syndrome Hypertension Closed right trimalleolar fracture Bimalleolar fracture of right ankle Idiopathic peripheral neuropathy Osteoarthritis of knee Depression Chronic narcotic use Follows with Dr. Olvera Edema Nerve pain Physical deconditioning Weakness of both legs C. difficile diarrhea Small bowel obstruction Chronic back pain COVID-19 virus infection Surgical History History of lumbar laminectomy for spinal cord decompression S/P exploratory laparotomy for perforated appendix History of hip surgery Left -- screws History of cataract surgery History of back surgery spinal rods History of hysterectomy / BSO History of cholecystectomy Family History Denies family history of Diabetes Dementia Social History Smoking and tobacco/nicotine status: never used tobacco/nicotine Alcohol intake: never Caregiver/support person: Yes Household members: caregiver Housing: Assisted Living Facility Vitals/I&O/Wt Last Vital Signs Temp 98.1 F 03/29/25 11:52 Pulse 58 L 03/29/25 14:30 Resp 24 H 03/29/25 13:30 BP 139/59 03/29/25 14:30 Pulse Ox 99 03/29/25 14:30 O2 Del Method Nasal Cannula 03/29/25 14:30 O2 Flow Rate 3 03/29/25 14:30 Weight last 48 hrs Weight 90.718 kg Physical Exam Const: COMMON NORMALS: patient oriented x3 and alert NUTRITIONAL APPEARANCE: overweight HENMT: COMMON NORMALS: normocephalic and atraumatic Eye: COMMON NORMALS: Equal, round and reactive pupils present Neck/C-Spine: COMMON NORMALS: supple Lymph: LYMPHATIC: no lymphadenopathy noted Resp: COMMON NORMALS: normal respiratory effort and clear to auscultation bilaterally (decreased breath sounds in bases) Cardio: COMMON NORMALS: No gallops present (Cardio) and No murmurs present (Cardio) RATE: bradycardic (at times) GI: COMMON NORMALS: Soft to palpation, non-tender and no masses Extremity: GENERAL: Yes edema (BL LE) Neuro: COMMON NORMALS: patient oriented x3 and CN's II-XII intact bilaterally Psych: COMMON NORMALS: mental status grossly normal and Normal thought process present Urinary Catheter Management: Ornel[place]: Cath Placed During This Visit: yes Urinary Catheter Date of Insertion: 03/29/25 Data 03/29/25 12:10 03/29/25 12:34 Micro: Microbiology 03/29/25 14:29 Blood Culture - Preliminary Blood SPECIMEN COLLECTED 03/29/25 14:10 Blood Culture - Preliminary Blood SPECIMEN COLLECTED A&P Assessment and plan 1. Pleural effusion: Plan: 89 year old female presenting with worsening SOB. Worsening SOB Acute hypoxic respiratory failure - likely 2/2 fluid overload - recently finished ABx for pneumonia - xray from 02/08 and today with lung nodule in right peripheral mid lung 13x15 - cont. - Ornelas in place for diuresis - cont. IV lasix 40 mg BID - she is on O2 in NH, cont. here - CT chest with contrast ordered for further evaluation of pulmonary nodule - recently completed course of abx, monitor off abx Chronic pain - on 40 mme/day hydrocodone which can be sedating - cont. home bowel regimen Elevated BNP Episodes of bradycardia - hole BB - no history of heart failure - get echo Thrombocytopenia - recently seen by oncology/hematology for this, determined to be stress related - resolved since and now low again for this admission - monitor PPx: SCDs, lovenox Diet: HH Disposition - PT/OT/CM for discharge planning - cont. home meds - full code PDMP PDMP Reviewed: Not Reviewed Attestations Medical Necessity Statement*: IP for hypoxic respiratory failure, fluid overload Time Spent in Patient Care: 16 - 35 minutes Coding Level of Care Code Acute Code for Chg Fwd Diagnoses Pleural effusion J90
[2025-03-29] MEDS: FUROsemide 10 mg/mL SDV 10mL 60 MG IVP (15:15)
[2025-03-29] MEDS: cefTRIAXone 1,000 mg SDV 1000 MG IVP (15:16)
--- NOTE | 2025-03-29 15:23 | PC.NURSE ---
Pt report called to CSU to Emani, pt aware of admission, pt family member bedside aware.
--- NOTE | 2025-03-29 15:40 | USCV_ITS ---
Delia Arthur Age: 89 Gender: F : 1935 Exam Date: 03/29/2025 19:14 Ordering Phys: Silvino Rubalcava MD Technologist: TATYANA Exam Location: [facility] – [place] Indication: fluid overload, SOB, severe malaise BP: 145 / 59 HR: 79 Rhythm: Atrial fibrillation Technical Quality: Adequate MEASUREMENTS (Male / Female) Normal Values 2D ECHO LV Diastolic Diameter PLAX 3.5 cm 4.2 - 5.9 / 3.9 - 5.3 cm IVS Diastolic Thickness 1.1 cm 0.6 - 1.0 / 0.6 - 0.9 cm IVS Systolic Thickness 1.4 cm LVPW Diastolic Thickness 0.9 cm 0.6 - 1.0 / 0.6 - 0.9 cm LVPW Systolic Thickness 1.2 cm LVOT Diameter 1.8 cm LV Ejection Fraction 2D Teich 66.7 % LV Ejection Fraction MOD 4C 55.3 % LV Ejection Fraction MOD 2C 48.6 % LV Ejection Fraction 2C AL 49.2 % LA Diameter 4.5 cm LA Sys Volume AL 88.0 cm cubed LA Sys Volume Index AL 41.0 cm cubed/m squared Aorta at Sinotubular Diameter 2.1 cm IVC Diameter 1.0 cm M-MODE LA Ao Ratio MM 1.3 AV Cusp Separation MM 1.7 cm DOPPLER AV Peak Velocity 107.0 cm/s LVOT Peak Velocity 69.0 cm/s AV Area Cont Eq vti 1.8 cm squared AV Area Cont Eq pk 1.7 cm squared MV Peak Velocity 116.0 cm/s MV Area PHT 3.9 cm squared Mitral E to A Ratio 0.0 TV Peak Velocity 336.5 cm/s TR Peak Velocity 341.0 cm/s TR Peak Gradient 46.5 mmHg TV Peak E Velocity 95.0 cm/s PV Peak Velocity 98.0 cm/s FINDINGS Left Ventricle Normal left ventricular size, systolic function and wall thickness, with no regional wall motion abnormalities. Left ventricular ejection fraction is estimated at 60 %. In the presence of Atrial fibrillation diastolic function cannot be assesed accurately. Right Ventricle Normal right ventricular size. Moderate pulmonary hypertension, RVSP 56 mmHg. Right Atrium Moderately increased right atrial size. Left Atrium Moderately increased left atrial size. Mitral Valve Moderately thickened mitral valve. Moderate mitral annular calcification. No mitral valve stenosis. Moderate mitral valve regurgitation. Aortic Valve Moderate aortic valve calcification. Mild to moderate aortic valve regurgitation. Tricuspid Valve Severe tricuspid valve regurgitation. 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 Pericardium Normal pericardium without effusion. Aorta Normal ascending aorta dimension. IVC The inferior vena cava appears normal. CONCLUSIONS Normal left ventricular size, systolic function and wall thickness, with no regional wall motion abnormalities. Left ventricular ejection fraction is estimated at 60 %. In the presence of Atrial fibrillation diastolic function cannot be assesed accurately. Normal right ventricular size. Moderate pulmonary hypertension, RVSP 56 mmHg. Moderately increased left atrial size. Moderately thickened mitral valve. Moderate mitral annular calcification. No mitral valve stenosis. Moderate mitral valve regurgitation. Moderate aortic valve calcification. Mild to moderate aortic valve regurgitation. Severe tricuspid valve regurgitation. 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 Right atrial pressure is around 10 mm of mercury. Abimbola Ramsey MD (Electronically Signed) Final Date: 30 March 2025 12:51 S
--- NOTE | 2025-03-29 17:40 | ECG_ITS ---
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
[2025-03-29 18:30] LABS: Troponin 5 6HR 23.61 ng/L (0-10)
[2025-03-29 18:31] LABS: Troponin 5 6HR Delta -3.39 ng/L (0-12)
[2025-03-29] MEDS: HYDROcodone-acetaminophen 10-325 mg Tablet 1 TAB PO (20:25)
[2025-03-30] VITALS: BP 146/51; PULSE 55; RESP 23; TEMP 36.6; O2SAT 100
[2025-03-30] MEDS: FUROsemide 10 mg/mL SDV 4mL 40 MG IVP ×2 (03:13→15:12)
[2025-03-30 03:30] LABS: Hematocrit 33.1 % (36-47); Hemoglobin 10.10 g/dL (11.27-16.99); Mean Corpuscular HGB Conc 30.5 g/dL (30-55); Mean Corpuscular Hemoglobin 31.0 pg (27-33); Mean Corpuscular Volume 101.5 fl (85-98); Nucleated Red Blood Cells % 0 %; Platelet Count 128 10^3/cmm (157-399); Red Blood Count 3.26 10^6/uL (3.85-5.65); White Blood Count 3.79 10^3/uL (3.29-11.43)
[2025-03-30 03:55] LABS: Anion Gap 11.9 (5-19); Blood Urea Nitrogen 12 mg/dL (8-23); Calcium 8.6 mg/dL (8.5-10.5); Carbon Dioxide 32 mmol/L (22-29); Chloride 102 mmol/L (98-107); Creatinine Clr Calc Pharmacy 59.2805; Glucose 97 mg/dL (65-115); Osmolality Calculated 294 mOsm/kg (285-295); Potassium 3.9 mmol/L (3.5-5.1); Sodium 142 mmol/L (136-145)
[2025-03-30 04:00] VITALS: BP 140/42; PULSE 59; RESP 19; TEMP 36.6; O2SAT 99
[2025-03-30 07:30] VITALS: BP 126/59; PULSE 57; RESP 12; TEMP 36.7; O2SAT 100
[2025-03-30 07:42] VITALS: PULSE 65; O2SAT 100
--- NOTE | 2025-03-30 09:18 | P.PN_ITS ---
Subjective 2 Subjective: CT with contrast, requiring midline 2/2 difficult access. Vitals/I&O/Wt Last Vital Signs Temp 98.0 F 03/30/25 07:30 Pulse 65 03/30/25 07:42 Resp 12 03/30/25 07:30 BP 126/59 03/30/25 07:30 Pulse Ox 100 03/30/25 07:42 O2 Del Method Nasal Cannula 03/30/25 07:42 O2 Flow Rate 2 03/30/25 07:42 03/29/25 03/30/25 03/30/25 22:59 06:59 14:59 Intake Total 350 / 350 360 / 710 Output Total 2350 / 2350 1100 / 3450 Balance -1999 / -2000 -740 / -2740 Weight last 48 hrs Weight 89.947 kg Weight 90.718 kg Weight 90.718 kg Physical Exam 2 Const: COMMON NORMALS: patient oriented x3 and alert NUTRITIONAL APPEARANCE: overweight HENMT: COMMON NORMALS: normocephalic and atraumatic HEAD & SCALP: n ormocephalic and atraumatic Eye: COMMON NORMALS: Equal, round and reactive pupils present PUPIL: Yes Equal, round and reactive pupils present Neck/C-Spine: COMMON NORMALS: supple Lymph: LYMPHATIC: no lymphadenopathy noted Resp: COMMON NORMALS: normal respiratory effort and clear to auscultation bilaterally (decreased breath sounds in bases) AUSCULTATION: clear to auscultation bilaterally (decreased breath sounds in bases) Cardio: COMMON NORMALS: No gallops present (Cardio) and No murmurs present (Cardio) RATE: bradycardic (at times) GI: COMMON NORMALS: Soft to palpation, non-tender and no masses PALPATION: Yes Soft to palpation Extremity: GENERAL: Yes edema (BL LE) Neuro: COMMON NORMALS: patient oriented x3 and CN's II-XII intact bilaterally SENSORIUM/ORIENTATION: Yes alert Psych: COMMON NORMALS: mental status grossly normal and Normal thought process present THOUGHT PROCESS: Normal thought process present Urinary Catheter Management: Ornelas: Cath Placed During This Visit: yes Urinary Catheter Date of Insertion: 03/29/25 Data 03/30/25 03:16 03/30/25 03:16 Micro: Microbiology 03/29/25 14:29 Blood Culture - Preliminary Blood SPECIMEN COLLECTED 03/29/25 14:10 Blood Culture - Preliminary Blood SPECIMEN COLLECTED A&P Assessment and plan 1. Pleural effusion: 2. Thrombocytopenia: 3. Anemia: Plan: 89 year old female presenting with worsening SOB. Worsening SOB Acute hypoxic respiratory failure - likely 2/2 fluid overload - recently finished ABx for pneumonia, xray not expected to clear up from PNA for 4-6 weeks. - xray from 02/08 and today with lung nodule in right peripheral mid lung 13x15 mm - Ornelas in place for diuresis - cont. IV lasix 40 mg BID - she is on O2 in [place], cont. here - CT chest with contrast ordered for further evaluation of pulmonary nodule - recently completed course of abx, monitor off abx Chronic pain - on 40 mme/day hydrocodone which can be sedating - cont. home bowel regimen Elevated BNP Episodes of bradycardia - hold BB - no history of heart failure - get echo Thrombocytopenia - recently seen by oncology/hematology for this, determined to be stress related - resolved since and now low again for this admission - monitor, improved this AM. PPx: SCDs, lovenox Diet: HH Disposition - PT/OT/CM for discharge planning - cont. home meds - full code - pending CT chest w/ contrast. cardiac echo. PDMP PDMP Reviewed: Not Reviewed Attestations 2 Medical Necessity Statement*: Anticipate patient requiring > 2 midnights inpatient care for acute hypoxic respiratory failure, fluid overload, evaluation of chest lesion, weakness. Time Spent in Patient Care: 16 - 35 minutes Coding Level of Care Code Acute Code for Chg Fwd Diagnoses Pleural effusion J90 Thrombocytopenia D69.6 Anemia D64.9
--- NOTE | 2025-03-30 10:29 | PC.NURSE ---
Patient IV access established in the right leg per physician. Patient has CT scan with contrast ordered and the IV access present at this time will not be compatible for contrast. Attempts for peripheral access in upper arms have failed. Patients family said Stop. This is causing too much pain and is not worth it. Patient and family both say they do not wish to have CT. They said that if the mass in her lung was malignant they would not seek treatment or biopsies. Physician notified. Case management will be notified regarding possible hospice consult/
--- NOTE | 2025-03-30 13:20 | PC.OT ---
Patient placed on palliative care, D/C OT services per Dr Gama
[2025-03-30] MEDS: HYDROcodone-acetaminophen 10-325 mg Tablet 1 TAB PO ×2 (15:21→20:58)
[2025-03-30 16:00] VITALS: BP 133/66; PULSE 66; RESP 16; TEMP 36.7; O2SAT 97
[2025-03-30 20:00] VITALS: BP 115/50; PULSE 65; PULSE 73; RESP 23; TEMP 36.6; O2SAT 100; O2SAT 98
[2025-03-31] VITALS (10 sets, daily range): BP systolic 102–150; BP diastolic 52–99; PULSE 59–92; RESP 16–28; TEMP 36.2–37.2; O2SAT 94–98
[2025-03-31 02:05] LABS: Hematocrit 31.5 % (36-47); Hemoglobin 9.80 g/dL (11.27-16.99); Mean Corpuscular HGB Conc 31.1 g/dL (30-55); Mean Corpuscular Hemoglobin 31.9 pg (27-33); Mean Corpuscular Volume 102.6 fl (85-98); Nucleated Red Blood Cells % 0 %; Platelet Count 127 10^3/cmm (157-399); Red Blood Count 3.07 10^6/uL (3.85-5.65); White Blood Count 4.21 10^3/uL (3.29-11.43)
[2025-03-31 02:24] LABS: Anion Gap 12.6 (5-19); Blood Urea Nitrogen 14 mg/dL (8-23); Calcium 8.2 mg/dL (8.5-10.5); Carbon Dioxide 33 mmol/L (22-29); Chloride 99 mmol/L (98-107); Creatinine Clr Calc Pharmacy 59.0484; Glucose 91 mg/dL (65-115); Osmolality Calculated 292 mOsm/kg (285-295); Potassium 3.6 mmol/L (3.5-5.1); Sodium 141 mmol/L (136-145)
[2025-03-31] MEDS: FUROsemide 10 mg/mL SDV 4mL 40 MG IVP ×2 (03:12→17:12)
--- NOTE | 2025-03-31 08:20 | CT_ITS ---
WS: [id number] CT CHEST TECHNIQUE: Noncontrast CT of the chest with coronal and sagittal reformatted images. CLINICAL INFORMATION: evaluate large pulmonary nodule in right COMPARISON: CTA 12/15/2024 DLP: 505.[address] scans at [facility] use at least one of these dose optimization techniques: automated exposure control; mA and/or kV adjustment per patient size (includes targeted exams where dose is matched to clinical indication); or iterative reconstruction. FINDINGS: Compressive atelectasis in the lingula and LEFT lower lobe. Small LEFT pleural effusion. Moderate RIGHT pleural effusion with compressive atelectasis RIGHT lower lobe. RIGHT upper lobe is well aerated. LEFT upper lobe is well aerated. No visualized endobronchial lesions. No RIGHT upper lobe mass to correspond to the radiograph findings Normal caliber thoracic aorta. Aortic calcification. Coronary calcification. No mediastinal or hilar lymphadenopathy visualized. Extensive postoperative changes of thoracolumbar fusion. Osteopenia. Small esophageal hiatal hernia. Thickening of the LEFT adrenal gland is unchanged. Prior cholecystectomy. Moderate thoracic kyphosis. Chronic anterior wedging at T7. Decompressed of laminectomies. CT/CT chest wo con [id number] IMPRESSION: 1. Moderate RIGHT pleural effusion with compressive atelectasis RIGHT lower lo be. RIGHT upper lobe is well aerated. 2. Tiny LEFT pleural effusion with subsegmental atelectasis in the lingula and LEFT lower lobe. 3. Extensive thoracolumbar fusion with osteopenia and kyphosis previously desc ribed. 4. Cardiomegaly. 5. No other acute findings. Notified Silvino Rubalcava MD at 03/31/2025 9:03 AM.
[2025-03-31] MEDS: HYDROcodone-acetaminophen 10-325 mg Tablet 1 TAB PO ×2 (09:16→17:26)
--- NOTE | 2025-03-31 10:42 | US_ITS ---
WS: [id number] ULTRASOUND-GUIDED THORACENTESIS, RIGHT HISTORY: moderate/large R pleural effusion Procedure, risks, and complications were explained to the patient. With the patient in an upright position, the skin over the RIGHT posterior thorax was cleansed with ChloraPrep and anesthetized with 1% buffered lidocaine. A 5 [place] Yueh needle is inserted into the pleural fluid without complication. Approximately 1000 cc of clear pleural fluid is removed without difficulty. / thoracentesis [id number] IMPRESSION: 1. RIGHT thoracentesis yielding 1000 cc of fluid. 2. Chest radiograph to follow to evaluate for pneumothorax.
--- NOTE | 2025-03-31 10:57 | P.PN_ITS ---
Subjective 2 Subjective: ongoing fatigue Vitals/I&O/Wt Last Vital Signs Temp 97.1 F L 03/31/25 08:00 Pulse 69 03/31/25 08:50 Resp 18 03/31/25 08:00 BP 127/57 03/31/25 08:00 Pulse Ox 96 03/31/25 08:50 O2 Del Method Nasal Cannula 03/31/25 08:50 O2 Flow Rate 2 03/31/25 08:50 03/30/25 03/31/25 03/31/25 22:59 06:59 14:59 Intake Total 100 / 820 360 / 1180 60 / 60 Output Total 1450 / 2850 1000 / 3850 Balance -1350 / -2030 -640 / -2670 60 / 60 Weight last 48 hrs Weight 88.949 kg Weight 89.947 kg Weight 90.718 kg Weight 90.718 kg Physical Exam 2 Const: COMMON NORMALS: patient oriented x3 and alert NUTRITIONAL APPEARANCE: overweight HENMT: COMMON NORMALS: normocephalic and atraumatic HEAD & SCALP: n ormocephalic and atraumatic Eye: COMMON NORMALS: Equal, round and reactive pupils present PUPIL: Yes Equal, round and reactive pupils present Neck/C-Spine: COMMON NORMALS: supple Lymph: LYMPHATIC: no lymphadenopathy noted Resp: COMMON NORMALS: normal respiratory effort and clear to auscultation bilaterally (decreased breath sounds in bases) AUSCULTATION: clear to auscultation bilaterally (decreased breath sounds in bases) Cardio: COMMON NORMALS: No gallops present (Cardio) and No murmurs present (Cardio) RATE: bradycardic (at times) GI: COMMON NORMALS: Soft to palpation, non-tender and no masses PALPATION: Yes Soft to palpation Extremity: GENERAL: Yes edema (BL LE) Neuro: COMMON NORMALS: patient oriented x3 and CN's II-XII intact bilaterally SENSORIUM/ORIENTATION: Yes alert Psych: COMMON NORMALS: mental status grossly normal and Normal thought process present THOUGHT PROCESS: Normal thought process present Urinary Catheter Management: Ornelas: Cath Placed During This Visit: yes Urinary Catheter Date of Insertion: 03/29/25 Data 03/31/25 01:51 03/31/25 01:51 Micro: Microbiology 03/29/25 14:29 Blood Culture - Preliminary Blood NEGATIVE TO DATE 03/29/25 14:10 Blood Culture - Preliminary Blood NEGATIVE TO DATE A&P Assessment and plan 1. Pleural effusion: 2. Thrombocytopenia: Plan: 89 year old female presenting with worsening SOB. Worsening SOB Acute hypoxic respiratory failure - likely 2/2 fluid overload - recently finished ABx for pneumonia, xray not expected to clear up from PNA for 4-6 weeks. - xray from 02/08 and today with lung nodule in right peripheral mid lung 13x15 mm - Ornelas in place for diuresis - cont. IV lasix 40 mg BID - she is on O2 in NH, cont. here - CT chest with contrast ordered for further evaluation of pulmonary nodule - unable to administer contrast 2/2 poor access, patient refusing further attempts or more robust line placement. - CT without contrast was completed and did not show suspicion for a mass lesion. moderate to large right pleural effusion noted - recently completed course of abx, monitor off abx - effusion likely from prior recent pneumonia and relative inactivity - thoracentesis US ordered as palliative measure - labs ordered, if fluid is exudative in nature, likely from pneumonia and no further work up is indicated, otherwise, can discuss with patient and family further, however they have indicated that they would not want to pursue further evaluation/treatment. - xray in AM New onset Afib - no prior history of afib, not on AC - rate not elevated - follow up with cardiology as OP. Chronic pain - on 40 mme/day hydrocodone which can be sedating - cont. home bowel regimen Elevated BNP Episodes of bradycardia - hold BB - no history of heart failure - echo with normal EF, afib during exam Thrombocytopenia - recently seen by oncology/hematology for this, determined to be stress related - resolved since and now low again for this admission - monitor, improved this AM. PPx: SCDs, hold for possible thoracentesis Diet: HH Disposition - PT/OT/CM for discharge planning - cont. home meds - full code - thoracentesis US ordered, xray in AM. PDMP PDMP Reviewed: Not Reviewed Attestations 2 Medical Necessity Statement*: Anticipate > 2 midnights for pleural effusion, thoracentesis Time Spent in Patient Care: 16 - 35 minutes Coding Level of Care Code Acute Code for Chg Fwd Diagnoses Pleural effusion J90 Thrombocytopenia D69.6
[2025-03-31 12:59] LABS: INR 1.23 (0.8-1.2); Prothrombin Time 16.40 SECONDS (12.1-14.9)
[2025-03-31 13:46] LABS: Appearance, Pleural Fluid CLOUDY (CLEAR); Color, Pleural Fluid Pale Yellow (Pale Yellow)
[2025-03-31 13:50] LABS: Cyto Order Verification Order Verified; PATH Referral YES
[2025-03-31 13:52] LABS: Mononuclear %, Pleural Fluid 84 %; Mononuclear, Pleural Fluid # 0.589 10^3/uL; Polynuclear Cells, Pleural # 0.111 10^3/uL; Polynuclear Cells, Pleural % 16 %; WBC Pleural Fluid 700.000 /uL (0-1000)
--- NOTE | 2025-03-31 14:05 | XR_ITS ---
WS: [id number] PORTABLE CHEST HISTORY: post thoracentesis, RIGHT COMPARISON: 03/29/2025 Significant improvement in aeration of the RIGHT lung since the prior study. No pneumothorax status post RIGHT thoracentesis. There is a small residual RIGHT pleural effusion. Mild hazy attenuation at the RIGHT apex may be edema. Small bilateral pleural effusions. Cardiac size: Normal. Mediastinum/Aorta: Mild atherosclerosis aorta. Extensive thoracolumbar fusion hardware. XR/XR chest 1V portable [id number] IMPRESSION: 1. No pneumothorax status post RIGHT thoracentesis. 2. Small residual RIGHT pleural effusion.
[2025-03-31 14:08] LABS: Pleural Fluid Cholesterol 33 mg/dL; Pleural Fluid Triglycerides 29 mg/dL
[2025-03-31 14:41] LABS: Right Pleural Fluid Right Lung
--- NOTE | 2025-03-31 17:15 | SUR.PREOP ---
PICC NOTE MD discussion. Patient no longer requires MIDLINE placement. Orders cancelled. Noted. Discussion from CSU rn and ORDERING md.
[2025-03-31] MEDS: polyethylene glycol 3350 Pkt 17 gm PO (17:27)
[2025-04-01 04:21] VITALS: BP 131/67; PULSE 70; RESP 17; O2SAT 96
[2025-04-01] MEDS: FUROsemide 10 mg/mL SDV 4mL 40 MG IVP (05:17)
[2025-04-01 05:51] VITALS: PULSE 75
[2025-04-01 07:43] VITALS: BP 142/72; PULSE 82; RESP 13; TEMP 36.4; O2SAT 97
[2025-04-01 07:45] VITALS: PULSE 75; O2SAT 96
[2025-04-01] MEDS: HYDROcodone-acetaminophen 10-325 mg Tablet 1 TAB PO (08:52)
--- NOTE | 2025-04-01 09:36 | XR_ITS ---
WS: [id number] PORTABLE CHEST HISTORY: follow up post thoracenetesis COMPARISON: 03/31/2025 Well-aerated lungs. Very tiny residual RIGHT pleural effusion. There is mild interstitial thickening throughout both lungs which may be due to edema. The edema within the RIGHT lung appears more prominent. There is no dense consolidation. No pneumothorax. Cardiac size: Normal. Mediastinum/Aorta: Mild atherosclerosis aorta. Extensive thoracolumbar fusion hardware. XR/XR chest 1V portable [id number] IMPRESSION: 1. No pneumothorax. 2. Small RIGHT pleural effusion. No change since the prior study. 3. Mild prominence of the interstitium in the RIGHT lung. Small amount of flui d overload suspected.
--- NOTE | 2025-04-01 09:44 | PC.SOCIAL ---
IMM Update pg 2 of IMM Updated and reviewed w/ patient. Copy provided and copy dated, initialed and placed in chart.
[2025-04-01 09:53] LABS: SARS Covid-2 Antigen Negative (Negative)
--- NOTE | 2025-04-01 10:10 | P.DS_ITS ---
Discharge Providers Date of Admission: 03/29/25 14:09 Date of Discharge: April 01, 2025 Attending Provider at Admission: Silvino Rubalcava MD Attending Provider at Discharge: Silvino Rubalcava MD Primary Care Provider: Britton Vu DO Diagnoses at Discharge Discharge Diagnosis 1. Pleural effusion: 2. Thrombocytopenia: Reason for Visit Reason for Visit: SOB, malaise Brief History: 89 year old female presenting with worse christoph SOB. Hospital Course Hospital Course Worsening SOB Acute hypoxic respiratory failure - likely 2/2 fluid overload - recently finished ABx for pneumonia, xray not expected to clear up from PNA for 4-6 weeks. - recently completed course of abx, monitor off abx - xray from 02/08 and today with concern for lung nodule in right peripheral mid lung 13x15 mm - Ornelas in place for diuresis, D/C prior to discharge. - cont. IV lasix 40 mg BID while inpatient. - she is on O2 in NH, cont. here - CT chest with contrast ordered for further evaluation of pulmonary nodule - unable to administer contrast 2/2 poor access, patient refusing further attempts or more robust line placement. - CT without contrast was completed and did not show suspicion for a mass lesion. moderate to large right pleural effusion noted - effusion likely from prior recent pneumonia and relative inactivity - thoracentesis US ordered as palliative measure, 1L of clear fluid from right - follow up xray without pneumothorax - AM xray pending - light's criteria suggests transudative effusion, likely from pneumonia and no further work up is indicated. New onset Afib - no prior history of afib, not on AC - rate not elevated - can start eliquis at 2.5 mg BID for age - follow up with cardiology as OP. - discussed with cardiology as inpatient. - afib may resolve with improvement in her lung function from recent pneumonia. Chronic pain - on 40 mme/day hydrocodone which can be sedating - cont. home bowel regimen Elevated BNP Episodes of bradycardia - hold BB - no history of heart failure - echo with normal EF, afib during exam Thrombocytopenia - recently seen by oncology/hematology for this, determined to be stress related - resolved since and now low again for this admission - monitor, continues to improve. PPx: SCDs, AC held for thoracentesis Diet: HH Disposition - PT/OT/CM for discharge planning - cont. home meds - she was changed to CONST[facility]ZA skinner admission, discussed with patient and family. - discharge planning for today after follow up xray if no issues. - palliative care after discharge. Physical Exam Const: COMMON NORMALS: patient oriented x3 and alert NUTRITIONAL APPEARANCE: overweight HENMT: COMMON NORMALS: normocephalic and atraumatic HEAD & SCALP: normocephalic and atraumatic Eye: COMMON NORMALS: Equal, round and reactive pupils present PUPIL: Yes Equal, round and reactive pupils present Neck/C-Spine: COMMON NORMALS: supple Lymph: LYMPHATIC: no lymphadenopathy noted Resp: COMMON NORMALS: normal respiratory effort and clear to auscultation bilaterally (decreased breath sounds in bases) AUSCULTATION: clear to auscultation bilaterally (decreased breath sounds in bases) OTHER: breath sounds present in apices bilaterally Cardio: COMMON NORMALS: No gallops present (Cardio) and No murmurs present (Cardio) RATE: bradycardic (at times) GI: COMMON NORMALS: Soft to palpation, non-tender and no masses PALPATION: Yes Soft to palpation Extremity: GENERAL: Yes edema (BL LE) Neuro: COMMON NORMALS: patient oriented x3 and CN's II-XII intact bilaterally SENSORIUM/ORIENTATION: Yes alert Psych: COMMON NORMALS: mental status grossly normal and Normal thought process present THOUGHT PROCESS: Normal thought process present Urinary Catheter Management: Ornelas: Cath Placed During This Visit: yes Reason for Continuing Indwelling Catheter: Other Urinary Catheter Date of Insertion: 03/29/25 Discharge Data Studies Completed and Pending Completed Studies During Hospitalization Category Date Time Status CT chest wo con [id number] Routine Cat Scan 03/31/25 08:20 Completed XR chest 1V portable [id number] Stat Exams 03/29/25 12:03 Completed XR chest 1V portable [id number] Stat Exams 03/31/25 14:05 Completed CV. echo complete* [id number] Routine Ultrasound 03/29/25 15:40 Completed US thoracentesis [id number] Routine Ultrasound 03/31/25 10:42 Completed Pending at discharge Category Date Time Status XR chest 1V portable [id number] Routine Exams 04/01/25 09:36 Ordered Amylase, Pleural Fluid Routine Lab 03/31/25 10:51 Received Blood Culture Stat Lab 03/29/25 14:29 Results Cytology [PTH] Routine Pth 03/31/25 10:51 Received Radiology Impressions Chest CT 03/31/25 08:20 IMPRESSION: 1. Moderate RIGHT pleural effusion with compressive atelectasis RIGHT lower lobe. RIGHT upper lobe is well aerated. 2. Tiny LEFT pleural effusion with subsegmental atelectasis in the lingula and LEFT lower lobe. 3. Extensive thoracolumbar fusion with osteopenia and kyphosis previously described. 4. Cardiomegaly. 5. No other acute findings. Notified Silvino Rubalcava MD at 03/31/2025 9:03 AM. Thoracentesis Ultrasound 03/31/25 10:42 IMPRESSION: 1. RIGHT thoracentesis yielding 1000 cc of fluid. 2. Chest radiograph to follow to evaluate for pneumothorax. Chest X-Ray 03/31/25 14:05 IMPRESSION: 1. No pneumothorax status post RIGHT thoracentesis. 2. Small residual RIGHT pleural effusion. Laboratory Results WBC 4.21 10^3/uL (3.29-11.43) 03/31/25 01:51 RBC 3.07 10^6/uL (3.85-5.65) L 03/31/25 01:51 Hgb 9.80 g/dL (11.27-16.99) L 03/31/25 01:51 Hct 31.5 % (36-47) L 03/31/25 01:51 MCV 102.6 fl (85-98) H 03/31/25 01:51 MCH 31.9 pg (27-33) 03/31/25 01:51 MCHC 31.1 g/dL (30-55) 03/31/25 01:51 RDW 14.9 % (12.1-15.1) 03/31/25 01:51 Plt Count 127 10^3/cmm (157-399) L 03/31/25 01:51 MPV 9.8 fL (7.4-10.4) 03/31/25 01:51 Neut % (Auto) 37.5 % 03/31/25 01:51 Lymph % (Auto) 49.4 % 03/31/25 01:51 [place] % (Auto) 10.5 % 03/31/25 01:51 Eos % (Auto) 2.4 % 03/31/25 01:51 Baso % (Auto) 0.2 % 03/31/25 01:51 Neut # (Auto) 1.58 10^3/uL (1.8-7.7) L 03/31/25 01:51 Lymph # (Auto) 2.1 10^3/uL (0.8-4.8) 03/31/25 01:51 [place] # (Auto) 0.4 10^3/uL (0.2-0.9) 03/31/25 01:51 Eos # (Auto) 0.1 10^3/uL (0.0-0.8) 03/31/25 01:51 Baso # (Auto) 0.0 10^3/uL (0.0-0.1) 03/31/25 01:51 Nucleated RBC % (auto) 0 % 03/31/25 01:51 Total Counted Cancelled 03/31/25 10:51 Nucleated RBCs # 0.0 /100WBC 03/31/25 01:51 PT 16.40 SECONDS (12.1-14.9) H 03/31/25 11:45 INR 1.23 (0.8-1.2) H 03/31/25 11:45 Sodium 141 mmol/L (136-145) 03/31/25 01:51 Potassium 3.6 mmol/L (3.5-5.1) 03/31/25 01:51 Chloride 99 mmol/L (98-107) 03/31/25 01:51 Carbon Dioxide 33 mmol/L (22-29) H 03/31/25 01:51 Anion Gap 12.6 (5-19) 03/31/25 01:51 BUN 14 mg/dL (8-23) 03/31/25 01:51 Creatinine 0.8 mg/dL (0.5-0.9) 03/31/25 01:51 GFR Calculation Not Reportable 03/31/25 01:51 Glucose 91 mg/dL (65-115) 03/31/25 01:51 Calculated Osmolality 292 mOsm/kg (285-295) 03/31/25 01:51 Calcium 8.2 mg/dL (8.5-10.5) L 03/31/25 01:51 Total Bilirubin 0.4 mg/dL (0.15-1.2) 03/29/25 12:34 AST 19 U/L (0-32) 03/29/25 12:34 ALT 10 U/L (0-33) 03/29/25 12:34 Alkaline Phosphatase 97 U/L (35-105) 03/29/25 12:34 Lactate Dehydrogenase 182 U/L (135-214) 03/31/25 01:51 Troponin T Baseline 27 ng/L (0-10) H 03/29/25 12:10 Troponin T 120 Minute 23.93 ng/L (0-10) H 03/29/25 14:05 Delta Troponin T -3.07 ABS# (0-10) L 03/29/25 14:05 Troponin T Hi Sens 6Hr 23.61 ng/L (0-10) H 03/29/25 17:53 Troponin T Hi Sens 6Hr Delta -3.39 ng/L (0-12) L 03/29/25 17:53 NT-Pro-B Natriuret Pep 8272 pg/mL (0-450) H 03/29/25 12:34 Total Protein 7.3 g/dL (6.6-8.7) 03/29/25 12:34 Albumin 3.6 g/dL (3.5-5.2) 03/29/25 12:34 Globulin 3.7 g/dL (1.3-4.6) 03/29/25 12:34 Fld [place] Laterality Not Reportable 03/31/25 10:51 Pleural Color Pale yellow (Pale Yellow) 03/31/25 10:51 Pleural Appearance Cloudy (CLEAR) 03/31/25 10:51 Pleural pH 7.50 (6.5-7.5) 03/31/25 10:51 Pleural WBC 700.000 /uL (0-1000) 03/31/25 10:51 Pleural RBC 1.000 10^3/uL 03/31/25 10:51 Pleural Mononuc # Auto 0.589 10^3/uL 03/31/25 10:51 Pleural Other Cells Cancelled 03/31/25 10:51 Pleural Polynuclear % 16 % 03/31/25 10:51 Pleural Polynuclear # 0.111 10^3/uL 03/31/25 10:51 Pleural Mononuclear % 84 % 03/31/25 10:51 Pleural Other Cells Rt Right lung 03/31/25 10:51 Pleural Total Protein 2.3 g/dL 03/31/25 10:51 Pleural Albumin 1.5 g/dL 03/31/25 10:51 Pleural LDH 65 U/L 03/31/25 10:51 Pleural Cholesterol 33 mg/dL 03/31/25 10:51 Pleural Triglycerides 29 mg/dL 03/31/25 10:51 SARS-CoV-2 Ag (Rapid) Negative (Negative) 04/01/25 08:25 Path Cons w/Slide Cancelled 03/31/25 10:51 Pathology Message Yes 03/31/25 10:51 Vitals Last Vital Signs Temp 97.6 F 04/01/25 07:43 Pulse 75 04/01/25 07:45 Resp 13 04/01/25 07:43 BP 142/72 04/01/25 07:43 Pulse Ox 96 04/01/25 07:45 O2 Del Method Nasal Cannula 04/01/25 07:45 O2 Flow Rate 2 04/01/25 07:45 Discharge Plan Discharge Patient Disposition: Home Condition: Stable Prescriptions: New Eliquis 2.5 mg tablet 2.5 mg PO BID Qty: 60 2RF Continued midodrine 5 mg tablet 2.5 mg PO BID Rx Instructions: Hold for Systolic of more than 140 mmhg acetaminophen 325 mg Tablet 650 mg PO QID PRN (Reason: Pain) magnesium hydroxide [Milk of Magnesia] 400 mg/5 mL Suspension 30 ml PO DAILY PRN (Reason: Constipation) bisacodyl [Dulcolax (bisacodyl)] 10 mg Suppository 10 mg UT DAILY PRN (Reason: Constipation) Fleet Enema 19-7 gram/118 mL Enema 118 ml UT DAILY PRN (Reason: Constipation) cyanocobalamin (vitamin B-12) [Vitamin B-12] 1,000 mcg Tablet 2,000 mcg PO DAILY polyethylene glycol 3350 [Miralax] 17 gram/dose Powder 17 g PO DAILY PRN (Reason: Constipation) PreserVision AREDS-2 250-90-40-1 mg Capsule 1 tab PO BID docusate sodium 100 mg Capsule 100 mg PO BID fluticasone propionate [Flonase] 50 mcg/actuation [place],Suspension 1 spray INTRANASAL DAILY PRN (Reason: ALLERGIES) Rx Instructions: administer into each nostril sertraline [Zoloft] 50 mg Tablet 50 mg PO DAILY metoprolol tartrate 25 mg Tablet 25 mg PO BID calcium carbonate [Tums] 200 mg calcium (500 mg) tablet,chewable 1,000 mg PO Q4H PRN (Reason: DYSPEPSI) Culturelle 10 billion cell Capsule 1 cap PO DAILY PRN (Reason: ANTIBIOTICS) melatonin 1 mg Tablet 1 mg PO BEDTIME Systane Complete 0.6 % Drops 1 - 2 drp OPHTHALMIC (EYE) DAILY PRN (Reason: Dry Eyes) lactulose 10 gram/15 mL solution 30 ml PO DAILY PRN (Reason: Constipation) hydrocodone-acetaminophen 10-325 mg tablet 1 tab PO Q6H PRN (Reason: Pain) 7 Days Qty: 28 0RF Referrals: Britton Vu DO [Primary Care Provider, Internal Medicine] Patient Instructions: Opioid Safety, Pain Management, Patient Portal & Mary Instructions Discharge Attestations Time Spent in Discharge Care*: greater than 30 min Status at Discharge: Cognitive status at discharge: cognitively intact , Behavioral status at discharge: cooperative , Quality Metrics Clinical Quality Measures [ No reported AMI, CVA or VTE this stay] Coding Level of Care Code Acute Code for Chg Fwd Diagnoses Pleural effusion J90 Thrombocytopenia D69.6
[2025-04-01 11:41] VITALS: BP 128/65; PULSE 78; RESP 19; TEMP 36.4; O2SAT 98
--- NOTE | 2025-04-01 13:02 | PC.NURSE ---
report called to [facility] unit on the pt's discharge disposition. [facility] transport will pick her up via stretcher.
--- NOTE | 2025-04-01 13:12 | PC.NURSE ---
[facility] give ETA around 20 to 30 mins transport apple picker time back to [facility].
--- NOTE | 2025-04-01 13:57 | PC.NURSE ---
notified family that pt is on her way back to [facility] pt's personal belongings were sent with her granddaughter this morning.
[2025-04-03 22:54] LABS: Amylase, Pleural Fluid 38 U/L
== END 2025-04-01 14:02 | disposition intermediate care facility (04) | DRG 186 ==
LOC: ER 15:03 → CSU 15:15
PROVIDERS: Admitting Provider Internal Medicine; Emergency Provider Emergency Medicine; PCP Internal Medicine; Visit Provider Internal Medicine
DX: J90 Pleural effusion, not elsewhere classified (principal); J96.01 Acute respiratory failure with hypoxia; D69.6 Thrombocytopenia, unspecified; R91.8 Other nonspecific abnormal finding of lung field; I48.91 Unspecified atrial fibrillation; G89.29 Other chronic pain; M54.9 Dorsalgia, unspecified; R00.1 Bradycardia, unspecified; I10 Essential (primary) hypertension; G60.9 Hereditary and idiopathic neuropathy, unspecified; F32.A Depression, unspecified; Z87.01 Personal history of pneumonia (recurrent); Z86.16 Personal history of COVID-19
CPT/HCPCS: 32555; 36415; 51702; 71045; 71250; 80048; 80053; 80503; 82042; 82150; 82465; 83615; 83880; 83986; 84157; 84478; 84484; 85025; 85610; 87040; 87426; 88112; 88305; 89050; 93005; 93306; 96365; 96372; 96375; 99285; J0456; J0696; J1650; J1938; J7050; J9999